=== PATIENT | male | born 1950 | race Hispanic/Latino ===

== ENCOUNTER 2020-08-06 13:09 | Inpatient (IN) | payer MEDICARE ==
[2020-08-06] MEDS ORDERED: SODIUM CHLORIDE 0.9% 1000 ML IV SOLN IV ONE (13:47)
[2020-08-06] MEDS ORDERED: CEFEPIME/NS 1 GM/100 ML 1 GM/100 ML BAG IV ONE (13:49)
--- NOTE | 2020-08-06 14:23 | XRay Report ---
CHEST 1 VIEW 08/06/2020 1:15 PM INDICATION / CLINICAL INFORMATION: Hypertension. COMPARISON: Chest one view dated 11/08/2008. FINDINGS: SUPPORT DEVICES: Unremarkable biventricular left ICD. HEART / MEDIASTINUM: Normal heart size with moderate aortic atherosclerosis. LUNGS / PLEURA: Clear lungs with reduced volumes. No significant pleural effusion. No pneumothorax. ADDITIONAL FINDINGS: No significant additional findings. IMPRESSION: 1. No acute abnormality of the chest. Signer Name: Jan Colón MD Signed: 08/06/2020 2:19 PM Workstation Name: [id number]
--- NOTE | 2020-08-06 14:36 | Emergency Department Report ---
ED General Adult HPI - General Chief complaint: Weakness Stated complaint: WEAKNESS,NOT EATING,NOT DRINKING Time Seen by Provider: 08/06/20 13:31 Source: EMS Mode of arrival: Stretcher Limitations: No Limitations - History of Present Illness Initial comments: The patient presents to the emergency department with a chief complaint of feeling weak for the last 3 days as well as having a cough. Upon initial presentation to the emergency department the patient's blood pressure was 76/58. Patient states he cannot eat and is also cannot swallow because he so dry. Patient denies chest pain, shortness breath, or headache. Patient also denies abdominal pain. -: Gradual Severity scale (0 -10): 0 Consistency: constant Improves with: none Worsens with: none Associated Symptoms: denies other symptoms Treatments Prior to Arrival: none - Related Data Allergies Allergy/AdvReac Type Severity Reaction Status Date / Time tetanus and diphtheria AdvReac Unknown Verified 08/06/20 14:20 toxoids ED Review of Systems ROS: Stated complaint: WEAKNESS,NOT EATING,NOT DRINKING Other details as noted in HPI Constitutional: denies: chills, fever Eyes: denies: eye pain, eye discharge, vision change ENT: denies: ear pain, throat pain Respiratory: denies: cough, shortness of breath, wheezing Cardiovascular: denies: chest pain, palpitations Endocrine: no symptoms reported Gastrointestinal: denies: abdominal pain, nausea, diarrhea Genitourinary: denies: urgency, dysuria Musculoskeletal: denies: back pain, joint swelling, arthralgia Skin: denies: rash, lesions Neurological: weakness. denies: headache, paresthesias Psychiatric: denies: anxiety, depression Hematological/Lymphatic: denies: easy bleeding, easy bruising ED Past Medical Hx - Past Medical History Previous Medical History?: Yes Hx Congestive Heart Failure: Yes - Social History Smoking Status: Current Some Day Smoker Substance Use Type: Alcohol ED Physical Exam - General Limitations: No Limitations General appearance: alert, in no apparent distress - Head Head exam: Present: atraumatic, normocephalic - Eye Eye exam: Present: normal appearance - ENT ENT exam: Present: mucous membranes dry - Neck Neck exam: Present: normal inspection - Respiratory Respiratory exam: Present: normal lung sounds bilaterally. Absent: respiratory distress, wheezes, rales - Cardiovascular Cardiovascular Exam: Present: regular rate, normal rhythm. Absent: systolic murmur, diastolic murmur, rubs, gallop - GI/Abdominal GI/Abdominal exam: Present: soft, normal bowel sounds. Absent: distended, ten derness - Rectal Rectal exam: Present: deferred - Extremities Exam Extremities exam: Present: normal inspection - Back Exam Back exam: Present: normal inspection - Neurological Exam Neurological exam: Present: alert, oriented X3, CN II-XII intact. Absent: motor sensory deficit - Psychiatric Psychiatric exam: Present: normal affect, normal mood - Skin Skin exam: Present: warm, dry, intact, other (Jaundice). Absent: rash ED Course Vital Signs 08/06/20 08/06/20 08/06/20 13:23 13:37 13:45 Temperature 98.2 F Pulse Rate 88 Respiratory 20 Rate Blood Pressure 106/78 70/36 77/34 O2 Sat by Pulse 97 92 91 Oximetry 08/06/20 08/06/20 08/06/20 14:00 14:15 14:31 Temperature Pulse Rate 84 80 74 Respiratory 32 H 14 30 H Rate Blood Pressure 84/42 84/42 76/35 O2 Sat by Pulse 93 93 93 Oximetry 08/06/20 08/06/20 08/06/20 14:45 15:00 15:15 Temperature Pulse Rate 80 78 72 Respiratory 25 H 26 H 20 Rate Blood Pressure 85/35 80/30 80/30 O2 Sat by Pulse 93 92 92 Oximetry 08/06/20 08/06/20 08/06/20 15:31 15:45 16:00 Temperature Pulse Rate 78 79 72 Respiratory 22 12 20 Rate Blood Pressure 90/34 93/39 100/34 O2 Sat by Pulse 91 92 91 Oximetry 08/06/20 08/06/20 08/06/20 16:15 16:31 16:45 Temperature Pulse Rate 75 75 81 Respiratory 12 26 H 31 H Rate Blood Pressure 100/34 88/32 105/43 O2 Sat by Pulse 91 95 Oximetry 08/06/20 08/06/20 08/06/20 17:30 18:31 19:00 Temperature Pulse Rate 78 79 Respiratory 16 30 H 22 Rate Blood Pressure 82/19 90/38 O2 Sat by Pulse 97 92 91 Oximetry - Central Line Placement Right Femoral Consent Obtained: emergent situation Time Out Performed: Yes Patient Placed on Monitor/Pulse Ox: Yes Prep: mask, gown, gloves Central Line Prep: Chlorhexidine scrub, sterile drapes applied Local Anesthesia Used: Lidocaine 1% Amount of Anesthesia Used (mls): 5 Ultrasound Used for Placement: No Central Line Lumen Inserted: triple Bloods Obtained for Lab: No Central Line Position: good blood return, all ports aspirated, flus, sutured in place with 2-0 Dressing Applied: Tegaderm, sterile gauze/tape Patient Tolerated Procedure: well, no complications Complications: none ED Medical Decision Making - Lab Data Result diagrams: 08/06/20 14:42 08/06/20 14:42 Lab Results 08/06/20 08/06/20 08/06/20 Range/Units 14:42 14:42 14:42 WBC 10.0 (4.5-11.0) K/mm3 RBC 4.64 (3.65-5.03) M/mm3 Hgb 13.2 (11.8-15.2) gm/dl Hct 38.0 (35.5-45.6) % MCV 82 L (84-94) fl MCH 28 (28-32) pg MCHC 35 H (32-34) % RDW 22.0 H (13.2-15.2) % Plt Count 189 (140-440) K/mm3 Add Manual Diff Complete Total Counted 100 Seg Neutrophils % Pta Seg Neuts % (Manual) 89.0 H (40.0-70.0) % Band Neutrophils % 0 % Lymphocytes % (Manual) 6.0 L (13.4-35.0) % Reactive Lymphs % (Man) 0 % Monocytes % (Manual) 5.0 (0.0-7.3) % Eosinophils % (Manual) 0 (0.0-4.3) % Basophils % (Manual) 0 (0.0-1.8) % Metamyelocytes % 0 % Myelocytes % 0 % Promyelocytes % 0 % Blast Cells % 0 % Nucleated RBC % Not Reportable Seg Neutrophils # Man 8.9 H (1.8-7.7) K/mm3 Band Neutrophils # 0.0 K/mm3 Lymphocytes # (Manual) 0.6 L (1.2-5.4) K/mm3 Abs React Lymphs (Man) 0.0 K/mm3 Monocytes # (Manual) 0.5 (0.0-0.8) K/mm3 Eosinophils # (Manual) 0.0 (0.0-0.4) K/mm3 Basophils # (Manual) 0.0 (0.0-0.1) K/mm3 Metamyelocytes # 0.0 K/mm3 Myelocytes # 0.0 K/mm3 Promyelocytes # 0.0 K/mm3 Blast Cells # 0.0 K/mm3 WBC Morphology Not Reportable Hypersegmented Neuts Not Reportable Hyposegmented Neuts Not Reportable Hypogranular Neuts Not Reportable Smudge Cells Not Reportable Toxic Granulation Not Reportable Toxic Vacuolation Not Reportable Dohle Bodies Not Reportable Pelger-Huet Anomaly Not Reportable Shady Rods Not Reportable Platelet Estimate Not Reportable Clumped Platelets Not Reportable Plt Clumps, EDTA Not Reportable Large Platelets Not Reportable Giant Platelets Not Reportable Platelet Satelliting Not Reportable Plt Morphology Comment Not Reportable RBC Morphology Not Reportable Dimorphic RBCs Not Reportable Polychromasia Not Reportable Hypochromasia Not Reportable Poikilocytosis Not Reportable Anisocytosis 1+ Microcytosis Few Macrocytosis Not Reportable Spherocytes Not Reportable Pappenheimer Bodies Not Reportable Sickle Cells Not Reportable Target Cells Not Reportable Tear Drop Cells Not Reportable Ovalocytes Not Reportable Helmet Cells Not Reportable Koroma-[place] Bodies Not Reportable [place] Rings Not Reportable [place] Cells Not Reportable Bite Cells Not Reportable Crenated Cell Not Reportable Elliptocytes Not Reportable Acanthocytes (Spur) Not Reportable Rouleaux Not Reportable Hemoglobin C Crystals Not Reportable Schistocytes Not Reportable Malaria parasites Not Reportable Theodore Bodies Not Reportable Hem Pathologist Commnt No APTT 37.2 H (24.2-36.6) Sec. Sodium 134 L (137-145) mmol/L Potassium 4.6 (3.6-5.0) mmol/L Chloride 83.6 L (98-107) mmol/L Carbon Dioxide 26 (22-30) mmol/L Anion Gap 29 mmol/L BUN 82 H (9-20) mg/dL Creatinine 4.5 H (0.8-1.3) mg/dL Estimated GFR 13 ml/min BUN/Creatinine Ratio 18 % Glucose 205 H (75-100) mg/dL Lactic Acid (0.7-2.0) mmol/L Calcium 8.4 (8.4-10.2) mg/dL Phosphorus (2.5-4.5) mg/dL Magnesium (1.7-2.3) mg/dL Total Bilirubin 9.70 H (0.1-1.2) mg/dL AST 63 H (5-40) units/L ALT 82 H (7-56) units/L Alkaline Phosphatase 263 H (35-129) units/L Total Creatine Kinase (55-170) units/L Troponin T 0.036 H (0.00-0.029) ng/mL NT-Pro-B Natriuret Pep (0-900) pg/mL Total Protein 6.4 (6.3-8.2) g/dL Albumin 3.4 L (3.9-5) g/dL Albumin/Globulin Ratio 1.1 % Lipase (13-60) units/L 08/06/20 08/06/20 08/06/20 Range/Units 14:42 14:42 14:42 WBC (4.5-11.0) K/mm3 RBC (3.65-5.03) M/mm3 Hgb (11.8-15.2) gm/dl Hct (35.5-45.6) % MCV (84-94) fl MCH (28-32) pg MCHC (32-34) % RDW (13.2-15.2) % Plt Count (140-440) K/mm3 Add Manual Diff Total Counted Seg Neutrophils % Seg Neuts % (Manual) (40.0-70.0) % Band Neutrophils % % Lymphocytes % (Manual) (13.4-35.0) % Reactive Lymphs % (Man) % Monocytes % (Manual) (0.0-7.3) % Eosinophils % (Manual) (0.0-4.3) % Basophils % (Manual) (0.0-1.8) % Metamyelocytes % % Myelocytes % % Promyelocytes % % Blast Cells % % Nucleated RBC % Seg Neutrophils # Man (1.8-7.7) K/mm3 Band Neutrophils # K/mm3 Lymphocytes # (Manual) (1.2-5.4) K/mm3 Abs React Lymphs (Man) K/mm3 Monocytes # (Manual) (0.0-0.8) K/mm3 Eosinophils # (Manual) (0.0-0.4) K/mm3 Basophils # (Manual) (0.0-0.1) K/mm3 Metamyelocytes # K/mm3 Myelocytes # K/mm3 Promyelocytes # K/mm3 Blast Cells # K/mm3 WBC Morphology Hypersegmented Neuts Hyposegmented Neuts Hypogranular Neuts Smudge Cells Toxic Granulation Toxic Vacuolation Dohle Bodies Pelger-Huet Anomaly Shady Rods Platelet Estimate Clumped Platelets Plt Clumps, EDTA Large Platelets Giant Platelets Platelet Satelliting Plt Morphology Comment RBC Morphology Dimorphic RBCs Polychromasia Hypochromasia Poikilocytosis Anisocytosis Microcytosis Macrocytosis Spherocytes Pappenheimer Bodies Sickle Cells Target Cells Tear Drop Cells Ovalocytes Helmet Cells Kor[place] Bodies [place] Rings [place] Cells Bite Cells Crenated Cell Elliptocytes Acanthocytes (Spur) Rouleaux Hemoglobin C Crystals Schistocytes Malaria parasites Theodore Bodies Hem Pathologist Commnt APTT (24.2-36.6) Sec. Sodium (137-145) mmol/L Potassium (3.6-5.0) mmol/L Chloride (98-107) mmol/L Carbon Dioxide (22-30) mmol/L Anion Gap mmol/L BUN (9-20) mg/dL Creatinine (0.8-1.3) mg/dL Estimated GFR ml/min BUN/Creatinine Ratio % Glucose (75-100) mg/dL Lactic Acid 4.60 H* (0.7-2.0) mmol/L Calcium (8.4-10.2) mg/dL Phosphorus 6.80 H (2.5-4.5) mg/dL Magnesium 1.60 L (1.7-2.3) mg/dL Total Bilirubin (0.1-1.2) mg/dL AST (5-40) units/L ALT (7-56) units/L Alkaline Phosphatase (35-129) units/L Total Creatine Kinase 240 H (55-170) units/L Troponin T (0.00-0.029) ng/mL NT-Pro-B Natriuret Pep 19203 H (0-900) pg/mL Total Protein (6.3-8.2) g/dL Albumin (3.9-5) g/dL Albumin/Globulin Ratio % Lipase 14 (13-60) units/L 08/06/20 08/06/2020 Range/Units 15:34 18:33 18:33 WBC (4.5-11.0) K/mm3 RBC (3.65-5.03) M/mm3 Hgb (11.8-15.2) gm/dl Hct (35.5-45.6) % MCV (84-94) fl MCH (28-32) pg MCHC (32-34) % RDW (13.2-15.2) % Plt Count (140-440) K/mm3 Add Manual Diff Total Counted Seg Neutrophils % Seg Neuts % (Manual) (40.0-70.0) % Band Neutrophils % % Lymphocytes % (Manual) (13.4-35.0) % Reactive Lymphs % (Man) % Monocytes % (Manual) (0.0-7.3) % Eosinophils % (Manual) (0.0-4.3) % Basophils % (Manual) (0.0-1.8) % Metamyelocytes % % Myelocytes % % Promyelocytes % % Blast Cells % % Nucleated RBC % Seg Neutrophils # Man (1.8-7.7) K/mm3 Band Neutrophils # K/mm3 Lymphocytes # (Manual) (1.2-5.4) K/mm3 Abs React Lymphs (Man) K/mm3 Monocytes # (Manual) (0.0-0.8) K/mm3 Eosinophils # (Manual) (0.0-0.4) K/mm3 Basophils # (Manual) (0.0-0.1) K/mm3 Metamyelocytes # K/mm3 Myelocytes # K/mm3 Promyelocytes # K/mm3 Blast Cells # K/mm3 WBC Morphology Hypersegmented Neuts Hyposegmented Neuts Hypogranular Neuts Smudge Cells Toxic Granulation Toxic Vacuolation Dohle Bodies Pelger-Huet Anomaly Shady Rods Platelet Estimate Clumped Platelets Plt Clumps, EDTA Large Platelets Giant Platelets Platelet Satelliting Plt Morphology Comment RBC Morphology Dimorphic RBCs Polychromasia Hypochromasia Poikilocytosis Anisocytosis Microcytosis Macrocytosis Spherocytes Pappenheimer Bodies Sickle Cells Target Cells Tear Drop Cells Ovalocytes Helmet Cells Koroma-[place] Bodies [place] Rings Panda Cells Bite Cells Crenated Cell Elliptocytes Acanthocytes (Spur) Rouleaux Hemoglobin C Crystals Schistocytes Malaria parasites Theodore Bodies Hem Pathologist Commnt APTT (24.2-36.6) Sec. Sodium (137-145) mmol/L Potassium (3.6-5.0) mmol/L Chloride (98-107) mmol/L Carbon Dioxide (22-30) mmol/L Anion Gap mmol/L BUN (9-20) mg/dL Creatinine (0.8-1.3) mg/dL Estimated GFR ml/min BUN/Creatinine Ratio % Glucose (75-100) mg/dL Lactic Acid 4.10 H* 3.60 H* (0.7-2.0) mmol/L Calcium (8.4-10.2) mg/dL Phosphorus (2.5-4.5) mg/dL Magnesium (1.7-2.3) mg/dL Total Bilirubin (0.1-1.2) mg/dL AST (5-40) units/L ALT (7-56) units/L Alkaline Phosphatase (35-129) units/L Total Creatine Kinase (55-170) units/L Troponin T 0.023 (0.00-0.029) ng/mL NT-Pro-B Natriuret Pep (0-900) pg/mL Total Protein (6.3-8.2) g/dL Albumin (3.9-5) g/dL Albumin/Globulin Ratio % Lipase (13-60) units/L - Radiology Data Radiology results: report reviewed - Medical Decision Making The patient received a 30 cc bolus per kilogram IV fluids with adequate response of his blood pressure to systolic greater than 100 Patient systolic BP been decreased to 86 and at that time a central line was placed in the patient was started on a pressor. IV antibiotics were initiated Critical Care Time: Yes Critical care time in (mins) excluding proc time.: 45 Critical care attestation.: If time is entered above; I have spent that time in minutes in the direct care of this critically ill patient, excluding procedure time. ED Disposition Clinical Impression: Hypotension, Lactic acidosis, Renal failure, Transaminitis Disposition: OP ADMIT IP TO THIS HOSP Is pt being admited?: Yes Does the pt Need Aspirin: No Condition: Stable
[2020-08-06 15:08] LABS: Hemoglobin 13.2 gm/dl (11.8-15.2); Mean Corpuscular HGB Conc 35 % (32-34); Mean Corpuscular Volume 82 fl (84-94); Platelet Count 189 K/mm3 (140-440); Red Blood Count 4.64 M/mm3 (3.65-5.03)
[2020-08-06 15:30] LABS: Albumin 3.4 g/dL (3.9-5); Calcium 8.4 mg/dL (8.4-10.2)
[2020-08-06 17:02] LABS: Anisocytosis 1+; Basophils % (Manual) 0 % (0.0-1.8); Eosinophils % (Manual) 0 % (0.0-4.3); Total Cells Counted 100
[2020-08-06] MEDS ORDERED: SODIUM CHLORIDE 0.9% 1000 ML 1,000 ML ONE (17:16)
--- NOTE | 2020-08-06 18:42 | History and Physical Report ---
History of Present Illness Chief complaint: I feel weak, tired, and sick History of present illness: 70 YO Male with CHF, Nicotine Dependence presents to ED for evaluation. Patient states that he has experienced generalized weakness over the past 3 days with progressively worsening symptoms over the past 2 days. Patient acknowledges decreased exercise tolerance, dyspnea on exertion, dyspnea at rest, orthopnea, paroxysmal nocturnal dyspnea. Patient also reports jaundice, and 20 pound weight loss within the past month. EMS notified and upon arrival the patient was found to be in distress and subsequently transported to [facility] for further care and evaluation of the aforementioned symptoms. Patient seen and evaluated in the emergency department. Lab and imaging studies reviewed. Patient found to have symptoms consistent with CHF decompensation, acute kidney injury, hepatorenal syndrome, as well as painless jaundice suspected secondary to pancreatic head mass. Patient experienced hemodynamic instability during the emergency department with a drop in his blood pressure to 76/58. Patient treated with IV fluid resuscitation therapy with mild improvement in symptoms. Patient admitted to [facility] and initiated on CHF protocol due to increased risk of multiple organ system decompensation. Past History Past Medical History: heart failure Social history: smoking Medications and Allergies Allergies Allergy/AdvReac Type Severity Reaction Status Date / Time tetanus and diphtheria AdvReac Unknown Verified 08/06/20 14:20 toxoids Home Medications Medication Instructions Recorded Confirmed Last Taken Type Metformin HCl [metFORMIN] 1,000 mg PO BID 08/06/20 08/06/20 Unknown History Omeprazole 40 mg PO DAILY 08/06/20 08/06/20 Unknown History Rivaroxaban [Xarelto] 20 mg PO QDAY 08/06/20 08/06/20 Unknown History Sacubitril/Valsartan [Entresto 1 each PO BID 08/06/20 08/06/20 Unknown History 49-51 mg] Sertraline [Zoloft] 25 mg PO QDAY 08/06/20 08/06/20 Unknown History Spironolactone [Aldactone] 25 ng PO DAILY 08/06/20 08/06/20 Unknown History Torsemide [Demadex] 50 mg PO DAILY 08/06/20 08/06/20 Unknown History Zolpidem [Ambien] 5 mg PO QHS PRN 08/06/20 08/06/20 Unknown History carvediloL [Coreg] 6.25 mg PO BID 08/06/20 08/06/20 Unknown History traZODone [Desyrel] 50 mg PO QHS 08/06/20 08/06/20 Unknown History Review of Systems Constitutional: weight loss, fatigue, weakness, malaise, no weight gain, no fever, no chills Ears, nose, mouth and throat: no ear pain, no ear discharge, no tinnitis, no decreased hearing, no nose pain Cardiovascular: no chest pain, no orthopnea, no palpitations, no rapid/irregular heart beat, no syncope Respiratory: no cough, no cough with sputum, no excessive sputum, no hemoptysis Gastrointestinal: jaundice, no nausea, no vomiting, no diarrhea, no constipation Genitourinary Male: no hematuria, no flank pain, no urinary frequency, no urinary hesitancy, no nocturia Rectal: no pain, no incontinence, no bleeding Musculoskeletal: no neck stiffness, no shooting arm pain, no arm numbness/tingling, no shooting leg pain Integumentary: no rash, no pruritis, no redness, no sores Neurological: no transient paralysis, no paralysis, no weakness, no parathesias, no tingling, no seizures, no lack of coordination Psychiatric: no anxiety, no memory loss, no change in sleep habits, no insomnia, no hypersomnia Endocrine: no cold intolerance, no polyphagia, no polyuria, no nocturia Hematologic/Lymphatic: no easy bruising, no easy bleeding Allergic/Immunologic: no urticaria, no wheezing Exam - Constitutional Vitals: Temp Pulse Resp BP Pulse Ox 98.2 F 81 31 H 105/43 95 08/06/20 13:23 08/06/20 16:45 08/06/20 16:45 08/06/20 16:45 08/06/20 16:45 General appearance: Present: mild distress, cachectic - EENT Eyes: Present: scleral icterus ENT: hearing intact, clear oral mucosa - Neck Neck: Present: supple, normal ROM - Respiratory Respiratory effort: normal Respiratory: bilateral: CTA - Cardiovascular Heart Sounds: Present: S1 & S2. Absent: rub, click - Extremities Extremities: pulses symmetrical Extremity abnormal: edema Peripheral Pulses: within normal limits - Abdominal General gastrointestinal: Present: soft, non-tender, non-distended, normal bowel sounds Male genitourinary: Present: normal - Integumentary Integumentary: Present: clear, warm, dry - Musculoskeletal Musculoskeletal: generalized weakness - Psychiatric Psychiatric: appropriate mood/affect, intact judgment & insight - Neurologic Neurologic: CNII-XII intact, moves all extremities HEART Score - HEART Score Troponin: Troponin T 0.036 ng/mL (0.00-0.029) H 08/06/20 14:42 Results - Labs CBC & Chem 7: 08/06/20 14:42 08/06/20 14:42 Labs: Abnormal lab results 08/06/20 08/06/20 08/06/20 Range/Units 14:42 14:42 14:42 MCV 82 L (84-94) fl MCHC 35 H (32-34) % RDW 22.0 H (13.2-15.2) % Seg Neuts % (Manual) 89.0 H (40.0-70.0) % Lymphocytes % (Manual) 6.0 L (13.4-35.0) % Seg Neutrophils # Man 8.9 H (1.8-7.7) K/mm3 Lymphocytes # (Manual) 0.6 L (1.2-5.4) K/mm3 APTT 37.2 H (24.2-36.6) Sec. Sodium 134 L (137-145) mmol/L Chloride 83.6 L (98-107) mmol/L BUN 82 H (9-20) mg/dL Creatinine 4.5 H (0.8-1.3) mg/dL Glucose 205 H (75-100) mg/dL Lactic Acid (0.7-2.0) mmol/L Phosphorus (2.5-4.5) mg/dL Magnesium (1.7-2.3) mg/dL Total Bilirubin 9.70 H (0.1-1.2) mg/dL AST 63 H (5-40) units/L ALT 82 H (7-56) units/L Alkaline Phosphatase 263 H (35-129) units/L Total Creatine Kinase (55-170) units/L Troponin T 0.036 H (0.00-0.029) ng/mL NT-Pro-B Natriuret Pep (0-900) pg/mL Albumin 3.4 L (3.9-5) g/dL 08/06/20 08/06/20 08/06/20 Range/Units 14:42 14:42 14:42 MCV (84-94) fl MCHC (32-34) % RDW (13.2-15.2) % Seg Neuts % (Manual) (40.0-70.0) % Lymphocytes % (Manual) (13.4-35.0) % Seg Neutrophils # Man (1.8-7.7) K/mm3 Lymphocytes # (Manual) (1.2-5.4) K/mm3 APTT (24.2-36.6) Sec. Sodium (137-145) mmol/L Chloride (98-107) mmol/L BUN (9-20) mg/dL Creatinine (0.8-1.3) mg/dL Glucose (75-100) mg/dL Lactic Acid 4.60 H* (0.7-2.0) mmol/L Phosphorus 6.80 H (2.5-4.5) mg/dL Magnesium 1.60 L (1.7-2.3) mg/dL Total Bilirubin (0.1-1.2) mg/dL AST (5-40) units/L ALT (7-56) units/L Alkaline Phosphatase (35-129) units/L Total Creatine Kinase 240 H (55-170) units/L Troponin T (0.00-0.029) ng/mL NT-Pro-B Natriuret Pep 08486 H (0-900) pg/mL Albumin (3.9-5) g/dL 08/06/20 Range/Units 15:34 MCV (84-94) fl MCHC (32-34) % RDW (13.2-15.2) % Seg Neuts % (Manual) (40.0-70.0) % Lymphocytes % (Manual) (13.4-35.0) % Seg Neutrophils # Man (1.8-7.7) K/mm3 Lymphocytes # (Manual) (1.2-5.4) K/mm3 APTT (24.2-36.6) Sec. Sodium (137-145) mmol/L Chloride (98-107) mmol/L BUN (9-20) mg/dL Creatinine (0.8-1.3) mg/dL Glucose (75-100) mg/dL Lactic Acid 4.10 H* (0.7-2.0) mmol/L Phosphorus (2.5-4.5) mg/dL Magnesium (1.7-2.3) mg/dL Total Bilirubin (0.1-1.2) mg/dL AST (5-40) units/L ALT (7-56) units/L Alkaline Phosphatase (35-129) units/L Total Creatine Kinase (55-170) units/L Troponin T (0.00-0.029) ng/mL NT-Pro-B Natriuret Pep (0-900) pg/mL Albumin (3.9-5) g/dL Assessment and Plan - Patient Problems (1) CHF (congestive heart failure) Current Visit: Yes Status: Acute Qualifiers: Heart failure chronicity: acute on chronic Plan to address problem: Strict I's/O, monitor urine output every shift, daily weight, afterload reductio n, hold antihypertensive therapy for now due to hypotension, echocardiogram, cardiology consulted in ED (2) Acute kidney injury (ROBERTH) with acute tubular necrosis (ATN) Current Visit: Yes Status: Acute Plan to address problem: Monitor urine output every shift, supportive care, nephrology team consulted. (3) Hepatorenal syndrome Current Visit: Yes Status: Acute Plan to address problem: Supportive care, nephrology team consulted, hold IV fluids for now, encourage free water intake. (4) Pancreatic cancer Current Visit: Yes Status: Suspected Qualifiers: Pancreatic malignancy location: head of pancreas Qualified Code(s): C25.0 - Malignant neoplasm of head of pancreas Plan to address problem: CT scan abdomen and pelvis, supportive care, liver function test. (5) Biliary obstruction Current Visit: Yes Status: Acute Plan to address problem: Supportive care, CT scan abdomen and pelvis, pain control. (6) DVT prophylaxis Current Visit: Yes Status: Acute Plan to address problem: SCD to bilateral lower extremities while in bed, hold anticoagulation now due to elevated liver function test. (7) Advance care planning Current Visit: Yes Status: Acute Plan to address problem: Disease education conducted, supportive care, patient is full code, disease education conducted, patient family knowledges understanding and agreement with care plan. +30 minutes
[2020-08-06] MEDS ORDERED: LIDOCAINE (1%) 10 MG/1 ML VIAL 20 ML MDV ONE (18:59)
[2020-08-06] MEDS: NORepinephrine/NS 4 MG-250 ML 4 MG/250 ML BAG IV SCH (19:19)
[2020-08-06 19:23] LABS: Free T4 (Free Thyroxine) 1.34 ng/dL (0.76-1.46)
[2020-08-06] MEDS ORDERED: NORepinephrine/NS 4 MG-250 ML 4 MG/250 ML BAG IV SCH (20:00)
[2020-08-06 21:22] LABS: Bilirubin,Urine NEG (Negative); Blood,Urine LG (Negative); Color,Urine Amber (Yellow)
[2020-08-06 21:29] LABS: Amphetamine Screen,Urine PRESUMPTIVE NEGATIVE; Benzodiazepines Screen,Urine PRESUMPTIVE NEGATIVE; Cannabinoid Screen,Urine PRESUMPTIVE NEGATIVE; Cocaine Screen,Urine PRESUMPTIVE NEGATIVE; Methadone Screen,Urine PRESUMPTIVE NEGATIVE; Opiate Screen,Urine PRESUMPTIVE NEGATIVE
--- NOTE | 2020-08-06 22:30 | Cat Scan Report ---
CT ABDOMEN AND PELVIS WITHOUT CONTRAST HISTORY: elevated bili. COMPARISON: CT chest from 03/02/2018 TECHNIQUE: CT images of the abdomen and pelvis were obtained without administration of intravenous co ntrast. All CT scans at this location are performed using CT dose reduction for ALARA by means of au tomated exposure control. FINDINGS: Lungs/bones: There is mild bibasilar atelectasis and a trace left-sided pleural effusion. There is c ardiomegaly with atherosclerotic disease in the coronary arteries and cardiac leads in place. Degener ative changes are present throughout the spine and pelvis with no acute osseous abnormality identifie d. Abdomen/pelvis: There is borderline hepatic steatosis. The gallbladder is dilated with minimal inter nal cholelithiasis but there is surrounding inflammatory change. There is also a 6 mm stone near the ampulla with mild dilatation of the CBD. The spleen, pancreas, and adrenals appear unremarkable. There is bilateral nonobstructive nephrolithi asis with largest overall seen on the right measuring 6 mm and a 1 mm stone on the left in the lower pole. There is a simple cyst in the left upper pole. There is a small hiatal hernia with fluid-filled distal esophagus. The proximal GI tract is otherwise unremarkable. There is severe atherosclerotic disease abdominal aorta and branch vessels. Bladder is unremarkable. The prostate is enlarged and indents the bladder base. No pelvic free fluid. There is no acute coloni c abnormality. IMPRESSION: 1. Acute cholecystitis. There is also choledocholithiasis. 2. Additional incidental findings as above. Signer Name: Dimas Ashby MD Signed: 08/06/2020 10:26 PM Workstation Name: [id number]
[2020-08-06] MEDS ORDERED: DEXTROSE 50% IN WATER (25GM) 50 ML SYRINGE IV PRN (22:56)
[2020-08-06] MEDS ORDERED: INSULIN LISPRO 100 UNIT/ML VIAL 3 mL SUB-Q SCH (23:00)
[2020-08-07] MEDS: MORPHINE 2 MG/1 ML INJ IV PRN ×2 (01:36→22:13)
[2020-08-07 06:12] LABS: Basophils % (Auto) 0.2 % (0.0-1.8); Eosinophils # (Auto) 0.1 K/mm3 (0.0-0.4); Eosinophils % (Auto) 0.6 % (0.0-4.3); Hematocrit 34.3 % (35.5-45.6); Hemoglobin 12.4 gm/dl (11.8-15.2); Lymphocytes # (Auto) 0.6 K/mm3 (1.2-5.4); Mean Corpuscular HGB Conc 36 % (32-34); Mean Corpuscular Volume 81 fl (84-94); Monocytes # (Auto) 0.4 K/mm3 (0.0-0.8); Monocytes % (Auto) 3.8 % (0.0-7.3); Platelet Count 167 K/mm3 (140-440); Red Blood Count 4.26 M/mm3 (3.65-5.03)
[2020-08-07 06:14] LABS: Red Cell Distribution Width 21.9 % (13.2-15.2)
[2020-08-07 06:32] LABS: Albumin 3.1 g/dL (3.9-5); Calcium 7.8 mg/dL (8.4-10.2)
[2020-08-07] MEDS: INSULIN LISPRO 100 UNIT/ML VIAL 3 mL SUB-Q SCH ×3 (06:32→17:26)
--- NOTE | 2020-08-07 07:43 | Consultation ---
History of Present Illness Consult date: 08/07/20 Requesting physician: BILL BAUER Past History Past Medical History: heart failure Social history: smoking Medications and Allergies Allergies Allergy/AdvReac Type Severity Reaction Status Date / Time tetanus and diphtheria AdvReac Unknown Verified 08/06/20 14:20 toxoids Home Medications Medication Instructions Recorded Confirmed Last Taken Type Metformin HCl [metFORMIN] 1,000 mg PO BID 08/06/20 08/06/20 Unknown History Omeprazole 40 mg PO DAILY 08/06/20 08/06/20 Unknown History Rivaroxaban [Xarelto] 20 mg PO QDAY 08/06/20 08/06/20 Unknown History Sacubitril/Valsartan [Entresto 1 each PO BID 08/06/20 08/06/20 Unknown History 49-51 mg] Sertraline [Zoloft] 25 mg PO QDAY 08/06/20 08/06/20 Unknown History Spironolactone [Aldactone] 25 ng PO DAILY 08/06/20 08/06/20 Unknown History Torsemide [Demadex] 50 mg PO DAILY 08/06/20 08/06/20 Unknown History Zolpidem [Ambien] 5 mg PO QHS PRN 08/06/20 08/06/20 Unknown History carvediloL [Coreg] 6.25 mg PO BID 08/06/20 08/06/20 Unknown History traZODone [Desyrel] 50 mg PO QHS 08/06/20 08/06/20 Unknown History Active Meds: Active Medications Dextrose (D50w (25gm) Syringe) 0 ml IV Q30MIN PRN; Protocol PRN Reason: Hypoglycemia Norepinephrine (Levophed Drip 4 Mg/Ns 250 Ml) 4 mg in 250 mls @ 7.5 mls/hr IV TITR [facility]; Protocol Last Titration: 08/06/20 20:10 Dose: 8 mcg/min, 30 mls/hr Documented by: Insulin Human Lispro (Humalog) 0 unit SUB-Q Q6HR [facility]; Protocol Last Admin: 08/07/20 06:32 Dose: Not Given Documented by: Morphine Sulfate (Morphine) 2 mg IV Q4H PRN PRN Reason: Pain, Moderate (4-6) Last Admin: 08/07/20 01:36 Dose: 2 mg Documented by: Sodium Chloride (Sodium Chloride Flush Syringe 10 Ml) 10 ml IV BID [facility] Sodium Chloride (Sodium Chloride Flush Syringe 10 Ml) 10 ml IV PRN PRN PRN Reason: LINE FLUSH Physical Examination Vital signs: Vital Signs Temp Pulse Resp BP Pulse Ox 98.2 F 88 20 106/78 97 08/06/20 13:23 08/06/20 13:23 08/06/20 13:23 08/06/20 13:23 08/06/20 13:23 Results - Laboratory Findings CBC and BMP: 08/07/20 04:00 08/07/20 04:00 Abnormal lab findings: Abnormal Labs 08/06/20 08/06/20 08/06/20 14:42 14:42 14:42 Hct MCV 82 L MCHC 35 H RDW 22.0 H Lymph % (Auto) Lymph # Seg Neutrophils % Seg Neuts % (Manual) 89.0 H Lymphocytes % (Manual) 6.0 L Seg Neutrophils # Seg Neutrophils # Man 8.9 H Lymphocytes # (Manual) 0.6 L APTT 37.2 H Sodium 134 L Chloride 83.6 L BUN 82 H Creatinine 4.5 H Glucose 205 H POC Glucose Lactic Acid Calcium Phosphorus Magnesium Total Bilirubin 9.70 H AST 63 H ALT 82 H Alkaline Phosphatase 263 H Total Creatine Kinase Troponin T 0.036 H NT-Pro-B Natriuret Pep Total Protein Albumin 3.4 L Urine WBC (Auto) 08/06/20 08/06/20 08/06/20 14:42 14:42 14:42 Hct MCV MCHC RDW Lymph % (Auto) Lymph # Seg Neutrophils % Seg Neuts % (Manual) Lymphocytes % (Manual) Seg Neutrophils # Seg Neutrophils # Man Lymphocytes # (Manual) APTT Sodium Chloride BUN Creatinine Glucose POC Glucose Lactic Acid 4.60 H* Calcium Phosphorus 6.80 H Magnesium 1.60 L Total Bilirubin AST ALT Alkaline Phosphatase Total Creatine Kinase 240 H Troponin T NT-Pro-B Natriuret Pep 09105 H Total Protein Albumin Urine WBC (Auto) 08/06/20 08/06/20 08/06/20 15:34 18:33 18:50 Hct MCV MCHC RDW Lymph % (Auto) Lymph # Seg Neutrophils % Seg Neuts % (Manual) Lymphocytes % (Manual) Seg Neutrophils # Seg Neutrophils # Man Lymphocytes # (Manual) APTT Sodium Chloride BUN Creatinine Glucose POC Glucose Lactic Acid 4.10 H* 3.60 H* Calcium Phosphorus Magnesium 1.60 L Total Bilirubin AST ALT Alkaline Phosphatase Total Creatine Kinase Troponin T NT-Pro-B Natriuret Pep Total Protein Albumin Urine WBC (Auto) 08/06/20 08/06/20 08/07/20 21:09 22:04 00:06 Hct MCV MCHC RDW Lymph % (Auto) Lymph # Seg Neutrophils % Seg Neuts % (Manual) Lymphocytes % (Manual) Seg Neutrophils # Seg Neutrophils # Man Lymphocytes # (Manual) APTT Sodium Chloride BUN Creatinine Glucose POC Glucose 188 H Lactic Acid 2.10 H* Calcium Phosphorus Magnesium Total Bilirubin AST ALT Alkaline Phosphatase Total Creatine Kinase Troponin T NT-Pro-B Natriuret Pep Total Protein Albumin Urine WBC (Auto) 20.0 H 08/07/20 08/07/20 08/07/20 04:00 04:00 05:56 Hct 34.3 L MCV 81 L MCHC 36 H RDW 21.9 H Lymph % (Auto) 6.0 L Lymph # 0.6 L Seg Neutrophils % 89.4 H Seg Neuts % (Manual) Lymphocytes % (Manual) Seg Neutrophils # 9.3 H Seg Neutrophils # Man Lymphocytes # (Manual) APTT Sodium 136 L Chloride 88.5 L BUN 87 H Creatinine 3.7 H Glucose 187 H POC Glucose 190 H Lactic Acid Calcium 7.8 L Phosphorus Magnesium Total Bilirubin 9.60 H AST 53 H ALT 66 H Alkaline Phosphatase 264 H Total Creatine Kinase Troponin T NT-Pro-B Natriuret Pep Total Protein 6.2 L Albumin 3.1 L Urine WBC (Auto)
[2020-08-07] MEDS: NORepinephrine/NS 4 MG-250 ML 4 MG/250 ML BAG IV SCH (07:54)
[2020-08-07] MEDS ORDERED: D5W/0.2% NACL 1,000 ML IV SCH (10:00)
--- NOTE | 2020-08-07 10:13 | Consultation ---
History of Present Illness - Reason for Consult Consult date: 08/07/20 acute renal failure - History of Present Illness The patient is a 70 YO male with history significant for DM type 2, CHF, Ni cotine Dependence and GERD who presented to [facility] ED 08/06 via EMS for evaluation of progressively worsening generalized weakness over the past 3 days. Patient is currently confused to provide any history at this time. He acknowledged decreased exercise tolerance, dyspnea at rest & exertion, Orthopnea and PND. He also reported jaundice, 20 pound weight loss within the past month. Patient seen and evaluated in the emergency department. Patient was found to have Creat 4.5, BUN 82, Lactate 4.6, T.Bili 9.7, elevated ALT & AST. CT abdomen showed Cholelithiasis. Initial BP was 70/30s. He is currently on Levophed. Patient was admitted to ICU. Nephrology was consulted for further evaluation. Past History Past Medical History: heart failure Social history: smoking Medications and Allergies Allergies Allergy/AdvReac Type Severity Reaction Status Date / Time tetanus and diphtheria AdvReac Unknown Verified 08/06/20 14:20 toxoids Home Medications Medication Instructions Recorded Confirmed Last Taken Type Metformin HCl [metFORMIN] 1,000 mg PO BID 08/06/20 08/06/20 Unknown History Omeprazole 40 mg PO DAILY 08/06/20 08/06/20 Unknown History Rivaroxaban [Xarelto] 20 mg PO QDAY 08/06/20 08/06/20 Unknown History Sacubitril/Valsartan [Entresto 1 each PO BID 08/06/20 08/06/20 Unknown History 49-51 mg] Sertraline [Zoloft] 25 mg PO QDAY 08/06/20 08/06/20 Unknown History Spironolactone [Aldactone] 25 ng PO DAILY 08/06/20 08/06/20 Unknown History Torsemide [Demadex] 50 mg PO DAILY 08/06/20 08/06/20 Unknown History Zolpidem [Ambien] 5 mg PO QHS PRN 08/06/20 08/06/20 Unknown History carvediloL [Coreg] 6.25 mg PO BID 08/06/20 08/06/20 Unknown History traZODone [Desyrel] 50 mg PO QHS 08/06/20 08/06/20 Unknown History Active Meds: Active Medications Dextrose (D50w (25gm) Syringe) 0 ml IV Q30MIN PRN; Protocol PRN Reason: Hypoglycemia Norepinephrine (Levophed Drip 4 Mg/Ns 250 Ml) 4 mg in 250 mls @ 7.5 mls/hr IV TITR [facility]; Protocol Last Admin: 08/07/20 07:54 Dose: 6 mcg/min, 22.5 mls/hr Documented by: Dextrose/Sodium Chloride (D5ns 0.2%) 1,000 mls @ 75 mls/hr IV DIRECT [facility] Insulin Human Lispro (Humalog) 0 unit SUB-Q Q6HR [facility]; Protocol Last Admin: 08/07/20 06:32 Dose: Not Given Documented by: Morphine Sulfate (Morphine) 2 mg IV Q4H PRN PRN Reason: Pain, Moderate (4-6) Last Admin: 08/07/20 01:36 Dose: 2 mg Documented by: Sodium Chloride (Sodium Chloride Flush Syringe 10 Ml) 10 ml IV BID [facility] Last Admin: 08/07/20 07:56 Dose: Not Given Documented by: Sodium Chloride (Sodium Chloride Flush Syringe 10 Ml) 10 ml IV PRN PRN PRN Reason: LINE FLUSH Review of Systems ROS unobtainable: due to mental status Exam - Vital Signs Vital signs: Vital Signs Temp Pulse Resp BP Pulse Ox 98.2 F 88 20 106/78 97 08/06/20 13:23 08/06/20 13:23 08/06/20 13:23 08/06/20 13:23 08/06/20 13:23 Results - Lab Results 08/07/20 04:00 08/07/20 04:00 Most recent lab results Calcium 7.8 mg/dL (8.4-10.2) L 08/07/20 04:00 Phosphorus 6.80 mg/dL (2.5-4.5) H 08/06/20 14:42 Magnesium 1.60 mg/dL (1.7-2.3) L 08/06/20 18:50 Assessment and Plan 1. Acute kidney injury: Likely Vasomotor ROBERTH in the setting of shock. CT abdomen was negative for hydro. Urine studies ordered. Monitor renal function. Slight decrease in the creatinine level noted. Renal prognosis is guarded. Avoid nephrotoxic agents. Meds dosage based on GFR. Baseline renal function is unknown. Monitor for [employer] needs. 2. FEN: Mild Hyponatremia, monitor. Monitor lytes and volume status. 3. Shock: On Levophed and Cefepime. Follow cultures. 4. Acute toxic encephalopathy, POA. 5. Acute cholelithiasis, POA: Obstructive jaundice. 6. DM type 2: Monitor. - Subjective: Patient was seen and examined at the bedside. In ICU. - Examination: General appearance: well-developed, appears stated age, no distress HEENT: ATNC, icterus Neck: Trachea midline Respiratory: ctab Cardiology: regular, S1S2, no murmur Gastrointestinal: soft, slight diffuse tenderness noted, not distended, BS heard Integumentary: no obvious rash Neurologic: alert, conversing, able to move extremities, confused Ext: no extremity edema
--- NOTE | 2020-08-07 10:39 | Consultation ---
History of Present Illness Consult date: 08/07/20 Consult reason: congestive heart failure History of present illness: The patient is a 70-year-old man who presented to the hospital emergency room with 3 days of weakness, in the emergency room was found hypotensive with a blood pressure of 76, admitted for further evaluation and management. Most significant additional clinical findings at this point include severe jaundice, with a bilirubin level of 9.7. There is severe renal failure with a creatinine of 4.5. There are no records in the hospital of her previous creatinine level measurement. Cardiology consultation is requested for "congestive heart failure". The patien t currently has no symptoms of heart failure exacerbation. His chest x-ray shows clear lungs and borderline cardiomegaly. Most significant cardiac finding is the presence of a dual-chamber pacemaker. The patient states that he has had a pacemaker for 5 years and is usually followed at [facility]. He does state that he is followed at the [facility] heart failure clinic, but has no knowledge of his ejection fraction. He does state that he has coronary artery disease and has undergone previous coronary stenting. He is currently in the ICU, appears lethargic but no acute respiratory distress. He remains in a sinus rhythm with currently stable hemodynamics. Home medications include Xarelto, the indication for oral anticoagulation is unclear at this time. Past History Past Medical History: heart failure Past Surgical History: Other (Dual-chamber pacemaker) Social history: smoking Medications and Allergies Allergies Allergy/AdvReac Type Severity Reaction Status Date / Time tetanus and diphtheria AdvReac Unknown Verified 08/06/20 14:20 toxoids Home Medications Medication Instructions Recorded Confirmed Last Taken Type Metformin HCl [metFORMIN] 1,000 mg PO BID 08/06/20 08/06/20 Unknown History Omeprazole 40 mg PO DAILY 08/06/20 08/06/20 Unknown History Rivaroxaban [Xarelto] 20 mg PO QDAY 08/06/20 08/06/20 Unknown History Sacubitril/Valsartan [Entresto 1 each PO BID 08/06/20 08/06/20 Unknown History 49-51 mg] Sertraline [Zoloft] 25 mg PO QDAY 08/06/20 08/06/20 Unknown History Spironolactone [Aldactone] 25 ng PO DAILY 08/06/20 08/06/20 Unknown History Torsemide [Demadex] 50 mg PO DAILY 08/06/20 08/06/20 Unknown History Zolpidem [Ambien] 5 mg PO QHS PRN 08/06/20 08/06/20 Unknown History carvediloL [Coreg] 6.25 mg PO BID 08/06/20 08/06/20 Unknown History traZODone [Desyrel] 50 mg PO QHS 08/06/20 08/06/20 Unknown History Active Meds: Active Medications Dextrose (D50w (25gm) Syringe) 0 ml IV Q30MIN PRN; Protocol PRN Reason: Hypoglycemia Famotidine (Pepcid) 20 mg IV QDAY [facility] Heparin Sodium (Porcine) (Heparin) 5,000 unit SUB-Q Q12HR [facility] Norepinephrine (Levophed Drip 4 Mg/Ns 250 Ml) 4 mg in 250 mls @ 7.5 mls/hr IV TITR [facility]; Protocol Last Admin: 08/07/20 07:54 Dose: 6 mcg/min, 22.5 mls/hr Documented by: Dextrose/Sodium Chloride (D5ns) 1,000 mls @ 75 mls/hr IV DIRECT [facility] Insulin Human Lispro (Humalog) 0 unit SUB-Q Q6HR [facility]; Protocol Last Admin: 08/07/20 06:32 Dose: Not Given Documented by: Morphine Sulfate (Morphine) 2 mg IV Q4H PRN PRN Reason: Pain, Moderate (4-6) Last Admin: 08/07/20 01:36 Dose: 2 mg Documented by: Sodium Chloride (Sodium Chloride Flush Syringe 10 Ml) 10 ml IV BID [facility] Last Admin: 08/07/20 07:56 Dose: Not Given Documented by: Sodium Chloride (Sodium Chloride Flush Syringe 10 Ml) 10 ml IV PRN PRN PRN Reason: LINE FLUSH Review of Systems Cardiovascular: lightheadedness, no chest pain, no orthopnea, no palpitations, no rapid/irregular heart beat, no edema, no syncope, no shortness of breath Physical Examination Vital Signs Temp Pulse Resp BP Pulse Ox 98.2 F 88 20 106/78 97 08/06/20 13:23 08/06/20 13:23 08/06/20 13:23 08/06/20 13:23 08/06/20 13:23 General appearance: mild distress, cachectic HEENT: Positive: PERRL Neck: Positive: neck supple Cardiac: Positive: Reg Rate and Rhythm Lungs: Positive: Decreased Breath Sounds Neuro: Positive: Grossly Intact Abdomen: Positive: Soft Male genitourinary: Positive: deferred Skin: Positive: Clear Extremities: Absent: edema Results 08/07/20 04:00 08/07/20 04:00 Cardiac Enzymes 08/06/20 08/07/20 Range/Units 14:42 04:00 AST 63 H 53 H (5-40) units/L Coagulation 08/06/20 Range/Units 14:42 APTT 37.2 H (24.2-36.6) Sec. CBC 08/06/20 08/07/20 Range/Units 14:42 04:00 WBC 10.0 10.3 (4.5-11.0) K/mm3 RBC 4.64 4.26 (3.65-5.03) M/mm3 Hgb 13.2 12.4 (11.8-15.2) gm/dl Hct 38.0 34.3 L (35.5-45.6) % Plt Count 189 167 (140-440) K/mm3 Lymph # 0.6 L (1.2-5.4) K/mm3 [place] # 0.4 (0.0-0.8) K/mm3 Eos # 0.1 (0.0-0.4) K/mm3 Baso # 0.0 (0.0-0.1) K/mm3 Comprehensive Metabolic Panel 08/06/20 08/07/20 Range/Units 14:42 04:00 Sodium 134 L 136 L (137-145) mmol/L Potassium 4.6 3.9 (3.6-5.0) mmol/L Chloride 83.6 L 88.5 L (98-107) mmol/L Carbon Dioxide 26 27 (22-30) mmol/L BUN 82 H 87 H (9-20) mg/dL Creatinine 4.5 H 3.7 H (0.8-1.3) mg/dL Glucose 205 H 187 H (75-100) mg/dL Calcium 8.4 7.8 L (8.4-10.2) mg/dL AST 63 H 53 H (5-40) units/L ALT 82 H 66 H (7-56) units/L Alkaline Phosphatase 263 H 264 H (35-129) units/L Total Protein 6.4 6.2 L (6.3-8.2) g/dL Albumin 3.4 L 3.1 L (3.9-5) g/dL EKG interpretations - Telemetry EKG Rhythm: Sinus Rhythm Assessment and Plan 70-year-old man admitted with weakness, severe jaundice, and severe renal failure. CT scan of the abdomen reports evidence of acute cholecystitis. Cardiac history of systolic heart failure, coronary artery disease, dual-chamber pacemaker in situ. Patient is also on anticoagulation with Xarelto, indication unclear at this time. We will get an echocardiogram for left ventricular function assessment, and request cardiac records from [facility]. Otherwise, conservative cardiac management in the absence of acute cardiac issues.
[2020-08-07] MEDS: FAMOTIDINE 20 MG/2 ML INJ IV SCH (10:50)
[2020-08-07] MEDS: HEPARIN 5,000 UNIT/1 ML VIAL SUB-Q SCH ×2 (10:50→22:20)
[2020-08-07] MEDS: D5W/0.9% NACL 1,000 ML IV SCH ×2 (10:51→23:27)
[2020-08-07 13:11] LABS: Creatinine,Urine 77.8 mg/dL (0.1-20.0)
--- NOTE | 2020-08-07 14:47 | Progress Note ---
Assessment and Plan --Acute cholecystitis with choledocholithiasis We will consult general surgery, and will follow recommendation Continue IV antibiotics, pain management and supportive care CT abdomen/pelvis: 1. Acute cholecystitis. There is also choledocholithiasis. -- Acute kidney injury (ROBERTH) with acute tubular necrosis (ATN) Monitor urine output every shift, supportive care, nephrology team consulted. Continue IV fluid --Acute metabolic encephalopathy, resolved Continue supportive care and follow clinically - Gm +ve bacteremia cont vancomycin for now, ID consulted --Septic shock, continue Levophed and wean off as tolerated --Sepsis, present on admission Patient presented with severe hypotension, lactic acidosis, ROBERTH, altered mental status Blood culture positive for gram-positive cocci, CT abdomen pelvis suggesting acute cholecystitis and choledocholithiasis Continue IV antibiotics for now, follow ID recommendation, monitor final blood culture results PUI with COVID 19 -Ordered tests, will follow results --CHF with systolic failure, appears compensated EF unknown at this point, cardiology following -- Paroxysmal atrial fibrillation on Xarelto, will hold for now possible surgery -Elevated LFT Will continue to monitor LFT, consult with GI --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 --Advance care planning Disease education conducted, supportive care, patient is full code, disease education conducted The high probability of a clinically significant, sudden or life threatening deterioration of the [CVS, GI, renal] system(s) required my full and direct attention, intervention and personal management. The aggregate critical care time was [] minutes. This time is in addition to time spent performing reported procedures but includes the following: [x] Data Review and interpretation [x] Patient assessment and monitoring of vital signs [x] Documentation [x] Medication orders and management Brief history: 70-year-old man with h/o history of systolic heart failure, coronary artery disease, dual-chamber pacemaker in situ, on anticoagulation with Xarelto, admitted with weakness, severe jaundice, and severe renal failure. CT scan of the abdomen reports evidence of acute cholecystitis. 08/07: Continue IV fluid, empiric antibiotics, blood cx positive for gm +ve cocci . Consult GI and general surgery. Monitor renal function and follow clinically. obtain 2d echo. follow CoVID 19 result Subjective Date of service: 08/07/20 Interval history: Patient seen and examined. Medical records and medication list reviewed. No acute event overnight noted by the RN. Patient patient currently on Levophed, vitals stable States that abdominal pain has improved, wants to eat Discussed plan of care at bedside with patient. Objective - Exam Narrative Exam: General appearance: Present: mild distress, white male - EENT Eyes: Present: scleral icterus ENT: hearing intact, clear oral mucosa - Neck Neck: Present: supple, normal ROM - Respiratory Respiratory effort: normal Respiratory: bilateral: CTA - Cardiovascular Heart Sounds: Present: S1 & S2. Absent: rub, click - Extremities Extremities: pulses symmetrical Extremity abnormal: edema Peripheral Pulses: within normal limits - Abdominal General gastrointestinal: Present: soft, normal bowel sounds Male genitourinary: Present: normal - Integumentary Integumentary: Present: clear, warm, dry - Musculoskeletal Musculoskeletal: generalized weakness - Psychiatric Psychiatric: appropriate mood/affect, intact judgment & insight - Neurologic Neurologic: CNII-XII intact, moves all extremities - Constitutional Vitals: Vital Signs - 12hr 08/07/20 08/07/20 08/07/20 02:51 03:01 03:11 Temperature Pulse Rate 78 87 78 Pulse Rate [ From Monitor] Respiratory 25 H 27 H 24 Rate Blood Pressure 99/48 99/48 99/48 O2 Sat by Pulse 91 93 91 Oximetry 08/07/20 08/07/20 08/07/20 03:21 03:30 03:31 Temperature 98.9 F Pulse Rate 74 86 Pulse Rate [ From Monitor] Respiratory 22 20 Rate Blood Pressure 99/48 99/48 O2 Sat by Pulse 94 93 Oximetry 08/07/20 08/07/20 08/07/20 03:41 03:51 04:00 Temperature Pulse Rate 73 80 70 Pulse Rate [ 70 From Monitor] Respiratory 24 19 Rate Blood Pressure 99/48 99/48 O2 Sat by Pulse 91 93 91 Oximetry 08/07/20 08/07/20 08/07/20 04:01 04:11 04:21 Temperature Pulse Rate 76 83 69 Pulse Rate [ From Monitor] Respiratory 23 24 27 H Rate Blood Pressure 99/48 99/48 99/48 O2 Sat by Pulse 92 93 93 Oximetry 08/07/20 08/07/20 08/07/20 04:31 04:41 04:51 Temperature Pulse Rate 74 75 70 Pulse Rate [ From Monitor] Respiratory 21 25 H 15 Rate Blood Pressure 99/48 99/48 99/48 O2 Sat by Pulse 93 92 93 Oximetry 08/07/20 08/07/20 08/07/20 05:01 05:11 05:21 Temperature Pulse Rate 78 97 H 96 H Pulse Rate [ From Monitor] Respiratory 14 25 H 23 Rate Blood Pressure 121/40 121/40 116/33 O2 Sat by Pulse 93 92 91 Oximetry 08/07/20 08/07/20 08/07/20 05:30 05:41 05:51 Temperature Pulse Rate 88 95 H 87 Pulse Rate [ From Monitor] Respiratory 25 H 23 23 Rate Blood Pressure 119/46 121/40 121/40 O2 Sat by Pulse 93 92 93 Oximetry 08/07/20 08/07/20 08/07/20 06:01 06:11 06:21 Temperature Pulse Rate 87 92 H 76 Pulse Rate [ From Monitor] Respiratory 21 24 26 H Rate Blood Pressure 120/40 121/40 129/36 O2 Sat by Pulse 90 92 93 Oximetry 08/07/20 08/07/20 08/07/20 06:31 06:41 06:51 Temperature Pulse Rate 87 90 83 Pulse Rate [ From Monitor] Respiratory 32 H 24 23 Rate Blood Pressure 120/42 129/36 118/44 O2 Sat by Pulse 91 91 91 Oximetry 08/07/20 08/07/20 08/07/20 07:00 07:01 07:11 Temperature 98.1 F Pulse Rate 88 108 H Pulse Rate [ From Monitor] Respiratory 29 H 21 Rate Blood Pressure 121/58 120/42 O2 Sat by Pulse 93 92 Oximetry 08/07/20 08/07/20 08/07/20 07:21 07:30 07:41 Temperature Pulse Rate 91 H 90 94 H Pulse Rate [ From Monitor] Respiratory 22 21 25 H Rate Blood Pressure 105/31 105/39 105/39 O2 Sat by Pulse 91 93 93 Oximetry 08/07/20 08/07/20 08/07/20 07:51 08:00 08:01 Temperature Pulse Rate 94 H 89 102 H Pulse Rate [ From Monitor] Respiratory 25 H 16 29 H Rate Blood Pressure 128/67 120/55 O2 Sat by Pulse 93 94 93 Oximetry 08/07/20 08/07/20 08/07/20 08:11 08:21 08:30 Temperature Pulse Rate 91 H 90 74 Pulse Rate [ From Monitor] Respiratory 26 H 24 25 H Rate Blood Pressure 120/55 122/65 93/43 O2 Sat by Pulse 92 92 91 Oximetry 08/07/20 08/07/20 08/07/20 08:41 08:51 09:00 Temperature Pulse Rate 96 H 84 73 Pulse Rate [ From Monitor] Respiratory 22 25 H 29 H Rate Blood Pressure 93/43 101/47 125/56 O2 Sat by Pulse 91 88 93 Oximetry 08/07/20 08/07/20 08/07/20 09:11 09:21 09:30 Temperature Pulse Rate 81 74 87 Pulse Rate [ From Monitor] Respiratory 21 21 26 H Rate Blood Pressure 125/56 129/46 120/42 O2 Sat by Pulse 95 94 94 Oximetry 08/07/20 08/07/20 08/07/20 09:40 09:50 10:00 Temperature Pulse Rate 79 82 82 Pulse Rate [ From Monitor] Respiratory 20 24 19 Rate Blood Pressure 109/35 109/35 O2 Sat by Pulse 95 93 95 Oximetry 08/07/20 08/07/20 08/07/20 10:10 10:20 10:30 Temperature Pulse Rate 85 71 85 Pulse Rate [ From Monitor] Respiratory 17 17 24 Rate Blood Pressure 126/44 115/51 115/51 O2 Sat by Pulse 95 94 94 Oximetry 08/07/20 08/07/20 08/07/20 10:40 10:50 11:00 Temperature Pulse Rate 102 H 80 82 Pulse Rate [ From Monitor] Respiratory 22 24 25 H Rate Blood Pressure 108/42 127/49 127/49 O2 Sat by Pulse 93 94 94 Oximetry 08/07/20 08/07/20 08/07/20 11:10 11:20 11:30 Temperature Pulse Rate 82 82 92 H Pulse Rate [ From Monitor] Respiratory 20 22 25 H Rate Blood Pressure 115/50 117/50 117/50 O2 Sat by Pulse 96 95 93 Oximetry 08/07/20 08/07/20 08/07/20 11:40 11:50 12:00 Temperature 98.4 F Pulse Rate 83 77 87 Pulse Rate [ From Monitor] Respiratory 19 20 23 Rate Blood Pressure 122/41 110/40 110/40 O2 Sat by Pulse 96 95 94 Oximetry 08/07/20 08/07/20 08/07/20 12:10 12:20 12:30 Temperature Pulse Rate 80 93 H 84 Pulse Rate [ From Monitor] Respiratory 20 21 17 Rate Blood Pressure 110/36 117/55 117/55 O2 Sat by Pulse 96 97 95 Oximetry 08/07/20 08/07/20 08/07/20 12:40 12:50 13:00 Temperature Pulse Rate 76 91 H 80 Pulse Rate [ From Monitor] Respiratory 17 19 21 Rate Blood Pressure 120/64 114/44 114/44 O2 Sat by Pulse 95 95 96 Oximetry 08/07/20 08/07/20 08/07/20 13:10 13:20 13:30 Temperature Pulse Rate 108 H 84 85 Pulse Rate [ From Monitor] Respiratory 24 19 20 Rate Blood Pressure 126/44 127/47 127/47 O2 Sat by Pulse 95 97 96 Oximetry 08/07/20 08/07/20 08/07/20 13:40 13:50 14:00 Temperature Pulse Rate 92 H 98 H 98 H Pulse Rate [ From Monitor] Respiratory 18 21 20 Rate Blood Pressure 129/49 113/59 130/58 O2 Sat by Pulse 94 91 92 Oximetry - Labs CBC & Chem 7: 08/07/20 04:00 08/08/20 04:57 Labs: Abnormal lab results 08/06/20 08/06/20 08/06/20 Range/Units 14:42 14:42 14:42 Hct (35.5-45.6) % MCV 82 L (84-94) fl MCHC 35 H (32-34) % RDW 22.0 H (13.2-15.2) % Lymph % (Auto) (13.4-35.0) % Lymph # (1.2-5.4) K/mm3 Seg Neutrophils % (40.0-70.0) % Seg Neuts % (Manual) 89.0 H (40.0-70.0) % Lymphocytes % (Manual) 6.0 L (13.4-35.0) % Seg Neutrophils # (1.8-7.7) K/mm3 Seg Neutrophils # Man 8.9 H (1.8-7.7) K/mm3 Lymphocytes # (Manual) 0.6 L (1.2-5.4) K/mm3 APTT 37.2 H (24.2-36.6) Sec. Sodium 134 L (137-145) mmol/L Chloride 83.6 L (98-107) mmol/L BUN 82 H (9-20) mg/dL Creatinine 4.5 H (0.8-1.3) mg/dL Glucose 205 H (75-100) mg/dL POC Glucose (70-105) Lactic Acid (0.7-2.0) mmol/L Calcium (8.4-10.2) mg/dL Phosphorus (2.5-4.5) mg/dL Magnesium (1.7-2.3) mg/dL Total Bilirubin 9.70 H (0.1-1.2) mg/dL AST 63 H (5-40) units/L ALT 82 H (7-56) units/L Alkaline Phosphatase 263 H (35-129) units/L Total Creatine Kinase (55-170) units/L Troponin T 0.036 H (0.00-0.029) ng/mL NT-Pro-B Natriuret Pep (0-900) pg/mL Total Protein (6.3-8.2) g/dL Albumin 3.4 L (3.9-5) g/dL Urine WBC (Auto) (0.0-6.0) /HPF Urine Creatinine (0.1-20.0) mg/dL 08/06/20 08/06/20 08/06/20 Range/Units 14:42 14:42 14:42 Hct (35.5-45.6) % MCV (84-94) fl MCHC (32-34) % RDW (13.2-15.2) % Lymph % (Auto) (13.4-35.0) % Lymph # (1.2-5.4) K/mm3 Seg Neutrophils % (40.0-70.0) % Seg Neuts % (Manual) (40.0-70.0) % Lymphocytes % (Manual) (13.4-35.0) % Seg Neutrophils # (1.8-7.7) K/mm3 Seg Neutrophils # Man (1.8-7.7) K/mm3 Lymphocytes # (Manual) (1.2-5.4) K/mm3 APTT (24.2-36.6) Sec. Sodium (137-145) mmol/L Chloride (98-107) mmol/L BUN (9-20) mg/dL Creatinine (0.8-1.3) mg/dL Glucose (75-100) mg/dL POC Glucose (70-105) Lactic Acid 4.60 H* (0.7-2.0) mmol/L Calcium (8.4-10.2) mg/dL Phosphorus 6.80 H (2.5-4.5) mg/dL Magnesium 1.60 L (1.7-2.3) mg/dL Total Bilirubin (0.1-1.2) mg/dL AST (5-40) units/L ALT (7-56) units/L Alkaline Phosphatase (35-129) units/L Total Creatine Kinase 240 H (55-170) units/L Troponin T (0.00-0.029) ng/mL NT-Pro-B Natriuret Pep 43507 H (0-900) pg/mL Total Protein (6.3-8.2) g/dL Albumin (3.9-5) g/dL Urine WBC (Auto) (0.0-6.0) /HPF Urine Creatinine (0.1-20.0) mg/dL 08/06/20 08/06/20 08/06/20 Range/Units 15:34 18:33 18:50 Hct (35.5-45.6) % MCV (84-94) fl MCHC (32-34) % RDW (13.2-15.2) % Lymph % (Auto) (13.4-35.0) % Lymph # (1.2-5.4) K/mm3 Seg Neutrophils % (40.0-70.0) % Seg Neuts % (Manual) (40.0-70.0) % Lymphocytes % (Manual) (13.4-35.0) % Seg Neutrophils # (1.8-7.7) K/mm3 Seg Neutrophils # Man (1.8-7.7) K/mm3 Lymphocytes # (Manual) (1.2-5.4) K/mm3 APTT (24.2-36.6) Sec. Sodium (137-145) mmol/L Chloride (98-107) mmol/L BUN (9-20) mg/dL Creatinine (0.8-1.3) mg/dL Glucose (75-100) mg/dL POC Glucose (70-105) Lactic Acid 4.10 H* 3.60 H* (0.7-2.0) mmol/L Calcium (8.4-10.2) mg/dL Phosphorus (2.5-4.5) mg/dL Magnesium 1.60 L (1.7-2.3) mg/dL Total Bilirubin (0.1-1.2) mg/dL AST (5-40) units/L ALT (7-56) units/L Alkaline Phosphatase (35-129) units/L Total Creatine Kinase (55-170) units/L Troponin T (0.00-0.029) ng/mL NT-Pro-B Natriuret Pep (0-900) pg/mL Total Protein (6.3-8.2) g/dL Albumin (3.9-5) g/dL Urine WBC (Auto) (0.0-6.0) /HPF Urine Creatinine (0.1-20.0) mg/dL 08/06/20 08/06/20 08/07/20 Range/Units 21:09 22:04 00:06 Hct (35.5-45.6) % MCV (84-94) fl MCHC (32-34) % RDW (13.2-15.2) % Lymph % (Auto) (13.4-35.0) % Lymph # (1.2-5.4) K/mm3 Seg Neutrophils % (40.0-70.0) % Seg Neuts % (Manual) (40.0-70.0) % Lymphocytes % (Manual) (13.4-35.0) % Seg Neutrophils # (1.8-7.7) K/mm3 Seg Neutrophils # Man (1.8-7.7) K/mm3 Lymphocytes # (Manual) (1.2-5.4) K/mm3 APTT (24.2-36.6) Sec. Sodium (137-145) mmol/L Chloride (98-107) mmol/L BUN (9-20) mg/dL Creatinine (0.8-1.3) mg/dL Glucose (75-100) mg/dL POC Glucose 188 H (70-105) Lactic Acid 2.10 H* (0.7-2.0) mmol/L Calcium (8.4-10.2) mg/dL Phosphorus (2.5-4.5) mg/dL Magnesium (1.7-2.3) mg/dL Total Bilirubin (0.1-1.2) mg/dL AST (5-40) units/L ALT (7-56) units/L Alkaline Phosphatase (35-129) units/L Total Creatine Kinase (55-170) units/L Troponin T (0.00-0.029) ng/mL NT-Pro-B Natriuret Pep (0-900) pg/mL Total Protein (6.3-8.2) g/dL Albumin (3.9-5) g/dL Urine WBC (Auto) 20.0 H (0.0-6.0) /HPF Urine Creatinine (0.1-20.0) mg/dL 08/07/20 08/07/20 08/07/20 Range/Units 04:00 04:00 05:56 Hct 34.3 L (35.5-45.6) % MCV 81 L (84-94) fl MCHC 36 H (32-34) % RDW 21.9 H (13.2-15.2) % Lymph % (Auto) 6.0 L (13.4-35.0) % Lymph # 0.6 L (1.2-5.4) K/mm3 Seg Neutrophils % 89.4 H (40.0-70.0) % Seg Neuts % (Manual) (40.0-70.0) % Lymphocytes % (Manual) (13.4-35.0) % Seg Neutrophils # 9.3 H (1.8-7.7) K/mm3 Seg Neutrophils # Man (1.8-7.7) K/mm3 Lymphocytes # (Manual) (1.2-5.4) K/mm3 APTT (24.2-36.6) Sec. Sodium 136 L (137-145) mmol/L Chloride 88.5 L (98-107) mmol/L BUN 87 H (9-20) mg/dL Creatinine 3.7 H (0.8-1.3) mg/dL Glucose 187 H (75-100) mg/dL POC Glucose 190 H (70-105) Lactic Acid (0.7-2.0) mmol/L Calcium 7.8 L (8.4-10.2) mg/dL Phosphorus (2.5-4.5) mg/dL Magnesium (1.7-2.3) mg/dL Total Bilirubin 9.60 H (0.1-1.2) mg/dL AST 53 H (5-40) units/L ALT 66 H (7-56) units/L Alkaline Phosphatase 264 H (35-129) units/L Total Creatine Kinase (55-170) units/L Troponin T (0.00-0.029) ng/mL NT-Pro-B Natriuret Pep (0-900) pg/mL Total Protein 6.2 L (6.3-8.2) g/dL Albumin 3.1 L (3.9-5) g/dL Urine WBC (Auto) (0.0-6.0) /HPF Urine Creatinine (0.1-20.0) mg/dL 08/07/20 08/07/20 Range/Units 10:13 12:36 Hct (35.5-45.6) % MCV (84-94) fl MCHC (32-34) % RDW (13.2-15.2) % Lymph % (Auto) (13.4-35.0) % Lymph # (1.2-5.4) K/mm3 Seg Neutrophils % (40.0-70.0) % Seg Neuts % (Manual) (40.0-70.0) % Lymphocytes % (Manual) (13.4-35.0) % Seg Neutrophils # (1.8-7.7) K/mm3 Seg Neutrophils # Man (1.8-7.7) K/mm3 Lymphocytes # (Manual) (1.2-5.4) K/mm3 APTT (24.2-36.6) Sec. Sodium (137-145) mmol/L Chloride (98-107) mmol/L BUN (9-20) mg/dL Creatinine (0.8-1.3) mg/dL Glucose (75-100) mg/dL POC Glucose 205 H (70-105) Lactic Acid (0.7-2.0) mmol/L Calcium (8.4-10.2) mg/dL Phosphorus (2.5-4.5) mg/dL Magnesium (1.7-2.3) mg/dL Total Bilirubin (0.1-1.2) mg/dL AST (5-40) units/L ALT (7-56) units/L Alkaline Phosphatase (35-129) units/L Total Creatine Kinase (55-170) units/L Troponin T (0.00-0.029) ng/mL NT-Pro-B Natriuret Pep (0-900) pg/mL Total Protein (6.3-8.2) g/dL Albumin (3.9-5) g/dL Urine WBC (Auto) (0.0-6.0) /HPF Urine Creatinine 77.8 H (0.1-20.0) mg/dL HEART Score - HEART Score Troponin: Troponin T 0.023 ng/mL (0.00-0.029) 08/06/20 18:33
[2020-08-07] MEDS ORDERED: MAGIC MOUTHWASH 30ML PO SCH (15:00)
[2020-08-07] MEDS ORDERED: VANCOMYCIN 1,750 MG in SODIUM CHLORIDE 0.9% 500 ML 500 ML IV ONE (17:00)
[2020-08-07] MEDS ORDERED: VANCOMYCIN/NS 1 GM/250 ML 1 GM/250 ML BAG IV SCH (17:00)
--- NOTE | 2020-08-07 18:18 | Progress Note ---
Subjective Date of service: 08/07/20 Interval history: 70-year-old man past medical history CHF, continue dependence, DM 2 admitted to the hospital with generalized weakness for 3 days. The symptoms became progressively worse since onset, which is why he presented to the hospital. He also notes dyspnea on exertion, orthopnea, as well as jaundice. He also complains of 20 pound weight loss over the past month. Afebrile since admission with a white count of 10. Currently on vancomycin. Blood cultures with gram-positive cocci in 1 bottle so far. Imaging personally reviewed: CT abdomen pelvis: Acute cholecystitis with choledocholithiasis Objective - Constitutional Vitals: Vital Signs Temp Pulse Resp BP Pulse Ox 98.3 F 91 H 25 H 127/58 90 08/07/20 16:00 08/07/20 17:00 08/07/20 17:00 08/07/20 17:00 08/07/20 17:00 Temperature -Last 24 Hours Temperature 98.3 F Temperature 98.4 F Temperature 98.1 F Temperature 98.9 F Temperature 99.8 F Temperature 99.3 F - Labs CBC & Chem 7: 08/07/20 04:00 08/07/20 04:00 Labs: Abnormal lab results 08/06/20 08/06/20 08/06/20 Range/Units 18:33 18:50 21:09 Hct (35.5-45.6) % MCV (84-94) fl MCHC (32-34) % RDW (13.2-15.2) % Lymph % (Auto) (13.4-35.0) % Lymph # (1.2-5.4) K/mm3 Seg Neutrophils % (40.0-70.0) % Seg Neutrophils # (1.8-7.7) K/mm3 Sodium (137-145) mmol/L Chloride (98-107) mmol/L BUN (9-20) mg/dL Creatinine (0.8-1.3) mg/dL Glucose (75-100) mg/dL POC Glucose (70-105) Lactic Acid 3.60 H* (0.7-2.0) mmol/L Calcium (8.4-10.2) mg/dL Magnesium 1.60 L (1.7-2.3) mg/dL Total Bilirubin (0.1-1.2) mg/dL AST (5-40) units/L ALT (7-56) units/L Alkaline Phosphatase (35-129) units/L Total Protein (6.3-8.2) g/dL Albumin (3.9-5) g/dL Urine WBC (Auto) 20.0 H (0.0-6.0) /HPF Urine Creatinine (0.1-20.0) mg/dL 08/06/20 08/07/20 08/07/20 Range/Units 22:04 00:06 04:00 Hct 34.3 L (35.5-45.6) % MCV 81 L (84-94) fl MCHC 36 H (32-34) % RDW 21.9 H (13.2-15.2) % Lymph % (Auto) 6.0 L (13.4-35.0) % Lymph # 0.6 L (1.2-5.4) K/mm3 Seg Neutrophils % 89.4 H (40.0-70.0) % Seg Neutrophils # 9.3 H (1.8-7.7) K/mm3 Sodium (137-145) mmol/L Chloride (98-107) mmol/L BUN (9-20) mg/dL Creatinine (0.8-1.3) mg/dL Glucose (75-100) mg/dL POC Glucose 188 H (70-105) Lactic Acid 2.10 H* (0.7-2.0) mmol/L Calcium (8.4-10.2) mg/dL Magnesium (1.7-2.3) mg/dL Total Bilirubin (0.1-1.2) mg/dL AST (5-40) units/L ALT (7-56) units/L Alkaline Phosphatase (35-129) units/L Total Protein (6.3-8.2) g/dL Albumin (3.9-5) g/dL Urine WBC (Auto) (0.0-6.0) /HPF Urine Creatinine (0.1-20.0) mg/dL 08/07/20 08/07/20 08/07/20 Range/Units 04:00 05:56 07:50 Hct (35.5-45.6) % MCV (84-94) fl MCHC (32-34) % RDW (13.2-15.2) % Lymph % (Auto) (13.4-35.0) % Lymph # (1.2-5.4) K/mm3 Seg Neutrophils % (40.0-70.0) % Seg Neutrophils # (1.8-7.7) K/mm3 Sodium 136 L (137-145) mmol/L Chloride 88.5 L (98-107) mmol/L BUN 87 H (9-20) mg/dL Creatinine 3.7 H (0.8-1.3) mg/dL Glucose 187 H (75-100) mg/dL POC Glucose 190 H 197 H (70-105) Lactic Acid (0.7-2.0) mmol/L Calcium 7.8 L (8.4-10.2) mg/dL Magnesium (1.7-2.3) mg/dL Total Bilirubin 9.60 H (0.1-1.2) mg/dL AST 53 H (5-40) units/L ALT 66 H (7-56) units/L Alkaline Phosphatase 264 H (35-129) units/L Total Protein 6.2 L (6.3-8.2) g/dL Albumin 3.1 L (3.9-5) g/dL Urine WBC (Auto) (0.0-6.0) /HPF Urine Creatinine (0.1-20.0) mg/dL 08/07/20 08/07/20 08/07/20 Range/Units 10:13 12:36 17:36 Hct (35.5-45.6) % MCV (84-94) fl MCHC (32-34) % RDW (13.2-15.2) % Lymph % (Auto) (13.4-35.0) % Lymph # (1.2-5.4) K/mm3 Seg Neutrophils % (40.0-70.0) % Seg Neutrophils # (1.8-7.7) K/mm3 Sodium (137-145) mmol/L Chloride (98-107) mmol/L BUN (9-20) mg/dL Creatinine (0.8-1.3) mg/dL Glucose (75-100) mg/dL POC Glucose 205 H 240 H (70-105) Lactic Acid (0.7-2.0) mmol/L Calcium (8.4-10.2) mg/dL Magnesium (1.7-2.3) mg/dL Total Bilirubin (0.1-1.2) mg/dL AST (5-40) units/L ALT (7-56) units/L Alkaline Phosphatase (35-129) units/L Total Protein (6.3-8.2) g/dL Albumin (3.9-5) g/dL Urine WBC (Auto) (0.0-6.0) /HPF Urine Creatinine 77.8 H (0.1-20.0) mg/dL
--- NOTE | 2020-08-07 18:25 | Consultation ---
History of Present Illness - Reason for Consult Consult date: 08/07/20 - History of Present Illness 70-year-old man past medical history CHF, continue dependence, DM 2 admitted to the hospital with generalized weakness for 3 days. The symptoms became progressively worse since onset, which is why he presented to the hospital. He also notes dyspnea on exertion, orthopnea, as well as jaundice. He also complains of 20 pound weight loss over the past month. Afebrile since admission with a white count of 10. Currently on vancomycin. Blood cultures with gram-positive cocci in 1 bottle so far. Imaging personally reviewed: CT abdomen pelvis: Acute cholecystitis with choledocholithiasis Review of Systems: Bold if positive, otherwise negative General: fevers, chills, rigors, weakness HEENT: visual disturbance, diplopia, eye pain Respiratory: cough, sputum, hemoptysis, shortness of breath Cardiovascular: chest pain, syncope Gastrointestinal: nausea, vomiting, diarrhea, abdominal pain Genitourinary: dysuria, hematuria, flank pain Musculoskeletal: neck pain, back pain, joint pain, edema Neurologic: headaches, seizures Hematologic: easy bruising or bleeding Endocrine: night sweats, acute weight loss Skin: rash, jaundice, redness Psychiatric: suicidal, homicidal ideation Past History Past Medical History: heart failure Past Surgical History: Other (Dual-chamber pacemaker) Social history: smoking Medications and Allergies Allergies Allergy/AdvReac Type Severity Reaction Status Date / Time tetanus and diphtheria AdvReac Unknown Verified 08/06/20 14:20 toxoids Home Medications Medication Instructions Recorded Confirmed Last Taken Type Metformin HCl [metFORMIN] 1,000 mg PO BID 08/06/20 08/06/20 Unknown History Omeprazole 40 mg PO DAILY 08/06/20 08/06/20 Unknown History Rivaroxaban [Xarelto] 20 mg PO QDAY 08/06/20 08/06/20 Unknown History Sacubitril/Valsartan [Entresto 1 each PO BID 08/06/20 08/06/20 Unknown History 49-51 mg] Sertraline [Zoloft] 25 mg PO QDAY 08/06/20 08/06/20 Unknown History Spironolactone [Aldactone] 25 ng PO DAILY 08/06/20 08/06/20 Unknown History Torsemide [Demadex] 50 mg PO DAILY 08/06/20 08/06/20 Unknown History Zolpidem [Ambien] 5 mg PO QHS PRN 08/06/20 08/06/20 Unknown History carvediloL [Coreg] 6.25 mg PO BID 08/06/20 08/06/20 Unknown History traZODone [Desyrel] 50 mg PO QHS 08/06/20 08/06/20 Unknown History Active Meds: Active Medications Dextrose (D50w (25gm) Syringe) 0 ml IV Q30MIN PRN; Protocol PRN Reason: Hypoglycemia Famotidine (Pepcid) 20 mg IV QDAY [facility] Last Admin: 08/07/20 10:50 Dose: 20 mg Documented by: Heparin Sodium (Porcine) (Heparin) 5,000 unit SUB-Q Q12HR JULIET Last Admin: 08/07/20 10:50 Dose: 5,000 unit Documented by: Norepinephrine (Levophed Drip 4 Mg/Ns 250 Ml) 4 mg in 250 mls @ 7.5 mls/hr IV TITR [facility]; Protocol Last Titration: 08/07/20 17:18 Dose: 2 mcg/min, 7.5 mls/hr Documented by: Dextrose/Sodium Chloride (D5ns) 1,000 mls @ 75 mls/hr IV DIRECT JULIET Last Admin: 08/07/20 10:51 Dose: 75 mls/hr Documented by: Vancomycin HCl 1,750 mg/ (Sodium Chloride) 535 mls @ 333.333 mls/hr IV ONCE ONE Stop: 08/07/20 18:36 Last Admin: 08/07/20 16:54 Dose: 333.333 mls/hr Documented by: Insulin Human Lispro (Humalog) 0 unit SUB-Q Q6HR JULIET; Protocol Last Admin: 08/07/20 17:26 Dose: 2 unit Documented by: Morphine Sulfate (Morphine) 2 mg IV Q4H PRN PRN Reason: Pain, Moderate (4-6) Last Admin: 08/07/20 01:36 Dose: 2 mg Documented by: Sodium Chloride (Sodium Chloride Flush Syringe 10 Ml) 10 ml IV BID [facility] Last Admin: 08/07/20 11:00 Dose: 10 ml Documented by: Sodium Chloride (Sodium Chloride Flush Syringe 10 Ml) 10 ml IV PRN PRN PRN Reason: LINE FLUSH Physical Examination - Physical Exam Narrative exam: Physical exam deferred due to PPE conservation strategy. Please refer to primary team's note. - Constitutional Vitals: Vital Signs Temp Pulse Resp BP Pulse Ox 98.3 F 91 H 25 H 127/58 90 08/07/20 16:00 08/07/20 17:00 08/07/20 17:00 08/07/20 17:00 08/07/20 17:00 Temperature -Last 24 Hours Temperature 98.3 F Temperature 98.4 F Temperature 98.1 F Temperature 98.9 F Temperature 99.8 F Temperature 99.3 F Results - Labs CBC & Chem 7: 08/07/20 04:00 08/07/20 04:00 Labs: Abnormal lab results 08/06/20 08/06/20 08/06/20 Range/Units 18:33 18:50 21:09 Hct (35.5-45.6) % MCV (84-94) fl MCHC (32-34) % RDW (13.2-15.2) % Lymph % (Auto) (13.4-35.0) % Lymph # (1.2-5.4) K/mm3 Seg Neutrophils % (40.0-70.0) % Seg Neutrophils # (1.8-7.7) K/mm3 Sodium (137-145) mmol/L Chloride (98-107) mmol/L BUN (9-20) mg/dL Creatinine (0.8-1.3) mg/dL Glucose (75-100) mg/dL POC Glucose (70-105) Lactic Acid 3.60 H* (0.7-2.0) mmol/L Calcium (8.4-10.2) mg/dL Magnesium 1.60 L (1.7-2.3) mg/dL Total Bilirubin (0.1-1.2) mg/dL AST (5-40) units/L ALT (7-56) units/L Alkaline Phosphatase (35-129) units/L Total Protein (6.3-8.2) g/dL Albumin (3.9-5) g/dL Urine WBC (Auto) 20.0 H (0.0-6.0) /HPF Urine Creatinine (0.1-20.0) mg/dL 08/06/20 08/07/20 08/07/20 Range/Units 22:04 00:06 04:00 Hct 34.3 L (35.5-45.6) % MCV 81 L (84-94) fl MCHC 36 H (32-34) % RDW 21.9 H (13.2-15.2) % Lymph % (Auto) 6.0 L (13.4-35.0) % Lymph # 0.6 L (1.2-5.4) K/mm3 Seg Neutrophils % 89.4 H (40.0-70.0) % Seg Neutrophils # 9.3 H (1.8-7.7) K/mm3 Sodium (137-145) mmol/L Chloride (98-107) mmol/L BUN (9-20) mg/dL Creatinine (0.8-1.3) mg/dL Glucose (75-100) mg/dL POC Glucose 188 H (70-105) Lactic Acid 2.10 H* (0.7-2.0) mmol/L Calcium (8.4-10.2) mg/dL Magnesium (1.7-2.3) mg/dL Total Bilirubin (0.1-1.2) mg/dL AST (5-40) units/L ALT (7-56) units/L Alkaline Phosphatase (35-129) units/L Total Protein (6.3-8.2) g/dL Albumin (3.9-5) g/dL Urine WBC (Auto) (0.0-6.0) /HPF Urine Creatinine (0.1-20.0) mg/dL 08/07/20 08/07/20 08/07/20 Range/Units 04:00 05:56 07:50 Hct (35.5-45.6) % MCV (84-94) fl MCHC (32-34) % RDW (13.2-15.2) % Lymph % (Auto) (13.4-35.0) % Lymph # (1.2-5.4) K/mm3 Seg Neutrophils % (40.0-70.0) % Seg Neutrophils # (1.8-7.7) K/mm3 Sodium 136 L (137-145) mmol/L Chloride 88.5 L (98-107) mmol/L BUN 87 H (9-20) mg/dL Creatinine 3.7 H (0.8-1.3) mg/dL Glucose 187 H (75-100) mg/dL POC Glucose 190 H 197 H (70-105) Lactic Acid (0.7-2.0) mmol/L Calcium 7.8 L (8.4-10.2) mg/dL Magnesium (1.7-2.3) mg/dL Total Bilirubin 9.60 H (0.1-1.2) mg/dL AST 53 H (5-40) units/L ALT 66 H (7-56) units/L Alkaline Phosphatase 264 H (35-129) units/L Total Protein 6.2 L (6.3-8.2) g/dL Albumin 3.1 L (3.9-5) g/dL Urine WBC (Auto) (0.0-6.0) /HPF Urine Creatinine (0.1-20.0) mg/dL 08/07/20 08/07/20 08/07/20 Range/Units 10:13 12:36 17:36 Hct (35.5-45.6) % MCV (84-94) fl MCHC (32-34) % RDW (13.2-15.2) % Lymph % (Auto) (13.4-35.0) % Lymph # (1.2-5.4) K/mm3 Seg Neutrophils % (40.0-70.0) % Seg Neutrophils # (1.8-7.7) K/mm3 Sodium (137-145) mmol/L Chloride (98-107) mmol/L BUN (9-20) mg/dL Creatinine (0.8-1.3) mg/dL Glucose (75-100) mg/dL POC Glucose 205 H 240 H (70-105) Lactic Acid (0.7-2.0) mmol/L Calcium (8.4-10.2) mg/dL Magnesium (1.7-2.3) mg/dL Total Bilirubin (0.1-1.2) mg/dL AST (5-40) units/L ALT (7-56) units/L Alkaline Phosphatase (35-129) units/L Total Protein (6.3-8.2) g/dL Albumin (3.9-5) g/dL Urine WBC (Auto) (0.0-6.0) /HPF Urine Creatinine 77.8 H (0.1-20.0) mg/dL Assessment and Plan Cultures: Blood culture 08/06/2020 gram-positive cocci 1 bottle A/P: 70-year-old man past medical history CHF, continue dependence, DM 2 admitted with weakness, found to have cholecystitis and gram-positive bacteremia #Acute cholecystitis: General surgery consulted, awaiting recommendations. Can start cefepime in the meantime, stop if surgery performed. #Gram-positive bacteremia: Await culture finalization and identification. Continue vancomycin for now. Patient has pacemaker, may eventually need YOANA. #ROBERTH: Renally adjust antibiotics Recs: -Continue vancomycin goal trough 10-20 dosed per pharmacy. -Follow-up blood culture identification and RAHUL -TTE if staph aureus -Repeated blood cultures -Start renally adjusted cefepime for now pending surgery recommendations regarding cholecystitis. -Follow-up COVID-19 testing Thank you for the consult, we will continue to follow. Alva Lopez MD [facility] ([facility]) M: [phone] O: [phone] F: [phone]
[2020-08-07] MEDS: CEFEPIME/NS 2 GM/100 ML 2 GM/100 ML BAG IV SCH (19:36)
[2020-08-08 05:32] LABS: Albumin 2.5 g/dL (3.9-5); Calcium 7.7 mg/dL (8.4-10.2)
[2020-08-08] MEDS: NORepinephrine/NS 4 MG-250 ML 4 MG/250 ML BAG IV SCH (07:49)
--- NOTE | 2020-08-08 10:38 | Progress Note ---
Subjective Date of service: 08/08/20 Objective Vital Signs - 12hr 08/07/20 08/07/20 08/07/20 22:40 22:50 22:51 Temperature Pulse Rate 76 74 65 Respiratory Rate Blood Pressure 105/35 105/52 105/52 O2 Sat by Pulse 95 94 94 Oximetry 08/07/20 08/07/20 08/07/20 23:00 23:10 23:20 Temperature Pulse Rate 73 73 68 Respiratory Rate Blood Pressure 105/52 105/52 112/41 O2 Sat by Pulse 96 92 96 Oximetry 08/07/20 08/07/20 08/07/20 23:30 23:40 23:50 Temperature Pulse Rate 80 65 71 Respiratory Rate Blood Pressure 112/41 106/45 107/47 O2 Sat by Pulse 95 94 95 Oximetry 08/08/20 08/08/20 08/08/20 00:00 00:10 00:20 Temperature 98.2 F Pulse Rate 81 72 74 Respiratory 18 Rate Blood Pressure 107/47 109/52 96/46 O2 Sat by Pulse 94 94 95 Oximetry 08/08/20 08/08/20 08/08/20 00:30 00:40 00:50 Temperature Pulse Rate 69 85 77 Respiratory Rate Blood Pressure 96/40 102/37 116/44 O2 Sat by Pulse 96 95 95 Oximetry 08/08/20 08/08/20 08/08/20 01:00 01:10 01:20 Temperature Pulse Rate 73 76 81 Respiratory Rate Blood Pressure 116/44 126/39 102/62 O2 Sat by Pulse 95 95 95 Oximetry 08/08/20 08/08/20 08/08/20 01:30 01:40 01:50 Temperature Pulse Rate 88 81 79 Respiratory Rate Blood Pressure 102/62 102/62 110/43 O2 Sat by Pulse 94 96 94 Oximetry 08/08/20 08/08/20 08/08/20 02:00 02:10 02:20 Temperature Pulse Rate 80 75 77 Respiratory Rate Blood Pressure 110/43 109/49 94/47 O2 Sat by Pulse 97 96 96 Oximetry 08/08/20 08/08/20 08/08/20 02:30 02:40 02:50 Temperature Pulse Rate 70 75 81 Respiratory Rate Blood Pressure 94/47 87/33 104/35 O2 Sat by Pulse 95 94 95 Oximetry 08/08/20 08/08/20 08/08/20 03:00 03:10 03:20 Temperature Pulse Rate 75 77 80 Respiratory Rate Blood Pressure 104/35 109/39 103/45 O2 Sat by Pulse 95 95 Oximetry 08/08/20 08/08/20 08/08/20 03:30 03:40 03:45 Temperature 97.5 F L Pulse Rate 85 87 Respiratory Rate Blood Pressure 103/45 89/39 O2 Sat by Pulse 94 Oximetry 08/08/20 08/08/20 08/08/20 03:50 04:00 04:10 Temperature Pulse Rate 78 97 H 77 Respiratory 18 Rate Blood Pressure 102/49 102/49 117/47 O2 Sat by Pulse 95 95 96 Oximetry 08/08/20 08/08/20 08/08/20 04:20 04:30 04:40 Temperature Pulse Rate 85 82 Respiratory Rate Blood Pressure 120/55 120/55 132/36 O2 Sat by Pulse 95 97 97 Oximetry 08/08/20 08/08/20 08/08/20 04:50 05:00 05:10 Temperature Pulse Rate 80 77 70 Respiratory Rate Blood Pressure 109/30 109/30 103/37 O2 Sat by Pulse 98 97 97 Oximetry 08/08/20 08/08/20 08/08/20 05:20 05:30 05:40 Temperature Pulse Rate 74 77 92 H Respiratory Rate Blood Pressure 93/39 93/39 109/41 O2 Sat by Pulse 95 96 95 Oximetry 08/08/20 08/08/20 08/08/20 05:50 06:00 06:10 Temperature Pulse Rate 79 74 76 Respiratory Rate Blood Pressure 107/50 107/50 115/43 O2 Sat by Pulse 97 98 95 Oximetry 08/08/20 08/08/20 08/08/20 06:20 06:30 06:40 Temperature Pulse Rate 83 87 78 Respiratory Rate Blood Pressure 109/41 109/41 120/47 O2 Sat by Pulse 95 98 99 Oximetry 08/08/2008/08/08/08/20 06:50 07:00 07:10 Temperature Pulse Rate 79 84 82 Respiratory Rate Blood Pressure 120/47 120/47 111/54 O2 Sat by Pulse 98 98 98 Oximetry 08/08/2020/20 20 07:20 07:30 07:40 Temperature Pulse Rate 75 85 88 Respiratory Rate Blood Pressure 109/47 109/47 95/33 O2 Sat by Pulse 98 97 98 Oximetry 09/20/20 09/20/20 09/20/20 07:50 08:00 08:10 Temperature 98.7 F Pulse Rate 87 91 H 85 Respiratory 18 16 Rate Blood Pressure 96/50 96/50 105/45 O2 Sat by Pulse 98 98 98 Oximetry 08/08/20 08/08/20 08/08/20 08:20 08:30 08:40 Temperature Pulse Rate 83 97 H 101 H Respiratory 18 16 17 Rate Blood Pressure 51/22 51/22 120/55 O2 Sat by Pulse 99 97 97 Oximetry 08/08/20 08/08/20 08/08/20 08:50 09:00 09:10 Temperature Pulse Rate 81 88 87 Respiratory 18 17 16 Rate Blood Pressure 106/57 106/57 111/62 O2 Sat by Pulse 98 99 97 Oximetry 08/08/20 08/08/20 09:20 09:30 Temperature Pulse Rate 87 99 H Respiratory 15 14 Rate Blood Pressure 126/67 120/55 O2 Sat by Pulse 99 99 Oximetry CBC and BMP: 08/07/20 04:00 08/08/20 04:57 Abnormal lab findings: Abnormal Labs 08/06/20 08/06/20 08/06/20 14:42 14:42 14:42 Hct MCV 82 L MCHC 35 H RDW 22.0 H Lymph % (Auto) Lymph # Seg Neutrophils % Seg Neuts % (Manual) 89.0 H Lymphocytes % (Manual) 6.0 L Seg Neutrophils # Seg Neutrophils # Man 8.9 H Lymphocytes # (Manual) 0.6 L APTT 37.2 H Sodium 134 L Potassium Chloride 83.6 L BUN 82 H Creatinine 4.5 H Glucose 205 H POC Glucose Lactic Acid Calcium Phosphorus Magnesium Total Bilirubin 9.70 H AST 63 H ALT 82 H Alkaline Phosphatase 263 H Total Creatine Kinase Troponin T 0.036 H NT-Pro-B Natriuret Pep Total Protein Albumin 3.4 L Urine WBC (Auto) Urine Creatinine 08/06/20 08/06/20 08/06/20 14:42 14:42 14:42 Hct MCV MCHC RDW Lymph % (Auto) Lymph # Seg Neutrophils % Seg Neuts % (Manual) Lymphocytes % (Manual) Seg Neutrophils # Seg Neutrophils # Man Lymphocytes # (Manual) APTT Sodium Potassium Chloride BUN Creatinine Glucose POC Glucose Lactic Acid 4.60 H* Calcium Phosphorus 6.80 H Magnesium 1.60 L Total Bilirubin AST ALT Alkaline Phosphatase Total Creatine Kinase 240 H Troponin T NT-Pro-B Natriuret Pep 98797 H Total Protein Albumin Urine WBC (Auto) Urine Creatinine 08/06/20 08/06/20 08/06/20 15:34 18:33 18:50 Hct MCV MCHC RDW Lymph % (Auto) Lymph # Seg Neutrophils % Seg Neuts % (Manual) Lymphocytes % (Manual) Seg Neutrophils # Seg Neutrophils # Man Lymphocytes # (Manual) APTT Sodium Potassium Chloride BUN Creatinine Glucose POC Glucose Lactic Acid 4.10 H* 3.60 H* Calcium Phosphorus Magnesium 1.60 L Total Bilirubin AST ALT Alkaline Phosphatase Total Creatine Kinase Troponin T NT-Pro-B Natriuret Pep Total Protein Albumin Urine WBC (Auto) Urine Creatinine 08/06/20 08/06/20 08/07/20 21:09 22:04 00:06 Hct MCV MCHC RDW Lymph % (Auto) Lymph # Seg Neutrophils % Seg Neuts % (Manual) Lymphocytes % (Manual) Seg Neutrophils # Seg Neutrophils # Man Lymphocytes # (Manual) APTT Sodium Potassium Chloride BUN Creatinine Glucose POC Glucose 188 H Lactic Acid 2.10 H* Calcium Phosphorus Magnesium Total Bilirubin AST ALT Alkaline Phosphatase Total Creatine Kinase Troponin T NT-Pro-B Natriuret Pep Total Protein Albumin Urine WBC (Auto) 20.0 H Urine Creatinine 08/07/20 08/07/20 08/07/20 04:00 04:00 05:56 Hct 34.3 L MCV 81 L MCHC 36 H RDW 21.9 H Lymph % (Auto) 6.0 L Lymph # 0.6 L Seg Neutrophils % 89.4 H Seg Neuts % (Manual) Lymphocytes % (Manual) Seg Neutrophils # 9.3 H Seg Neutrophils # Man Lymphocytes # (Manual) APTT Sodium 136 L Potassium Chloride 88.5 L BUN 87 H Creatinine 3.7 H Glucose 187 H POC Glucose 190 H Lactic Acid Calcium 7.8 L Phosphorus Magnesium Total Bilirubin 9.60 H AST 53 H ALT 66 H Alkaline Phosphatase 264 H Total Creatine Kinase Troponin T NT-Pro-B Natriuret Pep Total Protein 6.2 L Albumin 3.1 L Urine WBC (Auto) Urine Creatinine 08/07/20 08/07/20 08/07/20 07:50 10:13 12:36 Hct MCV MCHC RDW Lymph % (Auto) Lymph # Seg Neutrophils % Seg Neuts % (Manual) Lymphocytes % (Manual) Seg Neutrophils # Seg Neutrophils # Man Lymphocytes # (Manual) APTT Sodium Potassium Chloride BUN Creatinine Glucose POC Glucose 197 H 205 H Lactic Acid Calcium Phosphorus Magnesium Total Bilirubin AST ALT Alkaline Phosphatase Total Creatine Kinase Troponin T NT-Pro-B Natriuret Pep Total Protein Albumin Urine WBC (Auto) Urine Creatinine 77.8 H 08/07/20 08/07/20 08/08/20 17:36 21:49 04:57 Hct MCV MCHC RDW Lymph % (Auto) Lymph # Seg Neutrophils % Seg Neuts % (Manual) Lymphocytes % (Manual) Seg Neutrophils # Seg Neutrophils # Man Lymphocytes # (Manual) APTT Sodium Potassium 3.3 L Chloride BUN 76 H Creatinine 2.0 H Glucose 353 H POC Glucose 240 H 218 H Lactic Acid Calcium 7.7 L Phosphorus Magnesium Total Bilirubin 8.00 H AST 46 H ALT 57 H Alkaline Phosphatase 348 H Total Creatine Kinase Troponin T NT-Pro-B Natriuret Pep Total Protein 6.0 L Albumin 2.5 L Urine WBC (Auto) Urine Creatinine 08/08/20 08:06 Hct MCV MCHC RDW Lymph % (Auto) Lymph # Seg Neutrophils % Seg Neuts % (Manual) Lymphocytes % (Manual) Seg Neutrophils # Seg Neutrophils # Man Lymphocytes # (Manual) APTT Sodium Potassium Chloride BUN Creatinine Glucose POC Glucose 258 H Lactic Acid Calcium Phosphorus Magnesium Total Bilirubin AST ALT Alkaline Phosphatase Total Creatine Kinase Troponin T NT-Pro-B Natriuret Pep Total Protein Albumin Urine WBC (Auto) Urine Creatinine
[2020-08-08] MEDS: INSULIN LISPRO 100 UNIT/ML VIAL 3 mL SUB-Q SCH ×3 (11:00→18:41)
[2020-08-08] MEDS: FAMOTIDINE 20 MG/2 ML INJ IV SCH (11:25)
[2020-08-08] MEDS: CEFEPIME/NS 2 GM/100 ML 2 GM/100 ML BAG IV SCH (11:25)
[2020-08-08] MEDS: HEPARIN 5,000 UNIT/1 ML VIAL SUB-Q SCH ×2 (11:25→22:05)
[2020-08-08] MEDS: D5W/0.9% NACL 1,000 ML IV SCH (11:26)
--- NOTE | 2020-08-08 11:31 | Progress Note ---
Assessment and Plan 70-year-old man admitted with weakness, severe jaundice, and severe renal failure. CT scan of the abdomen reports evidence of acute cholecystitis. Cardiac history of systolic heart failure, coronary artery disease, dual-chamber pacemaker in situ. Patient was also on anticoagulation with Xarelto, indication unclear at this time. Echocardiogram pending for left ventricular function assessment, and request cardiac records from [place]. Subjective Date of service: 08/08/20 Interval history: Patient is comfortable, no acute distress. On radiation monitor, there is a sinus rhythm with ventricular pacemaker on demand. Objective Vital Signs Temp Pulse Resp BP Pulse Ox 08/08/20 10:40 104 H 15 105/40 94 08/08/20 10:30 93 H 15 106/55 94 08/08/20 10:20 95 H 14 114/41 94 08/08/20 10:10 85 14 113/56 94 08/08/20 10:00 111 H 17 106/55 94 08/08/20 09:50 78 15 106/55 96 08/08/20 09:40 88 15 119/53 99 08/08/20 09:30 99 H 14 120/55 99 08/08/20 09:20 87 15 126/67 99 08/08/20 09:10 87 16 111/62 97 08/08/20 09:00 88 17 106/57 99 08/08/20 08:50 81 18 106/57 98 08/08/20 08:40 101 H 17 120/55 97 08/08/20 08:30 97 H 16 51/22 97 08/08/20 08:20 83 18 51/22 99 08/08/20 08:10 85 16 105/45 98 08/08/20 08:00 98.7 F 91 H 18 96/50 98 08/08/ 07:50 87 96/50 98 08/08/20 07:40 88 95/33 98 08/08/20 07:30 85 109/47 97 08/08/20 07:20 75 109/47 98 08/08/20 07:10 82 111/54 98 08/08/20 07:00 84 120/47 98 08/08/20 06:50 79 120/47 98 20 06:40 78 120/47 99 08/08/20 06:30 87 109/41 98 09/20/20 06:20 83 109/41 95 09/20/20 06:10 76 115/43 95 09/20/20 06:00 74 107/50 98 09/20/20 05:50 79 107/50 97 09/20/20 05:40 92 H 109/41 95 09/20/20 05:30 77 93/39 96 09/20/20 05:20 74 93/39 95 09/20/20 05:10 70 103/37 97 09/20/20 05:00 77 109/30 97 09/20/20 04:50 80 109/30 98 09/20/20 04:40 82 132/36 97 09/20/20 04:30 120/55 97 09/20/20 04:20 85 120/55 95 09/20/20 04:10 77 117/47 96 09/20/20 04:00 97 H 18 102/49 95 09/20/20 03:50 78 102/49 95 09/20/20 03:45 97.5 F L 09/20/20 03:40 87 89/39 94 09/20/20 03:30 85 103/45 09/20/20 03:20 80 103/45 09/20/20 03:10 77 109/39 95 09/20/20 03:00 75 104/35 95 09/20/20 02:50 81 104/35 95 09/20/20 02:40 75 87/33 94 09/20/20 02:30 70 94/47 95 09/20/20 02:20 77 94/47 96 09/20/20 02:10 75 109/49 96 09/20/20 02:00 80 110/43 97 09/20/20 01:50 79 110/43 94 09/20/20 01:40 81 102/62 96 09/20/20 01:30 88 102/62 94 09/20/20 01:20 81 102/62 95 09/20/20 01:10 76 126/39 95 09/20/20 01:00 73 116/44 95 09/20/20 00:50 77 116/44 95 09/20/20 00:40 85 102/37 95 09/20/20 00:30 69 96/40 96 09/20/20 00:20 74 96/46 95 09/20/20 00:10 72 109/52 94 09/20/20 00:00 98.2 F 81 18 107/47 94 09/19/20 23:50 71 107/47 95 09/19/20 23:40 65 106/45 94 09/19/20 23:30 80 112/41 95 09/19/20 23:20 68 112/41 96 09/19/20 23:10 73 105/52 92 09/19/20 23:00 73 105/52 96 09/19/20 22:51 65 105/52 94 09/19/20 22:50 74 105/52 94 09/19/20 22:40 76 105/35 95 09/19/20 22:30 70 106/44 95 09/19/20 22:29 70 106/44 95 09/19/20 22:20 82 106/44 94 09/19/20 22:10 72 142/37 96 09/19/20 22:00 91 H 130/53 96 09/19/20 21:50 73 130/53 96 09/19/20 21:40 72 142/37 95 09/19/20 21:30 87 155/41 95 09/19/20 21:20 76 155/41 95 09/19/20 21:10 78 116/59 96 09/19/20 21:00 70 19 122/44 95 09/19/20 20:50 67 19 122/44 95 09/19/20 20:40 21 102/41 96 09/19/20 20:30 22 114/45 95 09/19/20 20:20 78 20 114/45 96 09/19/20 20:10 70 18 115/62 96 09/19/20 20:00 90 20 111/44 94 09/19/20 19:56 97.8 F 09/19/20 19:50 84 17 111/44 96 09/19/20 19:40 84 14 115/62 97 09/19/20 19:30 77 22 106/51 89 09/19/20 19:20 82 18 106/51 90 09/19/20 19:10 85 19 102/54 88 09/19/20 19:00 85 19 111/47 93 09/19/20 18:50 82 21 111/47 87 09/19/20 18:40 79 20 104/47 90 09/19/20 18:30 86 16 100/47 94 09/19/20 18:20 84 20 100/47 94 1920 18:10 95 H 20 104/38 91 08/07/20 18:00 83 21 115/46 89 08/07/20 17:50 80 21 101/47 92 20 17:40 88 20 115/46 94 20 17:30 85 21 108/61 95 20 17:20 85 20 108/61 96 08/07/20 17:10 102 H 19 110/72 92 08/07/20 17:00 91 H 25 H 127/58 90 08/07/20 16:50 92 H 25 H 127/58 95 08/07/20 16:40 86 21 124/46 95 08/07/20 16:30 95 H 22 113/52 90 08/07/20 16:20 85 18 113/52 95 08/07/20 16:10 87 19 121/61 92 08/07/20 16:00 98.3 F 77 22 129/56 93 08/07/20 15:50 84 18 125/61 93 08/07/20 15:40 85 16 129/56 93 08/07/20 15:30 76 22 103/40 92 08/07/20 15:20 87 25 H 82/48 93 08/07/20 15:10 74 21 103/40 92 08/07/20 15:00 75 20 94/36 93 08/07/20 14:50 74 20 94/36 93 08/07/20 14:40 79 19 105/44 93 08/07/20 14:30 82 23 104/35 89 08/07/20 14:20 78 18 104/35 93 08/07/20 14:10 94 H 20 130/58 89 08/07/20 14:00 98 H 20 130/58 92 08/07/20 13:50 98 H 21 113/59 91 08/07/20 13:40 92 H 18 129/49 94 08/07/20 13:30 85 20 127/47 96 08/07/20 13:20 84 19 127/47 97 08/07/20 13:10 108 H 24 126/44 95 20 13:00 80 21 114/44 96 08/07/20 12:50 91 H 19 114/44 95 08/07/20 12:40 76 17 120/64 95 08/07/20 12:30 84 17 117/55 95 08/07/20 12:20 93 H 21 117/55 97 08/07/20 12:10 80 20 110/36 96 08/07/20 12:00 98.4 F 87 23 110/40 94 08/07/20 11:50 77 20 110/40 95 08/07/20 11:40 83 19 122/41 96 - Physical Examination General: Cachectic HEENT: Positive: PERRL Neck: Positive: neck supple Cardiac: Positive: Irregularly Regular Lungs: Positive: Decreased Breath Sounds Neuro: Positive: Grossly Intact Abdomen: Positive: Soft Skin: Positive: Clear Extremities: Absent: edema - Labs and Meds Cardiac Enzymes 08/08/20 Range/Units 04:57 AST 46 H (5-40) units/L Comprehensive Metabolic Panel 08/08/20 Range/Units 04:57 Sodium 142 (137-145) mmol/L Potassium 3.3 L (3.6-5.0) mmol/L Chloride 101.6 (98-107) mmol/L Carbon Dioxide 24 (22-30) mmol/L BUN 76 H (9-20) mg/dL Creatinine 2.0 H (0.8-1.3) mg/dL Glucose 353 H (75-100) mg/dL Calcium 7.7 L (8.4-10.2) mg/dL AST 46 H (5-40) units/L ALT 57 H (7-56) units/L Alkaline Phosphatase 348 H (35-129) units/L Total Protein 6.0 L (6.3-8.2) g/dL Albumin 2.5 L (3.9-5) g/dL
[2020-08-08] MEDS: PROCHLORPERAZINE MALEATE 10 MG TAB PO PRN (11:50)
[2020-08-08] MEDS ORDERED: chlorproMAZINE 25 MG in SODIUM CHLORIDE 0.9% 50 ML IV PRN (11:55)
--- NOTE | 2020-08-08 12:06 | Consultation ---
History of Present Illness Consult date: 08/08/20 Reason for consult: abdominal pain - History of present illness History of present illness: 70 yo male with systolic CHF, Type 2 DM, ROBERTH and acute cholecystitis. Epigastric pain began 2 days ago and was followed by nausea and vomiting without hematemesis. No prior abdominal surgery. No melena or hematochezia. No fever or chills. Past History Past Medical History: CAD, diabetes, heart failure Past Surgical History: Other (Dual-chamber pacemaker; pt also says he has coronary stents.) Social history: smoking Medications and Allergies Allergies Allergy/AdvReac Type Severity Reaction Status Date / Time tetanus and diphtheria AdvReac Unknown Verified 08/06/20 14:20 toxoids Home Medications Medication Instructions Recorded Confirmed Last Taken Type Metformin HCl [metFORMIN] 1,000 mg PO BID 08/06/20 08/06/20 Unknown History Omeprazole 40 mg PO DAILY 08/06/20 08/06/20 Unknown History Rivaroxaban [Xarelto] 20 mg PO QDAY 08/06/20 08/06/20 Unknown History Sacubitril/Valsartan [Entresto 1 each PO BID 08/06/20 08/06/20 Unknown History 49-51 mg] Sertraline [Zoloft] 25 mg PO QDAY 08/06/20 08/06/20 Unknown History Spironolactone [Aldactone] 25 ng PO DAILY 08/06/20 08/06/20 Unknown History Torsemide [Demadex] 50 mg PO DAILY 08/06/20 08/06/20 Unknown History Zolpidem [Ambien] 5 mg PO QHS PRN 08/06/20 08/06/20 Unknown History carvediloL [Coreg] 6.25 mg PO BID 08/06/20 08/06/20 Unknown History traZODone [Desyrel] 50 mg PO QHS 08/06/20 08/06/20 Unknown History Active Meds: Active Medications Dextrose (D50w (25gm) Syringe) 0 ml IV Q30MIN PRN; Protocol PRN Reason: Hypoglycemia Famotidine (Pepcid) 20 mg IV QDAY [facility] Last Admin: 08/08/20 11:25 Dose: 20 mg Documented by: Heparin Sodium (Porcine) (Heparin) 5,000 unit SUB-Q Q12HR [facility] Last Admin: 08/08/20 11:25 Dose: 5,000 unit Documented by: Norepinephrine (Levophed Drip 4 Mg/Ns 250 Ml) 4 mg in 250 mls @ 7.5 mls/hr IV TITR JULIET; Protocol Last Titration: 08/08/20 11:53 Dose: 2 mcg/min, 7.5 mls/hr Documented by: Dextrose/Sodium Chloride (D5ns) 1,000 mls @ 75 mls/hr IV DIRECT JULIET Last Admin: 08/08/20 11:26 Dose: 100 mls/hr Documented by: Cefepime HCl (Cefepime/Ns 2 Gm/100 Ml) 2 gm in 100 mls @ 200 mls/hr IV Q24HR JULIET; Protocol Last Admin: 08/08/20 11:25 Dose: 200 mls/hr Documented by: Insulin Human Lispro (Humalog) 0 unit SUB-Q Q6HR JULIET; Protocol Last Admin: 08/08/20 11:47 Dose: 4 unit Documented by: Morphine Sulfate (Morphine) 2 mg IV Q4H PRN PRN Reason: Pain, Moderate (4-6) Last Admin: 08/07/20 22:13 Dose: 2 mg Documented by: Prochlorperazine Maleate (Compazine) 10 mg PO Q6H PRN PRN Reason: Nausea And Vomiting Last Admin: 08/08/20 11:50 Dose: 10 mg Documented by: Sodium Chloride (Sodium Chloride Flush Syringe 10 Ml) 10 ml IV BID [facility]ET Last Admin: 08/08/20 11:25 Dose: 10 ml Documented by: Sodium Chloride (Sodium Chloride Flush Syringe 10 Ml) 10 ml IV PRN PRN PRN Reason: LINE FLUSH Review of Systems All systems: negative (none) Exam Vital Signs Temp Pulse Resp BP Pulse Ox 98.2 F 88 20 106/78 97 08/06/20 13:23 08/06/20 13:23 08/06/20 13:23 08/06/20 13:23 08/06/20 13:23 - General physical appearance Positive: well developed, well nourished, no distress - Eyes Positive: PERRL, normal occular movement, icteric - ENT Positive: normal pinna, normal nares, normal mucosa, no hearing loss, no congestion - Neck Positive: no masses, no bruits, trachea midline, no venous distension - Respiratory Positive: normal expansion, normal respiratory effort, clear to auscultation - Cardiovascular Rhythm: regular Heart Sounds: Present: S1 & S2. Absent: rub, click - Breasts Breasts: deferred - Abdomen Abdomen: Present: soft, bowel sounds normal (Tender in the epigastrium without rebound or guarding) - Genitourinary Male Genitourinary: deferred - Integumentary no rash, no growths, no abnormal pigmentation - Neurologic Neurologic: alert and oriented to time, place and person, motor strength and sensation are grossly intact - Musculoskeletal normal gait, normal posture - Psychiatric Psychiatric: appropriate mood/affect, intact judgment & insight Results - Labs 08/07/20 04:00 08/08/20 04:57 Abnormal lab results 08/07/20 08/07/20 08/07/20 Range/Units 07:50 10:13 12:36 Potassium (3.6-5.0) mmol/L BUN (9-20) mg/dL Creatinine (0.8-1.3) mg/dL Glucose (75-100) mg/dL POC Glucose 197 H 205 H (70-105) Calcium (8.4-10.2) mg/dL Total Bilirubin (0.1-1.2) mg/dL AST (5-40) units/L ALT (7-56) units/L Alkaline Phosphatase (35-129) units/L Total Protein (6.3-8.2) g/dL Albumin (3.9-5) g/dL Urine Creatinine 77.8 H (0.1-20.0) mg/dL 08/07/20 08/07/20 08/08/20 Range/Units 17:36 21:49 04:57 Potassium 3.3 L (3.6-5.0) mmol/L BUN 76 H (9-20) mg/dL Creatinine 2.0 H (0.8-1.3) mg/dL Glucose 353 H (75-100) mg/dL POC Glucose 240 H 218 H (70-105) Calcium 7.7 L (8.4-10.2) mg/dL Total Bilirubin 8.00 H (0.1-1.2) mg/dL AST 46 H (5-40) units/L ALT 57 H (7-56) units/L Alkaline Phosphatase 348 H (35-129) units/L Total Protein 6.0 L (6.3-8.2) g/dL Albumin 2.5 L (3.9-5) g/dL Urine Creatinine (0.1-20.0) mg/dL 08/08/20 Range/Units 08:06 Potassium (3.6-5.0) mmol/L BUN (9-20) mg/dL Creatinine (0.8-1.3) mg/dL Glucose (75-100) mg/dL POC Glucose 258 H (70-105) Calcium (8.4-10.2) mg/dL Total Bilirubin (0.1-1.2) mg/dL AST (5-40) units/L ALT (7-56) units/L Alkaline Phosphatase (35-129) units/L Total Protein (6.3-8.2) g/dL Albumin (3.9-5) g/dL Urine Creatinine (0.1-20.0) mg/dL Diabetes panel 08/08/20 Range/Units 04:57 Sodium 142 (137-145) mmol/L Potassium 3.3 L (3.6-5.0) mmol/L Chloride 101.6 (98-107) mmol/L Carbon Dioxide 24 (22-30) mmol/L BUN 76 H (9-20) mg/dL Creatinine 2.0 H (0.8-1.3) mg/dL Glucose 353 H (75-100) mg/dL Calcium 7.7 L (8.4-10.2) mg/dL AST 46 H (5-40) units/L ALT 57 H (7-56) units/L Alkaline Phosphatase 348 H (35-129) units/L Total Protein 6.0 L (6.3-8.2) g/dL Albumin 2.5 L (3.9-5) g/dL Calcium panel 08/08/20 Range/Units 04:57 Calcium 7.7 L (8.4-10.2) mg/dL Albumin 2.5 L (3.9-5) g/dL Pituitary panel 08/08/20 Range/Units 04:57 Sodium 142 (137-145) mmol/L Potassium 3.3 L (3.6-5.0) mmol/L Chloride 101.6 (98-107) mmol/L Carbon Dioxide 24 (22-30) mmol/L BUN 76 H (9-20) mg/dL Creatinine 2.0 H (0.8-1.3) mg/dL Glucose 353 H (75-100) mg/dL Calcium 7.7 L (8.4-10.2) mg/dL Adrenal panel 08/08/20 Range/Units 04:57 Sodium 142 (137-145) mmol/L Potassium 3.3 L (3.6-5.0) mmol/L Chloride 101.6 (98-107) mmol/L Carbon Dioxide 24 (22-30) mmol/L BUN 76 H (9-20) mg/dL Creatinine 2.0 H (0.8-1.3) mg/dL Glucose 353 H (75-100) mg/dL Calcium 7.7 L (8.4-10.2) mg/dL Total Bilirubin 8.00 H (0.1-1.2) mg/dL AST 46 H (5-40) units/L ALT 57 H (7-56) units/L Alkaline Phosphatase 348 H (35-129) units/L Total Protein 6.0 L (6.3-8.2) g/dL Albumin 2.5 L (3.9-5) g/dL - Imaging Additional studies: Total bilirubin 8 with alk phos of 348. CT abdomen and pelvis - See report. Assessment and Plan - Patient Problems (1) Biliary obstruction Current Visit: Yes Status: Acute Plan to address problem: 1) Strict NPO 2) RUQ US 3) GI consult 4) Hold Xarelto 5) Antibiotics per ID 6) Will need cardiac clearance prior to ERCP/lap rachel
[2020-08-08] MEDS ORDERED: chlorproMAZINE 50 MG/2 ML INJ IV ONE (12:11)
[2020-08-08] MEDS ORDERED: chlorproMAZINE 25 MG in SODIUM CHLORIDE 0.9% 50 ML IV ONE (13:00)
[2020-08-08] MEDS: INSULIN GLARGINE 100 UNITS/ML SUB-Q SCH (13:56)
[2020-08-08] MEDS ORDERED: VANCOMYCIN 1,250 MG in SODIUM CHLORIDE 0.9% 250ML 250 ML IV SCH (14:30)
--- NOTE | 2020-08-08 15:12 | Progress Note ---
Assessment and Plan 1. Acute kidney injury: Likely Vasomotor ROBERTH in the setting of shock. CT abdomen was negative for hydro. Urine studies ordered. Monitor renal function. Creatinine level improving. Avoid nephrotoxic agents. Meds dosage based on GFR. Baseline renal function is unknown. 2. FEN: Mild Hyponatremia, improved. Monitor lytes and volume status. 3. Shock: Levophed and Cefepime. Follow cultures. 4. Acute toxic encephalopathy, POA. 5. Acute cholelithiasis, POA: Obstructive jaundice. Followed by Gen Surgery. 6. DM type 2: Monitor. - Subjective: Patient was seen and examined at the bedside. In ICU. - Examination: General appearance: well-developed, appears stated age, no distress HEENT: ATNC, icterus Neck: Trachea midline Respiratory: ctab Cardiology: regular, S1S2, no murmur Gastrointestinal: soft, not tender, not distended, BS heard Integumentary: no obvious rash Neurologic: lethargic, not following any command Ext: no extremity edema : Condom catheter Subjective Date of service: 08/08/20 Objective - Vital Signs Vital signs: Vital Signs - 12hr 08/08/20 08/08/20 08/08/20 03:20 03:30 03:40 Temperature Pulse Rate 80 85 87 Respiratory Rate Blood Pressure 103/45 103/45 89/39 O2 Sat by Pulse 94 Oximetry 08/08/20 08/08/20 08/08/20 03:45 03:50 04:00 Temperature 97.5 F L Pulse Rate 78 97 H Respiratory 18 Rate Blood Pressure 102/49 102/49 O2 Sat by Pulse 95 95 Oximetry 08/08/20 08/08/20 08/08/20 04:10 04:20 04:30 Temperature Pulse Rate 77 85 Respiratory Rate Blood Pressure 117/47 120/55 120/55 O2 Sat by Pulse 96 95 97 Oximetry 08/08/20 08/08/20 08/08/20 04:40 04:50 05:00 Temperature Pulse Rate 82 80 77 Respiratory Rate Blood Pressure 132/36 109/30 109/30 O2 Sat by Pulse 97 98 97 Oximetry 08/08/20 08/08/20 08/08/20 05:10 05:20 05:30 Temperature Pulse Rate 70 74 77 Respiratory Rate Blood Pressure 103/37 93/39 93/39 O2 Sat by Pulse 97 95 96 Oximetry 08/08/2020 08/08/20 05:40 05:50 06:00 Temperature Pulse Rate 92 H 79 74 Respiratory Rate Blood Pressure 109/41 107/50 107/50 O2 Sat by Pulse 95 97 98 Oximetry 08/08/2020 08/08/20 06:10 06:20 06:30 Temperature Pulse Rate 76 83 87 Respiratory Rate Blood Pressure 115/43 109/41 109/41 O2 Sat by Pulse 95 95 98 Oximetry 08/08/20 08/08/20 08/08/20 06:40 06:50 07:00 Temperature Pulse Rate 78 79 84 Respiratory Rate Blood Pressure 120/47 120/47 120/47 O2 Sat by Pulse 99 98 98 Oximetry 08/08/20 08/08/20 08/08/20 07:10 07:20 07:30 Temperature Pulse Rate 82 75 85 Respiratory Rate Blood Pressure 111/54 109/47 109/47 O2 Sat by Pulse 98 98 97 Oximetry 08/08/20 08/08/20 08/08/20 07:40 07:50 08:00 Temperature 98.7 F Pulse Rate 88 87 91 H Respiratory 18 Rate Blood Pressure 95/33 96/50 96/50 O2 Sat by Pulse 98 98 98 Oximetry 08/08/20 08/08/20 08/08/20 08:10 08:20 08:30 Temperature Pulse Rate 85 83 97 H Respiratory 16 18 16 Rate Blood Pressure 105/45 51/22 51/22 O2 Sat by Pulse 98 99 97 Oximetry 08/08/20 08/08/20 08/08/20 08:40 08:50 09:00 Temperature Pulse Rate 101 H 81 88 Respiratory 17 18 17 Rate Blood Pressure 120/55 106/57 106/57 O2 Sat by Pulse 97 98 99 Oximetry 20 20 08/08/20 09:10 09:20 09:30 Temperature Pulse Rate 87 87 99 H Respiratory 16 15 14 Rate Blood Pressure 111/62 126/67 120/55 O2 Sat by Pulse 97 99 99 Oximetry 08/08/2008/08/20 08/08/20 09:40 09:50 10:00 Temperature Pulse Rate 88 78 111 H Respiratory 15 15 17 Rate Blood Pressure 119/53 106/55 106/55 O2 Sat by Pulse 99 96 94 Oximetry 09/20/20 08/08/20 08/08/20 10:10 10:20 10:30 Temperature Pulse Rate 85 95 H 93 H Respiratory 14 14 15 Rate Blood Pressure 113/56 114/41 106/55 O2 Sat by Pulse 94 94 94 Oximetry 08/08/20 08/08/20 08/08/20 10:40 10:50 11:00 Temperature Pulse Rate 104 H 90 85 Respiratory 15 15 18 Rate Blood Pressure 105/40 104/48 106/59 O2 Sat by Pulse 94 94 95 Oximetry 08/08/20 08/08/20 08/08/20 11:10 11:20 11:30 Temperature Pulse Rate 84 80 96 H Respiratory 15 18 17 Rate Blood Pressure 109/55 112/57 109/55 O2 Sat by Pulse 91 93 93 Oximetry 08/08/20 08/08/20 08/08/20 11:40 11:50 12:00 Temperature 97.4 F L Pulse Rate 92 H 89 84 Respiratory 11 L 20 15 Rate Blood Pressure 123/54 115/57 115/57 O2 Sat by Pulse 95 93 95 Oximetry 08/08/20 08/08/20 08/08/20 12:10 12:20 12:30 Temperature Pulse Rate 88 86 102 H Respiratory 17 17 14 Rate Blood Pressure 114/63 113/47 113/47 O2 Sat by Pulse 93 96 92 Oximetry 08/08/20 08/08/20 08/08/20 12:40 12:50 13:00 Temperature Pulse Rate 76 84 100 H Respiratory 19 22 18 Rate Blood Pressure 117/44 129/42 129/42 O2 Sat by Pulse 97 94 94 Oximetry 08/08/20 08/08/20 08/08/20 13:10 13:20 13:30 Temperature Pulse Rate 89 82 83 Respiratory 15 16 13 Rate Blood Pressure 106/69 120/47 120/47 O2 Sat by Pulse 92 94 95 Oximetry 08/08/20 08/08/20 08/08/20 13:40 13:50 14:00 Temperature Pulse Rate 89 85 83 Respiratory 16 14 18 Rate Blood Pressure 133/67 120/54 120/54 O2 Sat by Pulse 94 96 96 Oximetry 08/08/20 08/08/20 08/08/20 14:10 14:20 14:30 Temperature Pulse Rate 84 83 70 Respiratory 19 16 15 Rate Blood Pressure 122/61 104/47 104/47 O2 Sat by Pulse 94 93 93 Oximetry 08/08/20 08/08/20 08/08/20 14:40 14:50 15:00 Temperature Pulse Rate 82 75 90 Respiratory 16 16 15 Rate Blood Pressure 86/29 66/34 83/35 O2 Sat by Pulse 92 91 91 Oximetry - Lab 08/07/20 04:00 08/08/20 04:57 Most recent lab results Calcium 7.7 mg/dL (8.4-10.2) L 08/08/20 04:57 Phosphorus 6.80 mg/dL (2.5-4.5) H 08/06/20 14:42 Magnesium 1.60 mg/dL (1.7-2.3) L 08/06/20 18:50 Urine Creatinine 77.8 mg/dL (0.1-20.0) H 08/07/20 10:13 Urine Sodium 22 mmol/L 08/07/20 10:13 Medications & Allergies - Medications Allergies/Adverse Reactions: Allergies tetanus and diphtheria toxoids Adverse Reaction (Verified 08/06/20 14:20) Unknown Home Medications: Home Medications Medication Instructions Recorded Confirmed Last Taken Type Metformin HCl [metFORMIN] 1,000 mg PO BID 08/06/20 08/06/20 Unknown History Omeprazole 40 mg PO DAILY 08/06/20 08/06/20 Unknown History Rivaroxaban [Xarelto] 20 mg PO QDAY 08/06/20 08/06/20 Unknown History Sacubitril/Valsartan [Entresto 1 each PO BID 08/06/20 08/06/20 Unknown History 49-51 mg] Sertraline [Zoloft] 25 mg PO QDAY 08/06/20 08/06/20 Unknown History Spironolactone [Aldactone] 25 ng PO DAILY 08/06/20 08/06/20 Unknown History Torsemide [Demadex] 50 mg PO DAILY 08/06/20 08/06/20 Unknown History Zolpidem [Ambien] 5 mg PO QHS PRN 08/06/20 08/06/20 Unknown History carvediloL [Coreg] 6.25 mg PO BID 08/06/20 08/06/20 Unknown History traZODone [Desyrel] 50 mg PO QHS 08/06/20 08/06/20 Unknown History Active Medications: Generic Name Dose Route Start Last Admin Trade Name Freq PRN Reason Stop Dose Admin Dextrose 0 ml 08/06/20 22:56 D50w (25gm) Syringe IV Q30MIN PRN Hypoglycemia Protocol Famotidine 20 mg 08/07/20 11:00 08/08/20 11:25 Pepcid IV 20 mg QDAY JULIET Administration Heparin Sodium (Porcine) 5,000 unit 08/07/20 10:45 08/08/20 11:25 Heparin SUB-Q 5,000 unit Q12HR JULIET Administration Norepinephrine 4 mg in 250 mls @ 7.5 mls/hr 08/06/20 19:20 08/08/20 11:53 Levophed Drip 4 Mg/Ns 250 Ml IV 2 mcg/min TITR JULIET 7.5 mls/hr Titration Protocol 2 MCG/MIN Cefepime HCl 2 gm in 100 mls @ 200 mls/hr 08/07/20 19:00 08/08/20 11:25 Cefepime/Ns 2 Gm/100 Ml IV 200 mls/hr Q24HR JUL[facility]ET Administration Protocol Vancomycin HCl 1,250 mg/ 275 mls @ 166.667 mls/hr 08/08/20 14:30 Sodium Chloride IV Q24HR JULIET Sodium Chloride 1,000 mls @ 75 mls/hr 08/08/20 14:00 Nacl 0.45% 1000 Ml IV DIRECT JULIET Insulin Glargine 5 units 08/08/20 13:30 08/08/20 13:56 Lantus SUB-Q 5 units DAILY JUL[facility]ET Administration Insulin Human Lispro 0 unit 08/07/20 06:00 08/08/20 11:47 Humalog SUB-Q 4 unit Q6HR JULIET Administration Protocol Morphine Sulfate 2 mg 08/06/20 18:40 08/07/20 22:13 Morphine IV 2 mg Q4H PRN Administration Pain, Moderate (4-6) Prochlorperazine Maleate 10 mg 08/07/20 19:01 08/08/20 11:50 Compazine PO 10 mg Q6H PRN Administration Nausea And Vomiting Sodium Chloride 10 ml 08/06/20 22:00 08/08/20 11:25 Sodium Chloride Flush Syringe 10 Ml IV 10 ml BID JULIET Administration Sodium Chloride 10 ml 08/06/20 18:40 Sodium Chloride Flush Syringe 10 Ml IV PRN PRN LINE FLUSH
[2020-08-08] MEDS: SODIUM CHLORIDE 0.45% 1000 ML 1,000 ML IV SCH (15:15)
[2020-08-08] MEDS ORDERED: MAGNESIUM SULFATE 2 GM/50 ML BAG IV ONE (15:34)
--- NOTE | 2020-08-08 16:03 | Progress Note ---
Assessment and Plan --Acute cholecystitis with choledocholithiasis No plan for surgery per [facility] recommended ERCP, likely to be performed tomorrow if blood pressure stable Continue to monitor LFT for now CT abdomen/pelvis: 1. Acute cholecystitis. There is also choledocholithiasis. -- Acute kidney injury (ROBERTH) with acute tubular necrosis (ATN) Monitor urine output every shift, supportive care, nephrology team consulted. Renal function is improving, Continue low volume IV fluid given history of CHF --Acute metabolic encephalopathy, resolved Continue supportive care and follow clinically - Gm +ve bacteremia cont vancomycin for now, ID consulted --Septic shock, continue Levophed and wean off as tolerated --Sepsis, present on admission Patient presented with severe hypotension, lactic acidosis, ROBERTH, altered mental status Blood culture positive for gram-positive cocci, CT abdomen pelvis suggesting acute cholecystitis and choledocholithiasis Continue IV antibiotics for now, follow ID recommendation, monitor final blood culture results PUI with COVID 19, ruled out with negative test --CHF with systolic failure, appears compensated EF unknown at this point, cardiology following, will follow 2D echo result -- Paroxysmal atrial fibrillation on Xarelto, will hold for now possible surgery/ERCP Patient normal sinus rhythm on the monitor -Elevated LFT Likely due to obstruction Will continue to monitor LFT, consulted with GI --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 --Advance care planning Disease education conducted, supportive care, patient is full code, disease education conducted The high probability of a clinically significant, sudden or life threatening deterioration of the [CVS, GI, renal] system(s) required my full and direct attention, intervention and personal management. The aggregate critical care time was [34] minutes. This time is in addition to time spent performing reported procedures but includes the following: [x] Data Review and interpretation [x] Patient assessment and monitoring of vital signs [x] Documentation [x] Medication orders and management Brief history: 70-year-old man with h/o history of systolic heart failure, coronary artery disease, dual-chamber pacemaker in situ, on anticoagulation with Xarelto, admitted with weakness, severe jaundice, and severe renal failure. CT scan of the abdomen reports evidence of acute cholecystitis. 9/19: Continue IV fluid, empiric antibiotics, blood cx positive for gm +ve cocci . Consult GI and general surgery. Monitor renal function and follow clinically. obtain 2d echo. follow CoVID 19 result 08/08; patient remains on Levophed, renal function improved. Continue low volume IV fluid, COVID 19 test negative, follow blood culture, continue IV antibiotics we will follow 2D echo result. Continue to hold Xarelto for now. Called patient and updated. Subjective Date of service: 08/08/20 Interval history: Patient seen and examined. Medical records and medication list reviewed. No acute event overnight noted by the RN. Patient patient currently on Levophed, vitals stable abdominal pain has improved, Discussed plan of care at bedside with patient. Also called patient and updated Objective - Exam Narrative Exam: General appearance: Present: mild distress, white male - EENT Eyes: Present: scleral icterus ENT: hearing intact, clear oral mucosa - Neck Neck: Present: supple, normal ROM - Respiratory Respiratory effort: normal Respiratory: bilateral: CTA - Cardiovascular Heart Sounds: Present: S1 & S2. Absent: rub, click - Extremities Extremities: pulses symmetrical Extremity abnormal: edema Peripheral Pulses: within normal limits - Abdominal General gastrointestinal: Present: soft, normal bowel sounds Male genitourinary: Present: normal - Integumentary Integumentary: Present: clear, warm, dry - Musculoskeletal Musculoskeletal: generalized weakness - Psychiatric Psychiatric: appropriate mood/affect, intact judgment & insight - Neurologic Neurologic: CNII-XII intact, moves all extremities - Constitutional Vitals: Vital Signs - 12hr 08/08/20 08/08/20 08/08/20 04:00 04:10 04:20 Temperature Pulse Rate 97 H 77 85 Respiratory 18 Rate Blood Pressure 102/49 117/47 120/55 O2 Sat by Pulse 95 96 95 Oximetry 08/08/20 08/08/20 08/08/20 04:30 04:40 04:50 Temperature Pulse Rate 82 80 Respiratory Rate Blood Pressure 120/55 132/36 109/30 O2 Sat by Pulse 97 97 98 Oximetry 08/08/20 08/08/20 08/08/20 05:00 05:10 05:20 Temperature Pulse Rate 77 70 74 Respiratory Rate Blood Pressure 109/30 103/37 93/39 O2 Sat by Pulse 97 97 95 Oximetry 08/08/20 08/08/20 08/08/20 05:30 05:40 05:50 Temperature Pulse Rate 77 92 H 79 Respiratory Rate Blood Pressure 93/39 109/41 107/50 O2 Sat by Pulse 96 95 97 Oximetry 08/08/20 08/08/20 08/08/20 06:00 06:10 06:20 Temperature Pulse Rate 74 76 83 Respiratory Rate Blood Pressure 107/50 115/43 109/41 O2 Sat by Pulse 98 95 95 Oximetry 08/08/20 08/08/20 08/08/20 06:30 06:40 06:50 Temperature Pulse Rate 87 78 79 Respiratory Rate Blood Pressure 109/41 120/47 120/47 O2 Sat by Pulse 98 99 98 Oximetry 08/08/20 08/08/20 08/08/20 07:00 07:10 07:20 Temperature Pulse Rate 84 82 75 Respiratory Rate Blood Pressure 120/47 111/54 109/47 O2 Sat by Pulse 98 98 98 Oximetry 08/08/20 08/08/20 08/08/20 07:30 07:40 07:50 Temperature Pulse Rate 85 88 87 Respiratory Rate Blood Pressure 109/47 95/33 96/50 O2 Sat by Pulse 97 98 98 Oximetry 08/08/20 08/08/20 08/08/20 08:00 08:10 08:20 Temperature 98.7 F Pulse Rate 91 H 85 83 Respiratory 18 16 18 Rate Blood Pressure 96/50 105/45 51/22 O2 Sat by Pulse 98 98 99 Oximetry 08/08/20 08/08/20 08/08/20 08:30 08:40 08:50 Temperature Pulse Rate 97 H 101 H 81 Respiratory 16 17 18 Rate Blood Pressure 51/22 120/55 106/57 O2 Sat by Pulse 97 97 98 Oximetry 08/08/20 08/08/20 08/08/20 09:00 09:10 09:20 Temperature Pulse Rate 88 87 87 Respiratory 17 16 15 Rate Blood Pressure 106/57 111/62 126/67 O2 Sat by Pulse 99 97 99 Oximetry 08/08/20 08/08/20 08/08/20 09:30 09:40 09:50 Temperature Pulse Rate 99 H 88 78 Respiratory 14 15 15 Rate Blood Pressure 120/55 119/53 106/55 O2 Sat by Pulse 99 99 96 Oximetry 08/08/20 08/08/20 08/08/20 10:00 10:10 10:20 Temperature Pulse Rate 111 H 85 95 H Respiratory 17 14 14 Rate Blood Pressure 106/55 113/56 114/41 O2 Sat by Pulse 94 94 94 Oximetry 08/08/20 08/08/20 08/08/20 10:30 10:40 10:50 Temperature Pulse Rate 93 H 104 H 90 Respiratory 15 15 15 Rate Blood Pressure 106/55 105/40 104/48 O2 Sat by Pulse 94 94 94 Oximetry 08/08/20 08/08/20 08/08/20 11:00 11:10 11:20 Temperature Pulse Rate 85 84 80 Respiratory 18 15 18 Rate Blood Pressure 106/59 109/55 112/57 O2 Sat by Pulse 95 91 93 Oximetry 08/08/20 08/08/20 08/08/20 11:30 11:40 11:50 Temperature Pulse Rate 96 H 92 H 89 Respiratory 17 11 L 20 Rate Blood Pressure 109/55 123/54 115/57 O2 Sat by Pulse 93 95 93 Oximetry 08/08/20 08/08/20 08/08/20 12:00 12:10 12:20 Temperature 97.4 F L Pulse Rate 84 88 86 Respiratory 15 17 17 Rate Blood Pressure 115/57 114/63 113/47 O2 Sat by Pulse 95 93 96 Oximetry 08/08/20 08/08/20 08/08/20 12:30 12:40 12:50 Temperature Pulse Rate 102 H 76 84 Respiratory 14 19 22 Rate Blood Pressure 113/47 117/44 129/42 O2 Sat by Pulse 92 97 94 Oximetry 08/08/20 08/08/20 08/08/20 13:00 13:10 13:20 Temperature Pulse Rate 100 H 89 82 Respiratory 18 15 16 Rate Blood Pressure 129/42 106/69 120/47 O2 Sat by Pulse 94 92 94 Oximetry 08/08/20 08/08/20 08/08/20 13:30 13:40 13:50 Temperature Pulse Rate 83 89 85 Respiratory 13 16 14 Rate Blood Pressure 120/47 133/67 120/54 O2 Sat by Pulse 95 94 96 Oximetry 08/08/20 08/08/20 08/08/20 14:00 14:10 14:20 Temperature Pulse Rate 83 84 83 Respiratory 18 19 16 Rate Blood Pressure 120/54 122/61 104/47 O2 Sat by Pulse 96 94 93 Oximetry 08/08/20 08/08/20 08/08/20 14:30 14:40 14:50 Temperature Pulse Rate 70 82 75 Respiratory 15 16 16 Rate Blood Pressure 104/47 86/29 66/34 O2 Sat by Pulse 93 92 91 Oximetry 08/08/20 08/08/20 08/08/20 15:00 15:10 15:20 Temperature Pulse Rate 90 73 81 Respiratory 15 15 13 Rate Blood Pressure 83/35 83/35 84/45 O2 Sat by Pulse 91 91 93 Oximetry 08/08/20 15:24 Temperature Pulse Rate Respiratory 18 Rate Blood Pressure O2 Sat by Pulse 95 Oximetry - Labs CBC & Chem 7: 08/07/20 04:00 08/08/20 04:57 Labs: Abnormal lab results 08/07/20 08/07/20 08/07/20 Range/Units 07:50 17:36 21:49 Potassium (3.6-5.0) mmol/L BUN (9-20) mg/dL Creatinine (0.8-1.3) mg/dL Glucose (75-100) mg/dL POC Glucose 197 H 240 H 218 H (70-105) Calcium (8.4-10.2) mg/dL Total Bilirubin (0.1-1.2) mg/dL AST (5-40) units/L ALT (7-56) units/L Alkaline Phosphatase (35-129) units/L Total Protein (6.3-8.2) g/dL Albumin (3.9-5) g/dL 08/08/20 08/08/20 08/08/20 Range/Units 04:57 08:06 11:52 Potassium 3.3 L (3.6-5.0) mmol/L BUN 76 H (9-20) mg/dL Creatinine 2.0 H (0.8-1.3) mg/dL Glucose 353 H (75-100) mg/dL POC Glucose 258 H 245 H (70-105) Calcium 7.7 L (8.4-10.2) mg/dL Total Bilirubin 8.00 H (0.1-1.2) mg/dL AST 46 H (5-40) units/L ALT 57 H (7-56) units/L Alkaline Phosphatase 348 H (35-129) units/L Total Protein 6.0 L (6.3-8.2) g/dL Albumin 2.5 L (3.9-5) g/dL HEART Score - HEART Score Troponin: Troponin T 0.023 ng/mL (0.00-0.029) 08/06/20 18:33
[2020-08-08] MEDS: POTASSIUM CHLORIDE 10 MEQ 10 MEQ/100 ML BAG IV SCH ×2 (16:51→18:42)
[2020-08-08] MEDS: MORPHINE 2 MG/1 ML INJ IV PRN (19:04)
[2020-08-09] MEDS: INSULIN LISPRO 100 UNIT/ML VIAL 3 mL SUB-Q SCH ×4 (00:29→18:23)
[2020-08-09 05:01] LABS: Hemoglobin 12.2 gm/dl (11.8-15.2); Mean Corpuscular HGB Conc 35 % (32-34); Mean Corpuscular Volume 81 fl (84-94); Platelet Count 150 K/mm3 (140-440); Red Blood Count 4.32 M/mm3 (3.65-5.03)
[2020-08-09 05:10] LABS: Red Cell Distribution Width 21.6 % (13.2-15.2)
[2020-08-09 05:26] LABS: Calcium 7.8 mg/dL (8.4-10.2)
[2020-08-09] MEDS: NORepinephrine/NS 4 MG-250 ML 4 MG/250 ML BAG IV SCH (05:47)
[2020-08-09] MEDS: SODIUM CHLORIDE 0.45% 1000 ML 1,000 ML IV SCH (05:48)
--- NOTE | 2020-08-09 06:49 | Consultation ---
REFERRING PHYSICIAN: Colette Bautista MD INDICATION: 1. Increased liver function tests. 2. Cholecystitis. HISTORY OF PRESENT ILLNESS: The patient is a 70-year-old male with history of congestive heart failure, nicotine dependence, found generally weak with shortness of breath and orthopnea. The patient was also noted to be jaundiced with a 20-pound weight loss over the last month. The patient subsequently was brought to the Emergency Room where he was found to be in CHF decompensation as well as acute renal failure, hepatorenal ____ with jaundice. He subsequently was admitted, intubated and GI consulted. The patient was noted to be hypotensive and also put on pressor support. The patient has been admitted to the ICU and GI consulted. PAST MEDICAL HISTORY: CHF. ALLERGIES: TETANUS AND DIPHTHERIA. SOCIAL HISTORY: Smoker. FAMILY HISTORY: Negative for colon cancer, IBD, or liver disease. REVIEW OF SYSTEMS: GENERAL: Weakness. HEENT: No visual complaints or tinnitus. PULMONARY: ____. No chest pain. GASTROINTESTINAL: Denies specific noted complaint. All points of 13-point review of systems otherwise negative. PHYSICAL EXAMINATION: VITAL SIGNS: Temperature of 98.7, pulse 77, respirations 18, blood pressure 84/45. GENERAL: Fairly weak appearing male, in no acute distress. HEENT: Pupils equal, round and reactive. PULMONARY: Rhonchi. CARDIOVASCULAR: Regular rhythm. ABDOMEN: Soft. SKIN: No rashes. LABORATORY DATA: Pertinent for white count of 10.3, hemoglobin and hematocrit of 12.4 and 34.3, platelet count of 167. Chem-7: Sodium of 142, potassium 3.3, chloride 101, CO2 of 24, BUN and creatinine of 76 and 2, total bilirubin of 8, AST and ALT of 46 and 57 with an alkaline phosphatase of 348. CT scan of abdomen and pelvis with contrast on 08/06/2020 showed acute cholecystitis with probable choledocholithiasis. ASSESSMENT AND PLAN: A 70-year-old male presents with weakness and signs of sepsis in the setting of a history of congestive heart failure and signs of decompensation and weakness. Possibility of biliary obstruction with sepsis. The patient also has a lot of comorbid conditions. Surgery evaluation noted. PLAN: 1. We will review CT scan. 2. N.p.o. with IV fluids as well as IV antibiotics as ordered by primary team. 3. Agree with Cardiology consult and clearance. 4. Probable ERCP when stable. 5. We will follow. JOB# [id number] CAB/NTS
[2020-08-09 07:24] LABS: Total Cells Counted 100
[2020-08-09 07:25] LABS: Anisocytosis 1+; Basophils % (Manual) 0 % (0.0-1.8); Platelet Estimate Consistent w Auto
--- NOTE | 2020-08-09 07:46 | Ultrasound Report ---
ULTRASOUND ABDOMEN, LIMITED (RIGHT UPPER QUADRANT) INDICATION: Cholelithiasis on CT abdomen. COMPARISON: CT abdomen 08/06/2020 FINDINGS: Pancreas: Visualized portion shows no significant abnormality. Liver: Moderate increased echotexture characteristic for steatosis. Liver measures 15.8 cm in length Gallbladder: Gallbladder wall is thickened measuring 4 mm with large amount of internal sludge. The g allstone confirmed on the CT and the common bile duct stone are not seen sonographically. Bile ducts: Normal. Common Bile Duct measures 3 mm. Free fluid: None. Additional Findings: Small right pleural effusion IMPRESSION: 1. Acute cholecystitis 2. Known choledocholithiasis not visualized sonographically. No biliary duct dilatation Signer Name: Payam Kaur MD Signed: 08/09/2020 7:42 AM Workstation Name: [id number]
--- NOTE | 2020-08-09 07:56 | Progress Note ---
Assessment and Plan Cultures: Blood culture 08/06/2020 Coag-neg Staph 1 bottle Blood culture 08/08/2020 pending Urine culture 08/08/2020 neg SARS COV-2 PCR neg A/P: 70-year-old man past medical history CHF, continue dependence, DM 2 admitted with weakness, found to have cholecystitis and gram-positive bacteremia #Septic shock: Patient on pressors, secondary to acute cholecystitis #Acute cholecystitis: General surgery consulted #Coag-neg Staph bacteremia: likely a contaminant #ROBERTH: Renally adjust antibiotics, improving Recs: -Stop vancomycin -F/u Repeated blood cultures -Continue cefepime 2 g IV every 12 hours -Add metronidazole 500 g IV every 8 hours -per surgery Will need cardiac clearance prior to ERCP/lap rachel Ashley MD [facility] ([facility]) Office [phone] Subjective Date of service: 08/09/20 Principal diagnosis: Cholecystitis Interval history: Patient reports feeling okay, denies any abdominal pain, denies any fever, chills Objective - Exam Narrative Exam: General appearance: Alert in NAD on nasal cannula O2 Eyes: anicteric sclerae, moist conjunctivae; no lid-lag; PERRLA HENT: Atraumatic; oropharynx clear with moist mucous membranes and no oral thrush; normal hard and soft palate. Lungs: CTA, with normal respiratory effort and no intercostal retractions CV: RRR no murmur Abdomen: Soft, non-tender; no masses or hepatosplenomegaly Extremities: no edema, no cyanosis Skin: No rash. Psych: Appropriate affect, alert and oriented to person, place and time. Neuro: alert and oriented x 3. Moving all extermities - Constitutional Vitals: Vital Signs Temp Pulse Resp BP Pulse Ox 98.7 F 98 H 11 L 113/56 97 08/09/20 04:00 08/09/20 06:10 08/09/20 06:10 08/09/20 06:10 08/09/20 06:10 Temperature -Last 24 Hours Temperature 98.7 F Temperature 97.9 F Temperature 98.8 F Temperature 98.0 F Temperature 97.4 F Temperature 98.7 F - Labs CBC & Chem 7: 08/09/20 04:00 08/09/20 04:00 Labs: Abnormal lab results 08/08/20 08/08/20 08/08/20 Range/Units 08:06 11:52 17:52 WBC (4.5-11.0) K/mm3 Hct (35.5-45.6) % MCV (84-94) fl MCHC (32-34) % RDW (13.2-15.2) % Seg Neuts % (Manual) (40.0-70.0) % Lymphocytes % (Manual) (13.4-35.0) % Seg Neutrophils # Man (1.8-7.7) K/mm3 Lymphocytes # (Manual) (1.2-5.4) K/mm3 Potassium (3.6-5.0) mmol/L BUN (9-20) mg/dL Creatinine (0.8-1.3) mg/dL Glucose (75-100) mg/dL POC Glucose 258 H 245 H 251 H (70-105) Calcium (8.4-10.2) mg/dL Magnesium (1.7-2.3) mg/dL Total Bilirubin (0.1-1.2) mg/dL AST (5-40) units/L ALT (7-56) units/L Alkaline Phosphatase (35-129) units/L Total Protein (6.3-8.2) g/dL Albumin (3.9-5) g/dL 08/08/20 08/09/20 08/09/20 Range/Units 23:49 04:00 04:00 WBC 11.3 H (4.5-11.0) K/mm3 Hct 35.0 L (35.5-45.6) % MCV 81 L (84-94) fl MCHC 35 H (32-34) % RDW 21.6 H (13.2-15.2) % Seg Neuts % (Manual) 91.0 H (40.0-70.0) % Lymphocytes % (Manual) 3.0 L (13.4-35.0) % Seg Neutrophils # Man 10.3 H (1.8-7.7) K/mm3 Lymphocytes # (Manual) 0.3 L (1.2-5.4) K/mm3 Potassium 3.5 L (3.6-5.0) mmol/L BUN 53 H (9-20) mg/dL Creatinine 1.5 H (0.8-1.3) mg/dL Glucose 188 H (75-100) mg/dL POC Glucose 220 H (70-105) Calcium 7.8 L (8.4-10.2) mg/dL Magnesium 2.50 H (1.7-2.3) mg/dL Total Bilirubin 5.10 H (0.1-1.2) mg/dL AST 63 H (5-40) units/L ALT 61 H (7-56) units/L Alkaline Phosphatase 476 H (35-129) units/L Total Protein 5.9 L (6.3-8.2) g/dL Albumin 3.0 L (3.9-5) g/dL 08/09/20 Range/Units 05:29 WBC (4.5-11.0) K/mm3 Hct (35.5-45.6) % MCV (84-94) fl MCHC (32-34) % RDW (13.2-15.2) % Seg Neuts % (Manual) (40.0-70.0) % Lymphocytes % (Manual) (13.4-35.0) % Seg Neutrophils # Man (1.8-7.7) K/mm3 Lymphocytes # (Manual) (1.2-5.4) K/mm3 Potassium (3.6-5.0) mmol/L BUN (9-20) mg/dL Creatinine (0.8-1.3) mg/dL Glucose (75-100) mg/dL POC Glucose 181 H (70-105) Calcium (8.4-10.2) mg/dL Magnesium (1.7-2.3) mg/dL Total Bilirubin (0.1-1.2) mg/dL AST (5-40) units/L ALT (7-56) units/L Alkaline Phosphatase (35-129) units/L Total Protein (6.3-8.2) g/dL Albumin (3.9-5) g/dL
[2020-08-09] MEDS ORDERED: SODIUM BICARBONATE 325 MG TAB FEEDTUBE PRN (10:00)
[2020-08-09] MEDS ORDERED: LIPASE 10,500/PROTEASE 25,000/AMYLASE 43,750 (UNITS) DR CAP FEEDTUBE PRN (10:00)
[2020-08-09] MEDS ORDERED: SIMPLE SYRUP 15 ML FEEDTUBE PRN ×2 (10:00)
[2020-08-09] MEDS: metroNIDAZOLE/NS 500 MG/100 ML 500 MG/100 ML BAG IV SCH ×3 (10:08→22:24)
[2020-08-09] MEDS: CEFEPIME/NS 2 GM/100 ML 2 GM/100 ML BAG IV SCH ×2 (10:09→22:51)
[2020-08-09] MEDS: HEPARIN 5,000 UNIT/1 ML VIAL SUB-Q SCH ×2 (10:10→22:25)
[2020-08-09] MEDS: FAMOTIDINE 20 MG/2 ML INJ IV SCH (10:10)
[2020-08-09] MEDS: INSULIN GLARGINE 100 UNITS/ML SUB-Q SCH (10:11)
--- NOTE | 2020-08-09 12:34 | Gastroenterology Progress Note ---
Assessment and Plan - Patient Problems (1) Choledocholithiasis with acute cholecystitis Current Visit: Yes Status: Acute Plan to address problem: - If cleared by Cardiology, will plan ERCP tomorrow since off Xarelto x 48 hours at that point. - Will plan MAC v GETA anaesthesia pending Cards input and TTE. - Keep NPO, and continue abx. Subjective Date of service: 08/09/20 Principal diagnosis: Choledocholithiasis Interval history: The patient is getting a TTE; he has no N/V, and his BP has stabilized. He denies severe N/V/pain. Objective - Constitutional Vitals: Temp Pulse Resp BP Pulse Ox 98.1 F 82 21 126/54 97 08/09/20 12:00 08/09/20 12:00 08/09/20 12:00 08/09/20 12:00 08/09/20 12:00 General appearance: no acute distress - Respiratory Respiratory effort: normal Respiratory: bilateral: CTA - Cardiovascular Rhythm: regular Heart Sounds: Present: S1 & S2 - Gastrointestinal General gastrointestinal: Present: soft, non-tender, non-distended - Labs CBC & Chem 7: 08/09/20 04:00 08/09/20 04:00 Labs: Laboratory Results - last 24 hr 08/08/20 08/08/20 08/08/20 09:00 12:00 17:52 WBC RBC Hgb Hct MCV MCH MCHC RDW Plt Count Add Manual Diff Total Counted Seg Neuts % (Manual) Band Neutrophils % Lymphocytes % (Manual) Reactive Lymphs % (Man) Monocytes % (Manual) Eosinophils % (Manual) Basophils % (Manual) Metamyelocytes % Myelocytes % Promyelocytes % Blast Cells % Nucleated RBC % Seg Neutrophils # Man Band Neutrophils # Lymphocytes # (Manual) Abs React Lymphs (Man) Monocytes # (Manual) Eosinophils # (Manual) Basophils # (Manual) Metamyelocytes # Myelocytes # Promyelocytes # Blast Cells # WBC Morphology Hypersegmented Neuts Hyposegmented Neuts Hypogranular Neuts Smudge Cells Toxic Granulation Toxic Vacuolation Dohle Bodies Pelger-Huet Anomaly Shady Rods Platelet Estimate Clumped Platelets Plt Clumps, EDTA Large Platelets Giant Platelets Platelet Satelliting Plt Morphology Comment RBC Morphology Dimorphic RBCs Polychromasia Hypochromasia Poikilocytosis Anisocytosis Microcytosis Macrocytosis Spherocytes Pappenheimer Bodies Sickle Cells Target Cells Tear Drop Cells Ovalocytes Helmet Cells [place] Bodies [place] Rings Panda Cells Bite Cells Crenated Cell Elliptocytes Acanthocytes (Spur) Rouleaux Hemoglobin C Crystals Schistocytes Malaria parasites Theodore Bodies Hem Pathologist Commnt Sodium Potassium Chloride Carbon Dioxide Anion Gap BUN Creatinine Estimated GFR BUN/Creatinine Ratio Glucose POC Glucose 251 H Calcium Magnesium Total Bilirubin AST ALT Alkaline Phosphatase Total Protein Albumin Albumin/Globulin Ratio Random Vancomycin 6.3 Coronavirus (PCR) Negative 08/08/20 08/09/20 08/09/20 23:49 04:00 04:00 WBC 11.3 H RBC 4.32 Hgb 12.2 Hct 35.0 L MCV 81 L MCH 28 MCHC 35 H RDW 21.6 H Plt Count 150 Add Manual Diff Complete Total Counted 100 Seg Neuts % (Manual) 91.0 H Band Neutrophils % 0 Lymphocytes % (Manual) 3.0 L Reactive Lymphs % (Man) 0 Monocytes % (Manual) 5.0 Eosinophils % (Manual) 1.0 Basophils % (Manual) 0 Metamyelocytes % 0 Myelocytes % 0 Promyelocytes % 0 Blast Cells % 0 Nucleated RBC % Not Reportable Seg Neutrophils # Man 10.3 H Band Neutrophils # 0.0 Lymphocytes # (Manual) 0.3 L Abs React Lymphs (Man) 0.0 Monocytes # (Manual) 0.6 Eosinophils # (Manual) 0.1 Basophils # (Manual) 0.0 Metamyelocytes # 0.0 Myelocytes # 0.0 Promyelocytes # 0.0 Blast Cells # 0.0 WBC Morphology Not Reportable Hypersegmented Neuts Not Reportable Hyposegmented Neuts Not Reportable Hypogranular Neuts Not Reportable Smudge Cells Not Reportable Toxic Granulation Not Reportable Toxic Vacuolation Not Reportable Dohle Bodies Not Reportable Pelger-Huet Anomaly Not Reportable Shady Rods Not Reportable Platelet Estimate Consistent w auto Clumped Platelets Not Reportable Plt Clumps, EDTA Not Reportable Large Platelets Not Reportable Giant Platelets Not Reportable Platelet Satelliting Not Reportable Plt Morphology Comment Not Reportable RBC Morphology Not Reportable Dimorphic RBCs Not Reportable Polychromasia Not Reportable Hypochromasia Not Reportable Poikilocytosis Not Reportable Anisocytosis 1+ Microcytosis Not Reportable Macrocytosis Not Reportable Spherocytes Not Reportable Pappenheimer Bodies Not Reportable Sickle Cells Not Reportable Target Cells Not Reportable Tear Drop Cells Not Reportable Ovalocytes Not Reportable Helmet Cells Not Reportable [place] Bodies Not Reportable [place] Rings Not Reportable Fritch Cells Not Reportable Bite Cells Not Reportable Crenated Cell Not Reportable Elliptocytes Not Reportable Acanthocytes (Spur) Not Reportable Rouleaux Not Reportable Hemoglobin C Crystals Not Reportable Schistocytes Not Reportable Malaria parasites Not Reportable Theodore Bodies Not Reportable Hem Pathologist Commnt No Sodium 139 Potassium 3.5 L Chloride 98.9 Carbon Dioxide 26 Anion Gap 18 BUN 53 H Creatinine 1.5 H Estimated GFR 46 BUN/Creatinine Ratio 35 Glucose 188 H POC Glucose 220 H Calcium 7.8 L Magnesium 2.50 H Total Bilirubin 5.10 H AST 63 H ALT 61 H Alkaline Phosphatase 476 H Total Protein 5.9 L Albumin 3.0 L Albumin/Globulin Ratio 1.0 Random Vancomycin Coronavirus (PCR) 08/09/20 08/09/20 05:29 12:12 WBC RBC Hgb Hct MCV MCH MCHC RDW Plt Count Add Manual Diff Total Counted Seg Neuts % (Manual) Band Neutrophils % Lymphocytes % (Manual) Reactive Lymphs % (Man) Monocytes % (Manual) Eosinophils % (Manual) Basophils % (Manual) Metamyelocytes % Myelocytes % Promyelocytes % Blast Cells % Nucleated RBC % Seg Neutrophils # Man Band Neutrophils # Lymphocytes # (Manual) Abs React Lymphs (Man) Monocytes # (Manual) Eosinophils # (Manual) Basophils # (Manual) Metamyelocytes # Myelocytes # Promyelocytes # Blast Cells # WBC Morphology Hypersegmented Neuts Hyposegmented Neuts Hypogranular Neuts Smudge Cells Toxic Granulation Toxic Vacuolation Dohle Bodies Pelger-Huet Anomaly Shady Rods Platelet Estimate Clumped Platelets Plt Clumps, EDTA Large Platelets Giant Platelets Platelet Satelliting Plt Morphology Comment RBC Morphology Dimorphic RBCs Polychromasia Hypochromasia Poikilocytosis Anisocytosis Microcytosis Macrocytosis Spherocytes Pappenheimer Bodies Sickle Cells Target Cells Tear Drop Cells Ovalocytes Helmet Cells [place] Bodies [place] Rings Fritch Cells Bite Cells Crenated Cell Elliptocytes Acanthocytes (Spur) Rouleaux Hemoglobin C Crystals Schistocytes Malaria parasites Theodore Bodies Hem Pathologist Commnt Sodium Potassium Chloride Carbon Dioxide Anion Gap BUN Creatinine Estimated GFR BUN/Creatinine Ratio Glucose POC Glucose 181 H 206 H Calcium Magnesium Total Bilirubin AST ALT Alkaline Phosphatase Total Protein Albumin Albumin/Globulin Ratio Random Vancomycin Coronavirus (PCR)
--- NOTE | 2020-08-09 12:34 | Progress Note ---
Assessment and Plan 70-year-old man admitted with weakness, severe jaundice, and severe renal failure. CT scan of the abdomen reports evidence of acute cholecystitis. Cardiac history of systolic heart failure, coronary artery disease, dual-chamber pacemaker in situ. Patient was also on anticoagulation with Xarelto, indication likely paroxysmal atrial fibrillation. Echocardiogram pending for left ventricular function assessment, and request cardiac records from [place]. Subjective Date of service: 08/09/20 Principal diagnosis: Cholecystitis Interval history: Patient is awake, comfortable in no acute distress. On [employer]', there is atrial fibrillation, with ventricular pacing on demand. Blood pressure is stable. Objective Vital Signs Temp Pulse Pulse Resp BP Pulse Ox 08/09/20 12:00 98.1 F 72 82 10 L 126/54 98 08/09/20 11:50 83 21 126/54 94 08/09/20 11:40 87 19 92/56 96 08/09/20 11:30 81 17 99/53 94 08/09/20 11:20 74 19 99/53 96 08/09/20 11:10 77 23 109/36 08/09/20 11:00 88 19 108/46 96 08/09/20 10:50 77 20 108/46 96 08/09/20 10:40 97 H 21 117/52 94 08/09/20 10:30 80 18 117/52 97 08/09/20 10:20 82 20 117/52 97 08/09/20 10:10 84 21 116/50 96 08/09/20 10:00 76 16 125/55 97 08/09/20 09:50 125/55 08/09/20 09:40 93 H 19 129/45 94 08/09/20 09:30 76 18 114/47 95 08/09/20 09:20 82 19 114/47 97 08/09/20 09:10 121/52 97 08/09/20 09:00 15 121/52 97 08/09/20 08:50 74 16 121/52 96 08/09/20 08:40 78 17 122/59 98 08/09/20 08:30 85 15 122/59 99 08/09/20 08:20 83 13 122/59 94 08/09/20 08:10 77 16 130/53 99 08/09/20 08:00 98.2 F 67 84 20 130/53 97 08/09/20 07:50 83 20 130/53 98 08/09/20 07:40 67 18 121/53 97 08/09/20 07:30 91 H 18 121/53 98 08/09/ 07:20 76 17 121/53 98 08/09/20 07:10 76 17 107/53 97 08/09/20 07:00 68 18 110/44 99 08/09/ 06:50 79 15 110/44 98 08/09/20 06:40 80 19 102/48 98 08/09/20 06:30 87 19 113/55 98 08/09/20 06:20 82 19 113/55 99 08/09/20 06:10 98 H 11 L 113/56 97 08/09/20 06:00 92 H 15 102/48 98 08/09/20 05:50 84 17 102/48 98 08/09/20 05:40 78 17 99/51 98 08/09/20 05:30 94 H 18 111/48 98 08/09/20 05:20 89 17 111/48 96 08/09/20 05:10 82 16 116/50 98 08/09/20 05:00 87 19 93/54 99 08/09/ 04:50 78 14 93/54 99 08/09/ 04:40 75 15 110/50 98 08/09/20 04:30 90 17 111/46 99 08/09/ 04:20 81 16 111/46 98 08/09/20 04:10 75 19 136/84 99 08/09/20 04:00 98.7 F 82 78 22 128/51 99 08/09/20 03:50 81 17 128/51 76 L 08/09/20 03:40 75 20 118/55 100 08/09/20 03:30 93 H 21 131/56 99 21/20 03:20 76 18 133/54 99 08/09/ 03:10 76 19 131/56 99 08/09/ 03:00 78 14 103/55 99 08/09/ 02:50 84 18 103/55 98 08/09/20 02:40 60 15 104/53 99 08/09/ 02:30 79 17 102/45 99 08/09/ 02:20 80 15 89/41 98 08/09/20 02:10 77 15 112/49 98 09/21/20 02:00 67 17 118/45 98 09/21/20 01:50 74 15 117/39 98 09/21/20 01:40 67 16 118/45 99 09/21/20 01:30 76 14 111/44 99 09/21/20 01:20 83 14 111/44 98 09/21/20 01:10 79 16 122/48 99 09/21/20 01:00 76 17 128/51 99 09/21/20 00:50 68 17 121/49 99 09/21/20 00:40 76 20 128/51 96 09/21/20 00:30 77 17 119/53 99 09/21/20 00:20 75 21 119/53 100 09/21/20 00:10 73 19 111/58 100 09/21/20 00:00 97.9 F 63 63 18 129/60 99 09/20/20 23:52 75 14 113/53 99 09/20/20 23:50 75 16 113/53 100 09/20/20 23:40 78 17 122/57 100 09/20/20 23:30 70 15 127/51 99 09/20/20 23:20 74 16 129/60 95 09/20/20 23:14 80 16 134/56 100 09/20/20 23:10 83 17 134/56 100 09/20/20 23:00 66 15 136/49 100 09/20/20 22:50 78 18 136/49 100 09/20/20 22:40 77 18 127/51 100 09/20/20 22:30 72 15 123/44 100 09/20/20 22:20 76 17 127/49 99 09/20/20 22:10 78 17 96/47 99 09/20/20 22:00 79 15 120/44 99 09/20/20 21:50 88 15 120/44 99 09/20/20 21:40 76 16 123/44 99 09/20/20 21:30 75 16 129/54 100 09/20/20 21:20 68 15 129/54 100 09/20/20 21:10 81 13 118/48 100 09/20/20 21:00 67 19 130/50 100 09/20/20 20:50 85 16 97/40 95 09/20/20 20:40 74 17 94/49 99 09/20/20 20:30 71 17 105/39 98 09/20/20 20:20 70 15 105/39 98 09/20/20 20:10 83 17 116/46 98 09/20/20 20:00 98.8 F 89 89 22 106/60 88 09/20/20 19:50 87 18 106/60 100 09/20/20 19:40 91 H 16 122/50 93 09/20/20 19:30 75 12 123/47 99 09/20/20 19:20 87 20 123/47 98 09/20/20 19:10 72 22 128/59 96 09/20/20 19:00 75 18 107/55 97 09/20/20 18:50 78 16 107/55 97 09/20/20 18:40 74 18 127/52 95 09/20/20 18:30 81 14 118/47 09/20/20 18:20 118/47 09/20/20 18:10 74 14 127/44 09/20/20 18:00 76 21 90 09/20/20 17:50 80 18 127/44 95 09/20/20 17:40 81 18 118/44 96 09/20/20 17:30 71 17 114/36 96 09/20/20 17:20 73 19 114/36 94 09/20/20 17:10 79 14 100/53 94 09/20/20 17:00 90 16 100/53 96 09/20/20 16:50 96 H 16 106/40 96 09/20/20 16:40 97 H 15 96/48 97 09/20/20 16:30 93 H 15 87/43 95 09/20/20 16:20 94 H 15 87/43 95 09/20/20 16:10 102 H 15 93/39 93 09/20/20 16:00 98.0 F 90 14 88/34 93 09/20/20 15:50 87 14 88/34 92 09/20/20 15:40 78 14 91/42 90 09/20/20 15:30 87 13 84/45 91 09/20/20 15:24 18 95 09/20/20 15:20 81 13 84/45 93 09/20/20 15:10 73 15 83/35 91 09/20/20 15:00 90 15 83/35 91 09/20/20 14:50 75 16 66/34 91 08/08/20 14:40 82 16 86/29 92 08/08/20 14:30 70 15 104/47 93 08/08/20 14:20 83 16 104/47 93 08/08/20 14:10 84 19 122/61 94 08/08/20 14:00 83 18 120/54 96 08/08/20 13:50 85 14 120/54 96 08/08/20 13:40 89 16 133/67 94 08/08/20 13:30 83 13 120/47 95 08/08/20 13:20 82 16 120/47 94 08/08/20 13:10 89 15 106/69 92 08/08/20 13:00 100 H 18 129/42 94 08/08/20 12:50 84 22 129/42 94 08/08/20 12:40 76 19 117/44 97 - Physical Examination General: No Apparent Distress, Cachectic HEENT: Positive: PERRL Neck: Positive: neck supple Cardiac: Positive: irregularly irregular Lungs: Positive: Decreased Breath Sounds Neuro: Positive: Grossly Intact Abdomen: Positive: Soft Skin: Positive: Clear Extremities: Absent: edema - Labs and Meds Cardiac Enzymes 08/09/20 Range/Units 04:00 AST 63 H (5-40) units/L CBC 08/09/20 Range/Units 04:00 WBC 11.3 H (4.5-11.0) K/mm3 RBC 4.32 (3.65-5.03) M/mm3 Hgb 12.2 (11.8-15.2) gm/dl Hct 35.0 L (35.5-45.6) % Plt Count 150 (140-440) K/mm3 Comprehensive Metabolic Panel 08/09/20 Range/Units 04:00 Sodium 139 (137-145) mmol/L Potassium 3.5 L (3.6-5.0) mmol/L Chloride 98.9 (98-107) mmol/L Carbon Dioxide 26 (22-30) mmol/L BUN 53 H (9-20) mg/dL Creatinine 1.5 H (0.8-1.3) mg/dL Glucose 188 H (75-100) mg/dL Calcium 7.8 L (8.4-10.2) mg/dL AST 63 H (5-40) units/L ALT 61 H (7-56) units/L Alkaline Phosphatase 476 H (35-129) units/L Total Protein 5.9 L (6.3-8.2) g/dL Albumin 3.0 L (3.9-5) g/dL
--- NOTE | 2020-08-09 12:46 | Progress Note ---
Subjective Date of service: 08/09/20 Principal diagnosis: Cholecystitis Objective Vital Signs - 12hr 08/09/20 08/09/20 08/09/20 00:50 01:00 01:10 Temperature Pulse Rate 68 76 79 Pulse Rate [ From Monitor] Respiratory 17 17 16 Rate Blood Pressure 121/49 128/51 122/48 O2 Sat by Pulse 99 99 99 Oximetry 08/09/20 08/09/20 08/09/20 01:20 01:30 01:40 Temperature Pulse Rate 83 76 67 Pulse Rate [ From Monitor] Respiratory 14 14 16 Rate Blood Pressure 111/44 111/44 118/45 O2 Sat by Pulse 98 99 99 Oximetry 08/09/20 08/09/20 08/09/20 01:50 02:00 02:10 Temperature Pulse Rate 74 67 77 Pulse Rate [ From Monitor] Respiratory 15 17 15 Rate Blood Pressure 117/39 118/45 112/49 O2 Sat by Pulse 98 98 98 Oximetry 08/09/20 08/09/20 08/09/20 02:20 02:30 02:40 Temperature Pulse Rate 80 79 60 Pulse Rate [ From Monitor] Respiratory 15 17 15 Rate Blood Pressure 89/41 102/45 104/53 O2 Sat by Pulse 98 99 99 Oximetry 08/09/20 08/09/20 08/09/20 02:50 03:00 03:10 Temperature Pulse Rate 84 78 76 Pulse Rate [ From Monitor] Respiratory 18 14 19 Rate Blood Pressure 103/55 103/55 131/56 O2 Sat by Pulse 98 99 99 Oximetry 08/09/20 08/09/20 08/09/20 03:20 03:30 03:40 Temperature Pulse Rate 76 93 H 75 Pulse Rate [ From Monitor] Respiratory 18 21 20 Rate Blood Pressure 133/54 131/56 118/55 O2 Sat by Pulse 99 99 100 Oximetry 08/09/20 08/09/20 08/09/20 03:50 04:00 04:10 Temperature 98.7 F Pulse Rate 81 82 75 Pulse Rate [ 78 From Monitor] Respiratory 17 22 19 Rate Blood Pressure 128/51 128/51 136/84 O2 Sat by Pulse 76 L 99 99 Oximetry 08/09/20 08/09/20 08/09/20 04:20 04:30 04:40 Temperature Pulse Rate 81 90 75 Pulse Rate [ From Monitor] Respiratory 16 17 15 Rate Blood Pressure 111/46 111/46 110/50 O2 Sat by Pulse 98 99 98 Oximetry 08/09/20 08/09/20 08/09/20 04:50 05:00 05:10 Temperature Pulse Rate 78 87 82 Pulse Rate [ From Monitor] Respiratory 14 19 16 Rate Blood Pressure 93/54 93/54 116/50 O2 Sat by Pulse 99 99 98 Oximetry 08/09/20 08/09/20 08/09/20 05:20 05:30 05:40 Temperature Pulse Rate 89 94 H 78 Pulse Rate [ From Monitor] Respiratory 17 18 17 Rate Blood Pressure 111/48 111/48 99/51 O2 Sat by Pulse 96 98 98 Oximetry 08/09/20 08/09/20 08/09/20 05:50 06:00 06:10 Temperature Pulse Rate 84 92 H 98 H Pulse Rate [ From Monitor] Respiratory 17 15 11 L Rate Blood Pressure 102/48 102/48 113/56 O2 Sat by Pulse 98 98 97 Oximetry 08/09/20 08/09/20 08/09/20 06:20 06:30 06:40 Temperature Pulse Rate 82 87 80 Pulse Rate [ From Monitor] Respiratory 19 19 19 Rate Blood Pressure 113/55 113/55 102/48 O2 Sat by Pulse 99 98 98 Oximetry 08/09/20 08/09/20 08/09/20 06:50 07:00 07:10 Temperature Pulse Rate 79 68 76 Pulse Rate [ From Monitor] Respiratory 15 18 17 Rate Blood Pressure 110/44 110/44 107/53 O2 Sat by Pulse 98 99 97 Oximetry 08/09/20 08/09/20 08/09/20 07:20 07:30 07:40 Temperature Pulse Rate 76 91 H 67 Pulse Rate [ From Monitor] Respiratory 17 18 18 Rate Blood Pressure 121/53 121/53 121/53 O2 Sat by Pulse 98 98 97 Oximetry 08/09/20 08/09/20 08/09/20 07:50 08:00 08:10 Temperature 98.2 F Pulse Rate 83 67 77 Pulse Rate [ 84 From Monitor] Respiratory 20 20 16 Rate Blood Pressure 130/53 130/53 130/53 O2 Sat by Pulse 98 97 99 Oximetry 08/09/20 08/09/20 08/09/20 08:20 08:30 08:40 Temperature Pulse Rate 83 85 78 Pulse Rate [ From Monitor] Respiratory 13 15 17 Rate Blood Pressure 122/59 122/59 122/59 O2 Sat by Pulse 94 99 98 Oximetry 08/09/20 08/09/20 08/09/20 08:50 09:00 09:10 Temperature Pulse Rate 74 Pulse Rate [ From Monitor] Respiratory 16 15 Rate Blood Pressure 121/52 121/52 121/52 O2 Sat by Pulse 96 97 97 Oximetry 08/09/20 08/09/20 08/09/20 09:20 09:30 09:40 Temperature Pulse Rate 82 76 93 H Pulse Rate [ From Monitor] Respiratory 19 18 19 Rate Blood Pressure 114/47 114/47 129/45 O2 Sat by Pulse 97 95 94 Oximetry 08/09/20 08/09/20 08/09/20 09:50 10:00 10:10 Temperature Pulse Rate 76 84 Pulse Rate [ From Monitor] Respiratory 16 21 Rate Blood Pressure 125/55 125/55 116/50 O2 Sat by Pulse 97 96 Oximetry 08/09/20 08/09/20 08/09/20 10:20 10:30 10:40 Temperature Pulse Rate 82 80 97 H Pulse Rate [ From Monitor] Respiratory 20 18 21 Rate Blood Pressure 117/52 117/52 117/52 O2 Sat by Pulse 97 97 94 Oximetry 08/09/20 08/09/20 08/09/20 10:50 11:00 11:10 Temperature Pulse Rate 77 88 77 Pulse Rate [ From Monitor] Respiratory 20 19 23 Rate Blood Pressure 108/46 108/46 109/36 O2 Sat by Pulse 96 96 Oximetry 08/09/20 08/09/20 08/09/20 11:20 11:30 11:40 Temperature Pulse Rate 74 81 87 Pulse Rate [ From Monitor] Respiratory 19 17 19 Rate Blood Pressure 99/53 99/53 92/56 O2 Sat by Pulse 96 94 96 Oximetry 08/09/20 08/09/20 11:50 12:00 Temperature 98.1 F Pulse Rate 83 72 Pulse Rate [ 82 From Monitor] Respiratory 21 10 L Rate Blood Pressure 126/54 126/54 O2 Sat by Pulse 94 98 Oximetry CBC and BMP: 08/09/20 04:00 08/09/20 04:00 Abnormal lab findings: Abnormal Labs 08/06/20 08/06/20 08/06/20 14:42 14:42 14:42 WBC Hct MCV 82 L MCHC 35 H RDW 22.0 H Lymph % (Auto) Lymph # Seg Neutrophils % Seg Neuts % (Manual) 89.0 H Lymphocytes % (Manual) 6.0 L Seg Neutrophils # Seg Neutrophils # Man 8.9 H Lymphocytes # (Manual) 0.6 L APTT 37.2 H Sodium 134 L Potassium Chloride 83.6 L BUN 82 H Creatinine 4.5 H Glucose 205 H POC Glucose Lactic Acid Calcium Phosphorus Magnesium Total Bilirubin 9.70 H AST 63 H ALT 82 H Alkaline Phosphatase 263 H Total Creatine Kinase Troponin T 0.036 H NT-Pro-B Natriuret Pep Total Protein Albumin 3.4 L Urine WBC (Auto) Urine Creatinine 08/06/20 08/06/20 08/06/20 14:42 14:42 14:42 WBC Hct MCV MCHC RDW Lymph % (Auto) Lymph # Seg Neutrophils % Seg Neuts % (Manual) Lymphocytes % (Manual) Seg Neutrophils # Seg Neutrophils # Man Lymphocytes # (Manual) APTT Sodium Potassium Chloride BUN Creatinine Glucose POC Glucose Lactic Acid 4.60 H* Calcium Phosphorus 6.80 H Magnesium 1.60 L Total Bilirubin AST ALT Alkaline Phosphatase Total Creatine Kinase 240 H Troponin T NT-Pro-B Natriuret Pep 18623 H Total Protein Albumin Urine WBC (Auto) Urine Creatinine 08/06/20 08/06/20 08/06/20 15:34 18:33 18:50 WBC Hct MCV MCHC RDW Lymph % (Auto) Lymph # Seg Neutrophils % Seg Neuts % (Manual) Lymphocytes % (Manual) Seg Neutrophils # Seg Neutrophils # Man Lymphocytes # (Manual) APTT Sodium Potassium Chloride BUN Creatinine Glucose POC Glucose Lactic Acid 4.10 H* 3.60 H* Calcium Phosphorus Magnesium 1.60 L Total Bilirubin AST ALT Alkaline Phosphatase Total Creatine Kinase Troponin T NT-Pro-B Natriuret Pep Total Protein Albumin Urine WBC (Auto) Urine Creatinine 08/06/20 08/06/20 08/07/20 21:09 22:04 00:06 WBC Hct MCV MCHC RDW Lymph % (Auto) Lymph # Seg Neutrophils % Seg Neuts % (Manual) Lymphocytes % (Manual) Seg Neutrophils # Seg Neutrophils # Man Lymphocytes # (Manual) APTT Sodium Potassium Chloride BUN Creatinine Glucose POC Glucose 188 H Lactic Acid 2.10 H* Calcium Phosphorus Magnesium Total Bilirubin AST ALT Alkaline Phosphatase Total Creatine Kinase Troponin T NT-Pro-B Natriuret Pep Total Protein Albumin Urine WBC (Auto) 20.0 H Urine Creatinine 08/07/20 08/07/2008/07/20 04:00 04:00 05:56 WBC Hct 34.3 L MCV 81 L MCHC 36 H RDW 21.9 H Lymph % (Auto) 6.0 L Lymph # 0.6 L Seg Neutrophils % 89.4 H Seg Neuts % (Manual) Lymphocytes % (Manual) Seg Neutrophils # 9.3 H Seg Neutrophils # Man Lymphocytes # (Manual) APTT Sodium 136 L Potassium Chloride 88.5 L BUN 87 H Creatinine 3.7 H Glucose 187 H POC Glucose 190 H Lactic Acid Calcium 7.8 L Phosphorus Magnesium Total Bilirubin 9.60 H AST 53 H ALT 66 H Alkaline Phosphatase 264 H Total Creatine Kinase Troponin T NT-Pro-B Natriuret Pep Total Protein 6.2 L Albumin 3.1 L Urine WBC (Auto) Urine Creatinine 08/07/20 08/07/20 08/07/20 07:50 10:13 12:36 WBC Hct MCV MCHC RDW Lymph % (Auto) Lymph # Seg Neutrophils % Seg Neuts % (Manual) Lymphocytes % (Manual) Seg Neutrophils # Seg Neutrophils # Man Lymphocytes # (Manual) APTT Sodium Potassium Chloride BUN Creatinine Glucose POC Glucose 197 H 205 H Lactic Acid Calcium Phosphorus Magnesium Total Bilirubin AST ALT Alkaline Phosphatase Total Creatine Kinase Troponin T NT-Pro-B Natriuret Pep Total Protein Albumin Urine WBC (Auto) Urine Creatinine 77.8 H 08/07/20 08/07/20 08/08/20 17:36 21:49 04:57 WBC Hct MCV MCHC RDW Lymph % (Auto) Lymph # Seg Neutrophils % Seg Neuts % (Manual) Lymphocytes % (Manual) Seg Neutrophils # Seg Neutrophils # Man Lymphocytes # (Manual) APTT Sodium Potassium 3.3 L Chloride BUN 76 H Creatinine 2.0 H Glucose 353 H POC Glucose 240 H 218 H Lactic Acid Calcium 7.7 L Phosphorus Magnesium Total Bilirubin 8.00 H AST 46 H ALT 57 H Alkaline Phosphatase 348 H Total Creatine Kinase Troponin T NT-Pro-B Natriuret Pep Total Protein 6.0 L Albumin 2.5 L Urine WBC (Auto) Urine Creatinine 08/08/20 08/08/20 08/08/20 08:06 11:52 17:52 WBC Hct MCV MCHC RDW Lymph % (Auto) Lymph # Seg Neutrophils % Seg Neuts % (Manual) Lymphocytes % (Manual) Seg Neutrophils # Seg Neutrophils # Man Lymphocytes # (Manual) APTT Sodium Potassium Chloride BUN Creatinine Glucose POC Glucose 258 H 245 H 251 H Lactic Acid Calcium Phosphorus Magnesium Total Bilirubin AST ALT Alkaline Phosphatase Total Creatine Kinase Troponin T NT-Pro-B Natriuret Pep Total Protein Albumin Urine WBC (Auto) Urine Creatinine 08/08/20 08/09/20 08/09/20 23:49 04:00 04:00 WBC 11.3 H Hct 35.0 L MCV 81 L MCHC 35 H RDW 21.6 H Lymph % (Auto) Lymph # Seg Neutrophils % Seg Neuts % (Manual) 91.0 H Lymphocytes % (Manual) 3.0 L Seg Neutrophils # Seg Neutrophils # Man 10.3 H Lymphocytes # (Manual) 0.3 L APTT Sodium Potassium 3.5 L Chloride BUN 53 H Creatinine 1.5 H Glucose 188 H POC Glucose 220 H Lactic Acid Calcium 7.8 L Phosphorus Magnesium 2.50 H Total Bilirubin 5.10 H AST 63 H ALT 61 H Alkaline Phosphatase 476 H Total Creatine Kinase Troponin T NT-Pro-B Natriuret Pep Total Protein 5.9 L Albumin 3.0 L Urine WBC (Auto) Urine Creatinine 08/09/20 08/09/20 05:29 12:12 WBC Hct MCV MCHC RDW Lymph % (Auto) Lymph # Seg Neutrophils % Seg Neuts % (Manual) Lymphocytes % (Manual) Seg Neutrophils # Seg Neutrophils # Man Lymphocytes # (Manual) APTT Sodium Potassium Chloride BUN Creatinine Glucose POC Glucose 181 H 206 H Lactic Acid Calcium Phosphorus Magnesium Total Bilirubin AST ALT Alkaline Phosphatase Total Creatine Kinase Troponin T NT-Pro-B Natriuret Pep Total Protein Albumin Urine WBC (Auto) Urine Creatinine
--- NOTE | 2020-08-09 13:38 | Progress Note ---
Assessment and Plan 1. Acute kidney injury: Likely Vasomotor ROBERTH in the setting of shock. CT abdomen was negative for hydro. Monitor renal function. Creatinine level improving. Avoid nephrotoxic agents. Meds dosage based on GFR. 2. FEN: Mild Hyponatremia, improved. Replete K. Monitor lytes and volume status. 3. Shock: Levophed and Cefepime. Follow cultures. 4. Acute toxic encephalopathy, POA. 5. Acute cholelithiasis, POA: Obstructive jaundice. Followed by GI. 6. DM type 2: Monitor. - Subjective: Patient was seen and examined at the bedside. In ICU. - Examination: General appearance: well-developed, appears stated age, no distress HEENT: ATNC, icterus Neck: Trachea midline Respiratory: ctab Cardiology: regular, S1S2, no murmur Gastrointestinal: soft, not tender, not distended, BS heard Integumentary: no obvious rash Neurologic: alert, able to move extremities Ext: no extremity edema Subjective Date of service: 08/09/20 Principal diagnosis: Cholecystitis Objective - Vital Signs Vital signs: Vital Signs - 12hr 08/09/20 08/09/20 08/09/20 01:40 01:50 02:00 Temperature Pulse Rate 67 74 67 Pulse Rate [ From Monitor] Respiratory 16 15 17 Rate Blood Pressure 118/45 117/39 118/45 O2 Sat by Pulse 99 98 98 Oximetry 08/09/20 08/09/20 08/09/20 02:10 02:20 02:30 Temperature Pulse Rate 77 80 79 Pulse Rate [ From Monitor] Respiratory 15 15 17 Rate Blood Pressure 112/49 89/41 102/45 O2 Sat by Pulse 98 98 99 Oximetry 08/09/20 08/09/20 08/09/20 02:40 02:50 03:00 Temperature Pulse Rate 60 84 78 Pulse Rate [ From Monitor] Respiratory 15 18 14 Rate Blood Pressure 104/53 103/55 103/55 O2 Sat by Pulse 99 98 99 Oximetry 08/09/20 08/09/20 08/09/20 03:10 03:20 03:30 Temperature Pulse Rate 76 76 93 H Pulse Rate [ From Monitor] Respiratory 19 18 21 Rate Blood Pressure 131/56 133/54 131/56 O2 Sat by Pulse 99 99 99 Oximetry 08/09/20 08/09/20 08/09/20 03:40 03:50 04:00 Temperature 98.7 F Pulse Rate 75 81 82 Pulse Rate [ 78 From Monitor] Respiratory 20 17 22 Rate Blood Pressure 118/55 128/51 128/51 O2 Sat by Pulse 100 76 L 99 Oximetry 08/09/20 08/09/20 08/09/20 04:10 04:20 04:30 Temperature Pulse Rate 75 81 90 Pulse Rate [ From Monitor] Respiratory 19 16 17 Rate Blood Pressure 136/84 111/46 111/46 O2 Sat by Pulse 99 98 99 Oximetry 08/09/20 08/09/20 08/09/20 04:40 04:50 05:00 Temperature Pulse Rate 75 78 87 Pulse Rate [ From Monitor] Respiratory 15 14 19 Rate Blood Pressure 110/50 93/54 93/54 O2 Sat by Pulse 98 99 99 Oximetry 08/09/20 08/09/20 08/09/20 05:10 05:20 05:30 Temperature Pulse Rate 82 89 94 H Pulse Rate [ From Monitor] Respiratory 16 17 18 Rate Blood Pressure 116/50 111/48 111/48 O2 Sat by Pulse 98 96 98 Oximetry 08/09/20 08/09/20 08/09/20 05:40 05:50 06:00 Temperature Pulse Rate 78 84 92 H Pulse Rate [ From Monitor] Respiratory 17 17 15 Rate Blood Pressure 99/51 102/48 102/48 O2 Sat by Pulse 98 98 98 Oximetry 08/09/20 08/09/20 08/09/20 06:10 06:20 06:30 Temperature Pulse Rate 98 H 82 87 Pulse Rate [ From Monitor] Respiratory 11 L 19 19 Rate Blood Pressure 113/56 113/55 113/55 O2 Sat by Pulse 97 99 98 Oximetry 08/09/20 08/09/20 08/09/20 06:40 06:50 07:00 Temperature Pulse Rate 80 79 68 Pulse Rate [ From Monitor] Respiratory 19 15 18 Rate Blood Pressure 102/48 110/44 110/44 O2 Sat by Pulse 98 98 99 Oximetry 08/09/20 08/09/20 08/09/20 07:10 07:20 07:30 Temperature Pulse Rate 76 76 91 H Pulse Rate [ From Monitor] Respiratory 17 17 18 Rate Blood Pressure 107/53 121/53 121/53 O2 Sat by Pulse 97 98 98 Oximetry 08/09/20 08/09/20 08/09/20 07:40 07:50 08:00 Temperature 98.2 F Pulse Rate 67 83 67 Pulse Rate [ 84 From Monitor] Respiratory 18 20 20 Rate Blood Pressure 121/53 130/53 130/53 O2 Sat by Pulse 97 98 97 Oximetry 08/09/20 08/09/20 08/09/20 08:10 08:20 08:30 Temperature Pulse Rate 77 83 85 Pulse Rate [ From Monitor] Respiratory 16 13 15 Rate Blood Pressure 130/53 122/59 122/59 O2 Sat by Pulse 99 94 99 Oximetry 08/09/20 08/09/20 08/09/20 08:40 08:50 09:00 Temperature Pulse Rate 78 74 Pulse Rate [ From Monitor] Respiratory 17 16 15 Rate Blood Pressure 122/59 121/52 121/52 O2 Sat by Pulse 98 96 97 Oximetry 08/09/20 08/09/20 08/09/20 09:10 09:20 09:30 Temperature Pulse Rate 82 76 Pulse Rate [ From Monitor] Respiratory 19 18 Rate Blood Pressure 121/52 114/47 114/47 O2 Sat by Pulse 97 97 95 Oximetry 08/09/20 08/09/20 08/09/20 09:40 09:50 10:00 Temperature Pulse Rate 93 H 76 Pulse Rate [ From Monitor] Respiratory 19 16 Rate Blood Pressure 129/45 125/55 125/55 O2 Sat by Pulse 94 97 Oximetry 08/09/20 08/09/20 08/09/20 10:10 10:20 10:30 Temperature Pulse Rate 84 82 80 Pulse Rate [ From Monitor] Respiratory 21 20 18 Rate Blood Pressure 116/50 117/52 117/52 O2 Sat by Pulse 96 97 97 Oximetry 08/09/20 08/09/20 08/09/20 10:40 10:50 11:00 Temperature Pulse Rate 97 H 77 88 Pulse Rate [ From Monitor] Respiratory 21 20 19 Rate Blood Pressure 117/52 108/46 108/46 O2 Sat by Pulse 94 96 96 Oximetry 08/09/20 08/09/20 08/09/20 11:10 11:20 11:30 Temperature Pulse Rate 77 74 81 Pulse Rate [ From Monitor] Respiratory 23 19 17 Rate Blood Pressure 109/36 99/53 99/53 O2 Sat by Pulse 96 94 Oximetry 08/09/20 08/09/20 08/09/20 11:40 11:50 12:00 Temperature 98.1 F Pulse Rate 87 83 72 Pulse Rate [ 82 From Monitor] Respiratory 19 21 10 L Rate Blood Pressure 92/56 126/54 126/54 O2 Sat by Pulse 96 94 98 Oximetry 08/09/20 08/09/20 08/09/20 12:10 12:20 12:30 Temperature Pulse Rate 77 89 80 Pulse Rate [ From Monitor] Respiratory 17 19 20 Rate Blood Pressure 124/51 106/52 106/52 O2 Sat by Pulse 98 96 95 Oximetry 08/09/20 08/09/20 08/09/20 12:40 12:50 13:00 Temperature Pulse Rate 89 83 Pulse Rate [ From Monitor] Respiratory 19 17 Rate Blood Pressure 114/46 117/56 117/56 O2 Sat by Pulse 93 95 98 Oximetry 08/09/20 13:10 Temperature Pulse Rate 77 Pulse Rate [ From Monitor] Respiratory 18 Rate Blood Pressure 107/33 O2 Sat by Pulse 97 Oximetry - Lab 08/09/20 04:00 08/09/20 04:00 Most recent lab results Calcium 7.8 mg/dL (8.4-10.2) L 08/09/20 04:00 Phosphorus 6.80 mg/dL (2.5-4.5) H 08/06/20 14:42 Magnesium 2.50 mg/dL (1.7-2.3) H 08/09/20 04:00 Urine Creatinine 77.8 mg/dL (0.1-20.0) H 08/07/20 10:13 Urine Sodium 22 mmol/L 08/07/20 10:13 Medications & Allergies - Medications Allergies/Adverse Reactions: Allergies tetanus and diphtheria toxoids Adverse Reaction (Verified 08/06/20 14:20) Unknown Home Medications: Home Medications Medication Instructions Recorded Confirmed Last Taken Type Metformin HCl [metFORMIN] 1,000 mg PO BID 08/06/20 08/06/20 Unknown History Omeprazole 40 mg PO DAILY 08/06/20 08/06/20 Unknown History Rivaroxaban [Xarelto] 20 mg PO QDAY 08/06/20 08/06/20 Unknown History Sacubitril/Valsartan [Entresto 1 each PO BID 08/06/20 08/06/20 Unknown History 49-51 mg] Sertraline [Zoloft] 25 mg PO QDAY 08/06/20 08/06/20 Unknown History Spironolactone [Aldactone] 25 ng PO DAILY 08/06/20 08/06/20 Unknown History Torsemide [Demadex] 50 mg PO DAILY 08/06/20 08/06/20 Unknown History Zolpidem [Ambien] 5 mg PO QHS PRN 08/06/20 08/06/20 Unknown History carvediloL [Coreg] 6.25 mg PO BID 08/06/20 08/06/20 Unknown History traZODone [Desyrel] 50 mg PO QHS 08/06/20 08/06/20 Unknown History Active Medications: Generic Name Dose Route Start Last Admin Trade Name Freq PRN Reason Stop Dose Admin Lipase/Protease/Amylase 1 each 08/09/20 10:[address] 10,500 Unit FEEDTUBE PRN PRN For Clogged Feeding Tube Dextrose 0 ml 08/06/20 22:56 D50w (25gm) Syringe IV Q30MIN PRN Hypoglycemia Protocol Famotidine 20 mg 08/07/20 11:00 08/09/20 10:10 Pepcid IV 20 mg QDAY JULIET Administration Heparin Sodium (Porcine) 5,000 unit 08/07/20 10:45 08/09/20 10:10 Heparin SUB-Q 5,000 unit Q12HR JULIET Administration Norepinephrine 4 mg in 250 mls @ 7.5 mls/hr 08/06/20 19:20 08/09/20 07:50 Levophed Drip 4 Mg/Ns 250 Ml IV 0 mcg/min TITR JULIET 0 mls/hr Titration Protocol 2 MCG/MIN Sodium Chloride 1,000 mls @ 42 mls/hr 08/08/20 14:00 08/09/20 05:48 Nacl 0.45% 1000 Ml IV 42 mls/hr DIRECT JULIET Administration Metronidazole 500 mg in 100 mls @ 100 mls/hr 08/09/20 09:00 08/09/20 10:08 Flagyl 500 Mg/100 Ml IV 100 mls/hr Q8HR JULIET Administration Protocol Cefepime HCl 2 gm in 100 mls @ 200 mls/hr 08/09/20 22:00 Cefepime/Ns 2 Gm/100 Ml IV Q12HR JULIET Protocol Insulin Glargine 5 units 08/08/20 13:30 08/09/20 10:11 Lantus SUB-Q 5 units DAILY JULIET Administration Insulin Human Lispro 0 unit 08/07/20 06:00 08/09/20 13:23 Humalog SUB-Q 4 unit Q6HR JULIET Administration Protocol Morphine Sulfate 2 mg 08/06/20 18:40 08/08/20 19:04 Morphine IV 2 mg Q4H PRN Administration Pain, Moderate (4-6) Prochlorperazine Maleate 10 mg 08/07/20 19:01 08/08/20 11:50 Compazine PO 10 mg Q6H PRN Administration Nausea And Vomiting Simple Syrup 15 ml 08/09/20 10:00 Simple Syrup FEEDTUBE PRN PRN Hypoglycemia Simple Syrup 30 ml 08/09/20 10:00 Simple Syrup FEEDTUBE PRN PRN Hypoglycemia Sodium Bicarbonate 325 mg 08/09/20 10:00 Sodium Bicarbonate FEEDTUBE PRN PRN For Clogged Feeding Tube Sodium Chloride 10 ml 08/06/20 22:00 08/09/20 10:20 Sodium Chloride Flush Syringe 10 Ml IV 10 ml BID JULIET Administration Sodium Chloride 10 ml 08/06/20 18:40 Sodium Chloride Flush Syringe 10 Ml IV PRN PRN LINE FLUSH
--- NOTE | 2020-08-09 15:02 | Progress Note ---
Assessment and Plan - Patient Problems (1) Biliary obstruction Current Visit: Yes Status: Acute Plan to address problem: 1) ERCP, possibly tomorrow if cleared by Cardiology. 2) Lap rachel the day after ERCP 3) Continue NPO and IV antibiotics Subjective Date of service: 08/09/20 Patient Reports: Positive: no new complaints, feels better Objective Vital Signs - 12hr 08/09/20 08/09/20 08/09/20 03:10 03:20 03:30 Temperature Pulse Rate 76 76 93 H Pulse Rate [ From Monitor] Respiratory 19 18 21 Rate Blood Pressure 131/56 133/54 131/56 O2 Sat by Pulse 99 99 99 Oximetry 08/09/20 08/09/20 08/09/20 03:40 03:50 04:00 Temperature 98.7 F Pulse Rate 75 81 82 Pulse Rate [ 78 From Monitor] Respiratory 20 17 22 Rate Blood Pressure 118/55 128/51 128/51 O2 Sat by Pulse 100 76 L 99 Oximetry 08/09/20 08/09/20 08/09/20 04:10 04:20 04:30 Temperature Pulse Rate 75 81 90 Pulse Rate [ From Monitor] Respiratory 19 16 17 Rate Blood Pressure 136/84 111/46 111/46 O2 Sat by Pulse 99 98 99 Oximetry 08/09/20 08/09/20 08/09/20 04:40 04:50 05:00 Temperature Pulse Rate 75 78 87 Pulse Rate [ From Monitor] Respiratory 15 14 19 Rate Blood Pressure 110/50 93/54 93/54 O2 Sat by Pulse 98 99 99 Oximetry 08/09/20 08/09/20 08/09/20 05:10 05:20 05:30 Temperature Pulse Rate 82 89 94 H Pulse Rate [ From Monitor] Respiratory 16 17 18 Rate Blood Pressure 116/50 111/48 111/48 O2 Sat by Pulse 98 96 98 Oximetry 08/09/20 08/09/20 08/09/20 05:40 05:50 06:00 Temperature Pulse Rate 78 84 92 H Pulse Rate [ From Monitor] Respiratory 17 17 15 Rate Blood Pressure 99/51 102/48 102/48 O2 Sat by Pulse 98 98 98 Oximetry 08/09/20 08/09/20 08/09/20 06:10 06:20 06:30 Temperature Pulse Rate 98 H 82 87 Pulse Rate [ From Monitor] Respiratory 11 L 19 19 Rate Blood Pressure 113/56 113/55 113/55 O2 Sat by Pulse 97 99 98 Oximetry 08/09/20 08/09/20 08/09/20 06:40 06:50 07:00 Temperature Pulse Rate 80 79 68 Pulse Rate [ From Monitor] Respiratory 19 15 18 Rate Blood Pressure 102/48 110/44 110/44 O2 Sat by Pulse 98 98 99 Oximetry 08/09/20 08/09/20 08/09/20 07:10 07:20 07:30 Temperature Pulse Rate 76 76 91 H Pulse Rate [ From Monitor] Respiratory 17 17 18 Rate Blood Pressure 107/53 121/53 121/53 O2 Sat by Pulse 97 98 98 Oximetry 08/09/20 08/09/20 08/09/20 07:40 07:50 08:00 Temperature 98.2 F Pulse Rate 67 83 67 Pulse Rate [ 84 From Monitor] Respiratory 18 20 20 Rate Blood Pressure 121/53 130/53 130/53 O2 Sat by Pulse 97 98 97 Oximetry 08/09/20 08/09/20 08/09/20 08:10 08:20 08:30 Temperature Pulse Rate 77 83 85 Pulse Rate [ From Monitor] Respiratory 16 13 15 Rate Blood Pressure 130/53 122/59 122/59 O2 Sat by Pulse 99 94 99 Oximetry 08/09/20 08/09/20 08/09/20 08:40 08:50 09:00 Temperature Pulse Rate 78 74 Pulse Rate [ From Monitor] Respiratory 17 16 15 Rate Blood Pressure 122/59 121/52 121/52 O2 Sat by Pulse 98 96 97 Oximetry 08/09/20 08/09/20 08/09/20 09:10 09:20 09:30 Temperature Pulse Rate 82 76 Pulse Rate [ From Monitor] Respiratory 19 18 Rate Blood Pressure 121/52 114/47 114/47 O2 Sat by Pulse 97 97 95 Oximetry 08/09/20 08/09/20 08/09/20 09:40 09:50 10:00 Temperature Pulse Rate 93 H 76 Pulse Rate [ From Monitor] Respiratory 19 16 Rate Blood Pressure 129/45 125/55 125/55 O2 Sat by Pulse 94 97 Oximetry 08/09/20 08/09/20 08/09/20 10:10 10:20 10:30 Temperature Pulse Rate 84 82 80 Pulse Rate [ From Monitor] Respiratory 20 18 Rate Blood Pressure 116/50 117/52 117/52 O2 Sat by Pulse 96 97 97 Oximetry 08/09/20 08/09/20 08/09/20 10:40 10:50 11:00 Temperature Pulse Rate 97 H 77 88 Pulse Rate [ From Monitor] Respiratory 21 20 19 Rate Blood Pressure 117/52 108/46 108/46 O2 Sat by Pulse 94 96 96 Oximetry 08/09/20 08/09/20 08/09/20 11:10 11:20 11:30 Temperature Pulse Rate 77 74 81 Pulse Rate [ From Monitor] Respiratory 23 19 17 Rate Blood Pressure 109/36 99/53 99/53 O2 Sat by Pulse 96 94 Oximetry 08/09/20 08/09/20 08/09/20 11:40 11:50 12:00 Temperature 98.1 F Pulse Rate 87 83 72 Pulse Rate [ 82 From Monitor] Respiratory 19 21 10 L Rate Blood Pressure 92/56 126/54 126/54 O2 Sat by Pulse 96 94 98 Oximetry 08/09/20 08/09/20 08/09/20 12:10 12:20 12:30 Temperature Pulse Rate 77 89 80 Pulse Rate [ From Monitor] Respiratory 17 19 20 Rate Blood Pressure 124/51 106/52 106/52 O2 Sat by Pulse 98 96 95 Oximetry 08/09/20 08/09/20 08/09/20 12:40 12:50 13:00 Temperature Pulse Rate 89 83 Pulse Rate [ From Monitor] Respiratory 19 17 Rate Blood Pressure 114/46 117/56 117/56 O2 Sat by Pulse 93 95 98 Oximetry 08/09/20 08/09/20 08/09/20 13:10 13:20 13:30 Temperature Pulse Rate 77 80 75 Pulse Rate [ From Monitor] Respiratory 18 15 20 Rate Blood Pressure 107/33 117/50 117/50 O2 Sat by Pulse 97 95 97 Oximetry 08/09/20 08/09/20 08/09/20 13:40 13:50 14:00 Temperature Pulse Rate Pulse Rate [ From Monitor] Respiratory Rate Blood Pressure 114/48 111/57 111/57 O2 Sat by Pulse 97 97 95 Oximetry 08/09/20 08/09/20 08/09/20 14:16 14:20 14:30 Temperature Pulse Rate Pulse Rate [ From Monitor] Respiratory Rate Blood Pressure 127/94 127/94 127/94 O2 Sat by Pulse 97 95 97 Oximetry 08/09/20 14:40 Temperature Pulse Rate Pulse Rate [ From Monitor] Respiratory Rate Blood Pressure 108/59 O2 Sat by Pulse 97 Oximetry - Abdomen [id number] 4, PM_46_EXABD1 6, PM_46_EXABD1 8 Hernia: none - Labs 08/09/20 04:00 08/09/20 04:00 Diabetes panel 08/09/20 Range/Units 04:00 Sodium 139 (137-145) mmol/L Potassium 3.5 L (3.6-5.0) mmol/L Chloride 98.9 (98-107) mmol/L Carbon Dioxide 26 (22-30) mmol/L BUN 53 H (9-20) mg/dL Creatinine 1.5 H (0.8-1.3) mg/dL Glucose 188 H (75-100) mg/dL Calcium 7.8 L (8.4-10.2) mg/dL AST 63 H (5-40) units/L ALT 61 H (7-56) units/L Alkaline Phosphatase 476 H (35-129) units/L Total Protein 5.9 L (6.3-8.2) g/dL Albumin 3.0 L (3.9-5) g/dL Calcium panel 08/09/20 Range/Units 04:00 Calcium 7.8 L (8.4-10.2) mg/dL Albumin 3.0 L (3.9-5) g/dL Pituitary panel 08/09/20 Range/Units 04:00 Sodium 139 (137-145) mmol/L Potassium 3.5 L (3.6-5.0) mmol/L Chloride 98.9 (98-107) mmol/L Carbon Dioxide 26 (22-30) mmol/L BUN 53 H (9-20) mg/dL Creatinine 1.5 H (0.8-1.3) mg/dL Glucose 188 H (75-100) mg/dL Calcium 7.8 L (8.4-10.2) mg/dL Adrenal panel 08/09/20 Range/Units 04:00 Sodium 139 (137-145) mmol/L Potassium 3.5 L (3.6-5.0) mmol/L Chloride 98.9 (98-107) mmol/L Carbon Dioxide 26 (22-30) mmol/L BUN 53 H (9-20) mg/dL Creatinine 1.5 H (0.8-1.3) mg/dL Glucose 188 H (75-100) mg/dL Calcium 7.8 L (8.4-10.2) mg/dL Total Bilirubin 5.10 H (0.1-1.2) mg/dL AST 63 H (5-40) units/L ALT 61 H (7-56) units/L Alkaline Phosphatase 476 H (35-129) units/L Total Protein 5.9 L (6.3-8.2) g/dL Albumin 3.0 L (3.9-5) g/dL - Imaging Additional Studies: Total bilirubin down to 5.1
--- NOTE | 2020-08-09 16:48 | Progress Note ---
Assessment and Plan --Acute cholecystitis with choledocholithiasis No plan for surgery per [facility] recommended ERCP, likely to be performed tomorrow after 2d echo result Continue to monitor LFT for now CT abdomen/pelvis: 1. Acute cholecystitis. There is also choledocholithiasis. -- Acute kidney injury (ROBERTH) with acute tubular necrosis (ATN) Monitor urine output every shift, supportive care, nephrology team consulted. Renal function is improving, Continue low volume IV fluid given history of CHF --Acute metabolic encephalopathy, resolved Continue supportive care and follow clinically - Gm +ve bacteremia cont vancomycin for now, ID consulted --Septic shock, continue Levophed and wean off as tolerated --Sepsis, present on admission Patient presented with severe hypotension, lactic acidosis, ROBERTH, altered mental status Blood culture positive for gram-positive cocci, CT abdomen pelvis suggesting acute cholecystitis and choledocholithiasis Continue IV antibiotics for now, follow ID recommendation, monitor final blood culture results PUI with COVID 19, ruled out with negative test --CHF with systolic failure, appears compensated EF unknown at this point, cardiology following, will follow 2D echo result -- Paroxysmal atrial fibrillation on Xarelto, will hold for now possible surgery/ERCP Patient normal sinus rhythm on the monitor -Elevated LFT Likely due to obstruction Will continue to monitor LFT, consulted with GI --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 --Advance care planning Disease education conducted, supportive care, patient is full code, disease education conducted The high probability of a clinically significant, sudden or life threatening deterioration of the [CVS, GI, renal] system(s) required my full and direct attention, intervention and personal management. The aggregate critical care time was [34] minutes. This time is in addition to time spent performing reported procedures but includes the following: [x] Data Review and interpretation [x] Patient assessment and monitoring of vital signs [x] Documentation [x] Medication orders and management Brief history: 70-year-old man with h/o history of systolic heart failure, coronary artery disease, dual-chamber pacemaker in situ, on anticoagulation with Xarelto, admitted with weakness, severe jaundice, and severe renal failure. CT scan of the abdomen reports evidence of acute cholecystitis. 9/19: Continue IV fluid, empiric antibiotics, blood cx positive for gm +ve cocci . Consult GI and general surgery. Monitor renal function and follow clinically. obtain 2d echo. follow CoVID 19 result 08/08; patient remains on Levophed, renal function improved. Continue low volume IV fluid, COVID 19 test negative, follow blood culture, continue IV antibiotics we will follow 2D echo result. Continue to hold Xarelto for now. Called patient and updated. 08/09: Off pressor today, wait for 2D echo result. Plan for ERCP tomorrow if patient remains clinically stable. Subjective Date of service: 08/09/20 Principal diagnosis: Cholecystitis Interval history: Patient seen and examined. Medical records and medication list reviewed. No acute event overnight noted by the RN. Patient patient currently off Levophed, vitals stable abdominal pain has improved, Discussed plan of care at bedside with patient. Also called patient and updated Objective - Exam Narrative Exam: General appearance: Present: mild distress, white male - EENT Eyes: Present: scleral icterus ENT: hearing intact, clear oral mucosa - Neck Neck: Present: supple, normal ROM - Respiratory Respiratory effort: normal Respiratory: bilateral: CTA - Cardiovascular Heart Sounds: Present: S1 & S2. Absent: rub, click - Extremities Extremities: pulses symmetrical Extremity abnormal: edema Peripheral Pulses: within normal limits - Abdominal General gastrointestinal: Present: soft, normal bowel sounds Male genitourinary: Present: normal - Integumentary Integumentary: Present: clear, warm, dry - Musculoskeletal Musculoskeletal: generalized weakness - Psychiatric Psychiatric: appropriate mood/affect, intact judgment & insight - Neurologic Neurologic: CNII-XII intact, moves all extremities - Constitutional Vitals: Vital Signs - 12hr 08/09/20 08/09/20 08/09/20 04:50 05:00 05:10 Temperature Pulse Rate 78 87 82 Pulse Rate [ From Monitor] Respiratory 14 19 16 Rate Blood Pressure 93/54 93/54 116/50 O2 Sat by Pulse 99 99 98 Oximetry 08/09/20 08/09/20 08/09/20 05:20 05:30 05:40 Temperature Pulse Rate 89 94 H 78 Pulse Rate [ From Monitor] Respiratory 17 18 17 Rate Blood Pressure 111/48 111/48 99/51 O2 Sat by Pulse 96 98 98 Oximetry 08/09/20 08/09/20 08/09/20 05:50 06:00 06:10 Temperature Pulse Rate 84 92 H 98 H Pulse Rate [ From Monitor] Respiratory 17 15 11 L Rate Blood Pressure 102/48 102/48 113/56 O2 Sat by Pulse 98 98 97 Oximetry 08/09/20 08/09/20 08/09/20 06:20 06:30 06:40 Temperature Pulse Rate 82 87 80 Pulse Rate [ From Monitor] Respiratory 19 19 19 Rate Blood Pressure 113/55 113/55 102/48 O2 Sat by Pulse 99 98 98 Oximetry 08/09/20 08/09/20 08/09/20 06:50 07:00 07:10 Temperature Pulse Rate 79 68 76 Pulse Rate [ From Monitor] Respiratory 15 18 17 Rate Blood Pressure 110/44 110/44 107/53 O2 Sat by Pulse 98 99 97 Oximetry 08/09/20 08/09/20 08/09/20 07:20 07:30 07:40 Temperature Pulse Rate 76 91 H 67 Pulse Rate [ From Monitor] Respiratory 17 18 18 Rate Blood Pressure 121/53 121/53 121/53 O2 Sat by Pulse 98 98 97 Oximetry 08/09/20 08/09/20 08/09/20 07:50 08:00 08:10 Temperature 98.2 F Pulse Rate 83 67 77 Pulse Rate [ 84 From Monitor] Respiratory 20 20 16 Rate Blood Pressure 130/53 130/53 130/53 O2 Sat by Pulse 98 97 99 Oximetry 08/09/20 08/09/20 08/09/20 08:20 08:30 08:40 Temperature Pulse Rate 83 85 78 Pulse Rate [ From Monitor] Respiratory 13 15 17 Rate Blood Pressure 122/59 122/59 122/59 O2 Sat by Pulse 94 99 98 Oximetry 08/09/20 08/09/20 08/09/20 08:50 09:00 09:10 Temperature Pulse Rate 74 Pulse Rate [ From Monitor] Respiratory 16 15 Rate Blood Pressure 121/52 121/52 121/52 O2 Sat by Pulse 96 97 97 Oximetry 08/09/20 08/09/20 08/09/20 09:20 09:30 09:40 Temperature Pulse Rate 82 76 93 H Pulse Rate [ From Monitor] Respiratory 19 18 19 Rate Blood Pressure 114/47 114/47 129/45 O2 Sat by Pulse 97 95 94 Oximetry 08/09/20 08/09/20 08/09/20 09:50 10:00 10:10 Temperature Pulse Rate 76 84 Pulse Rate [ From Monitor] Respiratory 16 21 Rate Blood Pressure 125/55 125/55 116/50 O2 Sat by Pulse 97 96 Oximetry 08/09/20 08/09/20 08/09/20 10:20 10:30 10:40 Temperature Pulse Rate 82 80 97 H Pulse Rate [ From Monitor] Respiratory 20 18 21 Rate Blood Pressure 117/52 117/52 117/52 O2 Sat by Pulse 97 97 94 Oximetry 08/09/20 08/09/20 08/09/20 10:50 11:00 11:10 Temperature Pulse Rate 77 88 77 Pulse Rate [ From Monitor] Respiratory 20 19 23 Rate Blood Pressure 108/46 108/46 109/36 O2 Sat by Pulse 96 96 Oximetry 08/09/20 08/09/20 08/09/20 11:20 11:30 11:40 Temperature Pulse Rate 74 81 87 Pulse Rate [ From Monitor] Respiratory 19 17 19 Rate Blood Pressure 99/53 99/53 92/56 O2 Sat by Pulse 96 94 96 Oximetry 08/09/20 08/09/20 08/09/20 11:50 12:00 12:10 Temperature 98.1 F Pulse Rate 83 72 77 Pulse Rate [ 82 From Monitor] Respiratory 21 10 L 17 Rate Blood Pressure 126/54 126/54 124/51 O2 Sat by Pulse 94 98 98 Oximetry 08/09/20 08/09/20 08/09/20 12:20 12:30 12:40 Temperature Pulse Rate 89 80 Pulse Rate [ From Monitor] Respiratory 19 20 Rate Blood Pressure 106/52 106/52 114/46 O2 Sat by Pulse 96 95 93 Oximetry 08/09/20 08/09/20 08/09/20 12:50 13:00 13:10 Temperature Pulse Rate 89 83 77 Pulse Rate [ From Monitor] Respiratory 19 17 18 Rate Blood Pressure 117/56 117/56 107/33 O2 Sat by Pulse 95 98 97 Oximetry 08/09/20 08/09/20 08/09/20 13:20 13:30 13:40 Temperature Pulse Rate 80 75 Pulse Rate [ From Monitor] Respiratory 15 20 Rate Blood Pressure 117/50 117/50 114/48 O2 Sat by Pulse 95 97 97 Oximetry 08/09/20 08/09/20 08/09/20 13:50 14:00 14:16 Temperature Pulse Rate Pulse Rate [ From Monitor] Respiratory Rate Blood Pressure 111/57 111/57 127/94 O2 Sat by Pulse 97 95 97 Oximetry 08/09/20 08/09/20 08/09/20 14:20 14:30 14:40 Temperature Pulse Rate Pulse Rate [ From Monitor] Respiratory Rate Blood Pressure 127/94 127/94 108/59 O2 Sat by Pulse 95 97 97 Oximetry - Labs CBC & Chem 7: 08/09/20 04:00 08/10/20 04:10 Labs: Abnormal lab results 08/08/20 08/08/20 08/09/20 Range/Units 17:52 23:49 04:00 WBC (4.5-11.0) K/mm3 Hct (35.5-45.6) % MCV (84-94) fl MCHC (32-34) % RDW (13.2-15.2) % Seg Neuts % (Manual) (40.0-70.0) % Lymphocytes % (Manual) (13.4-35.0) % Seg Neutrophils # Man (1.8-7.7) K/mm3 Lymphocytes # (Manual) (1.2-5.4) K/mm3 Potassium 3.5 L (3.6-5.0) mmol/L BUN 53 H (9-20) mg/dL Creatinine 1.5 H (0.8-1.3) mg/dL Glucose 188 H (75-100) mg/dL POC Glucose 251 H 220 H (70-105) Calcium 7.8 L (8.4-10.2) mg/dL Magnesium 2.50 H (1.7-2.3) mg/dL Total Bilirubin 5.10 H (0.1-1.2) mg/dL AST 63 H (5-40) units/L ALT 61 H (7-56) units/L Alkaline Phosphatase 476 H (35-129) units/L Total Protein 5.9 L (6.3-8.2) g/dL Albumin 3.0 L (3.9-5) g/dL 08/09/20 08/09/20 08/09/20 Range/Units 04:00 05:29 12:12 WBC 11.3 H (4.5-11.0) K/mm3 Hct 35.0 L (35.5-45.6) % MCV 81 L (84-94) fl MCHC 35 H (32-34) % RDW 21.6 H (13.2-15.2) % Seg Neuts % (Manual) 91.0 H (40.0-70.0) % Lymphocytes % (Manual) 3.0 L (13.4-35.0) % Seg Neutrophils # Man 10.3 H (1.8-7.7) K/mm3 Lymphocytes # (Manual) 0.3 L (1.2-5.4) K/mm3 Potassium (3.6-5.0) mmol/L BUN (9-20) mg/dL Creatinine (0.8-1.3) mg/dL Glucose (75-100) mg/dL POC Glucose 181 H 206 H (70-105) Calcium (8.4-10.2) mg/dL Magnesium (1.7-2.3) mg/dL Total Bilirubin (0.1-1.2) mg/dL AST (5-40) units/L ALT (7-56) units/L Alkaline Phosphatase (35-129) units/L Total Protein (6.3-8.2) g/dL Albumin (3.9-5) g/dL HEART Score - HEART Score Troponin: Troponin T 0.023 ng/mL (0.00-0.029) 08/06/20 18:33
[2020-08-09] MEDS: POTASSIUM CHLORIDE 10 MEQ 10 MEQ/100 ML BAG IV SCH ×2 (17:01→18:22)
[2020-08-09] MEDS: MORPHINE 2 MG/1 ML INJ IV PRN (23:26)
[2020-08-10] MEDS: SODIUM CHLORIDE 0.45% 1000 ML 1,000 ML IV SCH (03:04)
[2020-08-10 05:12] LABS: Alanine Aminotransferase 61 units/L (7-56); Albumin 2.8 g/dL (3.9-5); BUN/Creatinine Ratio 38; Blood Urea Nitrogen 38 mg/dL (9-20); Calcium 8.3 mg/dL (8.4-10.2); Hemolysis Index 7
[2020-08-10 05:20] LABS: INR 1.04 (0.87-1.13)
[2020-08-10 05:21] LABS: Partial Thromboplastin Time 27.2 Sec. (24.2-36.6)
[2020-08-10] MEDS: metroNIDAZOLE/NS 500 MG/100 ML 500 MG/100 ML BAG IV SCH ×3 (05:44→22:05)
[2020-08-10] MEDS: INSULIN LISPRO 100 UNIT/ML VIAL 3 mL SUB-Q SCH ×4 (06:07→18:13)
--- NOTE | 2020-08-10 10:31 | Progress Note ---
Assessment and Plan - Patient Problems (1) Biliary obstruction Current Visit: Yes Status: Acute Plan to address problem: 1) Awaiting Cardiac clearance 2) Continue NPO 3) Continue antibiotics 4) ERCP and lap rachel after #1 Subjective Date of service: 08/10/20 Patient Reports: Positive: no new complaints, pain is less Objective Vital Signs - 12hr 08/09/20 08/09/20 08/09/20 22:30 22:40 22:50 Temperature Pulse Rate 94 H 89 82 Pulse Rate [ From Monitor] Respiratory 20 21 18 Rate Blood Pressure 101/58 114/52 114/48 O2 Sat by Pulse 92 98 96 Oximetry 08/09/20 08/09/20 08/09/20 23:00 23:10 23:20 Temperature Pulse Rate 80 82 76 Pulse Rate [ From Monitor] Respiratory 19 20 18 Rate Blood Pressure 101/58 119/41 126/43 O2 Sat by Pulse 96 95 97 Oximetry 08/09/20 08/09/20 08/09/20 23:30 23:40 23:50 Temperature Pulse Rate 82 77 72 Pulse Rate [ From Monitor] Respiratory 17 14 16 Rate Blood Pressure 126/43 120/50 119/45 O2 Sat by Pulse 95 91 94 Oximetry 08/09/20 08/10/20 08/10/20 23:57 00:00 00:10 Temperature 98.7 F Pulse Rate 71 77 Pulse Rate [ 71 From Monitor] Respiratory 16 16 Rate Blood Pressure 119/45 113/52 O2 Sat by Pulse 96 97 Oximetry 08/10/20 08/10/20 08/10/20 00:20 00:30 00:40 Temperature Pulse Rate 82 99 H 76 Pulse Rate [ From Monitor] Respiratory 20 17 17 Rate Blood Pressure 104/50 104/50 102/51 O2 Sat by Pulse 97 95 96 Oximetry 08/10/20 08/10/20 08/10/20 00:50 01:00 01:10 Temperature Pulse Rate 88 92 H 83 Pulse Rate [ From Monitor] Respiratory 22 15 15 Rate Blood Pressure 137/83 137/83 131/47 O2 Sat by Pulse 96 96 94 Oximetry 08/10/20 08/10/20 08/10/20 01:20 01:30 01:40 Temperature Pulse Rate 77 81 87 Pulse Rate [ From Monitor] Respiratory 17 13 15 Rate Blood Pressure 115/46 115/46 125/44 O2 Sat by Pulse 97 95 Oximetry 08/10/20 08/10/20 08/10/20 01:50 02:00 02:10 Temperature Pulse Rate 81 84 81 Pulse Rate [ From Monitor] Respiratory 18 16 14 Rate Blood Pressure 119/47 O2 Sat by Pulse 91 96 95 Oximetry 08/10/20 08/10/20 08/10/20 02:20 02:30 02:40 Temperature Pulse Rate 74 82 75 Pulse Rate [ From Monitor] Respiratory 18 15 15 Rate Blood Pressure 119/45 119/45 113/44 O2 Sat by Pulse 99 98 98 Oximetry 08/10/20 08/10/20 08/10/20 02:50 03:00 03:10 Temperature Pulse Rate 75 79 74 Pulse Rate [ From Monitor] Respiratory 14 17 17 Rate Blood Pressure 112/48 112/48 112/55 O2 Sat by Pulse 97 99 98 Oximetry 08/10/20 08/10/20 08/10/20 03:20 03:40 03:50 Temperature Pulse Rate 68 77 Pulse Rate [ From Monitor] Respiratory 20 Rate Blood Pressure 132/58 132/58 120/46 O2 Sat by Pulse 97 100 Oximetry 08/10/20 08/10/20 08/10/20 04:00 04:10 04:20 Temperature 98 F Pulse Rate 73 79 81 Pulse Rate [ 73 From Monitor] Respiratory 14 13 15 Rate Blood Pressure 120/46 132/58 132/58 O2 Sat by Pulse 96 98 98 Oximetry 08/10/20 08/10/20 08/10/20 04:30 04:40 04:50 Temperature Pulse Rate 82 90 76 Pulse Rate [ From Monitor] Respiratory 14 15 13 Rate Blood Pressure 132/58 128/45 128/45 O2 Sat by Pulse 98 99 Oximetry 08/10/20 08/10/20 08/10/20 05:00 05:10 05:20 Temperature Pulse Rate 80 78 78 Pulse Rate [ From Monitor] Respiratory 18 14 14 Rate Blood Pressure 128/45 128/45 128/45 O2 Sat by Pulse Oximetry 08/10/20 08/10/20 08/10/20 05:30 05:41 05:51 Temperature Pulse Rate 82 80 87 Pulse Rate [ From Monitor] Respiratory 13 14 22 Rate Blood Pressure 128/45 128/45 O2 Sat by Pulse 95 Oximetry 08/10/20 08/10/20 08/10/20 06:01 06:11 06:21 Temperature Pulse Rate 81 74 80 Pulse Rate [ From Monitor] Respiratory 25 H 17 13 Rate Blood Pressure 128/45 128/45 114/53 O2 Sat by Pulse 97 97 Oximetry 08/10/20 08/10/20 08/10/20 06:31 06:41 06:51 Temperature Pulse Rate 85 77 79 Pulse Rate [ From Monitor] Respiratory 18 20 20 Rate Blood Pressure 114/53 114/53 114/53 O2 Sat by Pulse 95 98 Oximetry 08/10/20 08/10/20 08/10/20 07:01 07:11 07:21 Temperature Pulse Rate 77 77 85 Pulse Rate [ From Monitor] Respiratory 15 21 12 Rate Blood Pressure 114/53 114/53 114/53 O2 Sat by Pulse 99 Oximetry 08/10/20 08/10/20 08/10/20 07:31 07:41 07:51 Temperature Pulse Rate 81 77 76 Pulse Rate [ From Monitor] Respiratory 21 15 23 Rate Blood Pressure 155/50 155/50 155/50 O2 Sat by Pulse 97 95 96 Oximetry 08/10/20 08/10/20 08/10/20 08:00 08:01 08:11 Temperature 98.0 F Pulse Rate 73 84 Pulse Rate [ From Monitor] Respiratory 12 18 Rate Blood Pressure 104/39 104/39 O2 Sat by Pulse 94 99 Oximetry 08/10/20 08/10/20 08/10/20 08:21 08:31 08:41 Temperature Pulse Rate 70 84 78 Pulse Rate [ From Monitor] Respiratory 14 12 12 Rate Blood Pressure 104/39 104/39 104/39 O2 Sat by Pulse 95 91 94 Oximetry - Abdomen soft, bowel sounds hypoactive (Minimally tender in the epigastrium/RUQ without rebound or guarding) - Labs 08/09/20 04:00 08/10/20 04:10 Diabetes panel 08/10/20 Range/Units 04:10 Sodium 140 (137-145) mmol/L Potassium 3.7 (3.6-5.0) mmol/L Chloride 102.5 (98-107) mmol/L Carbon Dioxide 25 (22-30) mmol/L BUN 38 H (9-20) mg/dL Creatinine 1.0 (0.8-1.3) mg/dL Glucose 176 H (75-100) mg/dL Calcium 8.3 L (8.4-10.2) mg/dL AST 60 H (5-40) units/L ALT 61 H (7-56) units/L Alkaline Phosphatase 543 H (35-129) units/L Total Protein 5.7 L (6.3-8.2) g/dL Albumin 2.8 L (3.9-5) g/dL Calcium panel 08/10/20 Range/Units 04:10 Calcium 8.3 L (8.4-10.2) mg/dL Albumin 2.8 L (3.9-5) g/dL Pituitary panel 08/10/20 Range/Units 04:10 Sodium 140 (137-145) mmol/L Potassium 3.7 (3.6-5.0) mmol/L Chloride 102.5 (98-107) mmol/L Carbon Dioxide 25 (22-30) mmol/L BUN 38 H (9-20) mg/dL Creatinine 1.0 (0.8-1.3) mg/dL Glucose 176 H (75-100) mg/dL Calcium 8.3 L (8.4-10.2) mg/dL Adrenal panel 08/10/20 Range/Units 04:10 Sodium 140 (137-145) mmol/L Potassium 3.7 (3.6-5.0) mmol/L Chloride 102.5 (98-107) mmol/L Carbon Dioxide 25 (22-30) mmol/L BUN 38 H (9-20) mg/dL Creatinine 1.0 (0.8-1.3) mg/dL Glucose 176 H (75-100) mg/dL Calcium 8.3 L (8.4-10.2) mg/dL Total Bilirubin 5.00 H (0.1-1.2) mg/dL AST 60 H (5-40) units/L ALT 61 H (7-56) units/L Alkaline Phosphatase 543 H (35-129) units/L Total Protein 5.7 L (6.3-8.2) g/dL Albumin 2.8 L (3.9-5) g/dL - Imaging Additional Studies: Total bilirubin 5.0
--- NOTE | 2020-08-10 10:51 | Progress Note ---
Assessment and Plan Cultures: Blood culture 08/06/2020 Coag-neg Staph 1 bottle Blood culture 08/08/2020 no growth today Urine culture 08/08/2020 neg SARS COV-2 PCR neg A/P: 70-year-old man past medical history CHF, continue dependence, DM 2 admitted with weakness, found to have cholecystitis and gram-positive bacteremia #Septic shock: Patient off pressors, leukocytosis resolved, secondary to acute cholecystitis #Acute cholecystitis: General surgery consulted #Coag-neg Staph bacteremia: likely a contaminant, repeat blood cultures negative. #ROBERTH: Renally adjust antibiotics, resolved Recs: -Continue cefepime 2 g IV every 12 hours -Continue metronidazole 500 g IV every 8 hours -per surgery will need cardiac clearance prior to ERCP/lap rachel -Remove femoral TLC when possible MD [facility] ([facility]) Office [phone] Subjective Date of service: 08/10/20 Principal diagnosis: Cholecystitis Interval history: Patient seems confused today, no fever, reports abdominal pain Objective - Exam Narrative Exam: General appearance: Alert in NAD on nasal cannula O2 confused Eyes: anicteric sclerae, moist conjunctivae; no lid-lag; PERRLA HENT: Atraumatic; oropharynx clear with moist mucous membranes and no oral thrush; normal hard and soft palate. Lungs: CTA, with normal respiratory effort and no intercostal retractions CV: RRR no murmur Abdomen: Soft, non-tender; no masses or hepatosplenomegaly Extremities: no edema, no cyanosis Skin: No rash. Psych: Mildly agitated Neuro: alert and confused Right femoral TLC/condom cath - Constitutional Vitals: Vital Signs Temp Pulse Resp BP Pulse Ox 98.0 F 78 12 104/39 94 08/10/20 08:00 08/10/20 08:41 08/10/20 08:41 08/10/20 08:41 08/10/20 08:41 Temperature -Last 24 Hours Temperature 98.0 F Temperature 98 F Temperature 98.7 F Temperature 98.8 F Temperature 98.1 F - Labs CBC & Chem 7: 08/09/20 04:00 08/10/20 04:10 Labs: Abnormal lab results 08/09/20 08/10/20 08/10/20 Range/Units 12:12 00:11 04:10 BUN 38 H (9-20) mg/dL Glucose 176 H (75-100) mg/dL POC Glucose 206 H 181 H (70-105) Calcium 8.3 L (8.4-10.2) mg/dL Total Bilirubin 5.00 H (0.1-1.2) mg/dL AST 60 H (5-40) units/L ALT 61 H (7-56) units/L Alkaline Phosphatase 543 H (35-129) units/L Total Protein 5.7 L (6.3-8.2) g/dL Albumin 2.8 L (3.9-5) g/dL 08/10/20 Range/Units 05:59 BUN (9-20) mg/dL Glucose (75-100) mg/dL POC Glucose 182 H (70-105) Calcium (8.4-10.2) mg/dL Total Bilirubin (0.1-1.2) mg/dL AST (5-40) units/L ALT (7-56) units/L Alkaline Phosphatase (35-129) units/L Total Protein (6.3-8.2) g/dL Albumin (3.9-5) g/dL
--- NOTE | 2020-08-10 10:59 | Progress Note ---
Subjective Date of service: 08/10/20 Principal diagnosis: Cholecystitis Interval history: For ERCP today, awaiting cardiology "clearance" Episode of confusion last night. Right femoral CVC is place Objective Vital Signs - 12hr 08/09/20 08/09/20 08/09/20 23:00 23:10 23:20 Temperature Pulse Rate 80 82 76 Pulse Rate [ From Monitor] Respiratory 19 20 18 Rate Blood Pressure 101/58 119/41 126/43 O2 Sat by Pulse 96 95 97 Oximetry 08/09/20 08/09/20 08/09/20 23:30 23:40 23:50 Temperature Pulse Rate 82 77 72 Pulse Rate [ From Monitor] Respiratory 17 14 16 Rate Blood Pressure 126/43 120/50 119/45 O2 Sat by Pulse 95 91 94 Oximetry 08/09/20 08/10/20 08/10/20 23:57 00:00 00:10 Temperature 98.7 F Pulse Rate 71 77 Pulse Rate [ 71 From Monitor] Respiratory 16 16 Rate Blood Pressure 119/45 113/52 O2 Sat by Pulse 96 97 Oximetry 08/10/20 08/10/20 08/10/20 00:20 00:30 00:40 Temperature Pulse Rate 82 99 H 76 Pulse Rate [ From Monitor] Respiratory 20 17 17 Rate Blood Pressure 104/50 104/50 102/51 O2 Sat by Pulse 97 95 96 Oximetry 08/10/20 08/10/20 08/10/20 00:50 01:00 01:10 Temperature Pulse Rate 88 92 H 83 Pulse Rate [ From Monitor] Respiratory 22 15 15 Rate Blood Pressure 137/83 137/83 131/47 O2 Sat by Pulse 96 96 94 Oximetry 08/10/20 08/10/20 08/10/20 01:20 01:30 01:40 Temperature Pulse Rate 77 81 87 Pulse Rate [ From Monitor] Respiratory 17 13 15 Rate Blood Pressure 115/46 115/46 125/44 O2 Sat by Pulse 97 95 Oximetry 08/10/20 08/10/20 08/10/20 01:50 02:00 02:10 Temperature Pulse Rate 81 84 81 Pulse Rate [ From Monitor] Respiratory 18 16 14 Rate Blood Pressure 119/47 O2 Sat by Pulse 91 96 95 Oximetry 08/10/20 08/10/20 08/10/20 02:20 02:30 02:40 Temperature Pulse Rate 74 82 75 Pulse Rate [ From Monitor] Respiratory 18 15 15 Rate Blood Pressure 119/45 119/45 113/44 O2 Sat by Pulse 99 98 98 Oximetry 08/10/20 08/10/20 08/10/20 02:50 03:00 03:10 Temperature Pulse Rate 75 79 74 Pulse Rate [ From Monitor] Respiratory 14 17 17 Rate Blood Pressure 112/48 112/48 112/55 O2 Sat by Pulse 97 99 98 Oximetry 08/10/20 08/10/20 08/10/20 03:20 03:40 03:50 Temperature Pulse Rate 68 77 Pulse Rate [ From Monitor] Respiratory 20 Rate Blood Pressure 132/58 132/58 120/46 O2 Sat by Pulse 97 100 Oximetry 08/10/20 08/10/20 08/10/20 04:00 04:10 04:20 Temperature 98 F Pulse Rate 73 79 81 Pulse Rate [ 73 From Monitor] Respiratory 14 13 15 Rate Blood Pressure 120/46 132/58 132/58 O2 Sat by Pulse 96 98 98 Oximetry 08/10/20 08/10/20 08/10/20 04:30 04:40 04:50 Temperature Pulse Rate 82 90 76 Pulse Rate [ From Monitor] Respiratory 14 15 13 Rate Blood Pressure 132/58 128/45 128/45 O2 Sat by Pulse 98 99 Oximetry 08/10/20 08/10/20 08/10/20 05:00 05:10 05:20 Temperature Pulse Rate 80 78 78 Pulse Rate [ From Monitor] Respiratory 18 14 14 Rate Blood Pressure 128/45 128/45 128/45 O2 Sat by Pulse Oximetry 08/10/20 08/10/20 08/10/20 05:30 05:41 05:51 Temperature Pulse Rate 82 80 87 Pulse Rate [ From Monitor] Respiratory 13 14 22 Rate Blood Pressure 128/45 128/45 O2 Sat by Pulse 95 Oximetry 08/10/20 08/10/20 08/10/20 06:01 06:11 06:21 Temperature Pulse Rate 81 74 80 Pulse Rate [ From Monitor] Respiratory 25 H 17 13 Rate Blood Pressure 128/45 128/45 114/53 O2 Sat by Pulse 97 97 Oximetry 08/10/20 08/10/20 08/10/20 06:31 06:41 06:51 Temperature Pulse Rate 85 77 79 Pulse Rate [ From Monitor] Respiratory 18 20 20 Rate Blood Pressure 114/53 114/53 114/53 O2 Sat by Pulse 95 98 Oximetry 08/10/20 08/10/20 08/10/20 07:01 07:11 07:21 Temperature Pulse Rate 77 77 85 Pulse Rate [ From Monitor] Respiratory 15 21 12 Rate Blood Pressure 114/53 114/53 114/53 O2 Sat by Pulse 99 Oximetry 08/10/20 08/10/20 08/10/20 07:31 07:41 07:51 Temperature Pulse Rate 81 77 76 Pulse Rate [ From Monitor] Respiratory 21 15 23 Rate Blood Pressure 155/50 155/50 155/50 O2 Sat by Pulse 97 95 96 Oximetry 08/10/20 08/10/20 08/10/20 08:00 08:01 08:11 Temperature 98.0 F Pulse Rate 73 84 Pulse Rate [ From Monitor] Respiratory 12 18 Rate Blood Pressure 104/39 104/39 O2 Sat by Pulse 94 99 Oximetry 08/10/20 08/10/20 08/10/20 08:21 08:31 08:41 Temperature Pulse Rate 70 84 78 Pulse Rate [ From Monitor] Respiratory 14 12 12 Rate Blood Pressure 104/39 104/39 104/39 O2 Sat by Pulse 95 91 94 Oximetry CBC and BMP: 08/09/20 04:00 08/10/20 04:10 ABG, PT/INR, D-dimer: PT/INR, D-dimer PT 13.8 Sec. (12.2-14.9) 08/10/20 04:10 INR 1.04 (0.87-1.13) 08/10/20 04:10 Abnormal lab findings: Abnormal Labs 08/06/20 08/06/20 08/06/20 14:42 14:42 14:42 WBC Hct MCV 82 L MCHC 35 H RDW 22.0 H Lymph % (Auto) Lymph # Seg Neutrophils % Seg Neuts % (Manual) 89.0 H Lymphocytes % (Manual) 6.0 L Seg Neutrophils # Seg Neutrophils # Man 8.9 H Lymphocytes # (Manual) 0.6 L APTT 37.2 H Sodium 134 L Potassium Chloride 83.6 L BUN 82 H Creatinine 4.5 H Glucose 205 H POC Glucose Lactic Acid Calcium Phosphorus Magnesium Total Bilirubin 9.70 H AST 63 H ALT 82 H Alkaline Phosphatase 263 H Total Creatine Kinase Troponin T 0.036 H NT-Pro-B Natriuret Pep Total Protein Albumin 3.4 L Urine WBC (Auto) Urine Creatinine 08/06/20 08/06/20 08/06/20 14:42 14:42 14:42 WBC Hct MCV MCHC RDW Lymph % (Auto) Lymph # Seg Neutrophils % Seg Neuts % (Manual) Lymphocytes % (Manual) Seg Neutrophils # Seg Neutrophils # Man Lymphocytes # (Manual) APTT Sodium Potassium Chloride BUN Creatinine Glucose POC Glucose Lactic Acid 4.60 H* Calcium Phosphorus 6.80 H Magnesium 1.60 L Total Bilirubin AST ALT Alkaline Phosphatase Total Creatine Kinase 240 H Troponin T NT-Pro-B Natriuret Pep 50722 H Total Protein Albumin Urine WBC (Auto) Urine Creatinine 08/06/20 08/06/20 08/06/20 15:34 18:33 18:50 WBC Hct MCV MCHC RDW Lymph % (Auto) Lymph # Seg Neutrophils % Seg Neuts % (Manual) Lymphocytes % (Manual) Seg Neutrophils # Seg Neutrophils # Man Lymphocytes # (Manual) APTT Sodium Potassium Chloride BUN Creatinine Glucose POC Glucose Lactic Acid 4.10 H* 3.60 H* Calcium Phosphorus Magnesium 1.60 L Total Bilirubin AST ALT Alkaline Phosphatase Total Creatine Kinase Troponin T NT-Pro-B Natriuret Pep Total Protein Albumin Urine WBC (Auto) Urine Creatinine 08/06/20 08/06/20 08/07/20 21:09 22:04 00:06 WBC Hct MCV MCHC RDW Lymph % (Auto) Lymph # Seg Neutrophils % Seg Neuts % (Manual) Lymphocytes % (Manual) Seg Neutrophils # Seg Neutrophils # Man Lymphocytes # (Manual) APTT Sodium Potassium Chloride BUN Creatinine Glucose POC Glucose 188 H Lactic Acid 2.10 H* Calcium Phosphorus Magnesium Total Bilirubin AST ALT Alkaline Phosphatase Total Creatine Kinase Troponin T NT-Pro-B Natriuret Pep Total Protein Albumin Urine WBC (Auto) 20.0 H Urine Creatinine 08/07/20 08/07/20 08/07/20 04:00 04:00 05:56 WBC Hct 34.3 L MCV 81 L MCHC 36 H RDW 21.9 H Lymph % (Auto) 6.0 L Lymph # 0.6 L Seg Neutrophils % 89.4 H Seg Neuts % (Manual) Lymphocytes % (Manual) Seg Neutrophils # 9.3 H Seg Neutrophils # Man Lymphocytes # (Manual) APTT Sodium 136 L Potassium Chloride 88.5 L BUN 87 H Creatinine 3.7 H Glucose 187 H POC Glucose 190 H Lactic Acid Calcium 7.8 L Phosphorus Magnesium Total Bilirubin 9.60 H AST 53 H ALT 66 H Alkaline Phosphatase 264 H Total Creatine Kinase Troponin T NT-Pro-B Natriuret Pep Total Protein 6.2 L Albumin 3.1 L Urine WBC (Auto) Urine Creatinine 08/07/20 08/07/20 08/07/20 07:50 10:13 12:36 WBC Hct MCV MCHC RDW Lymph % (Auto) Lymph # Seg Neutrophils % Seg Neuts % (Manual) Lymphocytes % (Manual) Seg Neutrophils # Seg Neutrophils # Man Lymphocytes # (Manual) APTT Sodium Potassium Chloride BUN Creatinine Glucose POC Glucose 197 H 205 H Lactic Acid Calcium Phosphorus Magnesium Total Bilirubin AST ALT Alkaline Phosphatase Total Creatine Kinase Troponin T NT-Pro-B Natriuret Pep Total Protein Albumin Urine WBC (Auto) Urine Creatinine 77.8 H 08/07/20 08/07/20 08/08/20 17:36 21:49 04:57 WBC Hct MCV MCHC RDW Lymph % (Auto) Lymph # Seg Neutrophils % Seg Neuts % (Manual) Lymphocytes % (Manual) Seg Neutrophils # Seg Neutrophils # Man Lymphocytes # (Manual) APTT Sodium Potassium 3.3 L Chloride BUN 76 H Creatinine 2.0 H Glucose 353 H POC Glucose 240 H 218 H Lactic Acid Calcium 7.7 L Phosphorus Magnesium Total Bilirubin 8.00 H AST 46 H ALT 57 H Alkaline Phosphatase 348 H Total Creatine Kinase Troponin T NT-Pro-B Natriuret Pep Total Protein 6.0 L Albumin 2.5 L Urine WBC (Auto) Urine Creatinine 08/08/20 08/08/20 08/08/20 08:06 11:52 17:52 WBC Hct MCV MCHC RDW Lymph % (Auto) Lymph # Seg Neutrophils % Seg Neuts % (Manual) Lymphocytes % (Manual) Seg Neutrophils # Seg Neutrophils # Man Lymphocytes # (Manual) APTT Sodium Potassium Chloride BUN Creatinine Glucose POC Glucose 258 H 245 H 251 H Lactic Acid Calcium Phosphorus Magnesium Total Bilirubin AST ALT Alkaline Phosphatase Total Creatine Kinase Troponin T NT-Pro-B Natriuret Pep Total Protein Albumin Urine WBC (Auto) Urine Creatinine 08/08/20 08/09/20 08/09/20 23:49 04:00 04:00 WBC 11.3 H Hct 35.0 L MCV 81 L MCHC 35 H RDW 21.6 H Lymph % (Auto) Lymph # Seg Neutrophils % Seg Neuts % (Manual) 91.0 H Lymphocytes % (Manual) 3.0 L Seg Neutrophils # Seg Neutrophils # Man 10.3 H Lymphocytes # (Manual) 0.3 L APTT Sodium Potassium 3.5 L Chloride BUN 53 H Creatinine 1.5 H Glucose 188 H POC Glucose 220 H Lactic Acid Calcium 7.8 L Phosphorus Magnesium 2.50 H Total Bilirubin 5.10 H AST 63 H ALT 61 H Alkaline Phosphatase 476 H Total Creatine Kinase Troponin T NT-Pro-B Natriuret Pep Total Protein 5.9 L Albumin 3.0 L Urine WBC (Auto) Urine Creatinine 08/09/20 08/09/20 08/10/20 05:29 12:12 00:11 WBC Hct MCV MCHC RDW Lymph % (Auto) Lymph # Seg Neutrophils % Seg Neuts % (Manual) Lymphocytes % (Manual) Seg Neutrophils # Seg Neutrophils # Man Lymphocytes # (Manual) APTT Sodium Potassium Chloride BUN Creatinine Glucose POC Glucose 181 H 206 H 181 H Lactic Acid Calcium Phosphorus Magnesium Total Bilirubin AST ALT Alkaline Phosphatase Total Creatine Kinase Troponin T NT-Pro-B Natriuret Pep Total Protein Albumin Urine WBC (Auto) Urine Creatinine 08/10/20 08/10/20 04:10 05:59 WBC Hct MCV MCHC RDW Lymph % (Auto) Lymph # Seg Neutrophils % Seg Neuts % (Manual) Lymphocytes % (Manual) Seg Neutrophils # Seg Neutrophils # Man Lymphocytes # (Manual) APTT Sodium Potassium Chloride BUN 38 H Creatinine Glucose 176 H POC Glucose 182 H Lactic Acid Calcium 8.3 L Phosphorus Magnesium Total Bilirubin 5.00 H AST 60 H ALT 61 H Alkaline Phosphatase 543 H Total Creatine Kinase Troponin T NT-Pro-B Natriuret Pep Total Protein 5.7 L Albumin 2.8 L Urine WBC (Auto) Urine Creatinine
[2020-08-10] MEDS: INSULIN GLARGINE 100 UNITS/ML SUB-Q SCH (11:00)
[2020-08-10] MEDS: FAMOTIDINE 20 MG/2 ML INJ IV SCH (11:00)
[2020-08-10] MEDS: HEPARIN 5,000 UNIT/1 ML VIAL SUB-Q SCH ×2 (11:00→22:06)
[2020-08-10] MEDS: CEFEPIME/NS 2 GM/100 ML 2 GM/100 ML BAG IV SCH ×2 (11:02→22:05)
--- NOTE | 2020-08-10 12:23 | Progress Note ---
Assessment and Plan Acute cholecystitis Severe jaundice with a bilirubin level of 9.7 Acute renal failure History of systolic heart failure LVEF 30-35% by echo this admission no evidence of decompensation on entresto as an outpatient Aortic stenosis, moderate with a mean gradient of 22.6 History of coronary artery disease Dual-chamber AICD in situ Paroxysmal atrial fibrillation on Xarelto as an outpatient Xarelto is currently on hold. Patient is stable for non-cardiac surgery. Subjective Date of service: 08/10/20 Principal diagnosis: Cholecystitis Interval history: Patient is resting in bed and appears comfortable. Nurse reports patient is planned for ERCP and lap rachel today. Objective Vital Signs Temp Pulse Pulse Resp BP Pulse Ox 08/10/20 11:01 83 18 130/50 95 08/10/20 10:51 90 12 103/46 97 08/10/20 10:41 92 H 14 103/46 91 08/10/20 10:31 92 H 14 103/46 08/10/20 10:20 87 16 135/59 08/10/20 10:11 79 13 92/41 97 08/10/20 10:00 81 14 92/41 96 08/10/20 09:51 65 13 103/46 98 08/10/20 09:41 77 13 103/46 95 08/10/20 09:31 65 12 103/46 98 08/10/20 09:21 90 14 103/46 95 08/10/20 09:11 74 14 103/46 95 08/10/20 09:00 93 H 14 103/46 96 08/10/20 08:51 75 12 104/39 93 08/10/20 08:41 78 12 104/39 94 08/10/20 08:31 84 12 104/39 91 08/10/20 08:21 70 14 104/39 95 08/10/20 08:11 84 18 104/39 99 08/10/20 08:01 73 12 104/39 94 08/10/20 08:00 98.0 F 08/10/20 07:51 76 23 155/50 96 08/10/20 07:41 77 15 155/50 95 08/10/20 07:31 81 21 155/50 97 08/10/20 07:21 85 12 114/53 99 08/10/20 07:11 77 21 114/53 08/10/20 07:01 77 15 114/53 09/22/20 06:51 79 20 114/53 20 06:41 77 20 114/53 98 08/10/20 06:31 85 18 114/53 95 08/10/20 06:21 80 13 114/53 97 08/10/20 06:11 74 17 128/45 08/10/20 06:01 81 25 H 128/45 97 08/10/20 05:51 87 22 128/45 95 08/10/20 05:41 80 14 08/10/20 05:30 82 13 128/45 08/10/20 05:20 78 14 128/45 08/10/20 05:10 78 14 128/45 08/10/20 05:00 80 18 128/45 08/10/20 04:50 76 13 128/45 08/10/20 04:40 90 15 128/45 99 08/10/20 04:30 82 14 132/58 98 08/10/20 04:20 81 15 132/58 98 08/10/20 04:10 79 13 132/58 98 08/10/20 04:00 98 F 73 73 14 120/46 96 08/10/20 03:50 77 20 120/46 100 08/10/20 03:40 68 132/58 08/10/20 03:20 132/58 97 08/10/20 03:10 74 17 112/55 98 08/10/20 03:00 79 17 112/48 99 08/10/20 02:50 75 14 112/48 97 08/10/20 02:40 75 15 113/44 98 08/10/20 02:30 82 15 119/45 98 08/10/20 02:20 74 18 119/45 99 08/10/20 02:10 81 14 119/47 95 08/10/20 02:00 84 16 96 08/10/20 01:50 81 18 91 08/10/20 01:40 87 15 125/44 95 08/10/20 01:30 81 13 115/46 97 08/10/20 01:20 77 17 115/46 08/10/20 01:10 83 15 131/47 94 08/10/20 01:00 92 H 15 137/83 96 08/10/20 00:50 88 22 137/83 96 08/10/20 00:40 76 17 102/51 96 09/22/20 00:30 99 H 17 104/50 95 22/20 00:20 82 20 104/50 97 22/20 00:10 77 16 113/52 97 22/20 00:00 71 71 16 119/45 96 21/20 23:57 98.7 F 20 23:50 72 16 119/45 94 21/20 23:40 77 14 120/50 91 08/09/20 23:30 82 17 126/43 95 21/20 23:20 76 18 126/43 97 08/09/20 23:10 82 20 119/41 95 21/20 23:00 80 19 101/58 96 08/09/20 22:50 82 18 114/48 96 08/09/20 22:40 89 21 114/52 98 08/09/20 22:30 94 H 20 101/58 92 21/20 22:20 82 17 101/58 96 20 22:10 14 130/51 20 21:50 76 14 130/51 08/09/20 21:40 78 16 130/51 08/09/20 21:30 70 29 H 130/51 08/09/20 21:20 76 22 110/46 97 08/09/20 21:10 76 23 130/51 99 08/09/20 21:00 80 19 127/59 08/09/20 20:50 77 20 127/59 21/20 20:46 80 16 124/81 08/09/20 20:40 82 17 124/81 08/09/20 20:30 83 24 125/68 08/09/20 20:20 81 20 125/68 08/09/20 20:10 87 19 111/55 21/20 20:00 87 89 27 H 128/93 98 08/09/20 19:50 78 19 128/93 08/09/20 19:40 79 20 124/59 21/20 19:30 73 22 124/59 08/09/20 19:20 95 H 22 123/50 08/09/20 19:10 76 13 124/59 98 08/09/20 19:00 73 19 124/46 97 20 18:50 83 16 124/46 96 09/21/20 18:40 68 15 114/54 97 21/20 18:30 64 11 L 113/45 95 21/20 18:20 79 15 113/45 97 21/20 18:10 82 24 90/60 97 21/20 18:00 78 18 119/51 97 21/20 17:50 64 14 119/51 97 21/20 17:40 83 16 104/52 97 21/20 17:30 70 14 119/51 97 21/20 17:20 80 20 119/51 96 21/20 17:10 66 22 123/52 96 21/20 17:00 73 21 114/54 95 21/20 16:50 72 18 122/59 97 21/20 16:40 75 23 122/59 97 21/20 16:30 124/55 98 21/20 16:20 81 21 124/55 98 21/20 16:10 82 21 115/59 97 08/09/20 16:00 98.8 F 76 91 H 19 115/52 98 21/20 15:50 72 22 115/52 96 21/20 15:40 73 20 109/50 98 21/20 15:30 100 H 20 102/51 21/20 15:20 83 20 102/51 96 08/09/20 15:12 93 H 21 115/51 94 08/09/20 15:00 104/57 98 21/20 14:50 104/57 98 08/09/20 14:40 108/59 97 21/20 14:30 127/94 97 21/20 14:20 127/94 95 21/20 14:16 127/94 97 21/20 14:00 111/57 95 21/20 13:50 111/57 97 21/20 13:40 114/48 97 21/20 13:30 75 20 117/50 97 21/20 13:20 80 15 117/50 95 21/20 13:10 77 18 107/33 97 21/20 13:00 83 17 117/56 98 21/20 12:50 89 19 117/56 95 21/20 12:40 114/46 93 08/09/20 12:30 80 20 106/52 95 - Physical Examination General: No Apparent Distress, Cachectic HEENT: Positive: PERRL Neck: Positive: neck supple Cardiac: Positive: Other (v-paced with underlying afib) Neuro: Positive: Grossly Intact Abdomen: Positive: Soft Skin: Positive: Clear Extremities: Absent: edema - Labs and Meds Cardiac Enzymes 08/10/20 Range/Units 04:10 AST 60 H (5-40) units/L Coagulation 08/10/20 Range/Units 04:10 PT 13.8 (12.2-14.9) Sec. INR 1.04 (0.87-1.13) APTT 27.2 (24.2-36.6) Sec. Comprehensive Metabolic Panel 08/10/20 Range/Units 04:10 Sodium 140 (137-145) mmol/L Potassium 3.7 (3.6-5.0) mmol/L Chloride 102.5 (98-107) mmol/L Carbon Dioxide 25 (22-30) mmol/L BUN 38 H (9-20) mg/dL Creatinine 1.0 (0.8-1.3) mg/dL Glucose 176 H (75-100) mg/dL Calcium 8.3 L (8.4-10.2) mg/dL AST 60 H (5-40) units/L ALT 61 H (7-56) units/L Alkaline Phosphatase 543 H (35-129) units/L Total Protein 5.7 L (6.3-8.2) g/dL Albumin 2.8 L (3.9-5) g/dL
[2020-08-10] MEDS ORDERED: WATER FOR IRRIG STERILE 250 ML BOTTLE IR ONE (12:29)
[2020-08-10] MEDS ORDERED: SODIUM CHLORIDE 0.9% 100 ML ONE (12:30)
[2020-08-10] MEDS ORDERED: SODIUM CHLORIDE 0.9% 1000 ML 1,000 ML IV SCH (12:30)
[2020-08-10] MEDS ORDERED: GLUCAGON (HUMAN RECOMBINANT) 1 MG/ML INJ ONE (12:33)
--- NOTE | 2020-08-10 14:00 | Anesthesia Consultation ---
Anesthesia Consult and Med Hx Date of service: 08/10/20 - Airway Anesthetic Teeth Evaluation: Edentulous ROM Head & Neck: Adequate Mental/Hyoid Distance: Inadequate Mallampati Class: Class II Intubation Access Assessment: Possibly Difficult - Pulmonary Exam CTA: Yes - Cardiac Exam Cardiac Exam: No Murmur (irregular rhythm) - Pre-Operative Health Status ASA Pre-Surgery Classification: ASA4 Proposed Anesthetic Plan: MAC - Pulmonary Hx Smoking: Yes Hx Respiratory Symptoms: No - Cardiovascular System Hx Hypertension: No (septic shock now off pressors x24hrs) Hx Coronary Artery Disease: Yes Hx Heart Attack/AMI: No Hx Percutaneous Transluminal Coronary Angioplasty (PTCA): No Hx Cardia Arrhythmia: Yes (parosysmal a-fib) Hx Pacemaker: Yes Hx Valvular Heart Disease: Yes (moderate ) - Central Nervous System CVA: No - Endocrine Hx Renal Disease: Yes (presented w/ acute renal failure now improved) Hx Liver Disease: Yes (acute cholecystitis) Hx Insulin Dependent Diabetes: Yes - Hematic Hx Anemia: Yes - Other Systems Hx Obesity: No - Additional Comments Anesthesia Medical History Comments: No hx anesthetic complications. Scheduled for ERCP.
--- NOTE | 2020-08-10 14:03 | Anesthesia Day of Surgery ---
Anesthesia Day of Surgery - Day of Surgery Patient Examined: Yes Patient H&P Reviewed: Yes Patient is NPO: Yes Cardiac Clearance: Yes
--- NOTE | 2020-08-10 14:15 | Progress Note ---
Assessment and Plan 1. Acute kidney injury: Likely Vasomotor ROBERTH in the setting of shock. CT abdomen was negative for hydro. Monitor renal function. Creatinine level improving. Avoid nephrotoxic agents. Meds dosage based on GFR. 2. FEN: Mild Hyponatremia, improved. Monitor lytes and volume status. 3. Shock: Levophed and Cefepime. Follow cultures. 4. Acute toxic encephalopathy, POA. 5. Acute cholelithiasis, POA: Obstructive jaundice. Followed by GI. ERCP today. 6. DM type 2: Monitor. - Subjective: Patient was seen and examined at the bedside. In ICU. - Examination: General appearance: well-developed, appears stated age, no distress HEENT: ATNC, icterus Neck: Trachea midline Respiratory: ctab Cardiology: regular, S1S2, no murmur Gastrointestinal: soft, not tender, not distended, BS heard Integumentary: no obvious rash Neurologic: alert, able to move extremities Ext: no extremity edema Subjective Date of service: 08/10/20 Principal diagnosis: Cholecystitis Objective - Vital Signs Vital signs: Vital Signs - 12hr 08/10/20 08/10/20 08/10/20 02:20 02:30 02:40 Temperature Pulse Rate 74 82 75 Pulse Rate [ From Monitor] Respiratory 18 15 15 Rate Blood Pressure 119/45 119/45 113/44 O2 Sat by Pulse 99 98 98 Oximetry 08/10/20 08/10/20 08/10/20 02:50 03:00 03:10 Temperature Pulse Rate 75 79 74 Pulse Rate [ From Monitor] Respiratory 14 17 17 Rate Blood Pressure 112/48 112/48 112/55 O2 Sat by Pulse 97 99 98 Oximetry 08/10/20 08/10/20 08/10/20 03:20 03:40 03:50 Temperature Pulse Rate 68 77 Pulse Rate [ From Monitor] Respiratory 20 Rate Blood Pressure 132/58 132/58 120/46 O2 Sat by Pulse 97 100 Oximetry 08/10/20 08/10/20 08/10/20 04:00 04:10 04:20 Temperature 98 F Pulse Rate 73 79 81 Pulse Rate [ 73 From Monitor] Respiratory 14 13 15 Rate Blood Pressure 120/46 132/58 132/58 O2 Sat by Pulse 96 98 98 Oximetry 08/10/20 08/10/20 08/10/20 04:30 04:40 04:50 Temperature Pulse Rate 82 90 76 Pulse Rate [ From Monitor] Respiratory 14 15 13 Rate Blood Pressure 132/58 128/45 128/45 O2 Sat by Pulse 98 99 Oximetry 08/10/20 08/10/20 08/10/20 05:00 05:10 05:20 Temperature Pulse Rate 80 78 78 Pulse Rate [ From Monitor] Respiratory 18 14 14 Rate Blood Pressure 128/45 128/45 128/45 O2 Sat by Pulse Oximetry 08/10/20 08/10/20 08/10/20 05:30 05:41 05:51 Temperature Pulse Rate 82 80 87 Pulse Rate [ From Monitor] Respiratory 13 14 22 Rate Blood Pressure 128/45 128/45 O2 Sat by Pulse 95 Oximetry 08/10/20 08/10/20 08/10/20 06:01 06:11 06:21 Temperature Pulse Rate 81 74 80 Pulse Rate [ From Monitor] Respiratory 25 H 17 13 Rate Blood Pressure 128/45 128/45 114/53 O2 Sat by Pulse 97 97 Oximetry 08/10/20 08/10/20 08/10/20 06:31 06:41 06:51 Temperature Pulse Rate 85 77 79 Pulse Rate [ From Monitor] Respiratory 18 20 20 Rate Blood Pressure 114/53 114/53 114/53 O2 Sat by Pulse 95 98 Oximetry 08/10/20 08/10/20 08/10/20 07:01 07:11 07:21 Temperature Pulse Rate 77 77 85 Pulse Rate [ From Monitor] Respiratory 15 21 12 Rate Blood Pressure 114/53 114/53 114/53 O2 Sat by Pulse 99 Oximetry 08/10/20 08/10/20 08/10/20 07:31 07:41 07:51 Temperature Pulse Rate 81 77 76 Pulse Rate [ From Monitor] Respiratory 21 15 23 Rate Blood Pressure 155/50 155/50 155/50 O2 Sat by Pulse 97 95 96 Oximetry 08/10/20 08/10/20 08/10/20 08:00 08:01 08:11 Temperature 98.0 F Pulse Rate 73 84 Pulse Rate [ From Monitor] Respiratory 12 18 Rate Blood Pressure 104/39 104/39 O2 Sat by Pulse 94 99 Oximetry 08/10/20 08/10/20 08/10/20 08:21 08:31 08:41 Temperature Pulse Rate 70 84 78 Pulse Rate [ From Monitor] Respiratory 14 12 12 Rate Blood Pressure 104/39 104/39 104/39 O2 Sat by Pulse 95 91 94 Oximetry 08/10/20 08/10/20 08/10/20 08:51 09:00 09:11 Temperature Pulse Rate 75 93 H 74 Pulse Rate [ From Monitor] Respiratory 12 14 14 Rate Blood Pressure 104/39 103/46 103/46 O2 Sat by Pulse 93 96 95 Oximetry 08/10/20 08/10/20 08/10/20 09:21 09:31 09:41 Temperature Pulse Rate 90 65 77 Pulse Rate [ From Monitor] Respiratory 14 12 13 Rate Blood Pressure 103/46 103/46 103/46 O2 Sat by Pulse 95 98 95 Oximetry 08/10/20 08/10/20 08/10/20 09:51 10:00 10:11 Temperature Pulse Rate 65 81 79 Pulse Rate [ From Monitor] Respiratory 13 14 13 Rate Blood Pressure 103/46 92/41 92/41 O2 Sat by Pulse 98 96 97 Oximetry 08/10/20 08/10/20 08/10/20 10:20 10:31 10:41 Temperature Pulse Rate 87 92 H 92 H Pulse Rate [ From Monitor] Respiratory 16 14 14 Rate Blood Pressure 135/59 103/46 103/46 O2 Sat by Pulse 91 Oximetry 08/10/20 08/10/20 10:51 11:01 Temperature Pulse Rate 90 83 Pulse Rate [ From Monitor] Respiratory 12 18 Rate Blood Pressure 103/46 130/50 O2 Sat by Pulse 97 95 Oximetry - Lab 08/11/20 04:22 08/11/20 04:22 Most recent lab results Calcium 8.3 mg/dL (8.4-10.2) L 08/10/20 04:10 Phosphorus 6.80 mg/dL (2.5-4.5) H 08/06/20 14:42 Magnesium 2.50 mg/dL (1.7-2.3) H 08/09/20 04:00 Urine Creatinine 77.8 mg/dL (0.1-20.0) H 08/07/20 10:13 Urine Sodium 22 mmol/L 08/07/20 10:13 Medications & Allergies - Medications Allergies/Adverse Reactions: Allergies tetanus and diphtheria toxoids Adverse Reaction (Verified 08/06/20 14:20) Unknown Home Medications: Home Medications Medication Instructions Recorded Confirmed Last Taken Type Metformin HCl [metFORMIN] 1,000 mg PO BID 08/06/20 08/06/20 Unknown History Omeprazole 40 mg PO DAILY 08/06/20 08/06/20 Unknown History Rivaroxaban [Xarelto] 20 mg PO QDAY 08/06/20 08/06/20 Unknown History Sacubitril/Valsartan [Entresto 1 each PO BID 08/06/20 08/06/20 Unknown History 49-51 mg] Sertraline [Zoloft] 25 mg PO QDAY 08/06/20 08/06/20 Unknown History Spironolactone [Aldactone] 25 ng PO DAILY 08/06/20 08/06/20 Unknown History Torsemide [Demadex] 50 mg PO DAILY 08/06/20 08/06/20 Unknown History Zolpidem [Ambien] 5 mg PO QHS PRN 08/06/20 08/06/20 Unknown History carvediloL [Coreg] 6.25 mg PO BID 08/06/20 08/06/20 Unknown History traZODone [Desyrel] 50 mg PO QHS 08/06/20 08/06/20 Unknown History Active Medications: Generic Name Dose Route Start Last Admin Trade Name Freq PRN Reason Stop Dose Admin Lipase/Protease/Amylase 1 each 08/09/20 10:[address] 10,500 Unit FEEDTUBE PRN PRN For Clogged Feeding Tube Dextrose 0 ml 08/06/20 22:56 D50w (25gm) Syringe IV Q30MIN PRN Hypoglycemia Protocol Famotidine 20 mg 08/07/20 11:00 08/10/20 11:00 Pepcid IV 20 mg QDAY JULIET Administration Heparin Sodium (Porcine) 5,000 unit 08/07/20 10:45 08/10/20 11:00 Heparin SUB-Q 5,000 unit Q12HR JULIET Administration Norepinephrine 4 mg in 250 mls @ 7.5 mls/hr 08/06/20 19:20 08/09/20 07:50 Levophed Drip 4 Mg/Ns 250 Ml IV 0 mcg/min TITR JLUIET 0 mls/hr Titration Protocol 2 MCG/MIN Sodium Chloride 1,000 mls @ 42 mls/hr 08/08/20 14:00 08/10/20 03:04 Nacl 0.45% 1000 Ml IV 42 mls/hr DIRECT JULIET Administration Metronidazole 500 mg in 100 mls @ 100 mls/hr 08/09/20 09:00 08/10/20 13:07 Flagyl 500 Mg/100 Ml IV 100 mls/hr Q8HR JULIET Administration Protocol Cefepime HCl 2 gm in 100 mls @ 200 mls/hr 08/09/20 22:00 08/10/20 11:02 Cefepime/Ns 2 Gm/100 Ml IV 200 mls/hr Q12HR JULIET Administration Protocol Sodium Chloride 1,000 mls @ 50 mls/hr 08/10/20 12:30 Nacl 0.9% 1000 Ml IV DIRECT JULIET Insulin Glargine 5 units 08/08/20 13:30 08/10/20 11:00 Lantus SUB-Q 5 units DAILY JULIET Administration Insulin Human Lispro 0 unit 08/07/20 06:00 08/10/20 13:07 Humalog SUB-Q 3 unit Q6HR JULIET Administration Protocol Morphine Sulfate 2 mg 08/06/20 18:40 08/09/20 23:26 Morphine IV 2 mg Q4H PRN Administration Pain, Moderate (4-6) Prochlorperazine Maleate 10 mg 08/07/20 19:01 08/08/20 11:50 Compazine PO 10 mg Q6H PRN Administration Nausea And Vomiting Simple Syrup 15 ml 08/09/20 10:00 Simple Syrup FEEDTUBE PRN PRN Hypoglycemia Simple Syrup 30 ml 08/09/20 10:00 Simple Syrup FEEDTUBE PRN PRN Hypoglycemia Sodium Bicarbonate 325 mg 08/09/20 10:00 Sodium Bicarbonate FEEDTUBE PRN PRN For Clogged Feeding Tube Sodium Chloride 10 ml 08/06/20 22:00 08/10/20 11:03 Sodium Chloride Flush Syringe 10 Ml IV 10 ml BID JULIET Administration Sodium Chloride 10 ml 08/06/20 18:40 Sodium Chloride Flush Syringe 10 Ml IV PRN PRN LINE FLUSH
[2020-08-10] MEDS ORDERED: LIDOCAINE MPF (2%) 20 MG/1 ML VIAL 5 ML ONE (14:27)
[2020-08-10] MEDS ORDERED: fentaNYL 100 MCG/2 ML INJ ONE (14:27)
[2020-08-10] MEDS ORDERED: ONDANSETRON 4 MG/2 ML INJ ONE ×2 (14:27→16:10)
[2020-08-10] MEDS ORDERED: propofoL 200 MG/20 ML VIAL IV ONE (14:27)
[2020-08-10] MEDS ORDERED: KETAMINE/STERILE WATER 50 MG/ML SYRINGE ONE (14:28)
--- NOTE | 2020-08-10 14:52 | Progress Note ---
Assessment and Plan --Acute cholecystitis with choledocholithiasis No plan for surgery per GI recommended ERCP, likely to be performed today Continue to monitor LFT for now CT abdomen/pelvis: 1. Acute cholecystitis. There is also choledocholithiasis. -- Acute kidney injury (ROBERTH) with acute tubular necrosis (ATN) Monitor urine output every shift, supportive care, nephrology team consulted. Renal function is improving, Continue low volume IV fluid given history of CHF --Acute metabolic encephalopathy, resolved Continue supportive care and follow clinically - Gm +ve bacteremia cont vancomycin for now, ID consulted --Septic shock, continue Levophed and wean off as tolerated --Sepsis, present on admission Patient presented with severe hypotension, lactic acidosis, ROBERTH, altered mental status Blood culture positive for gram-positive cocci, CT abdomen pelvis suggesting acute cholecystitis and choledocholithiasis Continue IV antibiotics for now, follow ID recommendation, monitor final blood culture results PUI with COVID 19, ruled out with negative test --CHF with systolic failure, appears compensated EF 20-25%, cardiology following, -- Paroxysmal atrial fibrillation on Xarelto, will hold for now possible surgery/ERCP Patient normal sinus rhythm on the monitor -Elevated LFT Likely due to obstruction Will continue to monitor LFT, consulted with GI --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 --Advance care planning Disease education conducted, supportive care, patient is full code, disease education conducted The high probability of a clinically significant, sudden or life threatening deterioration of the [CVS, GI, renal] system(s) required my full and direct attention, intervention and personal management. The aggregate critical care time was [34] minutes. This time is in addition to time spent performing reported procedures but includes the following: [x] Data Review and interpretation [x] Patient assessment and monitoring of vital signs [x] Documentation [x] Medication orders and management Brief history: 70-year-old man with h/o history of systolic heart failure, coronary artery disease, dual-chamber pacemaker in situ, on anticoagulation with Xarelto, admitted with weakness, severe jaundice, and severe renal failure. CT scan of the abdomen reports evidence of acute cholecystitis. 08/07: Continue IV fluid, empiric antibiotics, blood cx positive for gm +ve cocci . Consult GI and general surgery. Monitor renal function and follow clinically. obtain 2d echo. follow CoVID 19 result 08/08; patient remains on Levophed, renal function improved. Continue low volume IV fluid, COVID 19 test negative, follow blood culture, continue IV antibiotics we will follow 2D echo result. Continue to hold Xarelto for now. Called patient and updated. 08/09: Off pressor today, wait for 2D echo result. Plan for ERCP tomorrow if patient remains clinically stable. 08/10: Plan for ERCP today, 2D echo showed EF 20 to 25% Subjective Date of service: 08/10/20 Principal diagnosis: Cholecystitis Interval history: Patient seen and examined. Medical records and medication list reviewed. No acute event overnight noted by the RN. Patient patient currently off Levophed, vitals stable abdominal pain has improved, Discussed plan of care at bedside with patient. planned for ERCP today Objective - Exam Narrative Exam: General appearance: Present: mild distress, white male - EENT Eyes: Present: scleral icterus ENT: hearing intact, clear oral mucosa - Neck Neck: Present: supple, normal ROM - Respiratory Respiratory effort: normal Respiratory: bilateral: CTA - Cardiovascular Heart Sounds: Present: S1 & S2. Absent: rub, click - Extremities Extremities: pulses symmetrical Extremity abnormal: edema Peripheral Pulses: within normal limits - Abdominal General gastrointestinal: Present: soft, normal bowel sounds Male genitourinary: Present: normal - Integumentary Integumentary: Present: clear, warm, dry - Musculoskeletal Musculoskeletal: generalized weakness - Psychiatric Psychiatric: appropriate mood/affect, intact judgment & insight - Neurologic Neurologic: CNII-XII intact, moves all extremities - Constitutional Vitals: Vital Signs - 12hr 08/10/20 08/10/20 08/10/20 03:00 03:10 03:20 Temperature Pulse Rate 79 74 Pulse Rate [ From Monitor] Respiratory 17 17 Rate Blood Pressure 112/48 112/55 132/58 O2 Sat by Pulse 99 98 97 Oximetry 08/10/20 08/10/20 08/10/20 03:40 03:50 04:00 Temperature 98 F Pulse Rate 68 77 73 Pulse Rate [ 73 From Monitor] Respiratory 20 14 Rate Blood Pressure 132/58 120/46 120/46 O2 Sat by Pulse 100 96 Oximetry 08/10/20 08/10/20 08/10/20 04:10 04:20 04:30 Temperature Pulse Rate 79 81 82 Pulse Rate [ From Monitor] Respiratory 13 15 14 Rate Blood Pressure 132/58 132/58 132/58 O2 Sat by Pulse 98 98 98 Oximetry 08/10/20 08/10/20 08/10/20 04:40 04:50 05:00 Temperature Pulse Rate 90 76 80 Pulse Rate [ From Monitor] Respiratory 15 13 18 Rate Blood Pressure 128/45 128/45 128/45 O2 Sat by Pulse 99 Oximetry 08/10/20 08/10/20 08/10/20 05:10 05:20 05:30 Temperature Pulse Rate 78 78 82 Pulse Rate [ From Monitor] Respiratory 14 14 13 Rate Blood Pressure 128/45 128/45 128/45 O2 Sat by Pulse Oximetry 08/10/20 08/10/20 08/10/20 05:41 05:51 06:01 Temperature Pulse Rate 80 87 81 Pulse Rate [ From Monitor] Respiratory 14 22 25 H Rate Blood Pressure 128/45 128/45 O2 Sat by Pulse 95 97 Oximetry 08/10/20 08/10/20 08/10/20 06:11 06:21 06:31 Temperature Pulse Rate 74 80 85 Pulse Rate [ From Monitor] Respiratory 17 13 18 Rate Blood Pressure 128/45 114/53 114/53 O2 Sat by Pulse 97 95 Oximetry 08/10/20 08/10/20 08/10/20 06:41 06:51 07:01 Temperature Pulse Rate 77 79 77 Pulse Rate [ From Monitor] Respiratory 20 20 15 Rate Blood Pressure 114/53 114/53 114/53 O2 Sat by Pulse 98 Oximetry 08/10/20 08/10/20 08/10/20 07:11 07:21 07:31 Temperature Pulse Rate 77 85 81 Pulse Rate [ From Monitor] Respiratory 21 12 21 Rate Blood Pressure 114/53 114/53 155/50 O2 Sat by Pulse 99 97 Oximetry 08/10/20 08/10/20 08/10/20 07:41 07:51 08:00 Temperature 98.0 F Pulse Rate 77 76 Pulse Rate [ From Monitor] Respiratory 15 23 Rate Blood Pressure 155/50 155/50 O2 Sat by Pulse 95 96 Oximetry 08/10/20 08/10/20 08/10/20 08:01 08:11 08:21 Temperature Pulse Rate 73 84 70 Pulse Rate [ From Monitor] Respiratory 12 18 14 Rate Blood Pressure 104/39 104/39 104/39 O2 Sat by Pulse 94 99 95 Oximetry 08/10/20 08/10/20 08/10/20 08:31 08:41 08:51 Temperature Pulse Rate 84 78 75 Pulse Rate [ From Monitor] Respiratory 12 12 12 Rate Blood Pressure 104/39 104/39 104/39 O2 Sat by Pulse 91 94 93 Oximetry 08/10/20 08/10/20 08/10/20 09:00 09:11 09:21 Temperature Pulse Rate 93 H 74 90 Pulse Rate [ From Monitor] Respiratory 14 14 14 Rate Blood Pressure 103/46 103/46 103/46 O2 Sat by Pulse 96 95 95 Oximetry 08/10/20 08/10/20 08/10/20 09:31 09:41 09:51 Temperature Pulse Rate 65 77 65 Pulse Rate [ From Monitor] Respiratory 12 13 13 Rate Blood Pressure 103/46 103/46 103/46 O2 Sat by Pulse 98 95 98 Oximetry 08/10/20 08/10/20 08/10/20 10:00 10:11 10:20 Temperature Pulse Rate 81 79 87 Pulse Rate [ From Monitor] Respiratory 14 13 16 Rate Blood Pressure 92/41 92/41 135/59 O2 Sat by Pulse 96 97 Oximetry 08/10/20 08/10/20 08/10/20 10:31 10:41 10:51 Temperature Pulse Rate 92 H 92 H 90 Pulse Rate [ From Monitor] Respiratory 14 14 12 Rate Blood Pressure 103/46 103/46 103/46 O2 Sat by Pulse 91 97 Oximetry 08/10/20 08/10/20 08/10/20 11:01 11:11 11:21 Temperature Pulse Rate 83 76 85 Pulse Rate [ From Monitor] Respiratory 18 16 14 Rate Blood Pressure 130/50 130/50 130/50 O2 Sat by Pulse 95 96 95 Oximetry 08/10/20 08/10/20 08/10/20 11:31 11:41 11:51 Temperature Pulse Rate 74 79 90 Pulse Rate [ From Monitor] Respiratory 16 17 16 Rate Blood Pressure 130/50 130/50 130/50 O2 Sat by Pulse 99 98 99 Oximetry 08/10/20 08/10/20 08/10/20 12:00 12:01 12:11 Temperature 98.1 F Pulse Rate 75 82 Pulse Rate [ From Monitor] Respiratory 15 13 Rate Blood Pressure 145/46 145/46 O2 Sat by Pulse 98 97 Oximetry 08/10/20 08/10/20 08/10/20 12:21 12:31 12:41 Temperature Pulse Rate 76 80 78 Pulse Rate [ From Monitor] Respiratory 16 18 12 Rate Blood Pressure 145/46 145/46 145/46 O2 Sat by Pulse 97 97 99 Oximetry 08/10/20 08/10/20 12:51 13:01 Temperature Pulse Rate 80 75 Pulse Rate [ From Monitor] Respiratory 15 15 Rate Blood Pressure 145/46 145/46 O2 Sat by Pulse 97 97 Oximetry - Labs CBC & Chem 7: 08/11/20 04:22 08/11/20 04:22 Labs: Abnormal lab results 08/10/20 08/10/20 08/10/20 Range/Units 00:11 04:10 05:59 BUN 38 H (9-20) mg/dL Glucose 176 H (75-100) mg/dL POC Glucose 181 H 182 H (70-105) Calcium 8.3 L (8.4-10.2) mg/dL Total Bilirubin 5.00 H (0.1-1.2) mg/dL AST 60 H (5-40) units/L ALT 61 H (7-56) units/L Alkaline Phosphatase 543 H (35-129) units/L Total Protein 5.7 L (6.3-8.2) g/dL Albumin 2.8 L (3.9-5) g/dL 08/10/20 Range/Units 11:53 BUN (9-20) mg/dL Glucose (75-100) mg/dL POC Glucose 187 H (70-105) Calcium (8.4-10.2) mg/dL Total Bilirubin (0.1-1.2) mg/dL AST (5-40) units/L ALT (7-56) units/L Alkaline Phosphatase (35-129) units/L Total Protein (6.3-8.2) g/dL Albumin (3.9-5) g/dL HEART Score - HEART Score Troponin: Troponin T 0.023 ng/mL (0.00-0.029) 08/06/20 18:33
--- NOTE | 2020-08-10 15:58 | Post Operative Note ---
Pre-op diagnosis: CBD stones Post-op diagnosis: other (Same, inflammatory nodule at ampulla) Findings: 1. Ampulla with 4mm inflammatory nodule (cold bx) 2. PD not cannulated 3. CBD cannulated with Fusion sphinctertome/0.035 guidewire - Dilated to 8mm with numerous filling defects - Large sphincterotomy performed - 9mm balloon swept through duct x 3 with removal of >5 yellow-brown stones and a large amount of sludge 4. GB fills with contrast (patent cystic duct) Procedure: ERCP with cold biopsy, sphincterotomy, and balloon sweep of the common bile duct Anesthesia: MAC Surgeon: DEVON CATALAN Estimated blood loss: minimal Pathology: list (1. Ampullary nodule) Specimen disposition: to lab Condition: stable Disposition: floor (Recs: 1. OK to proceed with cholecystectomy. 2. Continue to hold xarelto x 3 days. 3. Protonix daily therapy. 4. OK to d/c antibiotics (if on) after surgery. 5. Clear liquid diet today.)
--- NOTE | 2020-08-10 16:15 | Operative Report ---
PROCEDURE PERFORMED: Endoscopic retrograde cholangiopancreatography with biliary sphincterotomy and balloon sweeping of the common bile duct as well as cold biopsy. PREOPERATIVE DIAGNOSIS: Choledocholithiasis. POSTOPERATIVE DIAGNOSIS: Choledocholithiasis, but also an inflammatory nodule at the ampulla. ENDOSCOPIST: Sixto Mar MD INSTRUMENT: Olympus video endoscope. MEDICATIONS: MAC anesthesia by [facility]. COMPLICATIONS: No apparent complications. ESTIMATED BLOOD LOSS: Minimal. SPECIMENS: Inflammatory nodule at the ampulla, rule out adenoma. IMPLANTS: None. ASSISTANTS: None. CONDITION AT COMPLETION: Stable. TECHNIQUE: The patient was informed of the risks and benefits of the procedure. He signed the informed consent to proceed. He was placed in the prone position. The above sedative medications were given. A magnet was used on the patient's defibrillator during the time he received cautery. His vital signs remained stable throughout the procedure. The instrument was advanced from the mouth, through the ampulla under direct visualization. At that point, the bowel was insufflated and the endoscope was slowly withdrawn. The ampulla was normal in size, but there was a 4 mm inflammatory nodule at the rim of the orifice. The pancreatic duct was not cannulated, but the common bile duct was cannulated using a fusion sphincterotome and a 0.035 guidewire. The common bile duct was dilated to 8 mm with numerous distal filling defects present. A large sphincterotomy was performed and a 9 mm balloon was swept 3 times through the common bile duct with removal of multiple gallstones and a large amount of sludge. A cold biopsy was performed of the nodule at the rim of the ampulla and then the procedure was terminated. FINDINGS: 1. Ampulla with a 4 mm inflammatory nodule at the rim of the common bile duct orifice; cold biopsy was taken. 2. Pancreatic duct was not cannulated or injected. 3. The common bile duct was cannulated using a fusion sphincterotome and a 0.035 guidewire. A. The common bile duct was dilated to 8 mm with numerous distal filling defects. B. A large sphincterotomy was performed. C. A 9 mm balloon was swept through the common hepatic and common bile duct 3 times with removal of greater than 5 [id number] sized yellow, brown gallstones and a large amount of sludge. 4. The gallbladder does fill with contrast, indicating patent cystic duct. RECOMMENDATIONS: 1. Okay to proceed with cholecystectomy tomorrow. 2. Continue to hold Xarelto for 3 days. 3. Protonix daily therapy. 4. Okay to discharge antibiotics, if the patient is on, after surgery. 5. Clear liquid diet today. JOB# [id number] KAMLA/NTS
--- NOTE | 2020-08-10 16:42 | Post Anesthesia Evaluation ---
- Post Anesthesia Evaluation Patient Participated: Yes Airway Patent: Yes Stable Respiratory Function: Yes Nausea/Vomiting: No Temp > 96.8F: Yes Pain Manageable: Yes Adequeate Hydration: Yes Anesthesia Complications: No
--- NOTE | 2020-08-10 16:45 | Fluoroscopy Report ---
INTRAOPERATIVE FLUOROSCOPY: ERCP INDICATION / CLINICAL INFORMATION: gallstones. TECHNIQUE: Intraoperative spot images were obtained during the procedure. FINDINGS: Images show cannulation of the bile duct with multiple stones. 50 mL Omnipaque 300 used. See operative/procedure note by performing physician for full details. Fluoroscopy Time: 1.6 minutes. Fluoroscopy Images: 10. Signer Name: Neo Friedman MD Signed: 08/10/2020 4:41 PM Workstation Name: [id number]
[2020-08-11] MEDS: INSULIN LISPRO 100 UNIT/ML VIAL 3 mL SUB-Q SCH ×4 (00:25→17:59)
[2020-08-11] MEDS: SODIUM CHLORIDE 0.45% 1000 ML 1,000 ML IV SCH (01:48)
[2020-08-11] MEDS: metroNIDAZOLE/NS 500 MG/100 ML 500 MG/100 ML BAG IV SCH ×3 (05:36→21:47)
[2020-08-11 05:37] LABS: Basophils % (Auto) 0.3 % (0.0-1.8); Eosinophils # (Auto) 0.5 K/mm3 (0.0-0.4); Eosinophils % (Auto) 4.2 % (0.0-4.3); Hematocrit 33.2 % (35.5-45.6); Hemoglobin 11.3 gm/dl (11.8-15.2); Lymphocytes # (Auto) 1.1 K/mm3 (1.2-5.4); Lymphocytes % (Auto) 9.6 % (13.4-35.0); Mean Corpuscular HGB Conc 34 % (32-34); Mean Corpuscular Volume 83 fl (84-94); Monocytes # (Auto) 1.2 K/mm3 (0.0-0.8); Platelet Count 141 K/mm3 (140-440); Red Blood Count 4.01 M/mm3 (3.65-5.03)
[2020-08-11 05:41] LABS: Red Cell Distribution Width 20.9 % (13.2-15.2)
[2020-08-11 05:43] LABS: Alanine Aminotransferase 51 units/L (7-56); Albumin 2.3 g/dL (3.9-5); BUN/Creatinine Ratio 38; Bilirubin,Direct 4.3 mg/dL (0-0.2); Blood Urea Nitrogen 34 mg/dL (9-20); Calcium 8.1 mg/dL (8.4-10.2); Hemolysis Index 13
[2020-08-11] MEDS: PANTOPRAZOLE 40 MG TAB PO SCH (09:09)
--- NOTE | 2020-08-11 09:27 | Progress Note ---
Assessment and Plan - Patient Problems (1) Biliary obstruction Current Visit: Yes Status: Acute Plan to address problem: 1) Continue NPO 2) Lap rachel tomorrow by Dr. Nicolas Subjective Date of service: 08/11/20 Patient Reports: Positive: no new complaints (Hungry. S/p ERCP with stone e xtraction yesterday. D/w Dr. Nicolas.) Objective Vital Signs - 12hr 08/10/20 08/10/20 08/10/20 21:31 21:41 21:51 Temperature Pulse Rate 79 84 71 Pulse Rate [ From Monitor] Respiratory 13 14 17 Rate Blood Pressure 167/93 167/93 167/93 O2 Sat by Pulse 93 89 97 Oximetry 08/10/20 08/10/20 08/10/20 22:01 22:11 22:21 Temperature Pulse Rate 76 95 H 83 Pulse Rate [ From Monitor] Respiratory 18 19 16 Rate Blood Pressure 120/47 120/47 120/47 O2 Sat by Pulse 91 97 Oximetry 08/10/20 08/10/20 08/10/20 22:31 22:41 22:51 Temperature Pulse Rate 89 90 85 Pulse Rate [ From Monitor] Respiratory 22 14 20 Rate Blood Pressure 120/47 120/47 120/47 O2 Sat by Pulse 97 89 97 Oximetry 08/10/20 08/10/20 08/10/20 23:01 23:11 23:21 Temperature Pulse Rate 89 101 H 84 Pulse Rate [ From Monitor] Respiratory 20 20 11 L Rate Blood Pressure 110/39 110/39 110/39 O2 Sat by Pulse 94 97 Oximetry 08/10/20 08/10/20 08/10/20 23:31 23:41 23:48 Temperature 98.5 F Pulse Rate 73 83 Pulse Rate [ From Monitor] Respiratory 20 21 Rate Blood Pressure 110/39 110/39 O2 Sat by Pulse 95 93 Oximetry 08/10/20 08/10/20 08/11/20 23:51 23:52 00:00 Temperature Pulse Rate 87 83 Pulse Rate [ 87 From Monitor] Respiratory 21 13 Rate Blood Pressure 110/39 110/39 O2 Sat by Pulse 92 92 95 Oximetry 08/11/20 08/11/20 08/11/20 00:01 00:05 00:11 Temperature Pulse Rate 87 82 84 Pulse Rate [ From Monitor] Respiratory 15 18 11 L Rate Blood Pressure 113/51 113/51 113/51 O2 Sat by Pulse 95 Oximetry 08/11/20 08/11/20 08/11/20 00:21 00:30 00:41 Temperature Pulse Rate 80 85 91 H Pulse Rate [ From Monitor] Respiratory 17 19 16 Rate Blood Pressure 110/39 113/51 110/39 O2 Sat by Pulse 99 97 99 Oximetry 08/11/20 08/11/20 08/11/20 00:51 01:01 01:11 Temperature Pulse Rate 78 87 62 Pulse Rate [ From Monitor] Respiratory 17 17 17 Rate Blood Pressure 113/51 111/46 111/46 O2 Sat by Pulse 99 99 98 Oximetry 08/11/20 08/11/20 08/11/20 01:21 01:31 01:41 Temperature Pulse Rate 79 77 80 Pulse Rate [ From Monitor] Respiratory 16 19 16 Rate Blood Pressure 111/46 111/46 111/46 O2 Sat by Pulse 97 97 96 Oximetry 08/11/20 08/11/20 08/11/20 01:51 02:01 02:11 Temperature Pulse Rate 72 80 73 Pulse Rate [ From Monitor] Respiratory 17 20 20 Rate Blood Pressure 111/46 107/59 107/59 O2 Sat by Pulse Oximetry 08/11/20 08/11/20 08/11/20 02:21 02:31 02:41 Temperature Pulse Rate 75 74 74 Pulse Rate [ From Monitor] Respiratory 18 20 18 Rate Blood Pressure 111/46 111/46 111/46 O2 Sat by Pulse Oximetry 08/11/20 08/11/20 08/11/20 02:51 03:00 03:11 Temperature Pulse Rate 74 93 H 78 Pulse Rate [ From Monitor] Respiratory 15 16 17 Rate Blood Pressure 111/46 107/59 102/64 O2 Sat by Pulse Oximetry 08/11/20 08/11/20 08/11/20 03:21 03:31 03:37 Temperature 98.1 F Pulse Rate 72 79 Pulse Rate [ From Monitor] Respiratory 16 17 Rate Blood Pressure 102/64 102/64 O2 Sat by Pulse Oximetry 08/11/20 08/11/20 08/11/20 03:41 03:51 04:00 Temperature Pulse Rate 73 75 Pulse Rate [ 80 From Monitor] Respiratory 14 15 Rate Blood Pressure 102/64 102/64 O2 Sat by Pulse 95 Oximetry 08/11/20 08/11/20 08/11/20 04:01 04:11 04:21 Temperature Pulse Rate 70 72 77 Pulse Rate [ From Monitor] Respiratory 15 15 13 Rate Blood Pressure 94/39 94/39 94/39 O2 Sat by Pulse Oximetry 08/11/20 08/11/20 08/11/20 04:31 04:41 04:51 Temperature Pulse Rate 78 75 73 Pulse Rate [ From Monitor] Respiratory 16 14 13 Rate Blood Pressure 94/39 94/39 94/39 O2 Sat by Pulse Oximetry 08/11/20 08/11/20 08/11/20 05:01 05:11 05:21 Temperature Pulse Rate 68 93 H 63 Pulse Rate [ From Monitor] Respiratory 13 16 16 Rate Blood Pressure 122/52 122/52 122/52 O2 Sat by Pulse Oximetry 08/11/20 08/11/20 08/11/20 05:31 05:41 05:51 Temperature Pulse Rate 73 67 67 Pulse Rate [ From Monitor] Respiratory 15 13 18 Rate Blood Pressure 122/52 122/52 122/52 O2 Sat by Pulse 100 100 Oximetry 08/11/20 08/11/20 08/11/20 06:00 06:11 06:21 Temperature Pulse Rate 74 77 74 Pulse Rate [ From Monitor] Respiratory 14 18 15 Rate Blood Pressure 110/57 110/57 110/57 O2 Sat by Pulse 99 100 99 Oximetry 08/11/20 08/11/20 08/11/20 06:31 06:41 06:51 Temperature Pulse Rate 87 75 78 Pulse Rate [ From Monitor] Respiratory 15 14 16 Rate Blood Pressure 110/57 110/57 110/57 O2 Sat by Pulse 98 100 98 Oximetry 08/11/20 08/11/20 08/11/20 07:00 07:11 07:21 Temperature Pulse Rate 74 76 71 Pulse Rate [ From Monitor] Respiratory 15 15 14 Rate Blood Pressure 112/50 112/50 112/50 O2 Sat by Pulse 100 98 98 Oximetry 08/11/20 08/11/20 08/11/20 07:31 07:41 07:51 Temperature Pulse Rate 77 73 79 Pulse Rate [ From Monitor] Respiratory 14 15 13 Rate Blood Pressure 112/50 112/50 112/50 O2 Sat by Pulse 98 98 98 Oximetry 08/11/20 08/11/20 08/11/20 08:00 08:05 08:11 Temperature 98.1 F Pulse Rate 75 74 Pulse Rate [ 80 From Monitor] Respiratory 15 11 L Rate Blood Pressure 118/53 118/53 O2 Sat by Pulse 99 99 100 Oximetry 08/11/20 08/11/20 08/11/20 08:21 08:31 08:41 Temperature Pulse Rate 78 78 71 Pulse Rate [ From Monitor] Respiratory 18 15 15 Rate Blood Pressure 118/53 118/53 118/53 O2 Sat by Pulse 97 93 97 Oximetry 08/11/20 08/11/20 08:51 09:01 Temperature Pulse Rate 81 64 Pulse Rate [ From Monitor] Respiratory 15 16 Rate Blood Pressure 118/53 127/52 O2 Sat by Pulse 97 98 Oximetry - Abdomen PM_46_EXABD1 4, PM_46_EXABD1 6, PM_46_EXABD1 8 Hernia: none - Labs 08/11/20 04:22 08/11/20 04:22 Diabetes panel 08/11/20 Range/Units 04:22 Sodium 136 L (137-145) mmol/L Potassium 3.7 (3.6-5.0) mmol/L Chloride 99.8 (98-107) mmol/L Carbon Dioxide 25 (22-30) mmol/L BUN 34 H (9-20) mg/dL Creatinine 0.9 (0.8-1.3) mg/dL Glucose 105 H (75-100) mg/dL Calcium 8.1 L (8.4-10.2) mg/dL AST 50 H (5-40) units/L ALT 51 (7-56) units/L Alkaline Phosphatase 577 H (35-129) units/L Total Protein 5.0 L (6.3-8.2) g/dL Albumin 2.3 L (3.9-5) g/dL Calcium panel 08/11/20 Range/Units 04:22 Calcium 8.1 L (8.4-10.2) mg/dL Albumin 2.3 L (3.9-5) g/dL Pituitary panel 08/11/20 Range/Units 04:22 Sodium 136 L (137-145) mmol/L Potassium 3.7 (3.6-5.0) mmol/L Chloride 99.8 (98-107) mmol/L Carbon Dioxide 25 (22-30) mmol/L BUN 34 H (9-20) mg/dL Creatinine 0.9 (0.8-1.3) mg/dL Glucose 105 H (75-100) mg/dL Calcium 8.1 L (8.4-10.2) mg/dL Adrenal panel 08/11/20 Range/Units 04:22 Sodium 136 L (137-145) mmol/L Potassium 3.7 (3.6-5.0) mmol/L Chloride 99.8 (98-107) mmol/L Carbon Dioxide 25 (22-30) mmol/L BUN 34 H (9-20) mg/dL Creatinine 0.9 (0.8-1.3) mg/dL Glucose 105 H (75-100) mg/dL Calcium 8.1 L (8.4-10.2) mg/dL Total Bilirubin 5.30 H (0.1-1.2) mg/dL AST 50 H (5-40) units/L ALT 51 (7-56) units/L Alkaline Phosphatase 577 H (35-129) units/L Total Protein 5.0 L (6.3-8.2) g/dL Albumin 2.3 L (3.9-5) g/dL - Imaging Additional Studies: Total bilirubin - up to 5.3 Alk phos - up to 577
[2020-08-11] MEDS: INSULIN GLARGINE 100 UNITS/ML SUB-Q SCH (10:00)
[2020-08-11] MEDS: HEPARIN 5,000 UNIT/1 ML VIAL SUB-Q SCH ×2 (10:00→21:46)
[2020-08-11] MEDS ORDERED: POTASSIUM CHLORIDE 20 MEQ 20 MEQ/100 ML BAG IV ONE (10:00)
--- NOTE | 2020-08-11 10:25 | Gastroenterology Progress Note ---
Assessment and Plan - Patient Problems (1) Choledocholithiasis with acute cholecystitis Current Visit: Yes Status: Acute Plan to address problem: - ERCP 08/10 with removal of a large amount of sludge and gallstones. - LFTs remain elevated, but may be from biliary stasis (not eating) or inflammed gallbladder. - Recommend IOC with CCY tomorrow, and if needed can repeat ERCP to remove residual sludge (if present), but no retained stones noted on the cholangiogram at the end of the procedure. - Continue antibiotics for now given minimal elevation of WBC. Subjective Date of service: 08/11/20 Principal diagnosis: Gallstones Interval history: The patient feels well after the ERCP and is hungry/wants to eat. He has no N/V/abdominal pain. He has had no fevers overnight. Objective - Constitutional Vitals: Temp Pulse Resp BP Pulse Ox 98.1 F 64 16 127/52 98 08/11/20 08:00 08/11/20 09:01 08/11/20 09:01 08/11/20 09:01 08/11/20 09:01 General appearance: no acute distress - EENT Eyes: PERRL, EOM intact, scleral icterus - Respiratory Respiratory effort: normal Respiratory: bilateral: CTA - Cardiovascular Rhythm: regular Heart Sounds: Present: S1 & S2 - Gastrointestinal General gastrointestinal: Present: soft, non-tender, non-distended - Labs CBC & Chem 7: 08/11/20 04:22 08/11/20 04:22 Labs: Laboratory Results - last 24 hr 08/10/20 08/10/20 08/10/20 11:53 17:28 23:20 WBC RBC Hgb Hct MCV MCH MCHC RDW Plt Count Lymph % (Auto) [place] % (Auto) Eos % (Auto) Baso % (Auto) Lymph # (Auto) [place] # (Auto) Eos # (Auto) Baso # (Auto) Seg Neutrophils % Seg Neutrophils # Sodium Potassium Chloride Carbon Dioxide Anion Gap BUN Creatinine Estimated GFR BUN/Creatinine Ratio Glucose POC Glucose 187 H 187 H 283 H Calcium Total Bilirubin Direct Bilirubin Indirect Bilirubin AST ALT Alkaline Phosphatase Total Protein Albumin Albumin/Globulin Ratio 08/11/20 08/11/20 08/11/20 04:22 04:22 05:38 WBC 11.6 H RBC 4.01 Hgb 11.3 L Hct 33.2 L MCV 83 L MCH 28 MCHC 34 RDW 20.9 H Plt Count 141 Lymph % (Auto) 9.6 L [place] % (Auto) 10.0 H Eos % (Auto) 4.2 Baso % (Auto) 0.3 Lymph # (Auto) 1.1 L [place] # (Auto) 1.2 H Eos # (Auto) 0.5 H Baso # (Auto) 0.0 Seg Neutrophils % 75.9 H Seg Neutrophils # 8.8 H Sodium 136 L Potassium 3.7 Chloride 99.8 Carbon Dioxide 25 Anion Gap 15 BUN 34 H Creatinine 0.9 Estimated GFR > 60 BUN/Creatinine Ratio 38 Glucose 105 H POC Glucose 117 H Calcium 8.1 L Total Bilirubin 5.30 H Direct Bilirubin 4.3 H Indirect Bilirubin 1.0 AST 50 H ALT 51 Alkaline Phosphatase 577 H Total Protein 5.0 L Albumin 2.3 L Albumin/Globulin Ratio 0.9
--- NOTE | 2020-08-11 10:53 | Progress Note ---
Assessment and Plan Acute cholecystitis Severe jaundice with a bilirubin level of 9.7 Acute renal failure History of systolic heart failure LVEF 30-35% by echo this admission no evidence of decompensation on entresto as an outpatient Aortic stenosis, moderate with a mean gradient of 22.6 History of coronary artery disease Dual-chamber AICD in situ Paroxysmal atrial fibrillation on Xarelto as an outpatient Xarelto is currently on hold. Okay for laparoscopic cholecystectomy. Subjective Date of service: 08/11/20 Principal diagnosis: Gallstones Interval history: Patient is resting in bed and appears comfortable. He underwent a ERCP on yesterday, now with plans for laparoscopic cholecystectomy tomorrow. Objective Vital Signs Temp Pulse Pulse Resp BP Pulse Ox 08/11/20 09:01 64 16 127/52 98 08/11/20 08:51 81 15 118/53 97 08/11/20 08:41 71 15 118/53 97 08/11/20 08:31 78 15 118/53 93 08/11/20 08:21 78 18 118/53 97 08/11/20 08:11 74 11 L 118/53 100 08/11/20 08:05 99 08/11/20 08:00 98.1 F 75 80 15 118/53 99 08/11/20 07:51 79 13 112/50 98 08/11/20 07:41 73 15 112/50 98 08/11/20 07:31 77 14 112/50 98 08/11/20 07:21 71 14 112/50 98 08/11/20 07:11 76 15 112/50 98 08/11/20 07:00 74 15 112/50 100 08/11/20 06:51 78 16 110/57 98 08/11/20 06:41 75 14 110/57 100 08/11/20 06:31 87 15 110/57 98 08/11/20 06:21 74 15 110/57 99 08/11/20 06:11 77 18 110/57 100 08/11/20 06:00 74 14 110/57 99 08/11/20 05:51 67 18 122/52 100 08/11/20 05:41 67 13 122/52 100 08/11/20 05:31 73 15 122/52 08/11/20 05:21 63 16 122/52 08/11/20 05:11 93 H 16 122/52 08/11/20 05:01 68 13 122/52 20 04:51 73 13 94/39 20 04:41 75 14 94/39 20 04:31 78 16 94/39 20 04:21 77 13 94/39 20 04:11 72 15 94/39 08/11/20 04:01 70 15 94/39 08/11/20 04:00 80 95 08/11/20 03:51 75 15 102/64 20 03:41 73 14 102/64 20 03:37 98.1 F 08/11/20 03:31 79 17 102/64 08/11/20 03:21 72 16 102/64 08/11/20 03:11 78 17 102/64 08/11/20 03:00 93 H 16 107/59 08/11/20 02:51 74 15 111/46 08/11/20 02:41 74 18 111/46 08/11/20 02:31 74 20 111/46 08/11/20 02:21 75 18 111/46 08/11/20 02:11 73 20 107/59 08/11/20 02:01 80 20 107/59 08/11/20 01:51 72 17 111/46 08/11/20 01:41 80 16 111/46 96 08/11/20 01:31 77 19 111/46 97 08/11/20 01:21 79 16 111/46 97 08/11/20 01:11 62 17 111/46 98 08/11/20 01:01 87 17 111/46 99 08/11/20 00:51 78 17 113/51 99 20 00:41 91 H 16 110/39 99 08/11/20 00:30 85 19 113/51 97 08/11/20 00:21 80 17 110/39 99 08/11/20 00:11 84 11 L 113/51 20 00:05 82 18 113/51 20 00:01 87 15 113/51 95 08/11/20 00:00 87 95 08/10/20 23:52 83 13 110/39 92 08/10/20 23:51 87 21 110/39 92 20 23:48 98.5 F 08/10/20 23:41 83 21 110/39 93 08/10/20 23:31 73 20 110/39 95 08/10/20 23:21 84 11 L 110/39 97 08/10/20 23:11 101 H 20 110/39 94 08/10/20 23:01 89 20 110/39 08/10/20 22:51 85 20 120/47 97 08/10/20 22:41 90 14 120/47 89 08/10/20 22:31 89 22 120/47 97 08/10/20 22:21 83 16 120/47 97 08/10/20 22:11 95 H 19 120/47 08/10/20 22:01 76 18 120/47 91 08/10/20 21:51 71 17 167/93 97 08/10/20 21:41 84 14 167/93 89 08/10/20 21:31 79 13 167/93 93 08/10/20 21:21 75 18 167/93 08/10/20 21:11 74 18 167/93 80 L 08/10/20 21:01 70 12 167/93 88 08/10/20 20:51 76 14 132/54 64 L 08/10/20 20:41 75 15 132/54 08/10/20 20:31 75 17 132/54 80 L 08/10/20 20:21 75 10 L 110/53 85 08/10/20 20:11 76 15 110/53 08/10/20 20:01 71 13 110/53 98 08/10/20 20:00 98.6 F 82 98 08/10/20 19:51 81 14 110/53 99 08/10/20 19:41 59 L 16 110/53 98 08/10/20 19:31 77 14 110/53 100 08/10/20 19:21 86 15 110/53 100 08/10/20 19:11 73 15 110/53 99 08/10/20 19:01 72 12 110/53 100 08/10/20 18:51 73 14 118/52 99 08/10/20 18:41 77 14 118/52 99 08/10/20 18:31 59 L 13 118/52 100 08/10/20 18:21 80 13 118/52 100 08/10/20 18:11 76 13 118/52 100 08/10/20 18:01 73 13 101/65 99 09/22/20 17:51 80 13 118/52 99 08/10/20 17:41 69 13 118/52 99 08/10/20 17:31 67 13 118/52 99 08/10/20 17:21 71 13 118/52 99 08/10/20 17:11 69 13 118/52 99 08/10/20 17:04 142/52 98 08/10/20 16:29 59 L 15 116/49 95 08/10/20 16:14 98.0 F 53 L 14 107/44 97 08/10/20 13:25 97.8 F 66 11 L 134/51 96 08/10/20 13:01 75 15 145/46 97 08/10/20 12:51 80 15 145/46 97 08/10/20 12:41 78 12 145/46 99 08/10/20 12:31 80 18 145/46 97 08/10/20 12:21 76 16 145/46 97 08/10/20 12:11 82 13 145/46 97 08/10/20 12:01 75 15 145/46 98 08/10/20 12:00 98.1 F 08/10/20 11:51 90 16 130/50 99 08/10/20 11:41 79 17 130/50 98 08/10/20 11:31 74 16 130/50 99 08/10/20 11:21 85 14 130/50 95 08/10/20 11:11 76 16 130/50 96 08/10/20 11:01 83 18 130/50 95 - Physical Examination General: No Apparent Distress HEENT: Positive: PERRL Neck: Positive: neck supple Cardiac: Positive: Other (v-paced with underlying afib) Neuro: Positive: Grossly Intact Extremities: Absent: edema - Labs and Meds Cardiac Enzymes 08/11/20 Range/Units 04:22 AST 50 H (5-40) units/L CBC 08/11/20 Range/Units 04:22 WBC 11.6 H (4.5-11.0) K/mm3 RBC 4.01 (3.65-5.03) M/mm3 Hgb 11.3 L (11.8-15.2) gm/dl Hct 33.2 L (35.5-45.6) % Plt Count 141 (140-440) K/mm3 Lymph # (Auto) 1.1 L (1.2-5.4) K/mm3 [place] # (Auto) 1.2 H (0.0-0.8) K/mm3 Eos # (Auto) 0.5 H (0.0-0.4) K/mm3 Baso # (Auto) 0.0 (0.0-0.1) K/mm3 Comprehensive Metabolic Panel 08/11/20 Range/Units 04:22 Sodium 136 L (137-145) mmol/L Potassium 3.7 (3.6-5.0) mmol/L Chloride 99.8 (98-107) mmol/L Carbon Dioxide 25 (22-30) mmol/L BUN 34 H (9-20) mg/dL Creatinine 0.9 (0.8-1.3) mg/dL Glucose 105 H (75-100) mg/dL Calcium 8.1 L (8.4-10.2) mg/dL Direct Bilirubin 4.3 H (0-0.2) mg/dL Indirect Bilirubin 1.0 mg/dL AST 50 H (5-40) units/L ALT 51 (7-56) units/L Alkaline Phosphatase 577 H (35-129) units/L Total Protein 5.0 L (6.3-8.2) g/dL Albumin 2.3 L (3.9-5) g/dL
--- NOTE | 2020-08-11 11:15 | Progress Note ---
Assessment and Plan Cultures: Blood culture 08/06/2020 Coag-neg Staph 1 bottle Blood culture 08/08/2020 no growth today Urine culture 08/08/2020 neg SARS COV-2 PCR neg A/P: 70-year-old man past medical history CHF, continue dependence, DM 2 admitted with weakness, found to have cholecystitis and gram-positive bacteremia #Septic shock: Patient off pressors, leukocytosis resolved, secondary to acute cholecystitis #Acute cholecystitis: General surgery consulted. Status post ERCP, cold biopsy, sphincterectomy and balloon sweep of CBD #Coag-neg Staph bacteremia: likely a contaminant, repeat blood cultures negative. #ROBERTH: Renally adjust antibiotics, resolved Recs: -Continue cefepime 2 g IV every 12 hours -day 3 -Continue metronidazole 500 g IV every 8 hours -day 3 -Patient to have lap rachel -Remove femoral TLC when possible Pao Ashley MD [facility] ([facility]) Office [phone] Subjective Date of service: 08/11/20 Principal diagnosis: Gallstones Interval history: Patient feels better, denies abdominal pain, no fever Objective - Exam Narrative Exam: General appearance: Alert in NAD on nasal cannula O2 confused Eyes: anicteric sclerae, moist conjunctivae; no lid-lag; PERRLA HENT: Atraumatic; oropharynx clear with moist mucous membranes and no oral thrush; normal hard and soft palate. Lungs: CTA, with normal respiratory effort and no intercostal retractions CV: RRR no murmur Abdomen: Soft, non-tender; no masses or hepatosplenomegaly Extremities: no edema, no cyanosis Skin: No rash. Psych: Mildly agitated Neuro: alert and confused Right femoral TLC/condom cath - Constitutional Vitals: Vital Signs Temp Pulse Resp BP Pulse Ox 98.1 F 64 16 127/52 98 08/11/20 08:00 08/11/20 09:01 08/11/20 09:01 08/11/20 09:01 08/11/20 09:01 Temperature -Last 24 Hours Temperature 98.1 F Temperature 98.1 F Temperature 98.5 F Temperature 98.6 F Temperature 98.0 F Temperature 97.8 F Temperature 97.8 F Temperature 98.1 F - Labs CBC & Chem 7: 08/11/20 04:22 08/11/20 04:22 Labs: Abnormal lab results 08/10/20 08/10/20 08/10/20 Range/Units 11:53 17:28 23:20 WBC (4.5-11.0) K/mm3 Hgb (11.8-15.2) gm/dl Hct (35.5-45.6) % MCV (84-94) fl RDW (13.2-15.2) % Lymph % (Auto) (13.4-35.0) % [place] % (Auto) (0.0-7.3) % Lymph # (Auto) (1.2-5.4) K/mm3 [place] # (Auto) (0.0-0.8) K/mm3 Eos # (Auto) (0.0-0.4) K/mm3 Seg Neutrophils % (40.0-70.0) % Seg Neutrophils # (1.8-7.7) K/mm3 Sodium (137-145) mmol/L BUN (9-20) mg/dL Glucose (75-100) mg/dL POC Glucose 187 H 187 H 283 H (70-105) Calcium (8.4-10.2) mg/dL Total Bilirubin (0.1-1.2) mg/dL Direct Bilirubin (0-0.2) mg/dL AST (5-40) units/L Alkaline Phosphatase (35-129) units/L Total Protein (6.3-8.2) g/dL Albumin (3.9-5) g/dL 08/11/20 08/11/20 08/11/20 Range/Units 04:22 04:22 05:38 WBC 11.6 H (4.5-11.0) K/mm3 Hgb 11.3 L (11.8-15.2) gm/dl Hct 33.2 L (35.5-45.6) % MCV 83 L (84-94) fl RDW 20.9 H (13.2-15.2) % Lymph % (Auto) 9.6 L (13.4-35.0) % [place] % (Auto) 10.0 H (0.0-7.3) % Lymph # (Auto) 1.1 L (1.2-5.4) K/mm3 [place] # (Auto) 1.2 H (0.0-0.8) K/mm3 Eos # (Auto) 0.5 H (0.0-0.4) K/mm3 Seg Neutrophils % 75.9 H (40.0-70.0) % Seg Neutrophils # 8.8 H (1.8-7.7) K/mm3 Sodium 136 L (137-145) mmol/L BUN 34 H (9-20) mg/dL Glucose 105 H (75-100) mg/dL POC Glucose 117 H (70-105) Calcium 8.1 L (8.4-10.2) mg/dL Total Bilirubin 5.30 H (0.1-1.2) mg/dL Direct Bilirubin 4.3 H (0-0.2) mg/dL AST 50 H (5-40) units/L Alkaline Phosphatase 577 H (35-129) units/L Total Protein 5.0 L (6.3-8.2) g/dL Albumin 2.3 L (3.9-5) g/dL
--- NOTE | 2020-08-11 13:25 | Event Note ---
Date: 08/11/20 Patient chart reviewed. Discussed with Dr. Ventura. Patient with acute cholecystitis and choledocholithiasis. Presented with acute renal failure and severe sepsis which is significantly improved. Patient status post ERCP yesterday with sphincterotomy and removal of multiple common bile duct stones and sludge. LFTs reviewed and not much change appreciated today. Will repeat LFTs in a.m. Plan to proceed with laparoscopic cholecystectomy with IOC tomorrow as long as vital signs remained stable. Xarelto currently on hold. Cardiology note reviewed and patient is stable for noncardiac surgery. GI recommendations reviewed. I discussed all risk, benefits, alternatives to surgery with the patient. I explained to him that I am taking over for Dr. Ventura and will be performing the surgery. He understands and all questions were answered. He states his is aware that he is having surgery. Consent obtained for laparoscopic chol ecystectomy, possible open, cholangiogram. Surgery is tentatively scheduled for tomorrow 08/12/2020 at 1330.
--- NOTE | 2020-08-11 16:15 | Progress Note ---
Assessment and Plan --Acute cholecystitis with choledocholithiasis s/p ERCP with cold biopsy, sphincterotomy, and balloon sweep of the common bile duct yesterday Plan to proceed with laparoscopic cholecystectomy with IOC tomorrow Continue to monitor LFT for now CT abdomen/pelvis: 1. Acute cholecystitis. There is also choledocholithiasis. -- Acute kidney injury (ROBERTH) with acute tubular necrosis (ATN) Monitor urine output every shift, supportive care, nephrology team consulted. Renal function improved, Continue low volume IV fluid given history of CHF --Acute metabolic encephalopathy, resolved Continue supportive care and follow clinically - Coag-neg Staph bacteremia: likely a contaminant, repeat blood cultures negative. --Septic shock, s/p Levophed, monitor vitals --Sepsis, present on admission Patient presented with severe hypotension, lactic acidosis, ROBERTH, altered mental status Blood culture positive for gram-positive cocci, CT abdomen pelvis suggesting acute cholecystitis and choledocholithiasis Continue IV antibiotics for now, follow ID recommendation, monitor final blood culture results PUI with COVID 19, ruled out with negative test --CHF with systolic failure, appears compensated EF 20-25%, cardiology following, -- Paroxysmal atrial fibrillation on Xarelto, will hold for now possible surgery/ERCP Patient normal sinus rhythm on the monitor -Elevated LFT Likely due to obstruction Will continue to monitor LFT, consulted with GI --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 --Advance care planning Disease education conducted, supportive care, patient is full code Brief history: 70-year-old man with h/o history of systolic heart failure, coronary artery disease, dual-chamber pacemaker in situ, on anticoagulation with Xarelto, admitted with weakness, severe jaundice, and severe renal failure. CT scan of the abdomen reports evidence of acute cholecystitis. 08/07: Continue IV fluid, empiric antibiotics, blood cx positive for gm +ve cocci . Consult GI and general surgery. Monitor renal function and follow clinically. obtain 2d echo. follow CoVID 19 result 08/08; patient remains on Levophed, renal function improved. Continue low volume IV fluid, COVID 19 test negative, follow blood culture, continue IV antibiotics we will follow 2D echo result. Continue to hold Xarelto for now. Called patient and updated. 08/09: Off pressor today, wait for 2D echo result. Plan for ERCP tomorrow if patient remains clinically stable. 08/10: Plan for ERCP today, 2D echo showed EF 20 to 25% 08/11; clinically stable, transfer to tele. plan for cholecystectomy tomorrow Subjective Date of service: 08/11/20 Principal diagnosis: Gallstones Interval history: Patient seen and examined. Medical records and medication list reviewed. No acute event overnight noted by the RN. Patient patient currently off Levophed, vitals stable abdominal pain has improved, Discussed plan of care at bedside with patient. transfer to tele today Objective - Exam Narrative Exam: General appearance: Present: mild distress, white male - EENT Eyes: Present: scleral icterus ENT: hearing intact, clear oral mucosa - Neck Neck: Present: supple, normal ROM - Respiratory Respiratory effort: normal Respiratory: bilateral: CTA - Cardiovascular Heart Sounds: Present: S1 & S2. Absent: rub, click - Extremities Extremities: pulses symmetrical Extremity abnormal: edema Peripheral Pulses: within normal limits - Abdominal General gastrointestinal: Present: soft, normal bowel sounds Male genitourinary: Present: normal - Integumentary Integumentary: Present: clear, warm, dry - Musculoskeletal Musculoskeletal: generalized weakness - Psychiatric Psychiatric: appropriate mood/affect, intact judgment & insight - Neurologic Neurologic: CNII-XII intact, moves all extremities - Constitutional Vitals: Vital Signs - 12hr 08/11/20 08/11/20 08/11/20 04:21 04:31 04:41 Temperature Pulse Rate 77 78 75 Pulse Rate [ From Monitor] Respiratory 13 16 14 Rate Blood Pressure 94/39 94/39 94/39 O2 Sat by Pulse Oximetry 08/11/20 08/11/20 08/11/20 04:51 05:01 05:11 Temperature Pulse Rate 73 68 93 H Pulse Rate [ From Monitor] Respiratory 13 13 16 Rate Blood Pressure 94/39 122/52 122/52 O2 Sat by Pulse Oximetry 08/11/20 08/11/20 08/11/20 05:21 05:31 05:41 Temperature Pulse Rate 63 73 67 Pulse Rate [ From Monitor] Respiratory 16 15 13 Rate Blood Pressure 122/52 122/52 122/52 O2 Sat by Pulse 100 Oximetry 08/11/20 08/11/20 08/11/20 05:51 06:00 06:11 Temperature Pulse Rate 67 74 77 Pulse Rate [ From Monitor] Respiratory 18 14 18 Rate Blood Pressure 122/52 110/57 110/57 O2 Sat by Pulse 100 99 100 Oximetry 08/11/20 08/11/20 08/11/20 06:21 06:31 06:41 Temperature Pulse Rate 74 87 75 Pulse Rate [ From Monitor] Respiratory 15 15 14 Rate Blood Pressure 110/57 110/57 110/57 O2 Sat by Pulse 99 98 100 Oximetry 08/11/20 08/11/20 08/11/20 06:51 07:00 07:11 Temperature Pulse Rate 78 74 76 Pulse Rate [ From Monitor] Respiratory 16 15 15 Rate Blood Pressure 110/57 112/50 112/50 O2 Sat by Pulse 98 100 98 Oximetry 08/11/20 08/11/20 08/11/20 07:21 07:31 07:41 Temperature Pulse Rate 71 77 73 Pulse Rate [ From Monitor] Respiratory 14 14 15 Rate Blood Pressure 112/50 112/50 112/50 O2 Sat by Pulse 98 98 98 Oximetry 08/11/20 08/11/20 08/11/20 07:51 08:00 08:05 Temperature 98.1 F Pulse Rate 79 75 Pulse Rate [ 80 From Monitor] Respiratory 13 15 Rate Blood Pressure 112/50 118/53 O2 Sat by Pulse 98 99 99 Oximetry 08/11/20 08/11/20 08/11/20 08:11 08:21 08:31 Temperature Pulse Rate 74 78 78 Pulse Rate [ From Monitor] Respiratory 11 L 18 15 Rate Blood Pressure 118/53 118/53 118/53 O2 Sat by Pulse 100 97 93 Oximetry 08/11/20 08/11/20 08/11/20 08:41 08:51 09:01 Temperature Pulse Rate 71 81 64 Pulse Rate [ From Monitor] Respiratory 15 15 16 Rate Blood Pressure 118/53 118/53 127/52 O2 Sat by Pulse 97 97 98 Oximetry 08/11/20 12:00 Temperature 98.3 F Pulse Rate Pulse Rate [ From Monitor] Respiratory Rate Blood Pressure O2 Sat by Pulse Oximetry - Labs CBC & Chem 7: 08/11/20 04:22 08/11/20 04:22 Labs: Abnormal lab results 08/10/20 08/10/20 08/11/20 Range/Units 17:28 23:20 04:22 WBC 11.6 H (4.5-11.0) K/mm3 Hgb 11.3 L (11.8-15.2) gm/dl Hct 33.2 L (35.5-45.6) % MCV 83 L (84-94) fl RDW 20.9 H (13.2-15.2) % Lymph % (Auto) 9.6 L (13.4-35.0) % [place] % (Auto) 10.0 H (0.0-7.3) % Lymph # (Auto) 1.1 L (1.2-5.4) K/mm3 [place] # (Auto) 1.2 H (0.0-0.8) K/mm3 Eos # (Auto) 0.5 H (0.0-0.4) K/mm3 Seg Neutrophils % 75.9 H (40.0-70.0) % Seg Neutrophils # 8.8 H (1.8-7.7) K/mm3 Sodium (137-145) mmol/L BUN (9-20) mg/dL Glucose (75-100) mg/dL POC Glucose 187 H 283 H (70-105) Calcium (8.4-10.2) mg/dL Total Bilirubin (0.1-1.2) mg/dL Direct Bilirubin (0-0.2) mg/dL AST (5-40) units/L Alkaline Phosphatase (35-129) units/L Total Protein (6.3-8.2) g/dL Albumin (3.9-5) g/dL 08/11/20 08/11/20 08/11/20 Range/Units 04:22 05:38 11:47 WBC (4.5-11.0) K/mm3 Hgb (11.8-15.2) gm/dl Hct (35.5-45.6) % MCV (84-94) fl RDW (13.2-15.2) % Lymph % (Auto) (13.4-35.0) % [place] % (Auto) (0.0-7.3) % Lymph # (Auto) (1.2-5.4) K/mm3 [place] # (Auto) (0.0-0.8) K/mm3 Eos # (Auto) (0.0-0.4) K/mm3 Seg Neutrophils % (40.0-70.0) % Seg Neutrophils # (1.8-7.7) K/mm3 Sodium 136 L (137-145) mmol/L BUN 34 H (9-20) mg/dL Glucose 105 H (75-100) mg/dL POC Glucose 117 H 164 H (70-105) Calcium 8.1 L (8.4-10.2) mg/dL Total Bilirubin 5.30 H (0.1-1.2) mg/dL Direct Bilirubin 4.3 H (0-0.2) mg/dL AST 50 H (5-40) units/L Alkaline Phosphatase 577 H (35-129) units/L Total Protein 5.0 L (6.3-8.2) g/dL Albumin 2.3 L (3.9-5) g/dL HEART Score - HEART Score Troponin: Troponin T 0.023 ng/mL (0.00-0.029) 08/06/20 18:33
--- NOTE | 2020-08-11 18:12 | Progress Note ---
Assessment and Plan 1. Acute kidney injury: Likely Vasomotor ROBERTH in the setting of shock. CT abdomen was negative for hydro. Monitor renal function. Creatinine level has improved. Avoid nephrotoxic agents. Meds dosage based on GFR. 2. FEN: Mild Hyponatremia, improved. Monitor lytes and volume status. 3. Shock: On Cefepime. Off pressors. Follow cultures. 4. Acute toxic encephalopathy, POA. 5. Acute cholelithiasis, POA: Obstructive jaundice. Followed by GI. S/p ERCP with sphincterotomy and removal of multiple common bile duct stones and sludge 08/10. Followed by Gen. Surgery. 6. DM type 2: Monitor. - Subjective: Patient was seen and examined at the bedside. In ICU. - Examination: General appearance: well-developed, appears stated age, no distress HEENT: ATNC, icterus Neck: Trachea midline Respiratory: ctab Cardiology: regular, S1S2, no murmur Gastrointestinal: soft, not tender, not distended, BS heard Integumentary: no obvious rash Neurologic: alert, able to move extremities, some confusion noted Ext: no extremity edema Subjective Date of service: 08/11/20 Principal diagnosis: Cholecystitis Objective - Vital Signs Vital signs: Vital Signs - 12hr 08/11/20 08/11/20 08/11/20 06:11 06:21 06:31 Temperature Pulse Rate 77 74 87 Pulse Rate [ From Monitor] Respiratory 18 15 15 Rate Blood Pressure 110/57 110/57 110/57 O2 Sat by Pulse 100 99 98 Oximetry 08/11/20 08/11/20 08/11/20 06:41 06:51 07:00 Temperature Pulse Rate 75 78 74 Pulse Rate [ From Monitor] Respiratory 14 16 15 Rate Blood Pressure 110/57 110/57 112/50 O2 Sat by Pulse 100 98 100 Oximetry 08/11/20 08/11/20 08/11/20 07:11 07:21 07:31 Temperature Pulse Rate 76 71 77 Pulse Rate [ From Monitor] Respiratory 15 14 14 Rate Blood Pressure 112/50 112/50 112/50 O2 Sat by Pulse 98 98 98 Oximetry 08/11/20 08/11/20 08/11/20 07:41 07:51 08:00 Temperature 98.1 F Pulse Rate 73 79 75 Pulse Rate [ 80 From Monitor] Respiratory 15 13 15 Rate Blood Pressure 112/50 112/50 118/53 O2 Sat by Pulse 98 98 99 Oximetry 08/11/20 08/11/20 08/11/20 08:05 08:11 08:21 Temperature Pulse Rate 74 78 Pulse Rate [ From Monitor] Respiratory 11 L 18 Rate Blood Pressure 118/53 118/53 O2 Sat by Pulse 99 100 97 Oximetry 08/11/20 08/11/20 08/11/20 08:31 08:41 08:51 Temperature Pulse Rate 78 71 81 Pulse Rate [ From Monitor] Respiratory 15 15 15 Rate Blood Pressure 118/53 118/53 118/53 O2 Sat by Pulse 93 97 97 Oximetry 08/11/20 08/11/20 08/11/20 09:01 09:11 09:21 Temperature Pulse Rate 64 80 74 Pulse Rate [ From Monitor] Respiratory 16 15 14 Rate Blood Pressure 127/52 127/52 127/52 O2 Sat by Pulse 98 97 96 Oximetry 08/11/20 08/11/20 08/11/20 09:31 09:41 09:51 Temperature Pulse Rate 74 74 76 Pulse Rate [ From Monitor] Respiratory 20 14 21 Rate Blood Pressure 127/52 127/52 127/52 O2 Sat by Pulse 98 96 98 Oximetry 08/11/20 08/11/20 08/11/20 10:01 10:11 10:21 Temperature Pulse Rate 83 74 81 Pulse Rate [ From Monitor] Respiratory 16 15 15 Rate Blood Pressure 124/46 124/46 124/46 O2 Sat by Pulse 97 97 98 Oximetry 08/11/20 08/11/20 08/11/20 10:31 10:41 10:51 Temperature Pulse Rate 73 74 72 Pulse Rate [ From Monitor] Respiratory 15 18 15 Rate Blood Pressure 124/46 124/46 124/46 O2 Sat by Pulse 97 93 96 Oximetry 08/11/20 08/11/20 08/11/20 11:01 11:11 11:21 Temperature Pulse Rate 79 64 70 Pulse Rate [ From Monitor] Respiratory 20 12 13 Rate Blood Pressure 136/41 136/41 136/41 O2 Sat by Pulse 95 95 97 Oximetry 08/11/20 08/11/20 08/11/20 11:31 11:41 11:51 Temperature Pulse Rate 82 84 74 Pulse Rate [ From Monitor] Respiratory 12 15 17 Rate Blood Pressure 136/41 136/41 136/41 O2 Sat by Pulse 97 95 96 Oximetry 0908/11/20 08/11/20 12:00 12:01 12:11 Temperature 98.3 F Pulse Rate 79 74 Pulse Rate [ 80 From Monitor] Respiratory 16 11 L Rate Blood Pressure 89/56 89/56 O2 Sat by Pulse 95 97 100 Oximetry 08/11/20 08/11/20 08/11/20 12:21 12:31 12:41 Temperature Pulse Rate 83 81 77 Pulse Rate [ From Monitor] Respiratory 12 15 17 Rate Blood Pressure 89/56 89/56 89/56 O2 Sat by Pulse 92 98 98 Oximetry 08/11/20 08/11/20 08/11/20 12:51 13:01 13:10 Temperature Pulse Rate 71 87 72 Pulse Rate [ From Monitor] Respiratory 15 18 18 Rate Blood Pressure 89/56 83/47 83/47 O2 Sat by Pulse 99 74 L 97 Oximetry 08/11/20 08/11/20 08/11/20 13:21 13:31 13:41 Temperature Pulse Rate 86 80 84 Pulse Rate [ From Monitor] Respiratory 19 17 14 Rate Blood Pressure 81/55 81/55 81/55 O2 Sat by Pulse 98 97 98 Oximetry 08/11/20 08/11/20 08/11/20 13:51 14:01 14:11 Temperature Pulse Rate 80 82 95 H Pulse Rate [ From Monitor] Respiratory 17 12 21 Rate Blood Pressure 81/55 134/56 134/56 O2 Sat by Pulse 99 97 98 Oximetry 08/11/20 08/11/20 08/11/20 14:21 14:31 14:41 Temperature Pulse Rate 93 H 79 75 Pulse Rate [ From Monitor] Respiratory 20 15 22 Rate Blood Pressure 134/56 134/56 134/56 O2 Sat by Pulse 99 96 97 Oximetry 08/11/20 08/11/20 08/11/20 14:51 15:01 15:11 Temperature Pulse Rate 87 89 75 Pulse Rate [ From Monitor] Respiratory 18 18 16 Rate Blood Pressure 134/56 126/60 126/60 O2 Sat by Pulse 95 97 96 Oximetry 08/11/20 08/11/20 08/11/20 15:21 15:31 15:41 Temperature Pulse Rate 85 79 70 Pulse Rate [ From Monitor] Respiratory 15 15 17 Rate Blood Pressure 126/60 126/60 126/60 O2 Sat by Pulse 97 97 99 Oximetry 08/11/20 08/11/20 08/11/20 15:51 16:00 16:01 Temperature 9.3 F L Pulse Rate 92 H 75 Pulse Rate [ 80 From Monitor] Respiratory 18 13 Rate Blood Pressure 126/60 126/60 O2 Sat by Pulse 98 95 98 Oximetry 08/11/20 08/11/20 08/11/20 16:10 16:20 16:30 Temperature Pulse Rate 75 77 80 Pulse Rate [ From Monitor] Respiratory 17 15 16 Rate Blood Pressure O2 Sat by Pulse 97 Oximetry 08/11/20 08/11/20 08/11/20 16:40 16:50 17:00 Temperature Pulse Rate 71 81 80 Pulse Rate [ From Monitor] Respiratory 16 13 13 Rate Blood Pressure O2 Sat by Pulse Oximetry 08/11/20 08/11/20 08/11/20 17:10 17:20 17:30 Temperature Pulse Rate 84 67 90 Pulse Rate [ From Monitor] Respiratory 15 12 18 Rate Blood Pressure O2 Sat by Pulse Oximetry 08/11/20 08/11/20 17:40 17:50 Temperature Pulse Rate 67 81 Pulse Rate [ From Monitor] Respiratory 15 17 Rate Blood Pressure O2 Sat by Pulse Oximetry - Lab 08/11/20 04:22 08/11/20 04:22 Most recent lab results Phosphorus 6.80 mg/dL (2.5-4.5) H 08/06/20 14:42 Magnesium 2.50 mg/dL (1.7-2.3) H 08/09/20 04:00 Calcium 8.1 mg/dL (8.4-10.2) L 08/11/20 04:22 Urine Creatinine 77.8 mg/dL (0.1-20.0) H 08/07/20 10:13 Urine Sodium 22 mmol/L 08/07/20 10:13 Medications & Allergies - Medications Allergies/Adverse Reactions: Allergies tetanus and diphtheria toxoids Adverse Reaction (Verified 08/06/20 14:20) Unknown Home Medications: Home Medications Medication Instructions Recorded Confirmed Last Taken Type Metformin HCl [metFORMIN] 1,000 mg PO BID 08/06/20 08/06/20 Unknown History Omeprazole 40 mg PO DAILY 08/06/20 08/06/20 Unknown History Rivaroxaban [Xarelto] 20 mg PO QDAY 08/06/20 08/06/20 Unknown History Sacubitril/Valsartan [Entresto 1 each PO BID 08/06/20 08/06/20 Unknown History 49-51 mg] Sertraline [Zoloft] 25 mg PO QDAY 08/06/20 08/06/20 Unknown History Spironolactone [Aldactone] 25 ng PO DAILY 08/06/20 08/06/20 Unknown History Torsemide [Demadex] 50 mg PO DAILY 08/06/20 08/06/20 Unknown History Zolpidem [Ambien] 5 mg PO QHS PRN 08/06/20 08/06/20 Unknown History carvediloL [Coreg] 6.25 mg PO BID 08/06/20 08/06/20 Unknown History traZODone [Desyrel] 50 mg PO QHS 08/06/20 08/06/20 Unknown History Active Medications: Generic Name Dose Route Start Last Admin Trade Name Freq PRN Reason Stop Dose Admin Lipase/Protease/Amylase 1 each 08/09/20 10:[address] 10,500 Unit FEEDTUBE PRN PRN For Clogged Feeding Tube Dextrose 0 ml 08/06/20 22:56 D50w (25gm) Syringe IV Q30MIN PRN Hypoglycemia Protocol Heparin Sodium (Porcine) 5,000 unit 08/07/20 10:45 08/11/20 10:00 Heparin SUB-Q Not Given Q12HR JULIET Norepinephrine 4 mg in 250 mls @ 7.5 mls/hr 08/06/20 19:20 08/09/20 07:50 Levophed Drip 4 Mg/Ns 250 Ml IV 0 mcg/min TITR JULIET 0 mls/hr Titration Protocol 2 MCG/MIN Sodium Chloride 1,000 mls @ 42 mls/hr 08/08/20 14:00 08/11/20 01:48 Nacl 0.45% 1000 Ml IV 42 mls/hr DIRECT JULIET Administration Metronidazole 500 mg in 100 mls @ 100 mls/hr 08/09/20 09:00 08/11/20 06:37 Flagyl 500 Mg/100 Ml IV Infused Q8HR JULIET Infusion Protocol Cefepime HCl 2 gm in 100 mls @ 200 mls/hr 08/09/20 22:00 08/10/20 22:10 Cefepime/Ns 2 Gm/100 Ml IV Infused Q12HR JULIET Infusion Protocol Insulin Glargine 5 units 08/08/20 13:30 08/11/20 10:00 Lantus SUB-Q Not Given DAILY JULIET Insulin Human Lispro 0 unit 08/07/20 06:00 08/11/20 17:59 Humalog SUB-Q 3 unit Q6HR JULIET Administration Protocol Morphine Sulfate 2 mg 08/06/20 18:40 08/09/20 23:26 Morphine IV 2 mg Q4H PRN Administration Pain, Moderate (4-6) Pantoprazole Sodium 40 mg 08/11/20 07:30 08/11/20 09:09 Protonix PO Not Given QDAC JULIET Prochlorperazine Maleate 10 mg 08/07/20 19:01 08/08/20 11:50 Compazine PO 10 mg Q6H PRN Administration Nausea And Vomiting Simple Syrup 15 ml 08/09/20 10:00 Simple Syrup FEEDTUBE PRN PRN Hypoglycemia Simple Syrup 30 ml 08/09/20 10:00 Simple Syrup FEEDTUBE PRN PRN Hypoglycemia Sodium Bicarbonate 325 mg 08/09/20 10:00 Sodium Bicarbonate FEEDTUBE PRN PRN For Clogged Feeding Tube Sodium Chloride 10 ml 08/06/20 22:00 08/11/20 17:57 Sodium Chloride Flush Syringe 10 Ml IV Not Given BID JULIET Sodium Chloride 10 ml 08/06/20 18:40 Sodium Chloride Flush Syringe 10 Ml IV PRN PRN LINE FLUSH
[2020-08-11] MEDS: CEFEPIME/NS 2 GM/100 ML 2 GM/100 ML BAG IV SCH ×2 (21:42)
[2020-08-12] MEDS: INSULIN LISPRO 100 UNIT/ML VIAL 3 mL SUB-Q SCH ×3 (00:41→17:33)
[2020-08-12] MEDS: SODIUM CHLORIDE 0.45% 1000 ML 1,000 ML IV SCH (04:12)
[2020-08-12 05:37] LABS: Alanine Aminotransferase 43 units/L (7-56); Albumin 2.6 g/dL (3.9-5); BUN/Creatinine Ratio 30; Blood Urea Nitrogen 27 mg/dL (9-20); Calcium 8.2 mg/dL (8.4-10.2); Hemolysis Index 4
[2020-08-12] MEDS: metroNIDAZOLE/NS 500 MG/100 ML 500 MG/100 ML BAG IV SCH ×3 (05:40→21:48)
[2020-08-12] MEDS: PANTOPRAZOLE 40 MG TAB PO SCH (09:04)
[2020-08-12] MEDS: INSULIN GLARGINE 100 UNITS/ML SUB-Q SCH (09:05)
[2020-08-12] MEDS: CEFEPIME/NS 2 GM/100 ML 2 GM/100 ML BAG IV SCH ×2 (10:06→21:49)
--- NOTE | 2020-08-12 10:32 | Progress Note ---
Assessment and Plan Acute cholecystitis Severe jaundice with a bilirubin level of 9.7 Acute renal failure History of systolic heart failure LVEF 30-35% by echo this admission no evidence of decompensation on entresto as an outpatient Aortic stenosis, moderate with a mean gradient of 22.6 History of coronary artery disease Dual-chamber AICD in situ Paroxysmal atrial fibrillation on Xarelto as an outpatient Okay for laparoscopic cholecystectomy. Subjective Date of service: 08/12/20 Principal diagnosis: Gallstones Interval history: Patient is resting in bed and appears comfortable. Has no cardiac complaints. He is planned for laparoscopic cholecystectomy today. Objective Vital Signs Temp Pulse Pulse Resp BP Pulse Ox 08/12/20 08:20 94 08/12/20 08:05 97.8 F 66 20 107/53 96 08/12/20 08:00 95 08/12/20 03:36 97.7 F 67 16 127/60 94 08/11/20 23:49 98.9 F 50 L 16 114/47 93 08/11/20 19:15 98.7 F 69 16 114/44 96 08/11/20 18:20 74 14 08/11/20 18:10 75 19 08/11/20 18:00 74 15 08/11/20 17:50 81 17 08/11/20 17:40 67 15 08/11/20 17:30 90 18 08/11/20 17:20 67 12 08/11/20 17:10 84 15 08/11/20 17:00 80 13 08/11/20 16:50 81 13 08/11/20 16:40 71 16 08/11/20 16:30 80 16 08/11/20 16:20 77 15 08/11/20 16:10 75 17 97 08/11/20 16:01 75 13 126/60 98 08/11/20 16:00 9.3 F L 80 95 08/11/20 15:51 92 H 18 126/60 98 08/11/20 15:41 70 17 126/60 99 08/11/20 15:31 79 15 126/60 97 08/11/20 15:21 85 15 126/60 97 08/11/20 15:11 75 16 126/60 96 08/11/20 15:01 89 18 126/60 97 08/11/20 14:51 87 18 134/56 95 08/11/20 14:41 75 22 134/56 97 08/11/20 14:31 79 15 134/56 96 08/11/20 14:21 93 H 20 134/56 99 08/11/20 14:11 95 H 21 134/56 98 08/11/20 14:01 82 12 134/56 97 08/11/20 13:51 80 17 81/55 99 08/11/20 13:41 84 14 81/55 98 08/11/20 13:31 80 17 81/55 97 08/11/20 13:21 86 19 81/55 98 08/11/20 13:10 72 18 83/47 97 08/11/20 13:01 87 18 83/47 74 L 08/11/20 12:51 71 15 89/56 99 08/11/20 12:41 77 17 89/56 98 08/11/20 12:31 81 15 89/56 98 08/11/20 12:21 83 12 89/56 92 08/11/20 12:11 74 11 L 89/56 100 08/11/20 12:01 79 16 89/56 97 08/11/20 12:00 98.3 F 80 95 08/11/20 11:51 74 17 136/41 96 08/11/20 11:41 84 15 136/41 95 08/11/20 11:31 82 12 136/41 97 08/11/20 11:21 70 13 136/41 97 08/11/20 11:11 64 12 136/41 95 08/11/20 11:01 79 20 136/41 95 08/11/20 10:51 72 15 124/46 96 08/11/20 10:41 74 18 124/46 93 - Physical Examination General: No Apparent Distress HEENT: Positive: PERRL Neck: Positive: neck supple Cardiac: Positive: Other (v-paced) Lungs: Positive: Decreased Breath Sounds Neuro: Positive: Grossly Intact Extremities: Absent: edema - Labs and Meds Cardiac Enzymes 08/12/20 Range/Units 04:41 AST 38 (5-40) units/L Comprehensive Metabolic Panel 08/12/20 Range/Units 04:41 Sodium 136 L (137-145) mmol/L Potassium 3.7 (3.6-5.0) mmol/L Chloride 99.3 (98-107) mmol/L Carbon Dioxide 27 (22-30) mmol/L BUN 27 H (9-20) mg/dL Creatinine 0.9 (0.8-1.3) mg/dL Glucose 160 H (75-100) mg/dL Calcium 8.2 L (8.4-10.2) mg/dL AST 38 (5-40) units/L ALT 43 (7-56) units/L Alkaline Phosphatase 550 H (35-129) units/L Total Protein 5.3 L (6.3-8.2) g/dL Albumin 2.6 L (3.9-5) g/dL
--- NOTE | 2020-08-12 10:40 | Progress Note ---
Assessment and Plan 1. Acute kidney injury: Likely Vasomotor ROBERTH in the setting of shock. CT abdomen was negative for hydro. Monitor renal function. Creatinine level has improved. Avoid nephrotoxic agents. Meds dosage based on GFR. 2. FEN: Mild Hyponatremia, improved. Monitor lytes and volume status. 3. Shock: On Cefepime. Off pressors. Follow cultures. 4. Acute toxic encephalopathy, POA. 5. Acute cholelithiasis, POA: Obstructive jaundice. Followed by GI. S/p ERCP with sphincterotomy and removal of multiple common bile duct stones and sludge 08/10. Followed by Gen. Surgery. 6. DM type 2: Monitor. - Subjective: Patient was seen and examined at the bedside. Doing ok. - Examination: General appearance: well-developed, appears stated age, no distress HEENT: ATNC, icterus Neck: Trachea midline Respiratory: ctab Cardiology: regular, S1S2, no murmur Gastrointestinal: soft, not tender, not distended, BS heard Integumentary: no obvious rash Neurologic: alert, able to move extremities, some confusion noted Ext: no extremity edema : crowe catheter Subjective Date of service: 08/12/20 Principal diagnosis: Gallstones Objective - Vital Signs Vital signs: Vital Signs - 12hr 08/11/20 08/12/20 08/12/20 23:49 03:36 08:00 Temperature 98.9 F 97.7 F Pulse Rate 50 L 67 Respiratory 16 16 Rate Blood Pressure 114/47 127/60 O2 Sat by Pulse 93 94 95 Oximetry 08/12/20 08/12/20 08:05 08:20 Temperature 97.8 F Pulse Rate 66 Respiratory 20 Rate Blood Pressure 107/53 O2 Sat by Pulse 96 94 Oximetry - Lab 08/11/20 04:22 08/12/20 04:41 Most recent lab results Phosphorus 6.80 mg/dL (2.5-4.5) H 08/06/20 14:42 Magnesium 2.50 mg/dL (1.7-2.3) H 08/09/20 04:00 Calcium 8.2 mg/dL (8.4-10.2) L 08/12/20 04:41 Urine Creatinine 77.8 mg/dL (0.1-20.0) H 08/07/20 10:13 Urine Sodium 22 mmol/L 08/07/20 10:13 Medications & Allergies - Medications Allergies/Adverse Reactions: Allergies tetanus and diphtheria toxoids Adverse Reaction (Verified 08/06/20 14:20) Unknown Home Medications: Home Medications Medication Instructions Recorded Confirmed Last Taken Type Metformin HCl [metFORMIN] 1,000 mg PO BID 08/06/20 08/06/20 Unknown History Omeprazole 40 mg PO DAILY 08/06/20 08/06/20 Unknown History Rivaroxaban [Xarelto] 20 mg PO QDAY 08/06/20 08/06/20 Unknown History Sacubitril/Valsartan [Entresto 1 each PO BID 08/06/20 08/06/20 Unknown History 49-51 mg] Sertraline [Zoloft] 25 mg PO QDAY 08/06/20 08/06/20 Unknown History Spironolactone [Aldactone] 25 ng PO DAILY 08/06/20 08/06/20 Unknown History Torsemide [Demadex] 50 mg PO DAILY 08/06/20 08/06/20 Unknown History Zolpidem [Ambien] 5 mg PO QHS PRN 08/06/20 08/06/20 Unknown History carvediloL [Coreg] 6.25 mg PO BID 08/06/20 08/06/20 Unknown History traZODone [Desyrel] 50 mg PO QHS 08/06/20 08/06/20 Unknown History Active Medications: Generic Name Dose Route Start Last Admin Trade Name Freq PRN Reason Stop Dose Admin Lipase/Protease/Amylase 1 each 08/09/20 10:[address] 10,500 Unit FEEDTUBE PRN PRN For Clogged Feeding Tube Dextrose 0 ml 08/06/20 22:56 D50w (25gm) Syringe IV Q30MIN PRN Hypoglycemia Protocol Heparin Sodium (Porcine) 5,000 unit 08/07/20 10:45 08/11/20 21:46 Heparin SUB-Q 5,000 unit Q12HR JULIET Administration Norepinephrine 4 mg in 250 mls @ 7.5 mls/hr 08/06/20 19:20 08/09/20 07:50 Levophed Drip 4 Mg/Ns 250 Ml IV 0 mcg/min TITR JULIET 0 mls/hr Titration Protocol 2 MCG/MIN Sodium Chloride 1,000 mls @ 42 mls/hr 08/08/20 14:00 08/12/20 04:12 Nacl 0.45% 1000 Ml IV 42 mls/hr DIRECT JULIET Administration Metronidazole 500 mg in 100 mls @ 100 mls/hr 08/09/20 09:00 08/12/20 09:04 Flagyl 500 Mg/100 Ml IV Infused Q8HR [facility] Infusion Protocol Cefepime HCl 2 gm in 100 mls @ 200 mls/hr 08/09/20 22:00 08/12/20 10:06 Cefepime/Ns 2 Gm/100 Ml IV 200 mls/hr Q12HR JULIET Administration Protocol Insulin Glargine 5 units 08/08/20 13:30 08/12/20 09:05 Lantus SUB-Q Not Given DAILY [facility] Insulin Human Lispro 0 unit 08/07/20 06:00 08/12/20 05:41 Humalog SUB-Q Not Given Q6HR [facility] Protocol Morphine Sulfate 2 mg 08/06/20 18:40 08/09/20 23:26 Morphine IV 2 mg Q4H PRN Administration Pain, Moderate (4-6) Pantoprazole Sodium 40 mg 08/11/20 07:30 08/12/20 09:04 Protonix PO Not Given QDAC [facility] Prochlorperazine Maleate 10 mg 08/07/20 19:01 08/08/20 11:50 Compazine PO 10 mg Q6H PRN Administration Nausea And Vomiting Simple Syrup 15 ml 08/09/20 10:00 Simple Syrup FEEDTUBE PRN PRN Hypoglycemia Simple Syrup 30 ml 08/09/20 10:00 Simple Syrup FEEDTUBE PRN PRN Hypoglycemia Sodium Bicarbonate 325 mg 08/09/20 10:00 Sodium Bicarbonate FEEDTUBE PRN PRN For Clogged Feeding Tube Sodium Chloride 10 ml 08/06/20 22:00 08/12/20 10:07 Sodium Chloride Flush Syringe 10 Ml IV 10 ml BID JULIET Administration Sodium Chloride 10 ml 08/06/20 18:40 Sodium Chloride Flush Syringe 10 Ml IV PRN PRN LINE FLUSH
--- NOTE | 2020-08-12 12:10 | Progress Note ---
Assessment and Plan Severe Sepsis with Shock Acute cholecystitis Acute kidney injury (ROBERTH) with acute tubular necrosis (ATN) Acute metabolic encephalopathy Gm +ve bacteremia PUI with COVID 19 CHF Paroxysmal atrial fibrillation Elevated transaminases Coronary artery disease - to OR today for cholycystectomy - supplemental oxygen to keep O2 sats > 90% - continue Bronchodilators (XCOHITL) with pulm hygiene per RT - continue antiinfectoives per ID rec's (Cefepime, Flagyl); follow cultures, trend WBC - continue to avoid nephrotoxins, renally dose all medications - mobility protocols to prevent pressure ulcers - PT/OT as tolerated - Wound care per RN/WCT - accuchecks with glycemic control per SSI for target blood glucose < 180 mg/dL - prn analgesia per pain score - GI & VTE prophylaxis - Flu & pneumovax per protocol - continue other care per attending / other consultants ... re-evaluate in am & prn Subjective Date of service: 08/12/20 Principal diagnosis: Septic Shock; Ac. cholecystitis; ROBERTH; Gm +ve bacteremia; PAF; CAD Interval history: Patient is seen today for: Severe Sepsis with Shock; Acute cholecystitis; ROBERTH (ATN); Acute metabolic encephalopathy; Gm +ve bacteremia; PUI COVID 19; CHF; Paroxysmal atrial fibrillation; Elevated transaminases; Coronary artery disease Seen and examined at bedside; 24hour events reviewed; nursing and respiratory care staff consulted; no adverse overnight events reported to me; resting peacefully in bed; for lap- cholecystectomy today Objective Vital Signs - 12hr 08/12/20 08/12/20 08/12/20 03:36 08:00 08:05 Temperature 97.7 F 97.8 F Pulse Rate 67 66 Respiratory 16 20 Rate Blood Pressure 127/60 107/53 O2 Sat by Pulse 94 95 96 Oximetry 08/12/20 08:20 Temperature Pulse Rate Respiratory Rate Blood Pressure O2 Sat by Pulse 94 Oximetry Constitutional: no acute distress, alert, other (elderly male with mildly increased respiratory effort at rest) Eyes: icteric ENT: oropharynx dry, other (mallampati 2) Neck: supple, no lymphadenopathy, no JVD Effort: mildly labored Ascultation: Bilateral: clear, diminished breath sounds Percussion: Bilateral: not dull Cardiovascular: regular rate and rhythm Gastrointestinal: normoactive bowel sounds, soft, tender (RUQ), non-distended Integumentary: normal Extremities: no cyanosis, no edema, pink and warm, pulses normal, no ischemia or petechiae Neurologic: non-focal exam, pupils equal and round, CN II-XII normal, motor strength normal and Psychiatric: mood appropriate, affect normal CBC and BMP: 08/11/20 04:22 08/13/20 07:46 ABG, PT/INR, D-dimer: PT/INR, D-dimer PT 13.8 Sec. (12.2-14.9) 08/10/20 04:10 INR 1.04 (0.87-1.13) 08/10/20 04:10 Abnormal lab findings: Abnormal Labs 08/06/20 08/06/20 08/06/20 14:42 14:42 14:42 WBC Hgb Hct MCV 82 L MCHC 35 H RDW 22.0 H Lymph % (Auto) Lymph # [place] % (Auto) Lymph # (Auto) [place] # (Auto) Eos # (Auto) Seg Neutrophils % Seg Neuts % (Manual) 89.0 H Lymphocytes % (Manual) 6.0 L Seg Neutrophils # Seg Neutrophils # Man 8.9 H Lymphocytes # (Manual) 0.6 L APTT 37.2 H Sodium 134 L Potassium Chloride 83.6 L BUN 82 H Creatinine 4.5 H Glucose 205 H POC Glucose Lactic Acid Calcium Phosphorus Magnesium Total Bilirubin 9.70 H AST 63 H ALT 82 H Alkaline Phosphatase 263 H Direct Bilirubin Total Creatine Kinase Troponin T 0.036 H NT-Pro-B Natriuret Pep Total Protein Albumin 3.4 L Urine WBC (Auto) Urine Creatinine 08/06/20 08/06/20 08/06/20 14:42 14:42 14:42 WBC Hgb Hct MCV MCHC RDW Lymph % (Auto) Lymph # [place] % (Auto) Lymph # (Auto) [place] # (Auto) Eos # (Auto) Seg Neutrophils % Seg Neuts % (Manual) Lymphocytes % (Manual) Seg Neutrophils # Seg Neutrophils # Man Lymphocytes # (Manual) APTT Sodium Potassium Chloride BUN Creatinine Glucose POC Glucose Lactic Acid 4.60 H* Calcium Phosphorus 6.80 H Magnesium 1.60 L Total Bilirubin AST ALT Alkaline Phosphatase Direct Bilirubin Total Creatine Kinase 240 H Troponin T NT-Pro-B Natriuret Pep 96940 H Total Protein Albumin Urine WBC (Auto) Urine Creatinine 09/08/06/20 08/06/20 15:34 18:33 18:50 WBC Hgb Hct MCV MCHC RDW Lymph % (Auto) Lymph # [place] % (Auto) Lymph # (Auto) [place] # (Auto) Eos # (Auto) Seg Neutrophils % Seg Neuts % (Manual) Lymphocytes % (Manual) Seg Neutrophils # Seg Neutrophils # Man Lymphocytes # (Manual) APTT Sodium Potassium Chloride BUN Creatinine Glucose POC Glucose Lactic Acid 4.10 H* 3.60 H* Calcium Phosphorus Magnesium 1.60 L Total Bilirubin AST ALT Alkaline Phosphatase Direct Bilirubin Total Creatine Kinase Troponin T NT-Pro-B Natriuret Pep Total Protein Albumin Urine WBC (Auto) Urine Creatinine 08/06/20 08/06/20 08/07/20 21:09 22:04 00:06 WBC Hgb Hct MCV MCHC RDW Lymph % (Auto) Lymph # [place] % (Auto) Lymph # (Auto) [place] # (Auto) Eos # (Auto) Seg Neutrophils % Seg Neuts % (Manual) Lymphocytes % (Manual) Seg Neutrophils # Seg Neutrophils # Man Lymphocytes # (Manual) APTT Sodium Potassium Chloride BUN Creatinine Glucose POC Glucose 188 H Lactic Acid 2.10 H* Calcium Phosphorus Magnesium Total Bilirubin AST ALT Alkaline Phosphatase Direct Bilirubin Total Creatine Kinase Troponin T NT-Pro-B Natriuret Pep Total Protein Albumin Urine WBC (Auto) 20.0 H Urine Creatinine 08/07/20 08/07/20 08/07/20 04:00 04:00 05:56 WBC Hgb Hct 34.3 L MCV 81 L MCHC 36 H RDW 21.9 H Lymph % (Auto) 6.0 L Lymph # 0.6 L [place] % (Auto) Lymph # (Auto) [place] # (Auto) Eos # (Auto) Seg Neutrophils % 89.4 H Seg Neuts % (Manual) Lymphocytes % (Manual) Seg Neutrophils # 9.3 H Seg Neutrophils # Man Lymphocytes # (Manual) APTT Sodium 136 L Potassium Chloride 88.5 L BUN 87 H Creatinine 3.7 H Glucose 187 H POC Glucose 190 H Lactic Acid Calcium 7.8 L Phosphorus Magnesium Total Bilirubin 9.60 H AST 53 H ALT 66 H Alkaline Phosphatase 264 H Direct Bilirubin Total Creatine Kinase Troponin T NT-Pro-B Natriuret Pep Total Protein 6.2 L Albumin 3.1 L Urine WBC (Auto) Urine Creatinine 08/07/20 08/07/20 08/07/20 07:50 10:13 12:36 WBC Hgb Hct MCV MCHC RDW Lymph % (Auto) Lymph # [place] % (Auto) Lymph # (Auto) [place] # (Auto) Eos # (Auto) Seg Neutrophils % Seg Neuts % (Manual) Lymphocytes % (Manual) Seg Neutrophils # Seg Neutrophils # Man Lymphocytes # (Manual) APTT Sodium Potassium Chloride BUN Creatinine Glucose POC Glucose 197 H 205 H Lactic Acid Calcium Phosphorus Magnesium Total Bilirubin AST ALT Alkaline Phosphatase Direct Bilirubin Total Creatine Kinase Troponin T NT-Pro-B Natriuret Pep Total Protein Albumin Urine WBC (Auto) Urine Creatinine 77.8 H 08/07/20 08/07/20 08/08/20 17:36 21:49 04:57 WBC Hgb Hct MCV MCHC RDW Lymph % (Auto) Lymph # [place] % (Auto) Lymph # (Auto) [place] # (Auto) Eos # (Auto) Seg Neutrophils % Seg Neuts % (Manual) Lymphocytes % (Manual) Seg Neutrophils # Seg Neutrophils # Man Lymphocytes # (Manual) APTT Sodium Potassium 3.3 L Chloride BUN 76 H Creatinine 2.0 H Glucose 353 H POC Glucose 240 H 218 H Lactic Acid Calcium 7.7 L Phosphorus Magnesium Total Bilirubin 8.00 H AST 46 H ALT 57 H Alkaline Phosphatase 348 H Direct Bilirubin Total Creatine Kinase Troponin T NT-Pro-B Natriuret Pep Total Protein 6.0 L Albumin 2.5 L Urine WBC (Auto) Urine Creatinine 08/08/20 08/08/20 08/08/20 08:06 11:52 17:52 WBC Hgb Hct MCV MCHC RDW Lymph % (Auto) Lymph # [place] % (Auto) Lymph # (Auto) [place] # (Auto) Eos # (Auto) Seg Neutrophils % Seg Neuts % (Manual) Lymphocytes % (Manual) Seg Neutrophils # Seg Neutrophils # Man Lymphocytes # (Manual) APTT Sodium Potassium Chloride BUN Creatinine Glucose POC Glucose 258 H 245 H 251 H Lactic Acid Calcium Phosphorus Magnesium Total Bilirubin AST ALT Alkaline Phosphatase Direct Bilirubin Total Creatine Kinase Troponin T NT-Pro-B Natriuret Pep Total Protein Albumin Urine WBC (Auto) Urine Creatinine 08/08/20 08/09/20 08/09/20 23:49 04:00 04:00 WBC 11.3 H Hgb Hct 35.0 L MCV 81 L MCHC 35 H RDW 21.6 H Lymph % (Auto) Lymph # [place] % (Auto) Lymph # (Auto) [place] # (Auto) Eos # (Auto) Seg Neutrophils % Seg Neuts % (Manual) 91.0 H Lymphocytes % (Manual) 3.0 L Seg Neutrophils # Seg Neutrophils # Man 10.3 H Lymphocytes # (Manual) 0.3 L APTT Sodium Potassium 3.5 L Chloride BUN 53 H Creatinine 1.5 H Glucose 188 H POC Glucose 220 H Lactic Acid Calcium 7.8 L Phosphorus Magnesium 2.50 H Total Bilirubin 5.10 H AST 63 H ALT 61 H Alkaline Phosphatase 476 H Direct Bilirubin Total Creatine Kinase Troponin T NT-Pro-B Natriuret Pep Total Protein 5.9 L Albumin 3.0 L Urine WBC (Auto) Urine Creatinine 08/09/20 08/09/20 08/10/20 05:29 12:12 00:11 WBC Hgb Hct MCV MCHC RDW Lymph % (Auto) Lymph # [place] % (Auto) Lymph # (Auto) [place] # (Auto) Eos # (Auto) Seg Neutrophils % Seg Neuts % (Manual) Lymphocytes % (Manual) Seg Neutrophils # Seg Neutrophils # Man Lymphocytes # (Manual) APTT Sodium Potassium Chloride BUN Creatinine Glucose POC Glucose 181 H 206 H 181 H Lactic Acid Calcium Phosphorus Magnesium Total Bilirubin AST ALT Alkaline Phosphatase Direct Bilirubin Total Creatine Kinase Troponin T NT-Pro-B Natriuret Pep Total Protein Albumin Urine WBC (Auto) Urine Creatinine 08/10/20 08/10/20 08/10/20 04:10 05:59 11:53 WBC Hgb Hct MCV MCHC RDW Lymph % (Auto) Lymph # [place] % (Auto) Lymph # (Auto) [place] # (Auto) Eos # (Auto) Seg Neutrophils % Seg Neuts % (Manual) Lymphocytes % (Manual) Seg Neutrophils # Seg Neutrophils # Man Lymphocytes # (Manual) APTT Sodium Potassium Chloride BUN 38 H Creatinine Glucose 176 H POC Glucose 182 H 187 H Lactic Acid Calcium 8.3 L Phosphorus Magnesium Total Bilirubin 5.00 H AST 60 H ALT 61 H Alkaline Phosphatase 543 H Direct Bilirubin Total Creatine Kinase Troponin T NT-Pro-B Natriuret Pep Total Protein 5.7 L Albumin 2.8 L Urine WBC (Auto) Urine Creatinine 08/10/20 08/10/20 08/11/20 17:28 23:20 04:22 WBC 11.6 H Hgb 11.3 L Hct 33.2 L MCV 83 L MCHC RDW 20.9 H Lymph % (Auto) 9.6 L Lymph # [place] % (Auto) 10.0 H Lymph # (Auto) 1.1 L [place] # (Auto) 1.2 H Eos # (Auto) 0.5 H Seg Neutrophils % 75.9 H Seg Neuts % (Manual) Lymphocytes % (Manual) Seg Neutrophils # 8.8 H Seg Neutrophils # Man Lymphocytes # (Manual) APTT Sodium Potassium Chloride BUN Creatinine Glucose POC Glucose 187 H 283 H Lactic Acid Calcium Phosphorus Magnesium Total Bilirubin AST ALT Alkaline Phosphatase Direct Bilirubin Total Creatine Kinase Troponin T NT-Pro-B Natriuret Pep Total Protein Albumin Urine WBC (Auto) Urine Creatinine 08/11/20 08/11/20 08/11/20 04:22 05:38 11:47 WBC Hgb Hct MCV MCHC RDW Lymph % (Auto) Lymph # [place] % (Auto) Lymph # (Auto) [place] # (Auto) Eos # (Auto) Seg Neutrophils % Seg Neuts % (Manual) Lymphocytes % (Manual) Seg Neutrophils # Seg Neutrophils # Man Lymphocytes # (Manual) APTT Sodium 136 L Potassium Chloride BUN 34 H Creatinine Glucose 105 H POC Glucose 117 H 164 H Lactic Acid Calcium 8.1 L Phosphorus Magnesium Total Bilirubin 5.30 H AST 50 H ALT Alkaline Phosphatase 577 H Direct Bilirubin 4.3 H Total Creatine Kinase Troponin T NT-Pro-B Natriuret Pep Total Protein 5.0 L Albumin 2.3 L Urine WBC (Auto) Urine Creatinine 08/11/20 08/12/20 08/12/20 17:23 00:06 04:41 WBC Hgb Hct MCV MCHC RDW Lymph % (Auto) Lymph # [place] % (Auto) Lymph # (Auto) [place] # (Auto) Eos # (Auto) Seg Neutrophils % Seg Neuts % (Manual) Lymphocytes % (Manual) Seg Neutrophils # Seg Neutrophils # Man Lymphocytes # (Manual) APTT Sodium 136 L Potassium Chloride BUN 27 H Creatinine Glucose 160 H POC Glucose 178 H 180 H Lactic Acid Calcium 8.2 L Phosphorus Magnesium Total Bilirubin 4.50 H AST ALT Alkaline Phosphatase 550 H Direct Bilirubin Total Creatine Kinase Troponin T NT-Pro-B Natriuret Pep Total Protein 5.3 L Albumin 2.6 L Urine WBC (Auto) Urine Creatinine 08/12/20 05:17 WBC Hgb Hct MCV MCHC RDW Lymph % (Auto) Lymph # [place] % (Auto) Lymph # (Auto) [place] # (Auto) Eos # (Auto) Seg Neutrophils % Seg Neuts % (Manual) Lymphocytes % (Manual) Seg Neutrophils # Seg Neutrophils # Man Lymphocytes # (Manual) APTT Sodium Potassium Chloride BUN Creatinine Glucose POC Glucose 160 H Lactic Acid Calcium Phosphorus Magnesium Total Bilirubin AST ALT Alkaline Phosphatase Direct Bilirubin Total Creatine Kinase Troponin T NT-Pro-B Natriuret Pep Total Protein Albumin Urine WBC (Auto) Urine Creatinine Chest x-ray: other (none) Allied health notes reviewed: nursing
--- NOTE | 2020-08-12 12:11 | Progress Note ---
Assessment and Plan Cultures: Blood culture 08/06/2020 Coag-neg Staph 1 bottle Blood culture 08/08/2020 no growth today Urine culture 08/08/2020 neg SARS COV-2 PCR neg A/P: 70-year-old man past medical history CHF, continue dependence, DM 2 ad mitted with weakness, found to have cholecystitis and gram-positive bacteremia #Septic shock: Patient off pressors, leukocytosis resolved, secondary to acute cholecystitis #Acute cholecystitis: General surgery consulted. Status post ERCP, cold biopsy, sphincterectomy and balloon sweep of CBD #Coag-neg Staph bacteremia: likely a contaminant, repeat blood cultures negative. #ROBERTH: Renally adjust antibiotics, resolved #Pyuria: Urine culture negative. Recs: -Continue cefepime 2 g IV every 12 hours -day 4 -Continue metronidazole 500 g IV every 8 hours -day 4 -Patient to have lap rachel -will stop antibiotics 24 hours after cholecystectomy pending OR findings Pao Ashley MD [facility] ([facility]) Office [phone] Subjective Date of service: 08/12/20 Principal diagnosis: Gallstones Interval history: Patient feels okay denies abdominal pain Objective - Exam Narrative Exam: General appearance: Alert in NAD Eyes: anicteric sclerae, moist conjunctivae; no lid-lag; PERRLA HENT: Atraumatic; oropharynx clear with moist mucous membranes and no oral thrus h; normal hard and soft palate. Lungs: CTA, with normal respiratory effort and no intercostal retractions CV: RRR no murmur Abdomen: Soft, non-tender; no masses or hepatosplenomegaly Extremities: no edema, no cyanosis Skin: No rash. Psych: Nonagitated Neuro: alert and oriented moving all extremities - Constitutional Vitals: Vital Signs Temp Pulse Resp BP Pulse Ox 97.8 F 66 20 107/53 94 08/12/20 08:05 08/12/20 08:05 08/12/20 08:05 08/12/20 08:05 08/12/20 08:20 Temperature -Last 24 Hours Temperature 97.8 F Temperature 97.7 F Temperature 98.9 F Temperature 98.7 F Temperature 9.3 F - Labs CBC & Chem 7: 08/11/20 04:22 08/12/20 04:41 Labs: Abnormal lab results 08/11/20 08/11/20 08/12/20 Range/Units 11:47 17:23 00:06 Sodium (137-145) mmol/L BUN (9-20) mg/dL Glucose (75-100) mg/dL POC Glucose 164 H 178 H 180 H (70-105) Calcium (8.4-10.2) mg/dL Total Bilirubin (0.1-1.2) mg/dL Alkaline Phosphatase (35-129) units/L Total Protein (6.3-8.2) g/dL Albumin (3.9-5) g/dL 08/12/20 08/12/20 Range/Units 04:41 05:17 Sodium 136 L (137-145) mmol/L BUN 27 H (9-20) mg/dL Glucose 160 H (75-100) mg/dL POC Glucose 160 H (70-105) Calcium 8.2 L (8.4-10.2) mg/dL Total Bilirubin 4.50 H (0.1-1.2) mg/dL Alkaline Phosphatase 550 H (35-129) units/L Total Protein 5.3 L (6.3-8.2) g/dL Albumin 2.6 L (3.9-5) g/dL
[2020-08-12] MEDS: SODIUM CHLORIDE 0.9% 1000 ML 1,000 ML IV SCH (13:20)
[2020-08-12] MEDS ORDERED: SUCCINYLCHOLINE CHLORIDE 200 MG/10 ML INJ MDV ONE (13:23)
[2020-08-12] MEDS ORDERED: PHENYLEPHRINE/NS 1,000 MCG/10 ML SYRINGE (OR USE) IV ONE (13:23)
[2020-08-12] MEDS ORDERED: ONDANSETRON 4 MG/2 ML INJ ONE (13:23)
[2020-08-12] MEDS ORDERED: ROCURONIUM 50 MG/5 ML INJ IV ONE (13:23)
[2020-08-12] MEDS ORDERED: NEOSTIGMINE 10MG/10 ML INJ MDV ONE (13:23)
[2020-08-12] MEDS ORDERED: dexAMETHasone 20 MG/5 ML VIAL ONE (13:23)
[2020-08-12] MEDS ORDERED: GLYCOPYRROLATE 0.4 MG/2 ML INJ ONE (13:23)
[2020-08-12] MEDS ORDERED: LIDOCAINE MPF (2%) 20 MG/1 ML VIAL 5 ML ONE (13:23)
[2020-08-12] MEDS ORDERED: fentaNYL 100 MCG/2 ML INJ ONE (13:24)
[2020-08-12] MEDS ORDERED: propofoL 200 MG/20 ML VIAL IV ONE (13:24)
--- NOTE | 2020-08-12 13:28 | Anesthesia Day of Surgery ---
Anesthesia Day of Surgery - Day of Surgery Patient Examined: Yes Patient H&P Reviewed: Yes Patient is NPO: Yes Cardiac Clearance: Yes
[2020-08-12] MEDS ORDERED: fentaNYL 100 MCG/2 ML INJ IV PRN (13:29)
[2020-08-12] MEDS ORDERED: BUPIVACAINE-EPINEPHRINE/PF 0.25%-1:200,000 (30 ML) VIAL INFILTRATI ONE ×2 (13:38→14:32)
[2020-08-12] MEDS ORDERED: MIDAZOLAM 2 MG/2 ML INJ ONE (14:12)
[2020-08-12] MEDS ORDERED: HYDROmorphone 1 MG/1 ML INJ ONE (14:14)
[2020-08-12] MEDS ORDERED: SODIUM CHLORIDE 0.9% IRR 1,500 ML BOTTLE IR ONE (14:33)
[2020-08-12] MEDS ORDERED: SODIUM CHLORIDE 0.9% IRRIG SOLN 2000 ML IR ONE (14:33)
[2020-08-12] MEDS ORDERED: SODIUM CHLORIDE 0.9% 50 ML ONE (15:52)
[2020-08-12] MEDS ORDERED: SODIUM CHLORIDE 0.9% 50 ML IVPB IV ONE (15:53)
--- NOTE | 2020-08-12 16:04 | Event Note ---
Date: 08/12/20 Patient currently in CCY with IOC. His biopsy of ampulla is normal (chronic inflammation) and his LFTs are improved a little again today. Will plan repeat ERCP if needed based on IOC.
--- NOTE | 2020-08-12 17:00 | Post Operative Note ---
Pre-op diagnosis: acute cholecystitis, choledocolithiasis Post-op diagnosis: same Findings: 1. Inflammatory changes in the upper abdomen with dense adhesions from the stomach and liver to the anterior abdominal wall 2. Dense adhesions from the omentum to the gallbladder. 3. Tortuous gallbladder with short cystic duct 4. Cholangiogram showed normal and brisk filling of CBD and duodenum without filling defect. Hepatic ducts did not fill with contrast. Injection of contrast into distal cystic duct showed filling of only gallbladder. 5. Backtable examination of gallbladder showed only one duct which was clipped flush with the neck of the gallbladder and a very small artery. No other structures seen entering gallbladder Procedure: laparoscopic cholecystectomy with IOC Anesthesia: GETA, local Surgeon: AZIZA JESUS (assist: Michael PETIT) Estimated blood loss: minimal Pathology: list (gallbladder) Specimen disposition: to lab Condition: stable Disposition: PACU
[2020-08-12] MEDS ORDERED: INSULIN LISPRO 100 UNIT/ML VIAL 3 mL SUB-Q ONE (19:04)
[2020-08-12] MEDS: HEPARIN 5,000 UNIT/1 ML VIAL SUB-Q SCH (21:48)
[2020-08-13] MEDS: INSULIN LISPRO 100 UNIT/ML VIAL 3 mL SUB-Q SCH ×7 (00:39→18:12)
[2020-08-13] MEDS: metroNIDAZOLE/NS 500 MG/100 ML 500 MG/100 ML BAG IV SCH ×3 (06:11→22:02)
[2020-08-13] MEDS: MORPHINE 2 MG/1 ML INJ IV PRN (06:14)
--- NOTE | 2020-08-13 07:31 | Fluoroscopy Report ---
Intraoperative cholangiogram Indication: Intraoperative biliary evaluation. Findings: Normal filling of the CBD with contrast spill into the duodenum. No obstructive stone dis ease in the CBD. There was no reflux of contrast into the hepatic ducts and I was called in to the op erating room to evaluate. Dr. Turner informed to me that she had ligated the cystic artery and perfor med a ductotomy at the level of the cystic duct. I advised her to cannulate the other end (end of the duct not supplying the CBD) and inject contrast to confirm that contrast fills the gallbladder and n ot the intrahepatic biliary tree. This was performed and in fact the gallbladder did fill with contra st as well as a small amount of extravasation. Impression: No obstructive stone disease identified in the CBD. Somewhat unusual appearance of the b iliary tree with lack of reflux into the hepatic ducts could be related to a widely patulous CBD and sphincter in this patient who recently had sphincterotomy. In other words, the resistance within the CBD may have been so low that contrast freely passed into the duodenum without reflux. Another consid eration would be small stone disease in each hepatic duct although this seems less likely. Biliary pr ofile will be followed postoperatively. Fluoroscopic time: 1 minute and 36 seconds Number of images: 4 Signer Name: Dimas Ashby MD Signed: 08/13/2020 7:27 AM Workstation Name: [id number]
--- NOTE | 2020-08-13 08:10 | Progress Note ---
Assessment and Plan Acute cholecystitis status post lap cholecystectomy Acute renal failure improving History of systolic heart failure LVEF 30-35% by echo this admission no evidence of decompensation on entresto as an outpatient restart once creatinine is stable Aortic stenosis, moderate with a mean gradient of 22.6 History of coronary artery disease Dual-chamber AICD in situ Paroxysmal atrial fibrillation on Xarelto as an outpatient restart when cleared by surgery Subjective Date of service: 08/13/20 Principal diagnosis: Gallstones Interval history: Tolerated surgery well no significant events overnight Objective Vital Signs Temp Pulse Resp BP Pulse Ox 08/13/20 07:43 93 08/13/20 06:14 18 08/12/20 23:53 98.7 F 66 18 104/43 96 08/12/20 19:39 99.3 F 67 20 111/43 98 08/12/20 18:30 76 14 107/54 96 08/12/20 18:15 78 14 108/42 97 08/12/20 18:00 98.4 F 73 14 120/42 96 08/12/20 17:45 77 14 123/45 97 08/12/20 17:30 81 14 116/41 97 08/12/20 17:15 72 12 106/43 97 08/12/20 17:10 70 12 125/43 98 08/12/20 17:05 71 12 138/50 98 08/12/20 17:02 97.2 F L 72 12 144/50 99 08/12/20 12:45 98.8 F 73 18 128/61 96 08/12/20 12:40 98.8 F 73 18 128/61 96 08/12/20 11:27 98.0 F 70 20 115/54 94 08/12/20 08:20 94 General: No Apparent Distress HEENT: NAD Neck: neck supple Cardiac: S1-S2 heard faint 2/6 systolic murmur Lungs: Normal basilar breath sounds heard Neuro: Grossly Intact Extremities: No edema noted - Physical Examination General: No Apparent Distress HEENT: Positive: PERRL Neck: Positive: neck supple Neuro: Positive: Grossly Intact Abdomen: Positive: Soft Skin: Positive: Clear Extremities: Absent: edema
[2020-08-13 08:46] LABS: Alanine Aminotransferase 42 units/L (7-56); Albumin 2.7 g/dL (3.9-5); BUN/Creatinine Ratio 30; Blood Urea Nitrogen 33 mg/dL (9-20); Calcium 8.4 mg/dL (8.4-10.2); Hemolysis Index 3
--- NOTE | 2020-08-13 09:09 | Progress Note ---
Assessment and Plan --Acute cholecystitis with choledocholithiasis s/p ERCP with cold biopsy, sphincterotomy, and balloon sweep of the common bile duct yesterday laparoscopic cholecystectomy today CT abdomen/pelvis: 1. Acute cholecystitis. There is also choledocholithiasis. -- Acute kidney injury (ROBERTH) with acute tubular necrosis (ATN) Monitor urine output every shift, supportive care, nephrology team consulted. Renal function improved, Continue low volume IV fluid given history of CHF --Acute metabolic encephalopathy, resolved Continue supportive care and follow clinically - Coag-neg Staph bacteremia: likely a contaminant, repeat blood cultures negative. --Septic shock, s/p Levophed, monitor vitals --Sepsis, present on admission Patient presented with severe hypotension, lactic acidosis, ROBERTH, altered mental status Blood culture positive for gram-positive cocci, CT abdomen pelvis suggesting acute cholecystitis and choledocholithiasis Continue IV antibiotics for now, follow ID recommendation, monitor final blood culture results PUI with COVID 19, ruled out with negative test --CHF with systolic failure, appears compensated EF 20-25%, cardiology following, -- Paroxysmal atrial fibrillation on Xarelto, will hold for now possible surgery/ERCP Patient normal sinus rhythm on the monitor -Elevated LFT Likely due to obstruction Will continue to monitor LFT, consulted with GI --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 --Advance care planning Disease education conducted, supportive care, patient is full code Subjective Date of service: 08/12/20 Principal diagnosis: Gallstones Interval history: Brief history: 70-year-old man with h/o history of systolic heart failure, coronary artery disease, dual-chamber pacemaker in situ, on anticoagulation with Xarelto, admitted with weakness, severe jaundice, and severe renal failure. CT scan of the abdomen reports evidence of acute cholecystitis. 08/07: Continue IV fluid, empiric antibiotics, blood cx positive for gm +ve cocci . Consult GI and general surgery. Monitor renal function and follow clinically. obtain 2d echo. follow CoVID 19 result 08/08; patient remains on Levophed, renal function improved. Continue low volume IV fluid, COVID 19 test negative, follow blood culture, continue IV antibiotics we will follow 2D echo result. Continue to hold Xarelto for now. Called patient and updated. 08/09: Off pressor today, wait for 2D echo result. Plan for ERCP tomorrow if patient remains clinically stable. 08/10: Plan for ERCP today, 2D echo showed EF 20 to 25% 08/11; clinically stable, transfer to [facility]. plan for cholecystectomy tomorrow 08/12/2020 patient for acute cholecystectomy today Objective - Constitutional Vitals: Vital Signs - 12hr 08/12/20 08/13/20 08/13/20 23:53 06:14 07:43 Temperature 98.7 F Pulse Rate 66 Respiratory 18 18 Rate Blood Pressure 104/43 O2 Sat by Pulse 96 93 Oximetry General appearance: Present: no acute distress, well-nourished - EENT Eyes: PERRL, EOM intact ENT: hearing intact, clear oral mucosa Ears: bilateral: normal - Neck Neck: supple, normal ROM - Respiratory Respiratory effort: normal Respiratory: bilateral: CTA - Breasts Breasts: normal - Cardiovascular Heart rate: 78 Rhythm: regular Heart Sounds: Present: S1 & S2. Absent: gallop, rub Extremities: pulses intact, No edema, normal color, Full ROM - Gastrointestinal General gastrointestinal: Present: soft, non-tender, non-distended, normal bowel sounds - Genitourinary Male genitourinary: normal - Integumentary Integumentary: clear, warm, dry - Musculoskeletal Musculoskeletal: 1, strength equal bilaterally - Neurologic Neurologic: moves all extremities - Psychiatric Psychiatric: memory intact, appropriate mood/affect, intact judgment & insight - Labs CBC & Chem 7: 08/14/20 04:35 08/16/20 04:14 Labs: Abnormal lab results 08/12/20 08/12/20 08/12/20 Range/Units 11:44 17:37 18:18 BUN (9-20) mg/dL Glucose (75-100) mg/dL POC Glucose 170 H 255 H 262 H (70-105) Total Bilirubin (0.1-1.2) mg/dL AST (5-40) units/L Alkaline Phosphatase (35-129) units/L Total Protein (6.3-8.2) g/dL Albumin (3.9-5) g/dL 08/12/20 08/13/20 08/13/20 Range/Units 18:52 00:09 05:53 BUN (9-20) mg/dL Glucose (75-100) mg/dL POC Glucose 265 H 198 H 107 H (70-105) Total Bilirubin (0.1-1.2) mg/dL AST (5-40) units/L Alkaline Phosphatase (35-129) units/L Total Protein (6.3-8.2) g/dL Albumin (3.9-5) g/dL 08/13/20 08/13/20 Range/Units 06:02 07:46 BUN 33 H (9-20) mg/dL Glucose 185 H (75-100) mg/dL POC Glucose 207 H (70-105) Total Bilirubin 3.30 H (0.1-1.2) mg/dL AST 46 H (5-40) units/L Alkaline Phosphatase 542 H (35-129) units/L Total Protein 5.5 L (6.3-8.2) g/dL Albumin 2.7 L (3.9-5) g/dL HEART Score - HEART Score Troponin: Troponin T 0.023 ng/mL (0.00-0.029) 08/06/20 18:33
--- NOTE | 2020-08-13 09:19 | Progress Note ---
Assessment and Plan 1. Acute kidney injury: Likely Vasomotor ROBERTH in the setting of shock. CT abdomen was negative for hydro. Monitor renal function. Creatinine level is better. Avoid nephrotoxic agents. Meds dosage based on GFR. 2. FEN: Mild Hyponatremia, improved. Monitor lytes and volume status. 3. Shock: On Cefepime and Flagyl. Off pressors. Follow cultures. 4. Acute toxic encephalopathy, POA. 5. Acute cholelithiasis, POA: Obstructive jaundice. S/p ERCP with sphincterotomy and removal of multiple common bile duct stones and sludge 08/10. S/p laparoscopic cholecystectomy 08/12. Followed by Gen. Surgery. 6. DM type 2: Monitor. - Subjective: Patient was seen and examined at the bedside. Doing ok. - Examination: General appearance: well-developed, appears stated age, no distress HEENT: ATNC, icterus Neck: Trachea midline Respiratory: ctab Cardiology: regular, S1S2, no murmur Gastrointestinal: soft, not tender, not distended, BS heard Integumentary: no obvious rash Neurologic: alert, able to move extremities, some confusion noted Ext: no extremity edema Subjective Date of service: 08/13/20 Principal diagnosis: Gallstones Objective - Vital Signs Vital signs: Vital Signs - 12hr 08/12/20 08/13/20 08/13/20 23:53 06:14 07:43 Temperature 98.7 F Pulse Rate 66 Respiratory 18 18 Rate Blood Pressure 104/43 O2 Sat by Pulse 96 93 Oximetry - Lab 08/11/20 04:22 08/13/20 07:46 Most recent lab results Phosphorus 6.80 mg/dL (2.5-4.5) H 08/06/20 14:42 Magnesium 2.50 mg/dL (1.7-2.3) H 08/09/20 04:00 Calcium 8.4 mg/dL (8.4-10.2) 08/13/20 07:46 Urine Creatinine 77.8 mg/dL (0.1-20.0) H 08/07/20 10:13 Urine Sodium 22 mmol/L 08/07/20 10:13 Medications & Allergies - Medications Allergies/Adverse Reactions: Allergies tetanus and diphtheria toxoids Adverse Reaction (Verified 08/06/20 14:20) Unknown Home Medications: Home Medications Medication Instructions Recorded Confirmed Last Taken Type Metformin HCl [metFORMIN] 1,000 mg PO BID 08/06/20 08/06/20 Unknown History Omeprazole 40 mg PO DAILY 08/06/20 08/06/20 Unknown History Rivaroxaban [Xarelto] 20 mg PO QDAY 08/06/20 08/06/20 Unknown History Sacubitril/Valsartan [Entresto 1 each PO BID 08/06/20 08/06/20 Unknown History 49-51 mg] Sertraline [Zoloft] 25 mg PO QDAY 08/06/20 08/06/20 Unknown History Spironolactone [Aldactone] 25 ng PO DAILY 08/06/20 08/06/20 Unknown History Torsemide [Demadex] 50 mg PO DAILY 08/06/20 08/06/20 Unknown History Zolpidem [Ambien] 5 mg PO QHS PRN 08/06/20 08/06/20 Unknown History carvediloL [Coreg] 6.25 mg PO BID 08/06/20 08/06/20 Unknown History traZODone [Desyrel] 50 mg PO QHS 08/06/20 08/06/20 Unknown History Active Medications: Generic Name Dose Route Start Last Admin Trade Name Freq PRN Reason Stop Dose Admin Lipase/Protease/Amylase 1 each 08/09/20 10:00 Nerissa Russell 10,500 Unit FEEDTUBE PRN PRN For Clogged Feeding Tube Dextrose 0 ml 08/06/20 22:56 D50w (25gm) Syringe IV Q30MIN PRN Hypoglycemia Protocol Heparin Sodium (Porcine) 5,000 unit 08/07/20 10:45 08/12/20 21:48 Heparin SUB-Q 5,000 unit Q12HR JULIET Administration Metronidazole 500 mg in 100 mls @ 100 mls/hr 08/09/20 09:00 08/13/20 06:11 Flagyl 500 Mg/100 Ml IV 100 mls/hr Q8HR JULIET Administration Protocol Cefepime HCl 2 gm in 100 mls @ 200 mls/hr 08/09/20 22:00 08/12/20 21:49 Cefepime/Ns 2 Gm/100 Ml IV 200 mls/hr Q12HR JULIET Administration Protocol Sodium Chloride 1,000 mls @ 42 mls/hr 08/12/20 12:45 08/12/20 13:20 Nacl 0.9% 1000 Ml IV 42 mls/hr DIRECT JULIET Administration Insulin Glargine 5 units 08/08/20 13:30 08/12/20 09:05 Lantus SUB-Q Not Given DAILY [facility] Insulin Human Lispro 0 unit 08/07/20 06:00 08/13/20 06:21 Humalog SUB-Q Not Given Q6HR [facility] Protocol Morphine Sulfate 2 mg 08/06/20 18:40 08/13/20 06:14 Morphine IV 2 mg Q4H PRN Administration Pain, Moderate (4-6) Pantoprazole Sodium 40 mg 08/11/20 07:30 08/12/20 09:04 Protonix PO Not Given QDAC [facility] Prochlorperazine Maleate 10 mg 08/07/20 19:01 08/08/20 11:50 Compazine PO 10 mg Q6H PRN Administration Nausea And Vomiting Simple Syrup 15 ml 08/09/20 10:00 Simple Syrup FEEDTUBE PRN PRN Hypoglycemia Simple Syrup 30 ml 08/09/20 10:00 Simple Syrup FEEDTUBE PRN PRN Hypoglycemia Sodium Bicarbonate 325 mg 08/09/20 10:00 Sodium Bicarbonate FEEDTUBE PRN PRN For Clogged Feeding Tube Sodium Chloride 10 ml 08/06/20 22:00 08/12/20 21:49 Sodium Chloride Flush Syringe 10 Ml IV 10 ml BID JULIET Administration Sodium Chloride 10 ml 08/06/20 18:40 Sodium Chloride Flush Syringe 10 Ml IV PRN PRN LINE FLUSH
[2020-08-13] MEDS: HEPARIN 5,000 UNIT/1 ML VIAL SUB-Q SCH ×2 (10:00→22:02)
[2020-08-13] MEDS: CEFEPIME/NS 2 GM/100 ML 2 GM/100 ML BAG IV SCH ×2 (10:09→22:01)
[2020-08-13] MEDS: PANTOPRAZOLE 40 MG TAB PO SCH (10:14)
[2020-08-13] MEDS: INSULIN GLARGINE 100 UNITS/ML SUB-Q SCH (10:29)
--- NOTE | 2020-08-13 11:22 | Progress Note ---
Assessment and Plan 70 yo M s/p laparoscopic cholecystectomy, IOC, POD 1 1. acute cholecystitis 2. choledocolithiasis 3. CHF 4. CAD Plan: 1. adv diet as eddie 2. continue abx per ID 3. trend LFTs, Bilirubin - improving 4. PT/OOB/ambulate 5. IS/pulm toilet 6. CBC in am tomorrow, ok to resume anticoagulation if Hb stable and no additional procedures planned 7. dc planning to SNF Plan discussed with patient and his on the telephone Thank you, please call with questions. Subjective Date of service: 08/13/20 Narrative: Pt seen and examined. c/o heartburn. No abdominal pain. Tolerating cld without n/v. No f/c Objective Vital Signs - 12hr 08/12/20 08/13/20 08/13/20 23:53 04:16 06:14 Temperature 98.7 F 98.4 F Pulse Rate 66 Respiratory 18 18 18 Rate Blood Pressure 104/43 128/57 O2 Sat by Pulse 96 98 Oximetry 08/13/20 08/13/20 07:37 07:43 Temperature 98.5 F Pulse Rate 86 Respiratory 18 Rate Blood Pressure 151/78 O2 Sat by Pulse 93 93 Oximetry - General physical appearance Narrative Exam: Gen: AAOx3. NAD CV: s1, S2+ Resp; even and unlabored Abd:soft, NT, ND. Incisions c/d/i Ext: no c/c/e - Labs 08/11/20 04:22 08/13/20 07:46 Diabetes panel 08/13/20 Range/Units 07:46 Sodium 138 (137-145) mmol/L Potassium 4.1 (3.6-5.0) mmol/L Chloride 101.8 (98-107) mmol/L Carbon Dioxide 23 (22-30) mmol/L BUN 33 H (9-20) mg/dL Creatinine 1.1 (0.8-1.3) mg/dL Glucose 185 H (75-100) mg/dL Calcium 8.4 (8.4-10.2) mg/dL AST 46 H (5-40) units/L ALT 42 (7-56) units/L Alkaline Phosphatase 542 H (35-129) units/L Total Protein 5.5 L (6.3-8.2) g/dL Albumin 2.7 L (3.9-5) g/dL Calcium panel 08/13/20 Range/Units 07:46 Calcium 8.4 (8.4-10.2) mg/dL Albumin 2.7 L (3.9-5) g/dL Pituitary panel 08/13/20 Range/Units 07:46 Sodium 138 (137-145) mmol/L Potassium 4.1 (3.6-5.0) mmol/L Chloride 101.8 (98-107) mmol/L Carbon Dioxide 23 (22-30) mmol/L BUN 33 H (9-20) mg/dL Creatinine 1.1 (0.8-1.3) mg/dL Glucose 185 H (75-100) mg/dL Calcium 8.4 (8.4-10.2) mg/dL Adrenal panel 08/13/20 Range/Units 07:46 Sodium 138 (137-145) mmol/L Potassium 4.1 (3.6-5.0) mmol/L Chloride 101.8 (98-107) mmol/L Carbon Dioxide 23 (22-30) mmol/L BUN 33 H (9-20) mg/dL Creatinine 1.1 (0.8-1.3) mg/dL Glucose 185 H (75-100) mg/dL Calcium 8.4 (8.4-10.2) mg/dL Total Bilirubin 3.30 H (0.1-1.2) mg/dL AST 46 H (5-40) units/L ALT 42 (7-56) units/L Alkaline Phosphatase 542 H (35-129) units/L Total Protein 5.5 L (6.3-8.2) g/dL Albumin 2.7 L (3.9-5) g/dL
--- NOTE | 2020-08-13 11:24 | Progress Note ---
Assessment and Plan Cultures: Blood culture 08/06/2020 Coag-neg Staph 1 bottle Blood culture 08/08/2020 no growth today Urine culture 08/08/2020 neg SARS COV-2 PCR neg A/P: 70-year-old man past medical history CHF, continue dependence, DM 2 ad mitted with weakness, found to have cholecystitis and gram-positive bacteremia #Septic shock: Patient off pressors, leukocytosis resolved, secondary to acute cholecystitis #Acute cholecystitis: Status post ERCP, cold biopsy, sphincterectomy and balloon sweep of CBD. Status post laparoscopic cholecystectomy on 08/12/2020 findings dense adhesions. #Coag-neg Staph bacteremia: likely a contaminant, repeat blood cultures negative. #ROBERTH: Renally adjust antibiotics, resolved #Pyuria: Urine culture negative. Recs: -Stop cefepime 2 g IV every 12 hours -day 5 -Stop metronidazole 500 g IV every 8 hours -day 5 Monitor off antibiotics Will sign off Please call us back if any question Pao Ashley MD [facility] ([facility]) Office [phone] Subjective Date of service: 08/13/20 Principal diagnosis: Gallstones Interval history: Patient feels okay denies abdominal pain no fever. Objective - Exam Narrative Exam: General appearance: Alert in NAD Eyes: anicteric sclerae, moist conjunctivae; no lid-lag; PERRLA HENT: Atraumatic; oropharynx clear with moist mucous membranes and no oral thrush; normal hard and soft palate. Lungs: CTA, with normal respiratory effort and no intercostal retractions CV: RRR no murmur Abdomen: Soft, mild tenderness, laparoscopic surgical wounds okay Extremities: no edema, no cyanosis Skin: No rash. Psych: Nonagitated Neuro: alert and oriented moving all extremities - Constitutional Vitals: Vital Signs Temp Pulse Resp BP Pulse Ox 98.5 F 86 18 151/78 93 08/13/20 07:37 08/13/20 07:37 08/13/20 07:37 08/13/20 07:37 08/13/20 07:43 Temperature -Last 24 Hours Temperature 98.5 F Temperature 98.4 F Temperature 98.7 F Temperature 99.3 F Temperature 98.4 F Temperature 97.2 F Temperature 98.8 F Temperature 98.8 F Temperature 98.0 F - Labs CBC & Chem 7: 08/11/20 04:22 08/13/20 07:46 Labs: Abnormal lab results 08/12/20 08/12/20 08/12/20 Range/Units 11:44 17:37 18:18 BUN (9-20) mg/dL Glucose (75-100) mg/dL POC Glucose 170 H 255 H 262 H (70-105) Total Bilirubin (0.1-1.2) mg/dL AST (5-40) units/L Alkaline Phosphatase (35-129) units/L Total Protein (6.3-8.2) g/dL Albumin (3.9-5) g/dL 08/12/20 08/13/20 08/13/20 Range/Units 18:52 00:09 05:53 BUN (9-20) mg/dL Glucose (75-100) mg/dL POC Glucose 265 H 198 H 107 H (70-105) Total Bilirubin (0.1-1.2) mg/dL AST (5-40) units/L Alkaline Phosphatase (35-129) units/L Total Protein (6.3-8.2) g/dL Albumin (3.9-5) g/dL 08/13/20 08/13/20 Range/Units 06:02 07:46 BUN 33 H (9-20) mg/dL Glucose 185 H (75-100) mg/dL POC Glucose 207 H (70-105) Total Bilirubin 3.30 H (0.1-1.2) mg/dL AST 46 H (5-40) units/L Alkaline Phosphatase 542 H (35-129) units/L Total Protein 5.5 L (6.3-8.2) g/dL Albumin 2.7 L (3.9-5) g/dL
--- NOTE | 2020-08-13 12:11 | Gastroenterology Progress Note ---
Assessment and Plan - Patient Problems (1) Choledocholithiasis with acute cholecystitis Current Visit: Yes Status: Acute Plan to address problem: - ERCP 08/10 with removal of a large amount of sludge and gallstones. - LFTs remain elevated, but improving daily after cholecystectomy. - IOC had no filling of intrahepatic ducts, but with large sphincterotomy, may be normal. - OK to d/c home tomorrow if tolerates PO per our service. - No need for antibiotics at discharge. - OK to resume home anticoagulation tomorrow if stable. - Patient to f/u in our clinic in 4-6 weeks to recheck the LFTs. - Will sign off; please call if needed. Subjective Date of service: 08/13/20 Principal diagnosis: Gallstones Interval history: The patient denies N/V, and his abdominal pain is minimal. He wants to eat. No blood in his stools. Objective - Constitutional Vitals: Temp Pulse Resp BP Pulse Ox 98.5 F 86 18 151/78 93 08/13/20 07:37 08/13/20 07:37 08/13/20 07:37 08/13/20 07:37 08/13/20 07:43 General appearance: no acute distress - Respiratory Respiratory effort: normal Respiratory: bilateral: CTA - Cardiovascular Rhythm: regular Heart Sounds: Present: S1 & S2 - Gastrointestinal General gastrointestinal: Present: soft, non-tender, non-distended - Labs CBC & Chem 7: 08/11/20 04:22 08/13/20 07:46 Labs: Laboratory Results - last 24 hr 08/12/20 08/12/20 08/12/20 11:44 13:21 17:37 Sodium Potassium Chloride Carbon Dioxide Anion Gap BUN Creatinine Estimated GFR BUN/Creatinine Ratio Glucose POC Glucose 170 H 98 255 H Calcium Total Bilirubin AST ALT Alkaline Phosphatase Total Protein Albumin Albumin/Globulin Ratio 08/12/20 08/12/20 08/13/20 18:18 18:52 00:09 Sodium Potassium Chloride Carbon Dioxide Anion Gap BUN Creatinine Estimated GFR BUN/Creatinine Ratio Glucose POC Glucose 262 H 265 H 198 H Calcium Total Bilirubin AST ALT Alkaline Phosphatase Total Protein Albumin Albumin/Globulin Ratio 08/13/20 08/13/20 08/13/20 05:53 06:02 07:46 Sodium 138 Potassium 4.1 Chloride 101.8 Carbon Dioxide 23 Anion Gap 17 BUN 33 H Creatinine 1.1 Estimated GFR > 60 BUN/Creatinine Ratio 30 Glucose 185 H POC Glucose 107 H 207 H Calcium 8.4 Total Bilirubin 3.30 H AST 46 H ALT 42 Alkaline Phosphatase 542 H Total Protein 5.5 L Albumin 2.7 L Albumin/Globulin Ratio 1.0 08/13/ 12:00 Sodium Potassium Chloride Carbon Dioxide Anion Gap BUN Creatinine Estimated GFR BUN/Creatinine Ratio Glucose POC Glucose 228 H Calcium Total Bilirubin AST ALT Alkaline Phosphatase Total Protein Albumin Albumin/Globulin Ratio
--- NOTE | 2020-08-13 14:46 | Progress Note ---
Assessment and Plan Severe Sepsis with Shock Acute cholecystitis Acute kidney injury (ROBERTH) with acute tubular necrosis (ATN) Acute metabolic encephalopathy Gm +ve bacteremia PUI with COVID 19 CHF Paroxysmal atrial fibrillation Elevated transaminases Coronary artery disease - post-op wound care per Surgeon - advance diet per surgeon - continue care as below otherwise; - supplemental oxygen to keep O2 sats > 90% - continue Bronchodilators (XOCHITL) with pulm hygiene per RT - continue antiinfectoives per ID rec's (Cefepime, Flagyl); follow cultures, trend WBC - continue to avoid nephrotoxins, renally dose all medications - mobility protocols to prevent pressure ulcers - PT/OT as tolerated - Wound care per RN/WCT - accuchecks with glycemic control per SSI for target blood glucose < 180 mg/dL - prn analgesia per pain score - GI & VTE prophylaxis - Flu & pneumovax per protocol - continue other care per attending / other consultants ... re-evaluate in am & prn Subjective Date of service: 08/13/20 Principal diagnosis: Septic Shock; Ac. cholecystitis; ROBERTH; Gm +ve bacteremia; PAF; CAD Interval history: Patient is seen today for: Severe Sepsis with Shock; Acute cholecystitis; ROBERTH (ATN); Acute metabolic encephalopathy; Gm +ve bacteremia; PUI COVID 19; CHF; Paroxysmal atrial fibrillation; Elevated transaminases; Coronary artery disease Seen and examined at bedside; 24hour events reviewed; nursing and respiratory care staff consulted; no adverse overnight events reported to me; resting peacefully in bed; successful lap-rachel yesterday; no N/V/F/C Objective Vital Signs - 12hr 08/13/20 08/13/20 08/13/20 04:16 06:14 07:37 Temperature 98.4 F 98.5 F Pulse Rate 86 Respiratory 18 18 18 Rate Respiratory Rate [Abdomen] Blood Pressure 128/57 151/78 O2 Sat by Pulse 98 93 Oximetry 08/13/20 08/13/20 07:43 10:00 Temperature Pulse Rate Respiratory Rate Respiratory 18 Rate [Abdomen] Blood Pressure O2 Sat by Pulse 93 Oximetry Constitutional: no acute distress, alert, other (elderly male with mildly increased respiratory effort at rest) Eyes: icteric ENT: oropharynx moist, other (mallampati 2) Neck: supple, no lymphadenopathy, no JVD Effort: mildly labored Ascultation: Bilateral: clear, diminished breath sounds Percussion: Bilateral: not dull Cardiovascular: regular rate and rhythm Gastrointestinal: normoactive bowel sounds, soft, tender (RUQ mild), non- distended Integumentary: normal Extremities: no cyanosis, no edema, pink and warm, pulses normal, no ischemia or petechiae Neurologic: non-focal exam, pupils equal and round, CN II-XII normal, motor strength normal and Psychiatric: mood appropriate, affect normal CBC and BMP: 08/11/20 04:22 08/13/20 07:46 ABG, PT/INR, D-dimer: PT/INR, D-dimer PT 13.8 Sec. (12.2-14.9) 08/10/20 04:10 INR 1.04 (0.87-1.13) 08/10/20 04:10 Abnormal lab findings: Abnormal Labs 08/06/20 08/06/20 08/06/20 14:42 14:42 14:42 WBC Hgb Hct MCV 82 L MCHC 35 H RDW 22.0 H Lymph % (Auto) Lymph # [place] % (Auto) Lymph # (Auto) [place] # (Auto) Eos # (Auto) Seg Neutrophils % Seg Neuts % (Manual) 89.0 H Lymphocytes % (Manual) 6.0 L Seg Neutrophils # Seg Neutrophils # Man 8.9 H Lymphocytes # (Manual) 0.6 L APTT 37.2 H Sodium 134 L Potassium Chloride 83.6 L BUN 82 H Creatinine 4.5 H Glucose 205 H POC Glucose Lactic Acid Calcium Phosphorus Magnesium Total Bilirubin 9.70 H AST 63 H ALT 82 H Alkaline Phosphatase 263 H Direct Bilirubin Total Creatine Kinase Troponin T 0.036 H NT-Pro-B Natriuret Pep Total Protein Albumin 3.4 L Urine WBC (Auto) Urine Creatinine 08/06/20 08/06/20 08/06/20 14:42 14:42 14:42 WBC Hgb Hct MCV MCHC RDW Lymph % (Auto) Lymph # [place] % (Auto) Lymph # (Auto) [place] # (Auto) Eos # (Auto) Seg Neutrophils % Seg Neuts % (Manual) Lymphocytes % (Manual) Seg Neutrophils # Seg Neutrophils # Man Lymphocytes # (Manual) APTT Sodium Potassium Chloride BUN Creatinine Glucose POC Glucose Lactic Acid 4.60 H* Calcium Phosphorus 6.80 H Magnesium 1.60 L Total Bilirubin AST ALT Alkaline Phosphatase Direct Bilirubin Total Creatine Kinase 240 H Troponin T NT-Pro-B Natriuret Pep 05692 H Total Protein Albumin Urine WBC (Auto) Urine Creatinine 08/06/20 08/06/20 08/06/20 15:34 18:33 18:50 WBC Hgb Hct MCV MCHC RDW Lymph % (Auto) Lymph # [place] % (Auto) Lymph # (Auto) [place] # (Auto) Eos # (Auto) Seg Neutrophils % Seg Neuts % (Manual) Lymphocytes % (Manual) Seg Neutrophils # Seg Neutrophils # Man Lymphocytes # (Manual) APTT Sodium Potassium Chloride BUN Creatinine Glucose POC Glucose Lactic Acid 4.10 H* 3.60 H* Calcium Phosphorus Magnesium 1.60 L Total Bilirubin AST ALT Alkaline Phosphatase Direct Bilirubin Total Creatine Kinase Troponin T NT-Pro-B Natriuret Pep Total Protein Albumin Urine WBC (Auto) Urine Creatinine 08/06/20 08/06/20 08/07/20 21:09 22:04 00:06 WBC Hgb Hct MCV MCHC RDW Lymph % (Auto) Lymph # [place] % (Auto) Lymph # (Auto) [place] # (Auto) Eos # (Auto) Seg Neutrophils % Seg Neuts % (Manual) Lymphocytes % (Manual) Seg Neutrophils # Seg Neutrophils # Man Lymphocytes # (Manual) APTT Sodium Potassium Chloride BUN Creatinine Glucose POC Glucose 188 H Lactic Acid 2.10 H* Calcium Phosphorus Magnesium Total Bilirubin AST ALT Alkaline Phosphatase Direct Bilirubin Total Creatine Kinase Troponin T NT-Pro-B Natriuret Pep Total Protein Albumin Urine WBC (Auto) 20.0 H Urine Creatinine 08/07/20 08/07/20 08/07/20 04:00 04:00 05:56 WBC Hgb Hct 34.3 L MCV 81 L MCHC 36 H RDW 21.9 H Lymph % (Auto) 6.0 L Lymph # 0.6 L [place] % (Auto) Lymph # (Auto) [place] # (Auto) Eos # (Auto) Seg Neutrophils % 89.4 H Seg Neuts % (Manual) Lymphocytes % (Manual) Seg Neutrophils # 9.3 H Seg Neutrophils # Man Lymphocytes # (Manual) APTT Sodium 136 L Potassium Chloride 88.5 L BUN 87 H Creatinine 3.7 H Glucose 187 H POC Glucose 190 H Lactic Acid Calcium 7.8 L Phosphorus Magnesium Total Bilirubin 9.60 H AST 53 H ALT 66 H Alkaline Phosphatase 264 H Direct Bilirubin Total Creatine Kinase Troponin T NT-Pro-B Natriuret Pep Total Protein 6.2 L Albumin 3.1 L Urine WBC (Auto) Urine Creatinine 08/07/20 08/07/20 08/07/20 07:50 10:13 12:36 WBC Hgb Hct MCV MCHC RDW Lymph % (Auto) Lymph # [place] % (Auto) Lymph # (Auto) [place] # (Auto) Eos # (Auto) Seg Neutrophils % Seg Neuts % (Manual) Lymphocytes % (Manual) Seg Neutrophils # Seg Neutrophils # Man Lymphocytes # (Manual) APTT Sodium Potassium Chloride BUN Creatinine Glucose POC Glucose 197 H 205 H Lactic Acid Calcium Phosphorus Magnesium Total Bilirubin AST ALT Alkaline Phosphatase Direct Bilirubin Total Creatine Kinase Troponin T NT-Pro-B Natriuret Pep Total Protein Albumin Urine WBC (Auto) Urine Creatinine 77.8 H 08/07/20 08/07/20 08/08/20 17:36 21:49 04:57 WBC Hgb Hct MCV MCHC RDW Lymph % (Auto) Lymph # [place] % (Auto) Lymph # (Auto) [place] # (Auto) Eos # (Auto) Seg Neutrophils % Seg Neuts % (Manual) Lymphocytes % (Manual) Seg Neutrophils # Seg Neutrophils # Man Lymphocytes # (Manual) APTT Sodium Potassium 3.3 L Chloride BUN 76 H Creatinine 2.0 H Glucose 353 H POC Glucose 240 H 218 H Lactic Acid Calcium 7.7 L Phosphorus Magnesium Total Bilirubin 8.00 H AST 46 H ALT 57 H Alkaline Phosphatase 348 H Direct Bilirubin Total Creatine Kinase Troponin T NT-Pro-B Natriuret Pep Total Protein 6.0 L Albumin 2.5 L Urine WBC (Auto) Urine Creatinine 08/08/20 08/08/20 08/08/20 08:06 11:52 17:52 WBC Hgb Hct MCV MCHC RDW Lymph % (Auto) Lymph # [place] % (Auto) Lymph # (Auto) [place] # (Auto) Eos # (Auto) Seg Neutrophils % Seg Neuts % (Manual) Lymphocytes % (Manual) Seg Neutrophils # Seg Neutrophils # Man Lymphocytes # (Manual) APTT Sodium Potassium Chloride BUN Creatinine Glucose POC Glucose 258 H 245 H 251 H Lactic Acid Calcium Phosphorus Magnesium Total Bilirubin AST ALT Alkaline Phosphatase Direct Bilirubin Total Creatine Kinase Troponin T NT-Pro-B Natriuret Pep Total Protein Albumin Urine WBC (Auto) Urine Creatinine 08/08/20 08/09/20 08/09/20 23:49 04:00 04:00 WBC 11.3 H Hgb Hct 35.0 L MCV 81 L MCHC 35 H RDW 21.6 H Lymph % (Auto) Lymph # [place] % (Auto) Lymph # (Auto) [place] # (Auto) Eos # (Auto) Seg Neutrophils % Seg Neuts % (Manual) 91.0 H Lymphocytes % (Manual) 3.0 L Seg Neutrophils # Seg Neutrophils # Man 10.3 H Lymphocytes # (Manual) 0.3 L APTT Sodium Potassium 3.5 L Chloride BUN 53 H Creatinine 1.5 H Glucose 188 H POC Glucose 220 H Lactic Acid Calcium 7.8 L Phosphorus Magnesium 2.50 H Total Bilirubin 5.10 H AST 63 H ALT 61 H Alkaline Phosphatase 476 H Direct Bilirubin Total Creatine Kinase Troponin T NT-Pro-B Natriuret Pep Total Protein 5.9 L Albumin 3.0 L Urine WBC (Auto) Urine Creatinine 08/09/20 08/09/20 08/10/20 05:29 12:12 00:11 WBC Hgb Hct MCV MCHC RDW Lymph % (Auto) Lymph # [place] % (Auto) Lymph # (Auto) [place] # (Auto) Eos # (Auto) Seg Neutrophils % Seg Neuts % (Manual) Lymphocytes % (Manual) Seg Neutrophils # Seg Neutrophils # Man Lymphocytes # (Manual) APTT Sodium Potassium Chloride BUN Creatinine Glucose POC Glucose 181 H 206 H 181 H Lactic Acid Calcium Phosphorus Magnesium Total Bilirubin AST ALT Alkaline Phosphatase Direct Bilirubin Total Creatine Kinase Troponin T NT-Pro-B Natriuret Pep Total Protein Albumin Urine WBC (Auto) Urine Creatinine 08/10/20 08/10/20 08/10/20 04:10 05:59 11:53 WBC Hgb Hct MCV MCHC RDW Lymph % (Auto) Lymph # [place] % (Auto) Lymph # (Auto) [place] # (Auto) Eos # (Auto) Seg Neutrophils % Seg Neuts % (Manual) Lymphocytes % (Manual) Seg Neutrophils # Seg Neutrophils # Man Lymphocytes # (Manual) APTT Sodium Potassium Chloride BUN 38 H Creatinine Glucose 176 H POC Glucose 182 H 187 H Lactic Acid Calcium 8.3 L Phosphorus Magnesium Total Bilirubin 5.00 H AST 60 H ALT 61 H Alkaline Phosphatase 543 H Direct Bilirubin Total Creatine Kinase Troponin T NT-Pro-B Natriuret Pep Total Protein 5.7 L Albumin 2.8 L Urine WBC (Auto) Urine Creatinine 09/08/10/20 08/11/20 17:28 23:20 04:22 WBC 11.6 H Hgb 11.3 L Hct 33.2 L MCV 83 L MCHC RDW 20.9 H Lymph % (Auto) 9.6 L Lymph # [place] % (Auto) 10.0 H Lymph # (Auto) 1.1 L [place] # (Auto) 1.2 H Eos # (Auto) 0.5 H Seg Neutrophils % 75.9 H Seg Neuts % (Manual) Lymphocytes % (Manual) Seg Neutrophils # 8.8 H Seg Neutrophils # Man Lymphocytes # (Manual) APTT Sodium Potassium Chloride BUN Creatinine Glucose POC Glucose 187 H 283 H Lactic Acid Calcium Phosphorus Magnesium Total Bilirubin AST ALT Alkaline Phosphatase Direct Bilirubin Total Creatine Kinase Troponin T NT-Pro-B Natriuret Pep Total Protein Albumin Urine WBC (Auto) Urine Creatinine 08/11/20 08/11/20 08/11/20 04:22 05:38 11:47 WBC Hgb Hct MCV MCHC RDW Lymph % (Auto) Lymph # [place] % (Auto) Lymph # (Auto) [place] # (Auto) Eos # (Auto) Seg Neutrophils % Seg Neuts % (Manual) Lymphocytes % (Manual) Seg Neutrophils # Seg Neutrophils # Man Lymphocytes # (Manual) APTT Sodium 136 L Potassium Chloride BUN 34 H Creatinine Glucose 105 H POC Glucose 117 H 164 H Lactic Acid Calcium 8.1 L Phosphorus Magnesium Total Bilirubin 5.30 H AST 50 H ALT Alkaline Phosphatase 577 H Direct Bilirubin 4.3 H Total Creatine Kinase Troponin T NT-Pro-B Natriuret Pep Total Protein 5.0 L Albumin 2.3 L Urine WBC (Auto) Urine Creatinine 08/11/20 08/12/20 08/12/20 17:23 00:06 04:41 WBC Hgb Hct MCV MCHC RDW Lymph % (Auto) Lymph # [place] % (Auto) Lymph # (Auto) [place] # (Auto) Eos # (Auto) Seg Neutrophils % Seg Neuts % (Manual) Lymphocytes % (Manual) Seg Neutrophils # Seg Neutrophils # Man Lymphocytes # (Manual) APTT Sodium 136 L Potassium Chloride BUN 27 H Creatinine Glucose 160 H POC Glucose 178 H 180 H Lactic Acid Calcium 8.2 L Phosphorus Magnesium Total Bilirubin 4.50 H AST ALT Alkaline Phosphatase 550 H Direct Bilirubin Total Creatine Kinase Troponin T NT-Pro-B Natriuret Pep Total Protein 5.3 L Albumin 2.6 L Urine WBC (Auto) Urine Creatinine 08/12/20 08/12/20 08/12/20 05:17 11:44 17:37 WBC Hgb Hct MCV MCHC RDW Lymph % (Auto) Lymph # [place] % (Auto) Lymph # (Auto) [place] # (Auto) Eos # (Auto) Seg Neutrophils % Seg Neuts % (Manual) Lymphocytes % (Manual) Seg Neutrophils # Seg Neutrophils # Man Lymphocytes # (Manual) APTT Sodium Potassium Chloride BUN Creatinine Glucose POC Glucose 160 H 170 H 255 H Lactic Acid Calcium Phosphorus Magnesium Total Bilirubin AST ALT Alkaline Phosphatase Direct Bilirubin Total Creatine Kinase Troponin T NT-Pro-B Natriuret Pep Total Protein Albumin Urine WBC (Auto) Urine Creatinine 08/12/20 08/12/20 08/13/20 18:18 18:52 00:09 WBC Hgb Hct MCV MCHC RDW Lymph % (Auto) Lymph # [place] % (Auto) Lymph # (Auto) [place] # (Auto) Eos # (Auto) Seg Neutrophils % Seg Neuts % (Manual) Lymphocytes % (Manual) Seg Neutrophils # Seg Neutrophils # Man Lymphocytes # (Manual) APTT Sodium Potassium Chloride BUN Creatinine Glucose POC Glucose 262 H 265 H 198 H Lactic Acid Calcium Phosphorus Magnesium Total Bilirubin AST ALT Alkaline Phosphatase Direct Bilirubin Total Creatine Kinase Troponin T NT-Pro-B Natriuret Pep Total Protein Albumin Urine WBC (Auto) Urine Creatinine 08/13/20 08/13/20 08/13/20 05:53 06:02 07:46 WBC Hgb Hct MCV MCHC RDW Lymph % (Auto) Lymph # [place] % (Auto) Lymph # (Auto) [place] # (Auto) Eos # (Auto) Seg Neutrophils % Seg Neuts % (Manual) Lymphocytes % (Manual) Seg Neutrophils # Seg Neutrophils # Man Lymphocytes # (Manual) APTT Sodium Potassium Chloride BUN 33 H Creatinine Glucose 185 H POC Glucose 107 H 207 H Lactic Acid Calcium Phosphorus Magnesium Total Bilirubin 3.30 H AST 46 H ALT Alkaline Phosphatase 542 H Direct Bilirubin Total Creatine Kinase Troponin T NT-Pro-B Natriuret Pep Total Protein 5.5 L Albumin 2.7 L Urine WBC (Auto) Urine Creatinine 08/13/20 12:00 WBC Hgb Hct MCV MCHC RDW Lymph % (Auto) Lymph # [place] % (Auto) Lymph # (Auto) [place] # (Auto) Eos # (Auto) Seg Neutrophils % Seg Neuts % (Manual) Lymphocytes % (Manual) Seg Neutrophils # Seg Neutrophils # Man Lymphocytes # (Manual) APTT Sodium Potassium Chloride BUN Creatinine Glucose POC Glucose 228 H Lactic Acid Calcium Phosphorus Magnesium Total Bilirubin AST ALT Alkaline Phosphatase Direct Bilirubin Total Creatine Kinase Troponin T NT-Pro-B Natriuret Pep Total Protein Albumin Urine WBC (Auto) Urine Creatinine Allied health notes reviewed: nursing
--- NOTE | 2020-08-13 16:03 | Operative Report ---
PREOPERATIVE DIAGNOSES: Acute cholecystitis, choledocholithiasis. POSTOPERATIVE DIAGNOSES: Acute cholecystitis, choledocholithiasis. FINDINGS: 1. Inflammatory changes in the upper abdomen with dense adhesions from the stomach and liver to the anterior abdominal wall. 2. Dense adhesions from the omentum to the gallbladder. 3. Tortuous gallbladder with short cystic duct. 4. Cholangiogram showed normal and brisk filling of the common bile duct and duodenum without filling defect. The hepatic ducts did not fill with contrast. Injection of contrast into the distal cystic duct showed filling of only gallbladder. 5. Back table examination of the gallbladder showed only one duct, which was clipped, flushed with the neck of the gallbladder and a very small artery. No other structures seen entering the gallbladder. PROCEDURE: Laparoscopic cholecystectomy with intraoperative cholangiogram. ANESTHESIA: General endotracheal anesthesia, local. SURGEON: María Turner DO SECURITY PUBLIC SAFETY OFFICER: DAMASO Zarate ESTIMATED BLOOD LOSS: Minimal. PATHOLOGY: Gallbladder. SPECIMEN DISPOSITION: To lab. DISCHARGE DISPOSITION: The patient is stable to PACU. HISTORY OF PRESENT ILLNESS AND INDICATIONS: The patient is a 70-year-old male who presented to the hospital with weakness and hypotension. The patient was treated for sepsis and workup revealed choledocholithiasis and acute cholecystitis. Surgery was consulted. After aggressive resuscitation and Cardiology clearance, the patient underwent an ERCP during which time a sphincterotomy was performed and multiple stones and sludge were retrieved from the common bile duct. It was recommended that the patient to undergo a cholecystectomy. All risks, benefits and alternatives to surgery were discussed with the patient and questions answered. Consent was obtained for laparoscopic cholecystectomy with intraoperative cholangiogram. PROCEDURE IN DETAIL: The patient was identified in the preoperative area and taken back to the operating room and placed on the operating table in supine position. After anesthesia was induced, the abdomen was prepped and draped in the usual sterile fashion. Timeout was performed. Local anesthetic was infiltrated into all skin incision sites. A supraumbilical incision was made through which a Veress needle was inserted. The Veress needle position was confirmed using saline drop test and the abdomen insufflated to 15 mmHg. Once the abdomen was insufflated, the Veress needle was removed and a 5 mm Optiview trocar placed through this incision. The abdomen was inspected. There was no underlying injury to any of the abdominal structures. Upon examination of the upper abdomen, there were dense adhesions from the right and left lobe of the liver along with the stomach to the anterior abdominal wall. There was also some bilious-appearing fluid in the right upper quadrant as well as staining in the left upper quadrant. The gallbladder was partially obscured by omental adhesions to the liver and the gallbladder. An additional 12 mm subxiphoid and two right-sided 5 mm trocars were placed under direct visualization. The patient was placed in reverse Trendelenburg and tilted to the left. I first started by very meticulously taking down the adhesions from the omentum to the gallbladder and liver. The duodenum was obscured by these adhesions and so a very careful dissection was performed in order to avoid underlying injury to important structures. Dissection was carried out using hook electrocautery as well as blunt dissection. As these adhesions were released, the gallbladder was more visible and was able to be grasped and retracted cephalad and above the liver. The adhesions were continued to be taken down until the entire gallbladder was visualized. The duodenum was also visible and without injury. The infundibulum of the gallbladder was scarred to the liver. The lateral and medial peritoneal reflections of the gallbladder were scored with electrocautery. I then proceeded to identify the cystic duct and artery. A meticulous dissection was performed using a combination of blunt dissection with a [place] as well as hook electrocautery. The cystic artery and duct were identified. The cystic artery had a tortuous course over and then posterior to the cystic duct. The cystic duct was seen entering directly into the gallbladder and was very short. The common bile duct was also visualized. Once the critical view was obtained, the cystic artery was clipped with 2 clips proximally and 1 distally and transected in between the clips using an EndoShear. A clip was then placed on the distal most aspect of the cystic duct and a ductotomy was made using the EndoShears. An angiocatheter was inserted into the proximal cystic duct and clamped with an Olson clamp. Injectable saline was then injected and flushed easily. The cholangiogram was then performed with omnipaque dye. The dye was injected into the cystic duct and there was brisk filling of the common bile duct and duodenum without any evidence of filling defect. No filling of the hepatic duct was seen. I then removed the clip from the distal cystic duct and inserted another Angiocath, which was clamped with an [facility] clamp. A retrograde cholangiogram was performed into the gallbladder and only Gallbladder filling was seen. The angiocatheters and clamps were then removed. The gallbladder was grasped and retracted cephalad and the proximal cystic duct was then clipped with 3 clips. The cystic duct was then transected using EndoShears. The remainder of the gallbladder was dissected off the liver bed using hook electrocautery and then placed into an EndoCatch bag. The gallbladder was removed via the 12 mm port and examined on the backtable. Only the cystic duct and artery were seen entering the gallbladder and no other tubular structures identified. We then proceeded to examine the gallbladder fossa, which was checked for hemostasis. There was no bleeding or bile leakage seen. The clips on the cystic duct and artery were visualized and intact. The Degroot's pouch was aspirated of any bilious fluid and then irrigated until the irrigant returned clear. The omentum was also checked for hemostasis, which was ensured. Jonah powder was sprayed on the liver bed and gallbladder fossa to further ensure hemostasis. The patient was then placed in neutral position and the 12 mm port fascia closed with an interrupted 0 Vicryl suture using the Doron-Matt device. The remainder of the ports were removed under direct visualization. The abdomen was desufflated. Skin incisions were once again infiltrated with local anesthetic and approximated using 4-0 Monocryl subcuticular stitch and skin glue. At the end of the case, all sponge, instrument, sharp counts were correct x 2. The case time was prolonged due to the dense adhesions to the gallbladder. Lysis of adhesions took approximately 45 minutes. The patient was awoken from anesthesia, extubated, and taken to PACU in stable condition. JOB# [id number]
[2020-08-13] MEDS: PROCHLORPERAZINE MALEATE 10 MG TAB PO PRN (18:57)
[2020-08-13] MEDS ORDERED: METOCLOPRAMIDE 10 MG/2 ML INJ IV PRN (20:22)
[2020-08-14 05:30] LABS: Hematocrit 34.9 % (35.5-45.6); Hemoglobin 11.9 gm/dl (11.8-15.2); Mean Corpuscular HGB Conc 34 % (32-34); Mean Corpuscular Volume 83 fl (84-94); Platelet Count 263 K/mm3 (140-440); Red Blood Count 4.19 M/mm3 (3.65-5.03)
[2020-08-14 05:45] LABS: Alanine Aminotransferase 36 units/L (7-56); Albumin 2.5 g/dL (3.9-5); BUN/Creatinine Ratio 32; Bilirubin,Direct 1.8 mg/dL (0-0.2); Blood Urea Nitrogen 29 mg/dL (9-20); Calcium 8.6 mg/dL (8.4-10.2); Hemolysis Index 17
[2020-08-14] MEDS: metroNIDAZOLE/NS 500 MG/100 ML 500 MG/100 ML BAG IV SCH (05:47)
[2020-08-14] MEDS: INSULIN LISPRO 100 UNIT/ML VIAL 3 mL SUB-Q SCH ×3 (05:50→18:50)
[2020-08-14] MEDS: PANTOPRAZOLE 40 MG TAB PO SCH (08:13)
[2020-08-14] MEDS: CEFEPIME/NS 2 GM/100 ML 2 GM/100 ML BAG IV SCH (09:53)
[2020-08-14] MEDS: HEPARIN 5,000 UNIT/1 ML VIAL SUB-Q SCH (09:53)
[2020-08-14] MEDS: INSULIN GLARGINE 100 UNITS/ML SUB-Q SCH (09:56)
--- NOTE | 2020-08-14 10:40 | Progress Note ---
Assessment and Plan 1. Acute kidney injury: Likely Vasomotor ROBERTH in the setting of shock. CT abdomen was negative for hydro. Monitor renal function. Creatinine level is better. Avoid nephrotoxic agents. Meds dosage based on GFR. 2. FEN: Mild Hyponatremia, improved. Replete Phos. Monitor lytes and volume status. 3. Shock: Improved. S/p abx. 4. Acute toxic encephalopathy, POA. 5. Acute cholelithiasis, POA: Obstructive jaundice. S/p ERCP with sphincterotomy and removal of multiple common bile duct stones and sludge 08/10. S/p laparoscopic cholecystectomy 08/12. Followed by Gen. Surgery. 6. DM type 2: Monitor. - Subjective: Patient was seen and examined at the bedside. Doing ok. - Examination: General appearance: well-developed, appears stated age, no distress HEENT: ATNC, icterus Neck: Trachea midline Respiratory: ctab Cardiology: regular, S1S2, no murmur Gastrointestinal: soft, not tender, not distended, BS heard Integumentary: no obvious rash Neurologic: alert, able to move extremities, some confusion noted Ext: no extremity edema Subjective Date of service: 08/14/20 Principal diagnosis: Septic Shock; Ac. cholecystitis; ROBERTH; Gm +ve bacteremia; PAF; CAD Objective - Vital Signs Vital signs: Vital Signs - 12hr 08/14/20 08/14/20 08/14/20 00:00 03:14 03:43 Temperature 99.0 F 98.0 F Pulse Rate 89 85 78 Pulse Rate [ From Monitor] Pulse Rate [ Left Dorsalis Pedis] Pulse Rate [ Left Radial] Pulse Rate [ Right Dorsalis Pedis] Pulse Rate [ Right Radial] Respiratory 20 18 Rate Blood Pressure 141/52 103/58 O2 Sat by Pulse 94 93 Oximetry 08/14/20 08/14/20 09:30 09:48 Temperature 98.2 F Pulse Rate 83 Pulse Rate [ 78 From Monitor] Pulse Rate [ 78 Left Dorsalis Pedis] Pulse Rate [ 78 Left Radial] Pulse Rate [ 78 Right Dorsalis Pedis] Pulse Rate [ 78 Right Radial] Respiratory 20 17 Rate Blood Pressure 121/48 O2 Sat by Pulse 91 98 Oximetry - Lab 08/14/20 04:35 08/14/20 04:35 Most recent lab results Magnesium 2.50 mg/dL (1.7-2.3) H 08/09/20 04:00 Calcium 8.6 mg/dL (8.4-10.2) 08/14/20 04:35 Phosphorus 1.80 mg/dL (2.5-4.5) L 08/14/20 04:35 Urine Creatinine 77.8 mg/dL (0.1-20.0) H 08/07/20 10:13 Urine Sodium 22 mmol/L 08/07/20 10:13 Medications & Allergies - Medications Allergies/Adverse Reactions: Allergies tetanus and diphtheria toxoids Adverse Reaction (Verified 08/06/20 14:20) Unknown Home Medications: Home Medications Medication Instructions Recorded Confirmed Last Taken Type Metformin HCl [metFORMIN] 1,000 mg PO BID 08/06/20 08/06/20 Unknown History Omeprazole 40 mg PO DAILY 08/06/20 08/06/20 Unknown History Rivaroxaban [Xarelto] 20 mg PO QDAY 08/06/20 08/06/20 Unknown History Sacubitril/Valsartan [Entresto 1 each PO BID 08/06/20 08/06/20 Unknown History 49-51 mg] Sertraline [Zoloft] 25 mg PO QDAY 08/06/20 08/06/20 Unknown History Spironolactone [Aldactone] 25 ng PO DAILY 08/06/20 08/06/20 Unknown History Torsemide [Demadex] 50 mg PO DAILY 08/06/20 08/06/20 Unknown History Zolpidem [Ambien] 5 mg PO QHS PRN 08/06/20 08/06/20 Unknown History carvediloL [Coreg] 6.25 mg PO BID 08/06/20 08/06/20 Unknown History traZODone [Desyrel] 50 mg PO QHS 08/06/20 08/06/20 Unknown History Active Medications: Generic Name Dose Route Start Last Admin Trade Name Freq PRN Reason Stop Dose Admin Lipase/Protease/Amylase 1 each 08/09/20 10:00 Nerissa Russell 10,500 Unit FEEDTUBE PRN PRN For Clogged Feeding Tube Dextrose 0 ml 08/06/20 22:56 D50w (25gm) Syringe IV Q30MIN PRN Hypoglycemia Protocol Heparin Sodium (Porcine) 5,000 unit 08/07/20 10:45 08/14/20 09:53 Heparin SUB-Q 5,000 unit Q12HR JULIET Administration Metronidazole 500 mg in 100 mls @ 100 mls/hr 08/09/20 09:00 08/14/20 05:47 Flagyl 500 Mg/100 Ml IV 100 mls/hr Q8HR JULIET Administration Protocol Cefepime HCl 2 gm in 100 mls @ 200 mls/hr 08/09/20 22:00 08/14/20 09:53 Cefepime/Ns 2 Gm/100 Ml IV 200 mls/hr Q12HR JULIET Administration Protocol Sodium Chloride 1,000 mls @ 42 mls/hr 08/12/20 12:45 08/12/20 13:20 Nacl 0.9% 1000 Ml IV 42 mls/hr DIRECT JULIET Administration Insulin Glargine 5 units 08/08/20 13:30 08/14/20 09:56 Lantus SUB-Q 5 units DAILY JULIET Administration Insulin Human Lispro 0 unit 08/07/20 06:00 08/14/20 05:50 Humalog SUB-Q Not Given Q6HR [facility] Protocol Metoclopramide HCl 10 mg 08/13/20 20:22 08/13/20 22:02 Reglan IV 10 mg Q6H PRN Administration Nausea And Vomiting Morphine Sulfate 2 mg 08/06/20 18:40 08/13/20 06:14 Morphine IV 2 mg Q4H PRN Administration Pain, Moderate (4-6) Pantoprazole Sodium 40 mg 08/11/20 07:30 08/14/20 08:13 Protonix PO 40 mg QDAC JULIET Administration Prochlorperazine Maleate 10 mg 08/07/20 19:01 08/13/20 18:57 Compazine PO 10 mg Q6H PRN Administration Nausea And Vomiting Simple Syrup 15 ml 08/09/20 10:00 Simple Syrup FEEDTUBE PRN PRN Hypoglycemia Simple Syrup 30 ml 08/09/20 10:00 Simple Syrup FEEDTUBE PRN PRN Hypoglycemia Sodium Bicarbonate 325 mg 08/09/20 10:00 Sodium Bicarbonate FEEDTUBE PRN PRN For Clogged Feeding Tube Sodium Chloride 10 ml 08/06/20 22:00 08/14/20 09:58 Sodium Chloride Flush Syringe 10 Ml IV 10 ml BID JULIET Administration Sodium Chloride 10 ml 08/06/20 18:40 Sodium Chloride Flush Syringe 10 Ml IV PRN PRN LINE FLUSH
[2020-08-14] MEDS ORDERED: PHOS-NAK POWDER PACKET PO ONE (11:00)
[2020-08-14] MEDS: SODIUM CHLORIDE 0.9% 1000 ML 1,000 ML IV SCH (11:30)
--- NOTE | 2020-08-14 11:45 | Progress Note ---
Subjective Date of service: 08/14/20 Principal diagnosis: Septic Shock; Ac. cholecystitis; ROBERTH; Gm +ve bacteremia; PAF; CAD Interval history: Assessment and Plan Acute cholecystitis status post lap cholecystectomy Acute renal failure improving History of systolic heart failure LVEF 30-35% by echo this admission no evidence of decompensation on entresto as an outpatient restart once creatinine is stable Aortic stenosis, moderate with a mean gradient of 22.6 History of coronary artery disease Dual-chamber AICD in situ Paroxysmal atrial fibrillation on Xarelto as an outpatient, we can restart per surgery Objective Vital Signs Temp Pulse Pulse Pulse Pulse Pulse Pulse 08/14/20 09:48 78 78 78 78 78 08/14/20 09:30 98.2 F 83 08/14/20 03:43 98.0 F 78 08/14/20 03:14 85 08/14/20 00:00 99.0 F 89 08/13/20 21:01 08/13/20 20:05 98.3 F 80 08/13/20 15:48 98.0 F 73 Resp BP Pulse Ox 08/14/20 09:48 17 98 08/14/20 09:30 20 121/48 91 08/14/20 03:43 18 103/58 93 08/14/20 03:14 08/14/20 00:00 20 141/52 94 08/13/20 21:01 93 08/13/20 20:05 20 130/61 90 08/13/20 15:48 18 140/60 98 - Physical Examination General: No Apparent Distress HEENT: Positive: PERRL Neck: Positive: neck supple Cardiac: Positive: S1/S2 Lungs: Positive: Normal Exam Neuro: Positive: Grossly Intact Abdomen: Positive: Soft Skin: Positive: Clear Extremities: Absent: edema - Labs and Meds Cardiac Enzymes 08/14/20 Range/Units 04:35 AST 39 (5-40) units/L CBC 08/14/20 Range/Units 04:35 WBC 15.5 H (4.5-11.0) K/mm3 RBC 4.19 (3.65-5.03) M/mm3 Hgb 11.9 (11.8-15.2) gm/dl Hct 34.9 L (35.5-45.6) % Plt Count 263 (140-440) K/mm3 Comprehensive Metabolic Panel 09/26/20 Range/Units 04:35 Sodium 141 (137-145) mmol/L Potassium 3.8 (3.6-5.0) mmol/L Chloride 102.1 (98-107) mmol/L Carbon Dioxide 26 (22-30) mmol/L BUN 29 H (9-20) mg/dL Creatinine 0.9 (0.8-1.3) mg/dL Glucose 158 H (75-100) mg/dL Calcium 8.6 (8.4-10.2) mg/dL Direct Bilirubin 1.8 H (0-0.2) mg/dL Indirect Bilirubin 0.9 mg/dL AST 39 (5-40) units/L ALT 36 (7-56) units/L Alkaline Phosphatase 484 H (35-129) units/L Total Protein 5.3 L (6.3-8.2) g/dL Albumin 2.5 L (3.9-5) g/dL - Allied health notes Allied health notes reviewed: nursing
[2020-08-14] MEDS ORDERED: RIVAROXABAN 10 MG TAB PO SCH (12:00)
--- NOTE | 2020-08-14 15:12 | Progress Note ---
Assessment and Plan Patient alert, awake. Patient suppose to keep Oxygen. Patient presently on room air. O2 saturation 92%. Recommend to keep O2 all the time. Denies chest pain or shortness of breath. Has slight cough.Patient afebrile, but has leukocytosis. P atient is on Cefepime. Chest xray 08/06/20 reported No acute abnormality of chest. - Patient Problems (1) CHF (congestive heart failure) Current Visit: Yes Status: Acute Qualifiers: Heart failure chronicity: acute on chronic Plan to address problem: Management as per cardiology. (2) Acute kidney injury (ROBERTH) with acute tubular necrosis (ATN) Current Visit: Yes Status: Acute Plan to address problem: Management as per nephrology. (3) Hepatorenal syndrome Current Visit: Yes Status: Acute Plan to address problem: Management as per gastroenterology and nephrology. (4) Hypotension Current Visit: Yes Status: Acute Plan to address problem: Improved. Recent blood pressure 119/53. (5) Lactic acidosis Current Visit: Yes Status: Acute Plan to address problem: Anion gap 17. Recommend to get blood gases. (6) Pancreatic cancer Current Visit: Yes Status: Suspected Qualifiers: Pancreatic malignancy location: head of pancreas Qualified Code(s): C25.0 - Malignant neoplasm of head of pancreas Plan to address problem: Management as per oncology. Subjective Date of service: 08/14/20 Principal diagnosis: Septic Shock; Ac. cholecystitis; ROBERTH; Gm +ve bacteremia; PAF; CAD Interval history: Patient alert, awake. Patient suppose to keep Oxygen. Patient presently on room air. O2 saturation 92%. Recommend to keep O2 all the time. Denies chest pain or shortness of breath. Has slight cough.Patient afebrile, but has leukocytosis. Patient is on Cefepime. Chest xray 08/06/20 reported No acute abnormality of chest. Objective Vital Signs - 12hr 08/14/20 08/14/20 08/14/20 03:14 03:43 09:30 Temperature 98.0 F 98.2 F Pulse Rate 85 78 83 Pulse Rate [ From Monitor] Pulse Rate [ Left Dorsalis Pedis] Pulse Rate [ Left Radial] Pulse Rate [ Right Dorsalis Pedis] Pulse Rate [ Right Radial] Respiratory 18 20 Rate Blood Pressure 103/58 121/48 O2 Sat by Pulse 93 91 Oximetry 08/14/20 08/14/20 09:48 14:50 Temperature Pulse Rate Pulse Rate [ 78 From Monitor] Pulse Rate [ 78 Left Dorsalis Pedis] Pulse Rate [ 78 Left Radial] Pulse Rate [ 78 Right Dorsalis Pedis] Pulse Rate [ 78 Right Radial] Respiratory 17 Rate Blood Pressure O2 Sat by Pulse 98 92 Oximetry Constitutional: no acute distress, alert, other (elderly male with mildly increased respiratory effort at rest) Eyes: icteric ENT: oropharynx moist, other (mallampati 2) Neck: supple, no lymphadenopathy, no JVD Effort: mildly labored Ascultation: Bilateral: diminished breath sounds Percussion: Bilateral: not dull Cardiovascular: regular rate and rhythm Gastrointestinal: normoactive bowel sounds, soft, tender (RUQ mild), non- distended Integumentary: normal Extremities: no cyanosis, no edema, pink and warm, pulses normal, no ischemia or petechiae Neurologic: non-focal exam, pupils equal and round, CN II-XII normal, motor strength normal and Psychiatric: mood appropriate, affect normal CBC and BMP: 08/14/20 04:35 08/14/20 04:35 ABG, PT/INR, D-dimer: PT/INR, D-dimer PT 13.8 Sec. (12.2-14.9) 08/10/20 04:10 INR 1.04 (0.87-1.13) 08/10/20 04:10 Abnormal lab findings: Abnormal Labs 08/06/20 08/06/20 08/06/20 14:42 14:42 14:42 WBC Hgb Hct MCV 82 L MCHC 35 H RDW 22.0 H Lymph % (Auto) Lymph # [place] % (Auto) Lymph # (Auto) [place] # (Auto) Eos # (Auto) Seg Neutrophils % Seg Neuts % (Manual) 89.0 H Lymphocytes % (Manual) 6.0 L Seg Neutrophils # Seg Neutrophils # Man 8.9 H Lymphocytes # (Manual) 0.6 L APTT 37.2 H Sodium 134 L Potassium Chloride 83.6 L BUN 82 H Creatinine 4.5 H Glucose 205 H POC Glucose Lactic Acid Calcium Phosphorus Magnesium Total Bilirubin 9.70 H AST 63 H ALT 82 H Alkaline Phosphatase 263 H Direct Bilirubin Total Creatine Kinase Troponin T 0.036 H NT-Pro-B Natriuret Pep Total Protein Albumin 3.4 L Urine WBC (Auto) Urine Creatinine 08/06/20 08/06/20 08/06/20 14:42 14:42 14:42 WBC Hgb Hct MCV MCHC RDW Lymph % (Auto) Lymph # [place] % (Auto) Lymph # (Auto) [place] # (Auto) Eos # (Auto) Seg Neutrophils % Seg Neuts % (Manual) Lymphocytes % (Manual) Seg Neutrophils # Seg Neutrophils # Man Lymphocytes # (Manual) APTT Sodium Potassium Chloride BUN Creatinine Glucose POC Glucose Lactic Acid 4.60 H* Calcium Phosphorus 6.80 H Magnesium 1.60 L Total Bilirubin AST ALT Alkaline Phosphatase Direct Bilirubin Total Creatine Kinase 240 H Troponin T NT-Pro-B Natriuret Pep 98362 H Total Protein Albumin Urine WBC (Auto) Urine Creatinine 08/06/20 08/06/20 08/06/20 15:34 18:33 18:50 WBC Hgb Hct MCV MCHC RDW Lymph % (Auto) Lymph # [place] % (Auto) Lymph # (Auto) [place] # (Auto) Eos # (Auto) Seg Neutrophils % Seg Neuts % (Manual) Lymphocytes % (Manual) Seg Neutrophils # Seg Neutrophils # Man Lymphocytes # (Manual) APTT Sodium Potassium Chloride BUN Creatinine Glucose POC Glucose Lactic Acid 4.10 H* 3.60 H* Calcium Phosphorus Magnesium 1.60 L Total Bilirubin AST ALT Alkaline Phosphatase Direct Bilirubin Total Creatine Kinase Troponin T NT-Pro-B Natriuret Pep Total Protein Albumin Urine WBC (Auto) Urine Creatinine 08/06/20 08/06/20 08/07/20 21:09 22:04 00:06 WBC Hgb Hct MCV MCHC RDW Lymph % (Auto) Lymph # [place] % (Auto) Lymph # (Auto) [place] # (Auto) Eos # (Auto) Seg Neutrophils % Seg Neuts % (Manual) Lymphocytes % (Manual) Seg Neutrophils # Seg Neutrophils # Man Lymphocytes # (Manual) APTT Sodium Potassium Chloride BUN Creatinine Glucose POC Glucose 188 H Lactic Acid 2.10 H* Calcium Phosphorus Magnesium Total Bilirubin AST ALT Alkaline Phosphatase Direct Bilirubin Total Creatine Kinase Troponin T NT-Pro-B Natriuret Pep Total Protein Albumin Urine WBC (Auto) 20.0 H Urine Creatinine 08/07/20 08/07/20 08/07/20 04:00 04:00 05:56 WBC Hgb Hct 34.3 L MCV 81 L MCHC 36 H RDW 21.9 H Lymph % (Auto) 6.0 L Lymph # 0.6 L [place] % (Auto) Lymph # (Auto) [place] # (Auto) Eos # (Auto) Seg Neutrophils % 89.4 H Seg Neuts % (Manual) Lymphocytes % (Manual) Seg Neutrophils # 9.3 H Seg Neutrophils # Man Lymphocytes # (Manual) APTT Sodium 136 L Potassium Chloride 88.5 L BUN 87 H Creatinine 3.7 H Glucose 187 H POC Glucose 190 H Lactic Acid Calcium 7.8 L Phosphorus Magnesium Total Bilirubin 9.60 H AST 53 H ALT 66 H Alkaline Phosphatase 264 H Direct Bilirubin Total Creatine Kinase Troponin T NT-Pro-B Natriuret Pep Total Protein 6.2 L Albumin 3.1 L Urine WBC (Auto) Urine Creatinine 08/07/20 08/07/20 08/07/20 07:50 10:13 12:36 WBC Hgb Hct MCV MCHC RDW Lymph % (Auto) Lymph # [place] % (Auto) Lymph # (Auto) [place] # (Auto) Eos # (Auto) Seg Neutrophils % Seg Neuts % (Manual) Lymphocytes % (Manual) Seg Neutrophils # Seg Neutrophils # Man Lymphocytes # (Manual) APTT Sodium Potassium Chloride BUN Creatinine Glucose POC Glucose 197 H 205 H Lactic Acid Calcium Phosphorus Magnesium Total Bilirubin AST ALT Alkaline Phosphatase Direct Bilirubin Total Creatine Kinase Troponin T NT-Pro-B Natriuret Pep Total Protein Albumin Urine WBC (Auto) Urine Creatinine 77.8 H 08/07/20 08/07/20 08/08/20 17:36 21:49 04:57 WBC Hgb Hct MCV MCHC RDW Lymph % (Auto) Lymph # [place] % (Auto) Lymph # (Auto) [place] # (Auto) Eos # (Auto) Seg Neutrophils % Seg Neuts % (Manual) Lymphocytes % (Manual) Seg Neutrophils # Seg Neutrophils # Man Lymphocytes # (Manual) APTT Sodium Potassium 3.3 L Chloride BUN 76 H Creatinine 2.0 H Glucose 353 H POC Glucose 240 H 218 H Lactic Acid Calcium 7.7 L Phosphorus Magnesium Total Bilirubin 8.00 H AST 46 H ALT 57 H Alkaline Phosphatase 348 H Direct Bilirubin Total Creatine Kinase Troponin T NT-Pro-B Natriuret Pep Total Protein 6.0 L Albumin 2.5 L Urine WBC (Auto) Urine Creatinine 08/08/20 08/08/20 08/08/20 08:06 11:52 17:52 WBC Hgb Hct MCV MCHC RDW Lymph % (Auto) Lymph # [place] % (Auto) Lymph # (Auto) [place] # (Auto) Eos # (Auto) Seg Neutrophils % Seg Neuts % (Manual) Lymphocytes % (Manual) Seg Neutrophils # Seg Neutrophils # Man Lymphocytes # (Manual) APTT Sodium Potassium Chloride BUN Creatinine Glucose POC Glucose 258 H 245 H 251 H Lactic Acid Calcium Phosphorus Magnesium Total Bilirubin AST ALT Alkaline Phosphatase Direct Bilirubin Total Creatine Kinase Troponin T NT-Pro-B Natriuret Pep Total Protein Albumin Urine WBC (Auto) Urine Creatinine 08/08/20 08/09/20 08/09/20 23:49 04:00 04:00 WBC 11.3 H Hgb Hct 35.0 L MCV 81 L MCHC 35 H RDW 21.6 H Lymph % (Auto) Lymph # [place] % (Auto) Lymph # (Auto) [place] # (Auto) Eos # (Auto) Seg Neutrophils % Seg Neuts % (Manual) 91.0 H Lymphocytes % (Manual) 3.0 L Seg Neutrophils # Seg Neutrophils # Man 10.3 H Lymphocytes # (Manual) 0.3 L APTT Sodium Potassium 3.5 L Chloride BUN 53 H Creatinine 1.5 H Glucose 188 H POC Glucose 220 H Lactic Acid Calcium 7.8 L Phosphorus Magnesium 2.50 H Total Bilirubin 5.10 H AST 63 H ALT 61 H Alkaline Phosphatase 476 H Direct Bilirubin Total Creatine Kinase Troponin T NT-Pro-B Natriuret Pep Total Protein 5.9 L Albumin 3.0 L Urine WBC (Auto) Urine Creatinine 08/09/20 08/09/20 08/10/20 05:29 12:12 00:11 WBC Hgb Hct MCV MCHC RDW Lymph % (Auto) Lymph # [place] % (Auto) Lymph # (Auto) [place] # (Auto) Eos # (Auto) Seg Neutrophils % Seg Neuts % (Manual) Lymphocytes % (Manual) Seg Neutrophils # Seg Neutrophils # Man Lymphocytes # (Manual) APTT Sodium Potassium Chloride BUN Creatinine Glucose POC Glucose 181 H 206 H 181 H Lactic Acid Calcium Phosphorus Magnesium Total Bilirubin AST ALT Alkaline Phosphatase Direct Bilirubin Total Creatine Kinase Troponin T NT-Pro-B Natriuret Pep Total Protein Albumin Urine WBC (Auto) Urine Creatinine 08/10/20 08/10/20 08/10/20 04:10 05:59 11:53 WBC Hgb Hct MCV MCHC RDW Lymph % (Auto) Lymph # [place] % (Auto) Lymph # (Auto) [place] # (Auto) Eos # (Auto) Seg Neutrophils % Seg Neuts % (Manual) Lymphocytes % (Manual) Seg Neutrophils # Seg Neutrophils # Man Lymphocytes # (Manual) APTT Sodium Potassium Chloride BUN 38 H Creatinine Glucose 176 H POC Glucose 182 H 187 H Lactic Acid Calcium 8.3 L Phosphorus Magnesium Total Bilirubin 5.00 H AST 60 H ALT 61 H Alkaline Phosphatase 543 H Direct Bilirubin Total Creatine Kinase Troponin T NT-Pro-B Natriuret Pep Total Protein 5.7 L Albumin 2.8 L Urine WBC (Auto) Urine Creatinine 08/10/20 08/10/20 08/11/20 17:28 23:20 04:22 WBC 11.6 H Hgb 11.3 L Hct 33.2 L MCV 83 L MCHC RDW 20.9 H Lymph % (Auto) 9.6 L Lymph # [place] % (Auto) 10.0 H Lymph # (Auto) 1.1 L [place] # (Auto) 1.2 H Eos # (Auto) 0.5 H Seg Neutrophils % 75.9 H Seg Neuts % (Manual) Lymphocytes % (Manual) Seg Neutrophils # 8.8 H Seg Neutrophils # Man Lymphocytes # (Manual) APTT Sodium Potassium Chloride BUN Creatinine Glucose POC Glucose 187 H 283 H Lactic Acid Calcium Phosphorus Magnesium Total Bilirubin AST ALT Alkaline Phosphatase Direct Bilirubin Total Creatine Kinase Troponin T NT-Pro-B Natriuret Pep Total Protein Albumin Urine WBC (Auto) Urine Creatinine 08/11/20 08/11/20 08/11/20 04:22 05:38 11:47 WBC Hgb Hct MCV MCHC RDW Lymph % (Auto) Lymph # [place] % (Auto) Lymph # (Auto) [place] # (Auto) Eos # (Auto) Seg Neutrophils % Seg Neuts % (Manual) Lymphocytes % (Manual) Seg Neutrophils # Seg Neutrophils # Man Lymphocytes # (Manual) APTT Sodium 136 L Potassium Chloride BUN 34 H Creatinine Glucose 105 H POC Glucose 117 H 164 H Lactic Acid Calcium 8.1 L Phosphorus Magnesium Total Bilirubin 5.30 H AST 50 H ALT Alkaline Phosphatase 577 H Direct Bilirubin 4.3 H Total Creatine Kinase Troponin T NT-Pro-B Natriuret Pep Total Protein 5.0 L Albumin 2.3 L Urine WBC (Auto) Urine Creatinine 08/11/20 08/12/20 08/12/20 17:23 00:06 04:41 WBC Hgb Hct MCV MCHC RDW Lymph % (Auto) Lymph # [place] % (Auto) Lymph # (Auto) [place] # (Auto) Eos # (Auto) Seg Neutrophils % Seg Neuts % (Manual) Lymphocytes % (Manual) Seg Neutrophils # Seg Neutrophils # Man Lymphocytes # (Manual) APTT Sodium 136 L Potassium Chloride BUN 27 H Creatinine Glucose 160 H POC Glucose 178 H 180 H Lactic Acid Calcium 8.2 L Phosphorus Magnesium Total Bilirubin 4.50 H AST ALT Alkaline Phosphatase 550 H Direct Bilirubin Total Creatine Kinase Troponin T NT-Pro-B Natriuret Pep Total Protein 5.3 L Albumin 2.6 L Urine WBC (Auto) Urine Creatinine 08/12/20 08/12/20 08/12/20 05:17 11:44 17:37 WBC Hgb Hct MCV MCHC RDW Lymph % (Auto) Lymph # [place] % (Auto) Lymph # (Auto) [place] # (Auto) Eos # (Auto) Seg Neutrophils % Seg Neuts % (Manual) Lymphocytes % (Manual) Seg Neutrophils # Seg Neutrophils # Man Lymphocytes # (Manual) APTT Sodium Potassium Chloride BUN Creatinine Glucose POC Glucose 160 H 170 H 255 H Lactic Acid Calcium Phosphorus Magnesium Total Bilirubin AST ALT Alkaline Phosphatase Direct Bilirubin Total Creatine Kinase Troponin T NT-Pro-B Natriuret Pep Total Protein Albumin Urine WBC (Auto) Urine Creatinine 08/12/20 08/12/20 08/13/20 18:18 18:52 00:09 WBC Hgb Hct MCV MCHC RDW Lymph % (Auto) Lymph # [place] % (Auto) Lymph # (Auto) [place] # (Auto) Eos # (Auto) Seg Neutrophils % Seg Neuts % (Manual) Lymphocytes % (Manual) Seg Neutrophils # Seg Neutrophils # Man Lymphocytes # (Manual) APTT Sodium Potassium Chloride BUN Creatinine Glucose POC Glucose 262 H 265 H 198 H Lactic Acid Calcium Phosphorus Magnesium Total Bilirubin AST ALT Alkaline Phosphatase Direct Bilirubin Total Creatine Kinase Troponin T NT-Pro-B Natriuret Pep Total Protein Albumin Urine WBC (Auto) Urine Creatinine 08/13/20 08/13/20 08/13/20 05:53 06:02 07:46 WBC Hgb Hct MCV MCHC RDW Lymph % (Auto) Lymph # [place] % (Auto) Lymph # (Auto) [place] # (Auto) Eos # (Auto) Seg Neutrophils % Seg Neuts % (Manual) Lymphocytes % (Manual) Seg Neutrophils # Seg Neutrophils # Man Lymphocytes # (Manual) APTT Sodium Potassium Chloride BUN 33 H Creatinine Glucose 185 H POC Glucose 107 H 207 H Lactic Acid Calcium Phosphorus Magnesium Total Bilirubin 3.30 H AST 46 H ALT Alkaline Phosphatase 542 H Direct Bilirubin Total Creatine Kinase Troponin T NT-Pro-B Natriuret Pep Total Protein 5.5 L Albumin 2.7 L Urine WBC (Auto) Urine Creatinine 08/13/20 08/13/20 08/14/20 12:00 16:07 04:35 WBC Hgb Hct MCV MCHC RDW Lymph % (Auto) Lymph # [place] % (Auto) Lymph # (Auto) [place] # (Auto) Eos # (Auto) Seg Neutrophils % Seg Neuts % (Manual) Lymphocytes % (Manual) Seg Neutrophils # Seg Neutrophils # Man Lymphocytes # (Manual) APTT Sodium Potassium Chloride BUN 29 H Creatinine Glucose 158 H POC Glucose 228 H 177 H Lactic Acid Calcium Phosphorus 1.80 L Magnesium Total Bilirubin 2.70 H AST ALT Alkaline Phosphatase 484 H Direct Bilirubin 1.8 H Total Creatine Kinase Troponin T NT-Pro-B Natriuret Pep Total Protein 5.3 L Albumin 2.5 L Urine WBC (Auto) Urine Creatinine 08/14/20 08/14/20 08/14/20 04:35 06:06 10:13 WBC 15.5 H Hgb Hct 34.9 L MCV 83 L MCHC RDW 20.0 H Lymph % (Auto) Lymph # [place] % (Auto) Lymph # (Auto) [place] # (Auto) Eos # (Auto) Seg Neutrophils % Seg Neuts % (Manual) Lymphocytes % (Manual) Seg Neutrophils # Seg Neutrophils # Man Lymphocytes # (Manual) APTT Sodium Potassium Chloride BUN Creatinine Glucose POC Glucose 156 H 278 H Lactic Acid Calcium Phosphorus Magnesium Total Bilirubin AST ALT Alkaline Phosphatase Direct Bilirubin Total Creatine Kinase Troponin T NT-Pro-B Natriuret Pep Total Protein Albumin Urine WBC (Auto) Urine Creatinine 08/14/20 12:04 WBC Hgb Hct MCV MCHC RDW Lymph % (Auto) Lymph # [place] % (Auto) Lymph # (Auto) [place] # (Auto) Eos # (Auto) Seg Neutrophils % Seg Neuts % (Manual) Lymphocytes % (Manual) Seg Neutrophils # Seg Neutrophils # Man Lymphocytes # (Manual) APTT Sodium Potassium Chloride BUN Creatinine Glucose POC Glucose 205 H Lactic Acid Calcium Phosphorus Magnesium Total Bilirubin AST ALT Alkaline Phosphatase Direct Bilirubin Total Creatine Kinase Troponin T NT-Pro-B Natriuret Pep Total Protein Albumin Urine WBC (Auto) Urine Creatinine Chest x-ray: report reviewed, image reviewed Additional Studies: CHEST 1 VIEW 08/06/2020 1:15 PM INDICATION / CLINICAL INFORMATION: Hypertension. COMPARISON: Chest one view dated 11/08/2008. FINDINGS: SUPPORT DEVICES: Unremarkable biventricular left ICD. HEART / MEDIASTINUM: Normal heart size with moderate aortic atherosclerosis. LUNGS / PLEURA: Clear lungs with reduced volumes. No significant pleural effusion. No pneumothorax. ADDITIONAL FINDINGS: No significant additional findings. IMPRESSION: 1. No acute abnormality of the chest. Allied health notes reviewed: nursing
--- NOTE | 2020-08-14 16:08 | Progress Note ---
Assessment and Plan 70 yo M s/p laparoscopic cholecystectomy, IOC, POD 2 1. acute cholecystitis 2. choledocolithiasis 3. CHF 4. CAD Pt stable. Hb stable. Afebrile. Plan: 1. diet as eddie 2. off abx 3. LFTs, Bilirubin - continue to improve 4. PT/OOB/ambulate 5. IS/pulm toilet 6. ok to restart xarelto 7. dc planning to SNF Will s/o. cleared for dc from surgery standpoint. Pt may follow up in surgery clinic in 2 weeks for post op visit. Thank you, please call with questions. Subjective Date of service: 08/14/20 Narrative: Pt seen and examined. No complaints. Tolerating diet. No n/v, f/c, cp, sob. No abdominal pain Objective Vital Signs - 12hr 08/14/20 08/14/20 08/14/20 09:30 09:48 12:49 Temperature 98.2 F Pulse Rate 83 99 H Pulse Rate [ 78 From Monitor] Pulse Rate [ 78 Left Dorsalis Pedis] Pulse Rate [ 78 Left Radial] Pulse Rate [ 78 Right Dorsalis Pedis] Pulse Rate [ 78 Right Radial] Respiratory 20 17 Rate Blood Pressure 121/48 125/52 O2 Sat by Pulse 91 98 100 Oximetry 08/14/20 08/14/20 14:50 15:44 Temperature 98.4 F Pulse Rate 80 Pulse Rate [ From Monitor] Pulse Rate [ Left Dorsalis Pedis] Pulse Rate [ Left Radial] Pulse Rate [ Right Dorsalis Pedis] Pulse Rate [ Right Radial] Respiratory 20 Rate Blood Pressure 124/58 O2 Sat by Pulse 92 94 Oximetry - General physical appearance Narrative Exam: Gen: AAOx3. NAD ENT: no scleral icterus or conjunctival pallor CV: s1, S2+ Resp; even and unlabored Abd: soft, NT, ND. incisions c/d/i Ext; no c/c/e - Labs 08/14/20 04:35 08/14/20 04:35 Diabetes panel 08/14/20 Range/Units 04:35 Sodium 141 (137-145) mmol/L Potassium 3.8 (3.6-5.0) mmol/L Chloride 102.1 (98-107) mmol/L Carbon Dioxide 26 (22-30) mmol/L BUN 29 H (9-20) mg/dL Creatinine 0.9 (0.8-1.3) mg/dL Glucose 158 H (75-100) mg/dL Calcium 8.6 (8.4-10.2) mg/dL AST 39 (5-40) units/L ALT 36 (7-56) units/L Alkaline Phosphatase 484 H (35-129) units/L Total Protein 5.3 L (6.3-8.2) g/dL Albumin 2.5 L (3.9-5) g/dL Calcium panel 08/14/20 Range/Units 04:35 Calcium 8.6 (8.4-10.2) mg/dL Phosphorus 1.80 L (2.5-4.5) mg/dL Albumin 2.5 L (3.9-5) g/dL Pituitary panel 08/14/20 Range/Units 04:35 Sodium 141 (137-145) mmol/L Potassium 3.8 (3.6-5.0) mmol/L Chloride 102.1 (98-107) mmol/L Carbon Dioxide 26 (22-30) mmol/L BUN 29 H (9-20) mg/dL Creatinine 0.9 (0.8-1.3) mg/dL Glucose 158 H (75-100) mg/dL Calcium 8.6 (8.4-10.2) mg/dL Adrenal panel 08/14/20 Range/Units 04:35 Sodium 141 (137-145) mmol/L Potassium 3.8 (3.6-5.0) mmol/L Chloride 102.1 (98-107) mmol/L Carbon Dioxide 26 (22-30) mmol/L BUN 29 H (9-20) mg/dL Creatinine 0.9 (0.8-1.3) mg/dL Glucose 158 H (75-100) mg/dL Calcium 8.6 (8.4-10.2) mg/dL Total Bilirubin 2.70 H (0.1-1.2) mg/dL AST 39 (5-40) units/L ALT 36 (7-56) units/L Alkaline Phosphatase 484 H (35-129) units/L Total Protein 5.3 L (6.3-8.2) g/dL Albumin 2.5 L (3.9-5) g/dL
--- NOTE | 2020-08-14 18:35 | Progress Note ---
Assessment and Plan - Patient Problems (1) Choledocholithiasis with acute cholecystitis Current Visit: Yes Status: Acute (2) Acute kidney injury (ROBERTH) with acute tubular necrosis (ATN) Current Visit: Yes Status: Acute (3) DVT prophylaxis Current Visit: Yes Status: Acute Subjective Date of service: 08/14/20 Principal diagnosis: Septic Shock; Ac. cholecystitis; ROBERTH; Gm +ve bacteremia; PAF; CAD Objective - Constitutional Vitals: Vital Signs - 12hr 08/14/20 08/14/20 08/14/20 09:30 09:48 11:14 Temperature 98.2 F Pulse Rate 83 82 Pulse Rate [ 78 From Monitor] Pulse Rate [ 78 Left Dorsalis Pedis] Pulse Rate [ 78 Left Radial] Pulse Rate [ 78 Right Dorsalis Pedis] Pulse Rate [ 78 Right Radial] Respiratory 20 17 Rate Blood Pressure 121/48 O2 Sat by Pulse 91 98 Oximetry 08/14/20 08/14/20 08/14/20 12:49 14:50 15:44 Temperature 98.4 F Pulse Rate 99 H 80 Pulse Rate [ From Monitor] Pulse Rate [ Left Dorsalis Pedis] Pulse Rate [ Left Radial] Pulse Rate [ Right Dorsalis Pedis] Pulse Rate [ Right Radial] Respiratory 20 Rate Blood Pressure 125/52 124/58 O2 Sat by Pulse 100 92 94 Oximetry General appearance: Present: no acute distress, well-nourished - EENT Eyes: PERRL, EOM intact ENT: hearing intact, clear oral mucosa Ears: bilateral: normal - Neck Neck: supple, normal ROM - Respiratory Respiratory effort: normal Respiratory: bilateral: CTA - Breasts Breasts: normal - Cardiovascular Rhythm: regular Heart Sounds: Present: S1 & S2. Absent: gallop, rub Extremities: pulses intact, No edema, normal color, Full ROM - Gastrointestinal General gastrointestinal: Present: soft, non-tender, non-distended, normal bowel sounds - Genitourinary Male genitourinary: normal - Integumentary Integumentary: clear, warm, dry - Musculoskeletal Musculoskeletal: 1, strength equal bilaterally - Neurologic Neurologic: moves all extremities - Psychiatric Psychiatric: memory intact, appropriate mood/affect, intact judgment & insight - Labs CBC & Chem 7: 08/14/20 04:35 08/14/20 04:35 Labs: Abnormal lab results 08/14/20 08/14/20 08/14/20 Range/Units 04:35 04:35 06:06 WBC 15.5 H (4.5-11.0) K/mm3 Hct 34.9 L (35.5-45.6) % MCV 83 L (84-94) fl RDW 20.0 H (13.2-15.2) % BUN 29 H (9-20) mg/dL Glucose 158 H (75-100) mg/dL POC Glucose 156 H (70-105) Phosphorus 1.80 L (2.5-4.5) mg/dL Total Bilirubin 2.70 H (0.1-1.2) mg/dL Direct Bilirubin 1.8 H (0-0.2) mg/dL Alkaline Phosphatase 484 H (35-129) units/L Total Protein 5.3 L (6.3-8.2) g/dL Albumin 2.5 L (3.9-5) g/dL 08/14/20 08/14/20 Range/Units 10:13 12:04 WBC (4.5-11.0) K/mm3 Hct (35.5-45.6) % MCV (84-94) fl RDW (13.2-15.2) % BUN (9-20) mg/dL Glucose (75-100) mg/dL POC Glucose 278 H 205 H (70-105) Phosphorus (2.5-4.5) mg/dL Total Bilirubin (0.1-1.2) mg/dL Direct Bilirubin (0-0.2) mg/dL Alkaline Phosphatase (35-129) units/L Total Protein (6.3-8.2) g/dL Albumin (3.9-5) g/dL HEART Score - HEART Score Troponin: Troponin T 0.023 ng/mL (0.00-0.029) 08/06/20 18:33
[2020-08-14] MEDS: MORPHINE 2 MG/1 ML INJ IV PRN (20:44)
[2020-08-15] MEDS: INSULIN LISPRO 100 UNIT/ML VIAL 3 mL SUB-Q SCH ×4 (00:38→17:55)
[2020-08-15] MEDS: RIVAROXABAN 20 MG TAB PO SCH (09:51)
[2020-08-15] MEDS: INSULIN GLARGINE 100 UNITS/ML SUB-Q SCH (09:51)
[2020-08-15] MEDS: MORPHINE 2 MG/1 ML INJ IV PRN ×2 (09:51→21:28)
[2020-08-15] MEDS: PANTOPRAZOLE 40 MG TAB PO SCH (09:52)
--- NOTE | 2020-08-15 10:07 | Progress Note ---
Subjective Date of service: 08/15/20 Principal diagnosis: Septic Shock; Ac. cholecystitis; ROBERTH; Gm +ve bacteremia; PAF; CAD Interval history: Assessment and Plan Acute cholecystitis status post lap cholecystectomy Acute renal failure improving History of systolic heart failure LVEF 30-35% by echo this admission no evidence of decompensation on entresto as an outpatient restart once creatinine is stable Aortic stenosis, moderate with a mean gradient of 22.6 History of coronary artery disease Dual-chamber AICD in situ Paroxysmal atrial fibrillation I restarted Xarelto yesterday. Objective Vital Signs Temp Pulse Resp BP Pulse Ox 08/15/20 08:14 97.4 F L 59 L 20 136/54 98 08/15/20 04:29 98.2 F 90 18 118/53 95 08/15/20 00:22 97.5 F L 79 18 106/41 95 08/14/20 21:36 92 08/14/20 19:45 98.6 F 82 18 119/53 87 08/14/20 15:44 98.4 F 80 20 124/58 94 08/14/20 14:50 92 08/14/20 12:49 99 H 125/52 100 08/14/20 11:14 82 - Physical Examination General: No Apparent Distress HEENT: Positive: PERRL Neck: Positive: neck supple Cardiac: Positive: Reg Rate and Rhythm Lungs: Positive: Normal Exam Neuro: Positive: Grossly Intact Abdomen: Positive: Soft Skin: Positive: Clear Extremities: Absent: edema - Allied health notes Allied health notes reviewed: nursing
--- NOTE | 2020-08-15 11:32 | Progress Note ---
Assessment and Plan 1. Acute kidney injury: Likely Vasomotor ROBERTH in the setting of shock. CT abdomen was negative for hydro. Monitor renal function. Creatinine level is better. Avoid nephrotoxic agents. Meds dosage based on GFR. No labs from today. 2. FEN: Mild Hyponatremia, improved. Replete lytes. Monitor lytes and volume status. 3. Shock: Improved. S/p abx. 4. Acute toxic encephalopathy, POA. 5. Acute cholelithiasis, POA: Obstructive jaundice. S/p ERCP with sphincterotomy and removal of multiple common bile duct stones and sludge 08/10. S/p laparoscopic cholecystectomy 08/12. Followed by Gen. Surgery. 6. DM type 2: Monitor. - Subjective: Patient was seen and examined at the bedside. Doing ok. - Examination: General appearance: well-developed, appears stated age, no distress HEENT: ATNC, icterus Neck: Trachea midline Respiratory: ctab Cardiology: regular, S1S2, no murmur Gastrointestinal: soft, not tender, not distended, BS heard Integumentary: no obvious rash Neurologic: alert, able to move extremities, some confusion noted Ext: no extremity edema : Condom catheter Subjective Date of service: 08/15/20 Principal diagnosis: Septic Shock; Ac. cholecystitis; ROBERTH; Gm +ve bacteremia; PAF; CAD Objective - Vital Signs Vital signs: Vital Signs - 12hr 08/15/20 08/15/20 08/15/20 00:22 04:29 08:14 Temperature 97.5 F L 98.2 F 97.4 F L Pulse Rate 79 90 59 L Pulse Rate [ Apical] Respiratory 18 18 20 Rate Blood Pressure 106/41 118/53 136/54 O2 Sat by Pulse 95 95 98 Oximetry 08/15/20 10:00 Temperature Pulse Rate 86 Pulse Rate [ 86 Apical] Respiratory Rate Blood Pressure O2 Sat by Pulse Oximetry - Lab 08/14/20 04:35 08/14/20 04:35 Most recent lab results Magnesium 2.50 mg/dL (1.7-2.3) H 08/09/20 04:00 Calcium 8.6 mg/dL (8.4-10.2) 08/14/20 04:35 Phosphorus 1.80 mg/dL (2.5-4.5) L 08/14/20 04:35 Urine Creatinine 77.8 mg/dL (0.1-20.0) H 08/07/20 10:13 Urine Sodium 22 mmol/L 08/07/20 10:13 Medications & Allergies - Medications Allergies/Adverse Reactions: Allergies tetanus and diphtheria toxoids Adverse Reaction (Verified 08/06/20 14:20) Unknown Home Medications: Home Medications Medication Instructions Recorded Confirmed Last Taken Type Metformin HCl [metFORMIN] 1,000 mg PO BID 08/06/20 08/06/20 Unknown History Omeprazole 40 mg PO DAILY 08/06/20 08/06/20 Unknown History Rivaroxaban [Xarelto] 20 mg PO QDAY 08/06/20 08/06/20 Unknown History Sacubitril/Valsartan [Entresto 1 each PO BID 08/06/20 08/06/20 Unknown History 49-51 mg] Sertraline [Zoloft] 25 mg PO QDAY 08/06/20 08/06/20 Unknown History Spironolactone [Aldactone] 25 ng PO DAILY 08/06/20 08/06/20 Unknown History Torsemide [Demadex] 50 mg PO DAILY 08/06/20 08/06/20 Unknown History Zolpidem [Ambien] 5 mg PO QHS PRN 08/06/20 08/06/20 Unknown History carvediloL [Coreg] 6.25 mg PO BID 08/06/20 08/06/20 Unknown History traZODone [Desyrel] 50 mg PO QHS 08/06/20 08/06/20 Unknown History Active Medications: Generic Name Dose Route Start Last Admin Trade Name Freq PRN Reason Stop Dose Admin Lipase/Protease/Amylase 1 each 08/09/20 10:00 Nerissa Russell 10,500 Unit FEEDTUBE PRN PRN For Clogged Feeding Tube Dextrose 0 ml 08/06/20 22:56 D50w (25gm) Syringe IV Q30MIN PRN Hypoglycemia Protocol Sodium Chloride 1,000 mls @ 42 mls/hr 08/12/20 12:45 08/14/20 11:30 Nacl 0.9% 1000 Ml IV 42 mls/hr DIRECT JULIET Administration Insulin Glargine 5 units 08/08/20 13:30 08/15/20 09:51 Lantus SUB-Q 5 units DAILY JULIET Administration Insulin Human Lispro 0 unit 08/07/20 06:00 08/15/20 06:24 Humalog SUB-Q Not Given Q6HR [facility] Protocol Metoclopramide HCl 10 mg 08/13/20 20:22 08/13/20 22:02 Reglan IV 10 mg Q6H PRN Administration Nausea And Vomiting Morphine Sulfate 2 mg 08/06/20 18:40 08/15/20 09:51 Morphine IV 2 mg Q4H PRN Administration Pain, Moderate (4-6) Pantoprazole Sodium 40 mg 08/11/20 07:30 08/15/20 09:52 Protonix PO 40 mg QDAC JULIET Administration Prochlorperazine Maleate 10 mg 08/07/20 19:01 08/13/20 18:57 Compazine PO 10 mg Q6H PRN Administration Nausea And Vomiting Rivaroxaban 20 mg 08/15/20 10:00 08/15/20 09:51 Xarelto PO 20 mg QDAY JULIET Administration Simple Syrup 15 ml 08/09/20 10:00 Simple Syrup FEEDTUBE PRN PRN Hypoglycemia Simple Syrup 30 ml 08/09/20 10:00 Simple Syrup FEEDTUBE PRN PRN Hypoglycemia Sodium Bicarbonate 325 mg 08/09/20 10:00 Sodium Bicarbonate FEEDTUBE PRN PRN For Clogged Feeding Tube Sodium Chloride 10 ml 08/06/20 22:00 08/15/20 09:51 Sodium Chloride Flush Syringe 10 Ml IV 10 ml BID JULIET Administration Sodium Chloride 10 ml 08/06/20 18:40 08/14/20 20:49 Sodium Chloride Flush Syringe 10 Ml IV 10 ml PRN PRN Administration LINE FLUSH
--- NOTE | 2020-08-15 19:40 | Progress Note ---
Assessment and Plan --Acute cholecystitis with choledocholithiasis s/p ERCP with cold biopsy, sphincterotomy, and balloon sweep of the common bile duct yesterday S/p laparoscopic cholecystectomy-doing well CT abdomen/pelvis: 1. Acute cholecystitis. There is also choledocholithiasis. Postop patient is doing well -- Acute kidney injury (ROBERTH) with acute tubular necrosis (ATN) Monitor urine output every shift, supportive care, nephrology team consulted. Renal function improved, Continue low volume IV fluid given history of CHF --Acute metabolic encephalopathy, resolved Continue supportive care and follow clinically - Coag-neg Staph bacteremia: likely a contaminant, repeat blood cultures negative. --Septic shock, s/p Levophed, monitor vitals --Sepsis, present on admission Patient presented with severe hypotension, lactic acidosis, ROBERTH, altered mental status Blood culture positive for gram-positive cocci, CT abdomen pelvis suggesting acute cholecystitis and choledocholithiasis Continue IV antibiotics for now, follow ID recommendation, monitor final blood culture results PUI with COVID 19, ruled out with negative test --CHF with systolic failure, appears compensated EF 20-25%, cardiology following, -- Paroxysmal atrial fibrillation on Xarelto, will hold for now possible surgery/ERCP Patient normal sinus rhythm on the monitor -Elevated LFT Likely due to obstruction Will continue to monitor LFT, consulted with GI --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 --Advance care planning Disease education conducted, supportive care, patient is full code SNF placement Subjective Date of service: 08/14/20 Principal diagnosis: Septic Shock; Ac. cholecystitis; ROBERTH; Gm +ve bacteremia; PAF; CAD Interval history: Brief history: 70-year-old man with h/o history of systolic heart failure, coronary artery disease, dual-chamber pacemaker in situ, on anticoagulation with Xarelto, admitted with weakness, severe jaundice, and severe renal failure. CT scan of the abdomen reports evidence of acute cholecystitis. 08/07: Continue IV fluid, empiric antibiotics, blood cx positive for gm +ve cocci . Consult GI and general surgery. Monitor renal function and follow clinically. obtain 2d echo. follow CoVID 19 result 08/08; patient remains on Levophed, renal function improved. Continue low volume IV fluid, COVID 19 test negative, follow blood culture, continue IV antibiotics we will follow 2D echo result. Continue to hold Xarelto for now. Called patient and updated. 08/09: Off pressor today, wait for 2D echo result. Plan for ERCP tomorrow if patient remains clinically stable. 08/10: Plan for ERCP today, 2D echo showed EF 20 to 25% 08/11; clinically stable, transfer to [facility]. plan for cholecystectomy tomorrow 08/12/2020 patient for acute cholecystectomy today 08/13/2020 patient doing well postop Patient for placement 08/14/2020 Patient waiting for placement Objective - Constitutional Vitals: Vital Signs - 12hr 08/15/20 08/15/20 08/15/20 08:14 10:00 11:52 Temperature 97.4 F L 98.7 F Pulse Rate 59 L 86 83 Pulse Rate [ 86 Apical] Respiratory 20 20 Rate Blood Pressure 136/54 118/46 O2 Sat by Pulse 98 93 Oximetry General appearance: Present: no acute distress, well-nourished - EENT Eyes: PERRL, EOM intact ENT: hearing intact, clear oral mucosa Ears: bilateral: normal - Neck Neck: supple, normal ROM - Respiratory Respiratory effort: normal Respiratory: bilateral: CTA - Breasts Breasts: normal - Cardiovascular Heart rate: 78 Rhythm: regular Heart Sounds: Present: S1 & S2. Absent: gallop, rub Extremities: pulses intact, No edema, normal color, Full ROM - Gastrointestinal General gastrointestinal: Present: soft, non-tender, non-distended, normal bowel sounds - Genitourinary Male genitourinary: normal - Integumentary Integumentary: clear, warm, dry - Musculoskeletal Musculoskeletal: 1, strength equal bilaterally - Neurologic Neurologic: moves all extremities - Psychiatric Psychiatric: memory intact, appropriate mood/affect, intact judgment & insight - Labs CBC & Chem 7: 08/14/20 04:35 08/16/20 04:14 Labs: Abnormal lab results 08/15/20 08/15/20 08/15/20 Range/Units 00:37 06:30 11:54 POC Glucose 176 H 133 H 169 H (70-105) 08/15/20 Range/Units 16:39 POC Glucose 172 H (70-105) HEART Score - HEART Score Troponin: Troponin T 0.023 ng/mL (0.00-0.029) 08/06/20 18:33
[2020-08-15] MEDS: SODIUM CHLORIDE 0.9% 1000 ML 1,000 ML IV SCH (20:20)
--- NOTE | 2020-08-15 22:30 | Progress Note ---
Assessment and Plan Patient alert, awake. Patient suppose to keep Oxygen. Patient presently on room air. O2 saturation 93%. Recommend to keep O2 all the time. Denies chest pain or shortness of breath or cough.Patient afebrile, but has leukocytosis. Patient was on Cefepime. Chest xray 08/06/20 reported No acute abnormality of chest. - Patient Problems (1) CHF (congestive heart failure) Current Visit: Yes Status: Acute Qualifiers: Heart failure chronicity: acute on chronic Plan to address problem: Management as per cardiology. (2) Acute kidney injury (ROBERTH) with acute tubular necrosis (ATN) Current Visit: Yes Status: Acute Plan to address problem: Management as per nephrology. (3) Hepatorenal syndrome Current Visit: Yes Status: Acute Plan to address problem: Management as per gastroenterology and nephrology. (4) Hypotension Current Visit: Yes Status: Acute Plan to address problem: Improved. Recent blood pressure 119/53. (5) Lactic acidosis Current Visit: Yes Status: Acute Plan to address problem: Anion gap 17. Recommend to get blood gases. (6) Pancreatic cancer Current Visit: Yes Status: Suspected Qualifiers: Pancreatic malignancy location: head of pancreas Qualified Code(s): C25.0 - Malignant neoplasm of head of pancreas Plan to address problem: Management as per oncology. Subjective Date of service: 08/15/20 Principal diagnosis: Septic Shock; Ac. cholecystitis; ROBERTH; Gm +ve bacteremia; PAF; CAD Interval history: Patient alert, awake. Patient suppose to keep Oxygen. Patient presently on room air. O2 saturation 93%. Recommend to keep O2 all the time. Denies chest pain or shortness of breath or cough.Patient afebrile, but has leukocytosis. Patient was on Cefepime. Chest xray 08/06/20 reported No acute abnormality of chest. Objective Vital Signs - 12hr 08/15/20 08/15/20 11:52 21:28 Temperature 98.7 F Pulse Rate 83 Respiratory 20 20 Rate Blood Pressure 118/46 O2 Sat by Pulse 93 Oximetry Constitutional: no acute distress, alert, other (elderly male with mildly inc reased respiratory effort at rest) Eyes: icteric ENT: oropharynx moist, other (mallampati 2) Neck: supple, no lymphadenopathy, no JVD Effort: mildly labored Ascultation: Bilateral: diminished breath sounds Percussion: Bilateral: not dull Cardiovascular: regular rate and rhythm Gastrointestinal: normoactive bowel sounds, soft, tender (RUQ mild), non- distended Integumentary: normal Extremities: no cyanosis, no edema, pink and warm, pulses normal, no ischemia or petechiae Neurologic: non-focal exam, pupils equal and round, CN II-XII normal, motor strength normal and Psychiatric: mood appropriate, affect normal CBC and BMP: 08/14/20 04:35 08/14/20 04:35 ABG, PT/INR, D-dimer: PT/INR, D-dimer PT 13.8 Sec. (12.2-14.9) 08/10/20 04:10 INR 1.04 (0.87-1.13) 08/10/20 04:10 Abnormal lab findings: Abnormal Labs 08/06/20 08/06/20 08/06/20 14:42 14:42 14:42 WBC Hgb Hct MCV 82 L MCHC 35 H RDW 22.0 H Lymph % (Auto) Lymph # [place] % (Auto) Lymph # (Auto) [place] # (Auto) Eos # (Auto) Seg Neutrophils % Seg Neuts % (Manual) 89.0 H Lymphocytes % (Manual) 6.0 L Seg Neutrophils # Seg Neutrophils # Man 8.9 H Lymphocytes # (Manual) 0.6 L APTT 37.2 H Sodium 134 L Potassium Chloride 83.6 L BUN 82 H Creatinine 4.5 H Glucose 205 H POC Glucose Lactic Acid Calcium Phosphorus Magnesium Total Bilirubin 9.70 H AST 63 H ALT 82 H Alkaline Phosphatase 263 H Direct Bilirubin Total Creatine Kinase Troponin T 0.036 H NT-Pro-B Natriuret Pep Total Protein Albumin 3.4 L Urine WBC (Auto) Urine Creatinine 08/06/20 08/06/20 08/06/20 14:42 14:42 14:42 WBC Hgb Hct MCV MCHC RDW Lymph % (Auto) Lymph # [place] % (Auto) Lymph # (Auto) [place] # (Auto) Eos # (Auto) Seg Neutrophils % Seg Neuts % (Manual) Lymphocytes % (Manual) Seg Neutrophils # Seg Neutrophils # Man Lymphocytes # (Manual) APTT Sodium Potassium Chloride BUN Creatinine Glucose POC Glucose Lactic Acid 4.60 H* Calcium Phosphorus 6.80 H Magnesium 1.60 L Total Bilirubin AST ALT Alkaline Phosphatase Direct Bilirubin Total Creatine Kinase 240 H Troponin T NT-Pro-B Natriuret Pep 74990 H Total Protein Albumin Urine WBC (Auto) Urine Creatinine 08/06/20 08/06/20 08/06/20 15:34 18:33 18:50 WBC Hgb Hct MCV MCHC RDW Lymph % (Auto) Lymph # [place] % (Auto) Lymph # (Auto) [place] # (Auto) Eos # (Auto) Seg Neutrophils % Seg Neuts % (Manual) Lymphocytes % (Manual) Seg Neutrophils # Seg Neutrophils # Man Lymphocytes # (Manual) APTT Sodium Potassium Chloride BUN Creatinine Glucose POC Glucose Lactic Acid 4.10 H* 3.60 H* Calcium Phosphorus Magnesium 1.60 L Total Bilirubin AST ALT Alkaline Phosphatase Direct Bilirubin Total Creatine Kinase Troponin T NT-Pro-B Natriuret Pep Total Protein Albumin Urine WBC (Auto) Urine Creatinine 08/06/20 08/06/20 08/07/20 21:09 22:04 00:06 WBC Hgb Hct MCV MCHC RDW Lymph % (Auto) Lymph # [place] % (Auto) Lymph # (Auto) [place] # (Auto) Eos # (Auto) Seg Neutrophils % Seg Neuts % (Manual) Lymphocytes % (Manual) Seg Neutrophils # Seg Neutrophils # Man Lymphocytes # (Manual) APTT Sodium Potassium Chloride BUN Creatinine Glucose POC Glucose 188 H Lactic Acid 2.10 H* Calcium Phosphorus Magnesium Total Bilirubin AST ALT Alkaline Phosphatase Direct Bilirubin Total Creatine Kinase Troponin T NT-Pro-B Natriuret Pep Total Protein Albumin Urine WBC (Auto) 20.0 H Urine Creatinine 08/07/20 08/07/20 08/07/20 04:00 04:00 05:56 WBC Hgb Hct 34.3 L MCV 81 L MCHC 36 H RDW 21.9 H Lymph % (Auto) 6.0 L Lymph # 0.6 L [place] % (Auto) Lymph # (Auto) [place] # (Auto) Eos # (Auto) Seg Neutrophils % 89.4 H Seg Neuts % (Manual) Lymphocytes % (Manual) Seg Neutrophils # 9.3 H Seg Neutrophils # Man Lymphocytes # (Manual) APTT Sodium 136 L Potassium Chloride 88.5 L BUN 87 H Creatinine 3.7 H Glucose 187 H POC Glucose 190 H Lactic Acid Calcium 7.8 L Phosphorus Magnesium Total Bilirubin 9.60 H AST 53 H ALT 66 H Alkaline Phosphatase 264 H Direct Bilirubin Total Creatine Kinase Troponin T NT-Pro-B Natriuret Pep Total Protein 6.2 L Albumin 3.1 L Urine WBC (Auto) Urine Creatinine 08/07/20 08/07/20 08/07/20 07:50 10:13 12:36 WBC Hgb Hct MCV MCHC RDW Lymph % (Auto) Lymph # [place] % (Auto) Lymph # (Auto) [place] # (Auto) Eos # (Auto) Seg Neutrophils % Seg Neuts % (Manual) Lymphocytes % (Manual) Seg Neutrophils # Seg Neutrophils # Man Lymphocytes # (Manual) APTT Sodium Potassium Chloride BUN Creatinine Glucose POC Glucose 197 H 205 H Lactic Acid Calcium Phosphorus Magnesium Total Bilirubin AST ALT Alkaline Phosphatase Direct Bilirubin Total Creatine Kinase Troponin T NT-Pro-B Natriuret Pep Total Protein Albumin Urine WBC (Auto) Urine Creatinine 77.8 H 08/07/20 08/07/20 08/08/20 17:36 21:49 04:57 WBC Hgb Hct MCV MCHC RDW Lymph % (Auto) Lymph # [place] % (Auto) Lymph # (Auto) [place] # (Auto) Eos # (Auto) Seg Neutrophils % Seg Neuts % (Manual) Lymphocytes % (Manual) Seg Neutrophils # Seg Neutrophils # Man Lymphocytes # (Manual) APTT Sodium Potassium 3.3 L Chloride BUN 76 H Creatinine 2.0 H Glucose 353 H POC Glucose 240 H 218 H Lactic Acid Calcium 7.7 L Phosphorus Magnesium Total Bilirubin 8.00 H AST 46 H ALT 57 H Alkaline Phosphatase 348 H Direct Bilirubin Total Creatine Kinase Troponin T NT-Pro-B Natriuret Pep Total Protein 6.0 L Albumin 2.5 L Urine WBC (Auto) Urine Creatinine 08/08/20 08/08/20 08/08/20 08:06 11:52 17:52 WBC Hgb Hct MCV MCHC RDW Lymph % (Auto) Lymph # [place] % (Auto) Lymph # (Auto) [place] # (Auto) Eos # (Auto) Seg Neutrophils % Seg Neuts % (Manual) Lymphocytes % (Manual) Seg Neutrophils # Seg Neutrophils # Man Lymphocytes # (Manual) APTT Sodium Potassium Chloride BUN Creatinine Glucose POC Glucose 258 H 245 H 251 H Lactic Acid Calcium Phosphorus Magnesium Total Bilirubin AST ALT Alkaline Phosphatase Direct Bilirubin Total Creatine Kinase Troponin T NT-Pro-B Natriuret Pep Total Protein Albumin Urine WBC (Auto) Urine Creatinine 08/08/20 08/09/20 08/09/20 23:49 04:00 04:00 WBC 11.3 H Hgb Hct 35.0 L MCV 81 L MCHC 35 H RDW 21.6 H Lymph % (Auto) Lymph # [place] % (Auto) Lymph # (Auto) [place] # (Auto) Eos # (Auto) Seg Neutrophils % Seg Neuts % (Manual) 91.0 H Lymphocytes % (Manual) 3.0 L Seg Neutrophils # Seg Neutrophils # Man 10.3 H Lymphocytes # (Manual) 0.3 L APTT Sodium Potassium 3.5 L Chloride BUN 53 H Creatinine 1.5 H Glucose 188 H POC Glucose 220 H Lactic Acid Calcium 7.8 L Phosphorus Magnesium 2.50 H Total Bilirubin 5.10 H AST 63 H ALT 61 H Alkaline Phosphatase 476 H Direct Bilirubin Total Creatine Kinase Troponin T NT-Pro-B Natriuret Pep Total Protein 5.9 L Albumin 3.0 L Urine WBC (Auto) Urine Creatinine 08/09/20 08/09/20 08/10/20 05:29 12:12 00:11 WBC Hgb Hct MCV MCHC RDW Lymph % (Auto) Lymph # [place] % (Auto) Lymph # (Auto) [place] # (Auto) Eos # (Auto) Seg Neutrophils % Seg Neuts % (Manual) Lymphocytes % (Manual) Seg Neutrophils # Seg Neutrophils # Man Lymphocytes # (Manual) APTT Sodium Potassium Chloride BUN Creatinine Glucose POC Glucose 181 H 206 H 181 H Lactic Acid Calcium Phosphorus Magnesium Total Bilirubin AST ALT Alkaline Phosphatase Direct Bilirubin Total Creatine Kinase Troponin T NT-Pro-B Natriuret Pep Total Protein Albumin Urine WBC (Auto) Urine Creatinine 08/10/20 08/10/20 08/10/20 04:10 05:59 11:53 WBC Hgb Hct MCV MCHC RDW Lymph % (Auto) Lymph # [place] % (Auto) Lymph # (Auto) [place] # (Auto) Eos # (Auto) Seg Neutrophils % Seg Neuts % (Manual) Lymphocytes % (Manual) Seg Neutrophils # Seg Neutrophils # Man Lymphocytes # (Manual) APTT Sodium Potassium Chloride BUN 38 H Creatinine Glucose 176 H POC Glucose 182 H 187 H Lactic Acid Calcium 8.3 L Phosphorus Magnesium Total Bilirubin 5.00 H AST 60 H ALT 61 H Alkaline Phosphatase 543 H Direct Bilirubin Total Creatine Kinase Troponin T NT-Pro-B Natriuret Pep Total Protein 5.7 L Albumin 2.8 L Urine WBC (Auto) Urine Creatinine 08/10/20 08/10/20 08/11/20 17:28 23:20 04:22 WBC 11.6 H Hgb 11.3 L Hct 33.2 L MCV 83 L MCHC RDW 20.9 H Lymph % (Auto) 9.6 L Lymph # [place] % (Auto) 10.0 H Lymph # (Auto) 1.1 L [place] # (Auto) 1.2 H Eos # (Auto) 0.5 H Seg Neutrophils % 75.9 H Seg Neuts % (Manual) Lymphocytes % (Manual) Seg Neutrophils # 8.8 H Seg Neutrophils # Man Lymphocytes # (Manual) APTT Sodium Potassium Chloride BUN Creatinine Glucose POC Glucose 187 H 283 H Lactic Acid Calcium Phosphorus Magnesium Total Bilirubin AST ALT Alkaline Phosphatase Direct Bilirubin Total Creatine Kinase Troponin T NT-Pro-B Natriuret Pep Total Protein Albumin Urine WBC (Auto) Urine Creatinine 08/11/20 08/11/20 08/11/20 04:22 05:38 11:47 WBC Hgb Hct MCV MCHC RDW Lymph % (Auto) Lymph # [place] % (Auto) Lymph # (Auto) [place] # (Auto) Eos # (Auto) Seg Neutrophils % Seg Neuts % (Manual) Lymphocytes % (Manual) Seg Neutrophils # Seg Neutrophils # Man Lymphocytes # (Manual) APTT Sodium 136 L Potassium Chloride BUN 34 H Creatinine Glucose 105 H POC Glucose 117 H 164 H Lactic Acid Calcium 8.1 L Phosphorus Magnesium Total Bilirubin 5.30 H AST 50 H ALT Alkaline Phosphatase 577 H Direct Bilirubin 4.3 H Total Creatine Kinase Troponin T NT-Pro-B Natriuret Pep Total Protein 5.0 L Albumin 2.3 L Urine WBC (Auto) Urine Creatinine 08/11/20 08/12/20 08/12/20 17:23 00:06 04:41 WBC Hgb Hct MCV MCHC RDW Lymph % (Auto) Lymph # [place] % (Auto) Lymph # (Auto) [place] # (Auto) Eos # (Auto) Seg Neutrophils % Seg Neuts % (Manual) Lymphocytes % (Manual) Seg Neutrophils # Seg Neutrophils # Man Lymphocytes # (Manual) APTT Sodium 136 L Potassium Chloride BUN 27 H Creatinine Glucose 160 H POC Glucose 178 H 180 H Lactic Acid Calcium 8.2 L Phosphorus Magnesium Total Bilirubin 4.50 H AST ALT Alkaline Phosphatase 550 H Direct Bilirubin Total Creatine Kinase Troponin T NT-Pro-B Natriuret Pep Total Protein 5.3 L Albumin 2.6 L Urine WBC (Auto) Urine Creatinine 08/12/20 08/12/20 08/12/20 05:17 11:44 17:37 WBC Hgb Hct MCV MCHC RDW Lymph % (Auto) Lymph # [place] % (Auto) Lymph # (Auto) [place] # (Auto) Eos # (Auto) Seg Neutrophils % Seg Neuts % (Manual) Lymphocytes % (Manual) Seg Neutrophils # Seg Neutrophils # Man Lymphocytes # (Manual) APTT Sodium Potassium Chloride BUN Creatinine Glucose POC Glucose 160 H 170 H 255 H Lactic Acid Calcium Phosphorus Magnesium Total Bilirubin AST ALT Alkaline Phosphatase Direct Bilirubin Total Creatine Kinase Troponin T NT-Pro-B Natriuret Pep Total Protein Albumin Urine WBC (Auto) Urine Creatinine 08/12/20 08/12/20 08/13/20 18:18 18:52 00:09 WBC Hgb Hct MCV MCHC RDW Lymph % (Auto) Lymph # [place] % (Auto) Lymph # (Auto) [place] # (Auto) Eos # (Auto) Seg Neutrophils % Seg Neuts % (Manual) Lymphocytes % (Manual) Seg Neutrophils # Seg Neutrophils # Man Lymphocytes # (Manual) APTT Sodium Potassium Chloride BUN Creatinine Glucose POC Glucose 262 H 265 H 198 H Lactic Acid Calcium Phosphorus Magnesium Total Bilirubin AST ALT Alkaline Phosphatase Direct Bilirubin Total Creatine Kinase Troponin T NT-Pro-B Natriuret Pep Total Protein Albumin Urine WBC (Auto) Urine Creatinine 08/13/20 08/13/20 08/13/20 05:53 06:02 07:46 WBC Hgb Hct MCV MCHC RDW Lymph % (Auto) Lymph # [place] % (Auto) Lymph # (Auto) [place] # (Auto) Eos # (Auto) Seg Neutrophils % Seg Neuts % (Manual) Lymphocytes % (Manual) Seg Neutrophils # Seg Neutrophils # Man Lymphocytes # (Manual) APTT Sodium Potassium Chloride BUN 33 H Creatinine Glucose 185 H POC Glucose 107 H 207 H Lactic Acid Calcium Phosphorus Magnesium Total Bilirubin 3.30 H AST 46 H ALT Alkaline Phosphatase 542 H Direct Bilirubin Total Creatine Kinase Troponin T NT-Pro-B Natriuret Pep Total Protein 5.5 L Albumin 2.7 L Urine WBC (Auto) Urine Creatinine 08/13/20 08/13/20 08/14/20 12:00 16:07 04:35 WBC Hgb Hct MCV MCHC RDW Lymph % (Auto) Lymph # [place] % (Auto) Lymph # (Auto) [place] # (Auto) Eos # (Auto) Seg Neutrophils % Seg Neuts % (Manual) Lymphocytes % (Manual) Seg Neutrophils # Seg Neutrophils # Man Lymphocytes # (Manual) APTT Sodium Potassium Chloride BUN 29 H Creatinine Glucose 158 H POC Glucose 228 H 177 H Lactic Acid Calcium Phosphorus 1.80 L Magnesium Total Bilirubin 2.70 H AST ALT Alkaline Phosphatase 484 H Direct Bilirubin 1.8 H Total Creatine Kinase Troponin T NT-Pro-B Natriuret Pep Total Protein 5.3 L Albumin 2.5 L Urine WBC (Auto) Urine Creatinine 08/14/20 08/14/20 08/14/20 04:35 06:06 10:13 WBC 15.5 H Hgb Hct 34.9 L MCV 83 L MCHC RDW 20.0 H Lymph % (Auto) Lymph # [place] % (Auto) Lymph # (Auto) [place] # (Auto) Eos # (Auto) Seg Neutrophils % Seg Neuts % (Manual) Lymphocytes % (Manual) Seg Neutrophils # Seg Neutrophils # Man Lymphocytes # (Manual) APTT Sodium Potassium Chloride BUN Creatinine Glucose POC Glucose 156 H 278 H Lactic Acid Calcium Phosphorus Magnesium Total Bilirubin AST ALT Alkaline Phosphatase Direct Bilirubin Total Creatine Kinase Troponin T NT-Pro-B Natriuret Pep Total Protein Albumin Urine WBC (Auto) Urine Creatinine 08/14/20 08/14/20 08/15/20 12:04 18:53 00:37 WBC Hgb Hct MCV MCHC RDW Lymph % (Auto) Lymph # [place] % (Auto) Lymph # (Auto) [place] # (Auto) Eos # (Auto) Seg Neutrophils % Seg Neuts % (Manual) Lymphocytes % (Manual) Seg Neutrophils # Seg Neutrophils # Man Lymphocytes # (Manual) APTT Sodium Potassium Chloride BUN Creatinine Glucose POC Glucose 205 H 196 H 176 H Lactic Acid Calcium Phosphorus Magnesium Total Bilirubin AST ALT Alkaline Phosphatase Direct Bilirubin Total Creatine Kinase Troponin T NT-Pro-B Natriuret Pep Total Protein Albumin Urine WBC (Auto) Urine Creatinine 08/15/20 08/15/20 08/15/20 06:30 11:54 16:39 WBC Hgb Hct MCV MCHC RDW Lymph % (Auto) Lymph # [place] % (Auto) Lymph # (Auto) [place] # (Auto) Eos # (Auto) Seg Neutrophils % Seg Neuts % (Manual) Lymphocytes % (Manual) Seg Neutrophils # Seg Neutrophils # Man Lymphocytes # (Manual) APTT Sodium Potassium Chloride BUN Creatinine Glucose POC Glucose 133 H 169 H 172 H Lactic Acid Calcium Phosphorus Magnesium Total Bilirubin AST ALT Alkaline Phosphatase Direct Bilirubin Total Creatine Kinase Troponin T NT-Pro-B Natriuret Pep Total Protein Albumin Urine WBC (Auto) Urine Creatinine Allied health notes reviewed: nursing
[2020-08-16] MEDS: INSULIN LISPRO 100 UNIT/ML VIAL 3 mL SUB-Q SCH ×3 (00:46→12:41)
[2020-08-16 05:10] LABS: BUN/Creatinine Ratio 19; Blood Urea Nitrogen 17 mg/dL (9-20); Calcium 8.1 mg/dL (8.4-10.2); Hemolysis Index 1
[2020-08-16] MEDS ORDERED: MAGNESIUM SULFATE 1 GM in SODIUM CHLORIDE 0.9% 50 ML IV ONE (05:34)
[2020-08-16] MEDS: MORPHINE 2 MG/1 ML INJ IV PRN ×2 (06:02→10:22)
[2020-08-16] MEDS: PANTOPRAZOLE 40 MG TAB PO SCH (08:34)
[2020-08-16 09:08] VITALS: BP 113/51
[2020-08-16] MEDS: RIVAROXABAN 20 MG TAB PO SCH (10:23)
[2020-08-16] MEDS: INSULIN GLARGINE 100 UNITS/ML SUB-Q SCH (10:28)
--- NOTE | 2020-08-16 11:36 | Progress Note ---
Assessment and Plan 1. Acute kidney injury: Likely Vasomotor ROBERTH in the setting of shock. CT abdomen was negative for hydro. Monitor renal function. Creatinine level is better. Avoid nephrotoxic agents. Meds dosage based on GFR. 2. FEN: Mild Hyponatremia, monitor. Replete lytes. Monitor lytes and volume status. 3. Shock: Improved. S/p abx. 4. Acute toxic encephalopathy, POA. 5. Acute cholelithiasis, POA: Obstructive jaundice. S/p ERCP with sphincterotomy and removal of multiple common bile duct stones and sludge 08/10. S/p laparoscopic cholecystectomy 08/12. Followed by Gen. Surgery. 6. DM type 2: Monitor. - Subjective: Patient was seen and examined at the bedside. Doing ok. - Examination: General appearance: well-developed, appears stated age, no distress HEENT: ATNC, icterus Neck: Trachea midline Respiratory: ctab Cardiology: regular, S1S2, no murmur Gastrointestinal: soft, not tender, not distended, BS heard Integumentary: no obvious rash Neurologic: alert, able to move extremities, some confusion noted Ext: no extremity edema Subjective Date of service: 08/16/20 Principal diagnosis: Septic Shock; Ac. cholecystitis; ROBERTH; Gm +ve bacteremia; PAF; CAD Objective - Vital Signs Vital signs: Vital Signs - 12hr 08/16/20 08/16/20 08/16/20 04:59 06:02 07:20 Temperature 97.5 F L 99.1 F Pulse Rate 91 H 88 Respiratory 18 20 20 Rate Blood Pressure 122/52 113/51 O2 Sat by Pulse 94 94 Oximetry - Lab 08/14/20 04:35 08/16/20 04:14 Most recent lab results ABG pH 7.475 (7.320-7.450) H 08/16/20 08:43 Calcium 8.1 mg/dL (8.4-10.2) L 08/16/20 04:14 Phosphorus 1.80 mg/dL (2.5-4.5) L 08/16/20 04:14 Magnesium 1.60 mg/dL (1.7-2.3) L 08/16/20 04:14 Urine Creatinine 77.8 mg/dL (0.1-20.0) H 08/07/20 10:13 Urine Sodium 22 mmol/L 08/07/20 10:13 Medications & Allergies - Medications Allergies/Adverse Reactions: Allergies tetanus and diphtheria toxoids Adverse Reaction (Verified 08/06/20 14:20) Unknown Home Medications: Home Medications Medication Instructions Recorded Confirmed Last Taken Type Metformin HCl [metFORMIN] 1,000 mg PO BID 08/06/20 08/06/20 Unknown History Omeprazole 40 mg PO DAILY 08/06/20 08/06/20 Unknown History Rivaroxaban [Xarelto] 20 mg PO QDAY 08/06/20 08/06/20 Unknown History Sacubitril/Valsartan [Entresto 1 each PO BID 08/06/20 08/06/20 Unknown History 49-51 mg] Sertraline [Zoloft] 25 mg PO QDAY 08/06/20 08/06/20 Unknown History Spironolactone [Aldactone] 25 ng PO DAILY 08/06/20 08/06/20 Unknown History Torsemide [Demadex] 50 mg PO DAILY 08/06/20 08/06/20 Unknown History Zolpidem [Ambien] 5 mg PO QHS PRN 08/06/20 08/06/20 Unknown History carvediloL [Coreg] 6.25 mg PO BID 08/06/20 08/06/20 Unknown History traZODone [Desyrel] 50 mg PO QHS 08/06/20 08/06/20 Unknown History Active Medications: Generic Name Dose Route Start Last Admin Trade Name Freq PRN Reason Stop Dose Admin Lipase/Protease/Amylase 1 each 08/09/20 10:00 Nerissa Russell 10,500 Unit FEEDTUBE PRN PRN For Clogged Feeding Tube Dextrose 0 ml 08/06/20 22:56 D50w (25gm) Syringe IV Q30MIN PRN Hypoglycemia Protocol Sodium Chloride 1,000 mls @ 42 mls/hr 08/12/20 12:45 08/15/20 20:20 Nacl 0.9% 1000 Ml IV 42 mls/hr DIRECT JULIET Administration Insulin Glargine 5 units 08/08/20 13:30 08/16/20 10:28 Lantus SUB-Q 5 units DAILY JULIET Administration Insulin Human Lispro 0 unit 08/07/20 06:00 08/16/20 07:52 Humalog SUB-Q Not Given Q6HR JULIET Protocol Metoclopramide HCl 10 mg 08/13/20 20:22 08/13/20 22:02 Reglan IV 10 mg Q6H PRN Administration Nausea And Vomiting Morphine Sulfate 2 mg 08/06/20 18:40 08/16/20 10:22 Morphine IV 2 mg Q4H PRN Administration Pain, Moderate (4-6) Pantoprazole Sodium 40 mg 08/11/20 07:30 08/16/20 08:34 Protonix PO 40 mg QDAC JULIET Administration Potassium Phos/Sodium Phos 2 each 08/16/20 12:00 Phos-Nak PO 08/16/20 18:01 Q6HR JULIET Prochlorperazine Maleate 10 mg 08/07/20 19:01 08/13/20 18:57 Compazine PO 10 mg Q6H PRN Administration Nausea And Vomiting Rivaroxaban 20 mg 08/15/20 10:00 08/16/20 10:23 Xarelto PO 20 mg QDAY JULIET Administration Simple Syrup 15 ml 08/09/20 10:00 Simple Syrup FEEDTUBE PRN PRN Hypoglycemia Simple Syrup 30 ml 08/09/20 10:00 Simple Syrup FEEDTUBE PRN PRN Hypoglycemia Sodium Bicarbonate 325 mg 08/09/20 10:00 Sodium Bicarbonate FEEDTUBE PRN PRN For Clogged Feeding Tube Sodium Chloride 10 ml 08/06/20 22:00 08/16/20 10:23 Sodium Chloride Flush Syringe 10 Ml IV 10 ml BID JULIET Administration Sodium Chloride 10 ml 08/06/20 18:40 08/14/20 20:49 Sodium Chloride Flush Syringe 10 Ml IV 10 ml PRN PRN Administration LINE FLUSH
[2020-08-16] MEDS ORDERED: PHOS-NAK POWDER PACKET PO SCH (12:00)
--- NOTE | 2020-08-16 12:00 | Progress Note ---
Assessment and Plan Acute cholecystitis s/p laparoscopic cholecystectomy Severe jaundice with a bilirubin level of 9.7 Acute renal failure History of systolic heart failure LVEF 30-35% by echo this admission no evidence of decompensation on entresto as an outpatient Aortic stenosis, moderate with a mean gradient of 22.6 History of coronary artery disease Dual-chamber AICD in situ Paroxysmal atrial fibrillation Xarelto resumed for anticoagulation Resume medical therapy for dilated cardiomyopathy. Continue anticoagulation for paroxysmal atrial fibrillation. Otherwise, conservative cardiac management. Subjective Date of service: 08/16/20 Principal diagnosis: Septic Shock; Ac. cholecystitis; ROBERTH; Gm +ve bacteremia; PAF; CAD Objective Vital Signs Temp Pulse Pulse Resp BP Pulse Ox 08/16/20 07:20 99.1 F 88 20 113/51 94 08/16/20 06:02 20 08/16/20 04:59 97.5 F L 91 H 18 122/52 94 08/15/20 23:00 98.6 F 102 H 20 136/57 95 08/15/20 22:00 102 H 86 08/15/20 21:28 20 08/15/20 20:33 97.8 F 87 20 128/55 95 08/15/20 17:05 98.2 F 73 20 142/71 96 - Physical Examination General: No Apparent Distress HEENT: Positive: PERRL Neck: Positive: neck supple Neuro: Positive: Grossly Intact Abdomen: Positive: Soft Skin: Positive: Clear Extremities: Absent: edema - Labs and Meds Comprehensive Metabolic Panel 08/16/20 Range/Units 04:14 Sodium 133 L D (137-145) mmol/L Potassium 3.9 (3.6-5.0) mmol/L Chloride 98.2 (98-107) mmol/L Carbon Dioxide 25 (22-30) mmol/L BUN 17 (9-20) mg/dL Creatinine 0.9 (0.8-1.3) mg/dL Glucose 164 H (75-100) mg/dL Calcium 8.1 L (8.4-10.2) mg/dL - Allied health notes Allied health notes reviewed: nursing
--- NOTE | 2020-08-16 17:13 | Progress Note ---
Assessment and Plan --Acute cholecystitis with choledocholithiasis s/p ERCP with cold biopsy, sphincterotomy, and balloon sweep of the common bile duct yesterday laparoscopic cholecystectomy yesterday CT abdomen/pelvis: 1. Acute cholecystitis. There is also choledocholithiasis. Postop patient is doing well -- Acute kidney injury (ROBERTH) with acute tubular necrosis (ATN) Monitor urine output every shift, supportive care, nephrology team consulted. Renal function improved, Continue low volume IV fluid given history of CHF --Acute metabolic encephalopathy, resolved Continue supportive care and follow clinically - Coag-neg Staph bacteremia: likely a contaminant, repeat blood cultures negative. --Septic shock, s/p Levophed, monitor vitals --Sepsis, present on admission Patient presented with severe hypotension, lactic acidosis, ROBERTH, altered mental status Blood culture positive for gram-positive cocci, CT abdomen pelvis suggesting acute cholecystitis and choledocholithiasis Continue IV antibiotics for now, follow ID recommendation, monitor final blood culture results PUI with COVID 19, ruled out with negative test --CHF with systolic failure, appears compensated EF 20-25%, cardiology following, -- Paroxysmal atrial fibrillation on Xarelto, will hold for now possible surgery/ERCP Patient normal sinus rhythm on the monitor -Elevated LFT Likely due to obstruction Will continue to monitor LFT, consulted with GI --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 --Advance care planning Disease education conducted, supportive care, patient is full code SNF placement Subjective Date of service: 08/13/20 Principal diagnosis: Gallstones Interval history: Brief history: 70-year-old man with h/o history of systolic heart failure, coronary artery disease, dual-chamber pacemaker in situ, on anticoagulation with Xarelto, admi tted with weakness, severe jaundice, and severe renal failure. CT scan of the abdomen reports evidence of acute cholecystitis. 08/07: Continue IV fluid, empiric antibiotics, blood cx positive for gm +ve cocci . Consult GI and general surgery. Monitor renal function and follow clinically. obtain 2d echo. follow CoVID 19 result 08/08; patient remains on Levophed, renal function improved. Continue low volume IV fluid, COVID 19 test negative, follow blood culture, continue IV antibiotics we will follow 2D echo result. Continue to hold Xarelto for now. Called patient and updated. 08/09: Off pressor today, wait for 2D echo result. Plan for ERCP tomorrow if pat ient remains clinically stable. 08/10: Plan for ERCP today, 2D echo showed EF 20 to 25% 08/11; clinically stable, [facility] plan for cholecystectomy tomorrow 08/12/2020 patient for acute cholecystectomy today 08/13/2020 patient doing well postop Patient for placement Objective - Constitutional Vitals: Vital Signs - 12hr 08/16/20 08/16/20 08/16/20 06:02 07:20 10:00 Temperature 99.1 F Pulse Rate 88 85 Pulse Rate [ 85 Apical] Respiratory 20 20 20 Rate Blood Pressure 113/51 O2 Sat by Pulse 94 Oximetry General appearance: Present: no acute distress, well-nourished - EENT Eyes: PERRL, EOM intact ENT: hearing intact, clear oral mucosa Ears: bilateral: normal - Neck Neck: supple, normal ROM - Respiratory Respiratory effort: normal Respiratory: bilateral: CTA - Breasts Breasts: normal - Cardiovascular Heart rate: 76 Rhythm: regular Heart Sounds: Present: S1 & S2. Absent: gallop, rub Extremities: pulses intact, No edema, normal color, Full ROM - Gastrointestinal General gastrointestinal: Present: soft, non-tender, non-distended, normal bowel sounds - Genitourinary Male genitourinary: normal - Integumentary Integumentary: clear, warm, dry - Musculoskeletal Musculoskeletal: 1, strength equal bilaterally - Neurologic Neurologic: moves all extremities - Psychiatric Psychiatric: memory intact, appropriate mood/affect, intact judgment & insight - Labs CBC & Chem 7: 08/14/20 04:35 08/16/20 04:14 Labs: Abnormal lab results 08/16/20 08/16/20 08/16/20 Range/Units 04:14 04:14 06:29 ABG pH (7.320-7.450) POC ABG pO2 (83-108) mmHg Sodium 133 L D (137-145) mmol/L Glucose 164 H (75-100) mg/dL POC Glucose 147 H (70-105) Calcium 8.1 L (8.4-10.2) mg/dL Phosphorus 1.80 L (2.5-4.5) mg/dL Magnesium 1.60 L (1.7-2.3) mg/dL 08/16/20 08/16/20 08/16/20 Range/Units 07:36 08:43 12:40 ABG pH 7.475 H (7.320-7.450) POC ABG pO2 71.9 L (83-108) mmHg Sodium (137-145) mmol/L Glucose (75-100) mg/dL POC Glucose 159 H 162 H (70-105) Calcium (8.4-10.2) mg/dL Phosphorus (2.5-4.5) mg/dL Magnesium (1.7-2.3) mg/dL HEART Score - HEART Score Troponin: Troponin T 0.023 ng/mL (0.00-0.029) 08/06/20 18:33
--- NOTE | 2020-08-16 17:17 | Progress Note ---
Assessment and Plan --Acute cholecystitis with choledocholithiasis s/p ERCP with cold biopsy, sphincterotomy, and balloon sweep of the common bile duct yesterday S/p laparoscopic cholecystectomy-doing well CT abdomen/pelvis: 1. Acute cholecystitis. There is also choledocholithiasis. Postop patient is doing well -- Acute kidney injury (ROBERTH) with acute tubular necrosis (ATN) Monitor urine output every shift, supportive care, nephrology team consulted. Renal function improved, Continue low volume IV fluid given history of CHF --Acute metabolic encephalopathy, resolved Continue supportive care and follow clinically - Coag-neg Staph bacteremia: likely a contaminant, repeat blood cultures negative. --Septic shock, s/p Levophed, monitor vitals --Sepsis, present on admission Patient presented with severe hypotension, lactic acidosis, ROBERTH, altered mental status Blood culture positive for gram-positive cocci, CT abdomen pelvis suggesting acute cholecystitis and choledocholithiasis Continue IV antibiotics for now, follow ID recommendation, monitor final blood culture results PUI with COVID 19, ruled out with negative test --CHF with systolic failure, appears compensated EF 20-25%, cardiology following, -- Paroxysmal atrial fibrillation on Xarelto, will hold for now possible surgery/ERCP Patient normal sinus rhythm on the monitor -Elevated LFT Likely due to obstruction Will continue to monitor LFT, consulted with GI --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 --Advance care planning Disease education conducted, supportive care, patient is full code SNF placement Subjective Date of service: 08/15/20 Principal diagnosis: Septic Shock; Ac. cholecystitis; ROBERTH; Gm +ve bacteremia; PAF; CAD Interval history: Brief history: 70-year-old man with h/o history of systolic heart failure, coronary artery disease, dual-chamber pacemaker in situ, on anticoagulation with Xarelto, admitted with weakness, severe jaundice, and severe renal failure. CT scan of the abdomen reports evidence of acute cholecystitis. 08/07: Continue IV fluid, empiric antibiotics, blood cx positive for gm +ve cocci . Consult GI and general surgery. Monitor renal function and follow clinically. obtain 2d echo. follow CoVID 19 result 08/08; patient remains on Levophed, renal function improved. Continue low volume IV fluid, COVID 19 test negative, follow blood culture, continue IV antibiotics we will follow 2D echo result. Continue to hold Xarelto for now. Called patient and updated. 08/09: Off pressor today, wait for 2D echo result. Plan for ERCP tomorrow if patient remains clinically stable. 08/10: Plan for ERCP today, 2D echo showed EF 20 to 25% 08/11; clinically stable, transfer [facility]. plan for cholecystectomy tomorrow 08/12/2020 patient for acute cholecystectomy today 08/13/2020 patient doing well postop Patient for placement 08/14/2020 Patient waiting for placement 08/15/2020 Patient waiting for placement to assisted facility Objective - Constitutional Vitals: Vital Signs - 12hr 08/16/20 08/16/20 08/16/20 06:02 07:20 10:00 Temperature 99.1 F Pulse Rate 88 85 Pulse Rate [ 85 Apical] Respiratory 20 20 20 Rate Blood Pressure 113/51 O2 Sat by Pulse 94 Oximetry General appearance: Present: no acute distress, well-nourished - EENT Eyes: PERRL, EOM intact ENT: hearing intact, clear oral mucosa Ears: bilateral: normal - Neck Neck: supple, normal ROM - Respiratory Respiratory effort: normal Respiratory: bilateral: CTA - Breasts Breasts: normal - Cardiovascular Heart rate: 78 Rhythm: regular Heart Sounds: Present: S1 & S2. Absent: gallop, rub Extremities: pulses intact, No edema, normal color, Full ROM - Gastrointestinal General gastrointestinal: Present: soft, non-tender, non-distended, normal bowel sounds - Genitourinary Male genitourinary: normal - Integumentary Integumentary: clear, warm, dry - Musculoskeletal Musculoskeletal: 1, strength equal bilaterally - Neurologic Neurologic: moves all extremities - Psychiatric Psychiatric: memory intact, appropriate mood/affect, intact judgment & insight - Labs CBC & Chem 7: 08/14/20 04:35 08/16/20 04:14 Labs: Abnormal lab results 08/16/20 08/16/20 08/16/20 Range/Units 04:14 04:14 06:29 ABG pH (7.320-7.450) POC ABG pO2 (83-108) mmHg Sodium 133 L D (137-145) mmol/L Glucose 164 H (75-100) mg/dL POC Glucose 147 H (70-105) Calcium 8.1 L (8.4-10.2) mg/dL Phosphorus 1.80 L (2.5-4.5) mg/dL Magnesium 1.60 L (1.7-2.3) mg/dL 08/16/20 08/16/20 08/16/20 Range/Units 07:36 08:43 12:40 ABG pH 7.475 H (7.320-7.450) POC ABG pO2 71.9 L (83-108) mmHg Sodium (137-145) mmol/L Glucose (75-100) mg/dL POC Glucose 159 H 162 H (70-105) Calcium (8.4-10.2) mg/dL Phosphorus (2.5-4.5) mg/dL Magnesium (1.7-2.3) mg/dL HEART Score - HEART Score Troponin: Troponin T 0.023 ng/mL (0.00-0.029) 08/06/20 18:33
--- NOTE | 2020-08-16 17:20 | Discharge Summary ---
Providers - Providers Date of Admission: 08/06/20 18:40 Date of discharge: 08/16/20 Attending physician: KENDY MARCOS 08/06/20 18:43 Consult to Physician [CONS] Routine Comment: Consulting Provider: DAKSHA MERRILL Physician Instructions: Reason For Exam: roberth/atn/hepatorenal syndrome 08/06/20 18:44 Consult to Physician [CONS] Routine Comment: Consulting Provider: YESICA MARIA Physician Instructions: Reason For Exam: chf 08/06/20 22:53 Consult to Physician [CONS] Urgent Comment: Consulting Provider: SCARLETT SANTANA Physician Instructions: Reason For Exam: CCU admit 08/06/20 22:56 Consult to Dietitian/Nutrition [CONS] Routine Physician Instructions: Reason For Exam: Reason for Consult: Poor oral intake 08/07/20 11:20 Consult to Physician [CONS] Urgent Comment: Consulting Provider: HOA NAVARRO Physician Instructions: Reason For Exam: sepsis 08/07/20 14:49 Consult to Physician [CONS] Routine Comment: Consulting Provider: MERY ACOSTA Physician Instructions: Reason For Exam: elevated LFT 08/07/20 14:51 Consult to Physician [CONS] Routine Comment: Consulting Provider: SOUMYA RAMIREZ Physician Instructions: Reason For Exam: acute cholecystitis 08/10/20 13:56 Physical Therapy Evaluation and Treat [CONS] Urgent Comment: uses a cane at home Reason For Exam: per spouse patient has fallen a few times Primary care physician: BILL BAUER Hospitalization Condition: Stable Hospital course: Subjective Date of service: 08/15/20 Principal diagnosis: Septic Shock; Ac. cholecystitis; ROBERTH; Gm +ve bacteremia; PAF; CAD Interval history: Brief history: 70-year-old man with h/o history of systolic heart failure, coronary artery disease, dual-chamber pacemaker in situ, on anticoagulation with Xarelto, admitted with weakness, severe jaundice, and severe renal failure. CT scan of the abdomen reports evidence of acute cholecystitis. 08/07: Continue IV fluid, empiric antibiotics, blood cx positive for gm +ve cocci . Consult GI and general surgery. Monitor renal function and follow clinically. obtain 2d echo. follow CoVID 19 result 08/08; patient remains on Levophed, renal function improved. Continue low volume IV fluid, COVID 19 test negative, follow blood culture, continue IV antibiotics we will follow 2D echo result. Continue to hold Xarelto for now. Called patient and updated. 08/09: Off pressor today, wait for 2D echo result. Plan for ERCP tomorrow if patient remains clinically stable. 08/10: Plan for ERCP today, 2D echo showed EF 20 to 25% 08/11; clinically stable, [facility] plan for cholecystectomy tomorrow 08/12/2020 patient for acute cholecystectomy today 08/13/2020 patient doing well postop Patient for placement 08/14/2020 Patient waiting for placement 08/15/2020 Patient waiting for placement to [facility] facility 08/16/2020 Patient went to [facility] --Acute cholecystitis with choledocholithiasis s/p ERCP with cold biopsy, sphincterotomy, and balloon sweep of the common bile duct yesterday S/p laparoscopic cholecystectomy-doing well CT abdomen/pelvis: 1. Acute cholecystitis. There is also choledocholithiasis. Postop patient is doing well -- Acute kidney injury (ROBERTH) with acute tubular necrosis (ATN) Monitor urine output every shift, supportive care, nephrology team consulted. Renal function improved, Continue low volume IV fluid given history of CHF --Acute metabolic encephalopathy, resolved Continue supportive care and follow clinically - Coag-neg Staph bacteremia: likely a contaminant, repeat blood cultures negative. --Septic shock, s/p Levophed, monitor vitals --Sepsis, present on admission Patient presented with severe hypotension, lactic acidosis, ROBERTH, altered mental status Blood culture positive for gram-positive cocci, CT abdomen pelvis suggesting acute cholecystitis and choledocholithiasis Continue IV antibiotics for now, follow ID recommendation, monitor final blood culture results PUI with COVID 19, ruled out with negative test --CHF with systolic failure, appears compensated EF 20-25%, cardiology following, -- Paroxysmal atrial fibrillation on Xarelto, will hold for now possible surgery/ERCP Patient normal sinus rhythm on the monitor -Elevated LFT Likely due to obstruction Will continue to monitor LFT, consulted with GI --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 --Advance care planning Disease education conducted, supportive care, patient is full code SNF placement Disposition: [id number]/[place]-[id number] SNF [facility] Time spent for discharge: 40 minutes - Discharge Diagnoses (1) Cholecystitis Status: Acute (2) ROBERTH (acute kidney injury) Status: Acute (3) Acute metabolic encephalopathy Status: Acute (4) Acute exacerbation of CHF (congestive heart failure) Status: Acute (5) Transaminitis Status: Acute (6) Advance care planning Status: Acute Core Measure Documentation - Palliative Care Palliative Care/ Comfort Measures: Not Applicable - Core Measures Any of the following diagnoses?: none Exam - Constitutional Vitals: Temp Pulse Resp BP Pulse Ox 99.1 F 85 20 113/51 94 08/16/20 07:20 08/16/20 10:00 08/16/20 10:00 08/16/20 07:20 08/16/20 07:20 General appearance: Present: no acute distress, well-nourished - EENT Eyes: Present: PERRL ENT: hearing intact, clear oral mucosa - Neck Neck: Present: supple, normal ROM - Respiratory Respiratory effort: normal Respiratory: bilateral: CTA - Cardiovascular Heart rate: 78 Rhythm: regular Heart Sounds: Present: S1 & S2. Absent: rub, click - Extremities Extremities: pulses symmetrical, No edema Peripheral Pulses: within normal limits - Abdominal General gastrointestinal: Present: soft, non-tender, non-distended, normal bowel sounds Male genitourinary: Present: normal - Rectal Rectal Exam: deferred - Integumentary Integumentary: Present: clear, warm, dry - Musculoskeletal Musculoskeletal: gait normal, strength equal bilaterally - Psychiatric Psychiatric: appropriate mood/affect, intact judgment & insight - Neurologic Neurologic: CNII-XII intact, moves all extremities Plan Activity: no restrictions Diet: low cholesterol, low salt, diabetic Follow up with: AZIZA JESUS DO [Staff Physician] - 14 Days BILL BAUER MD [Primary Care Provider] - 7 Days
[2020-08-16] MEDS ORDERED: carvediloL 3.125 MG TAB PO SCH (22:00)
[2020-08-16] MEDS ORDERED: SACUBITRIL/VALSARTAN 49-51 MG TAB PO SCH (22:00)
[2020-08-17] MEDS ORDERED: TORSEMIDE 100 MG TAB PO SCH (06:00)
[2020-08-17] MEDS ORDERED: SPIRONOLACTONE 25 MG TAB PO SCH (10:00)
== END 2020-08-16 14:25 | DRG 853 ==
LOC: ED 13:09 → IMCU 18:40 → CC1 21:40 → 4A 08-11 18:35
PROVIDERS: ADMIT Internal Medicine; ATTEND Internal Medicine
PROC: 06HY33Z Insertion of Infusion Device into Lower Vein, Percutaneous Approach (ICD-10-PCS; 2020-08-06)
PROC: 0FBC8ZX Excision of Ampulla of Vater, Via Natural or Artificial Opening Endoscopic, Diagnostic (ICD-10-PCS; principal; 2020-08-10)
PROC: 0F778ZZ Dilation of Common Hepatic Duct, Via Natural or Artificial Opening Endoscopic (ICD-10-PCS; 2020-08-10)
PROC: 0FT44ZZ Resection of Gallbladder, Percutaneous Endoscopic Approach (ICD-10-PCS; 2020-08-12)
PROC: 0FN44ZZ Release Gallbladder, Percutaneous Endoscopic Approach (ICD-10-PCS; 2020-08-12)
PROC: 0FN04ZZ Release Liver, Percutaneous Endoscopic Approach (ICD-10-PCS; 2020-08-12)
PROC: BF131ZZ Fluoroscopy of Gallbladder and Bile Ducts using Low Osmolar Contrast (ICD-10-PCS; 2020-08-12)
PROC: 4A033R1 Measurement of Arterial Saturation, Peripheral, Percutaneous Approach (ICD-10-PCS; 2020-08-16)
DX: A41.89 Other specified sepsis (principal); N17.0 Acute kidney failure with tubular necrosis; K76.7 Hepatorenal syndrome; G92 Toxic encephalopathy; R65.21 Severe sepsis with septic shock; I50.23 Acute on chronic systolic (congestive) heart failure; E87.2 Acidosis; C25.0 Malignant neoplasm of head of pancreas; E87.1 Hypo-osmolality and hyponatremia; K80.43 Calculus of bile duct with acute cholecystitis with obstruction; Q44.5 Other congenital malformations of bile ducts; R74.0 Nonspecific elevation of levels of transaminase and lactic acid dehydrogenase [LDH]; F17.210 Nicotine dependence, cigarettes, uncomplicated; I11.0 Hypertensive heart disease with heart failure; K21.9 Gastro-esophageal reflux disease without esophagitis; I48.0 Paroxysmal atrial fibrillation; I25.10 Atherosclerotic heart disease of native coronary artery without angina pectoris; Z95.0 Presence of cardiac pacemaker
CPT/HCPCS: 36415; 36600; 71045; 74176; 74300; 74328; 76705; 80048; 80053; 80076; 80202; 80307; 81001; 82140; 82550; 82570; 82805; 82962; 83690; 83735; 83880; 84100; 84300; 84439; 84443; 84484; 85007; 85025; 85027; 85610; 85730; 87040; 87086; 88304; 88305; 89050; 93306; 94760; 96365; 96375; G0378; A4217; C1726; J0330; J0692; J1100; J1170; J1610; J1644; J1815; J2250; J2270; J2370; J2405; J2704; J2710; J2765; J3010; J3230; J3370; J3475; J3480; J3490; J7030; J7040; J7042; J7050; Q0164; Q9967; U0003-CS